=== PATIENT | female | born 1985 | race Caucasian/White ===

== ENCOUNTER 2018-02-06 18:04 | Emergency (ER) | payer SELFPAY ==
[~2018-02-06] VITALS: Ht 154.9 cm; Wt 158.0 kg
[2018-02-06 19:36] LABS: BILIRUBIN,URINE NEGATIVE (NEGATIVE); CLARITY,URINE BLOODY; COLOR,URINE RED; GLUCOSE, URINE (UA) NEGATIVE (NEGATIVE); KETONES,URINE 1+ (NEGATIVE); LEUKOCYTE ESTERASE ,URINE 2+ (NEGATIVE); NITRITE,URINE POSITIVE (NEGATIVE); PH,URINE 8 (5-9); PROTEIN,URINE 3+ (NEGATIVE); UROBILINOGEN,URINE NORMAL (NORMAL)
[2018-02-06 19:46] LABS: BACTERIA,URINE LARGE /HPF; RBC,URINE TNTC /HPF
[2018-02-06] MEDS ORDERED: CIPR-225 PO (20:52)
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
[2018-02-06] MEDS ORDERED: CIPROFLOXACIN 500 MG (CIPRO) TABLET PO SCH (20:55)
[2018-02-06 21:10] VITALS: BP 148/90
--- OUTSIDE RECORDS SUMMARY | 2018-02-08 06:34 | XMS REPORT | Continuity of Care Document ---
Author Author [facility] Organization [facility] Address Unknown Phone Unavailable Care Team Providers Care Associate Merchant Name Role Phone BONITA ARMSTRONG M.D. PCP Insurance Providers Payer Name Policy Number Subscriber Name Relationship [facility] [id number] Matt Islas 02 Chief Complaint and Reason for Visit Chief Complaint Abdominal Pain Reason for Visit Kidney stone [id number] Abdominal pain Problems Medical Problems Problem Onset Date Status Candidiasis of skin 10/10/2012 Active Cellulitis 10/10/2012 Active Leukocytosis 10/10/2012 Active Acute on chronic headache Unknown Active Breast wound Unknown Active Dental abscess Unknown Active Dental abscess Unknown Active Urticaria Unknown Active Dental abscess Unknown Active Urticaria Unknown Active Kidney stone Unknown Active UTI (urinary tract infection) Unknown Active Abdominal pain Unknown Active Kidney stone Unknown Active Medications Medication Dose Route Sig Days/Qty Instructions Order Date Discontinued Date Status Gemfibrozil 600 Mg PO TWICE A DAY 60 Qty 03/26/15 Active Sulfamethoxazole-Trimethoprim 1 Tab PO TWICE A DAY For BACTINF 20 Qty 05/08/15 Active Oxycodone/Acetaminophen 1 Tab PO Q6H PRN PAIN 10 Qty 05/08/15 Active Social History Social History Problem Response Recorded Date/Time Smoking Status Heavy Tobacco Smoker 05/08/2015 12:45am Query Response Start Date Stop Date Smoking Status Heavy Tobacco Smoker Hospital Discharge Instructions No hospital discharge instructions. Plan of Care Discharge Date 05/08/15 3:40am Disposition 01 HOME, SELF-CARE Condition at Discharge Improved/Stable Instructions/Education Provided Urinary Tract Infection in Women (ED) Abdominal Pain (ED) Prescriptions See Medications Section Referrals BONITA ARMSTRONG M.D. Additional Instructions/Education Testing today showed signs of a urinary tract infection but no obstructing kidney stone. You have a small stone just floating around in your right kidney. Gall bladder and appendix appeared normal. Complete antibiotic course. Use Percocet for pain. Call the ER tomorrow to get pending lab results. Return to the ER if with worsening pain, persistent vomiting, high fever or blood in stool or vomitus. Functional Status No functional status results. Allergies, Adverse Reactions, Alerts Allergen Type Severity Reaction Status Last Updated Penicillins Allergy Unknown Active 11/02/14 BETALACTAMASEIN Allergy Unknown Active 11/02/14 Immunizations No immunization records. Vital Signs Acute Vital Signs Vital Response Date/Time Blood Pressure 124/76 mm Hg Blood Pressure Mean 92 mm Hg Temperature (Fahrenheit) 99.7 degrees F (96.0 - 99.9) Temperature (Calculated Celsius) 37.07581 degrees C Temperature Source Oral Pulse Pulse Rate: ED 88 bpm Respiratory Rate 18 breaths per minute (10 - 20) Height (Feet) 5 ft Height (Inches) 2 in. Weight (Pounds) 342 lbs Height 5 ft 2 in Weight 342 lb Body Mass Index 62.6 kg/m^2 Results Test Source Date Result Interp. Ref. Range Comments Alanine Aminotransferase (ALT/SGPT) May 08, 2015 1:10am 33 U/L N 5-40 Albumin May 08, 2015 1:10am 3.5 gm/dL N 3.2-5.0 Albumin/Globulin Ratio May 08, 2015 1:10am 1.0 L 1.4-2.4 Alkaline Phosphatase May 08, 2015 1:10am 80 U/L N 35-125 Anion Gap May 08, 2015 1:10am 8.8 N 6-13 Aspartate Amino Transf (AST/SGOT) May 08, 2015 1:10am 22 U/L N 5-40 BUN/Creatinine Ratio May 08, 2015 1:10am 15.7 Basophils # (Auto) May 08, 2015 1:10am 0.1 K/uL N 0-0.2 Basophils (%) (Auto) May 08, 2015 1:10am 0.4 % N 0-1 Bedside Troponin I August 09, 2013 12:37am < 0.05 ng/mL 0.00-0.05 <0.05 ng/mL=NORMAL0.05 - 0.40 ng/mL=CARDIAC CONDITION >0.40 ng/mL=SUGGESTS AMI Blood Urea Nitrogen May 08, 2015 1:10am 13 mg/dL N 8-25 Calcium Level May 08, 2015 1:10am 8.8 mg/dL N 8.2-10.6 Carbon Dioxide Level May 08, 2015 1:10am 26 mEq/L N 22-34 Chloride Level May 08, 2015 1:10am 105 mEq/L N 98-116 Creatinine May 08, 2015 1:10am 0.83 mg/dL L 0.9-1.6 D-Dimer Quantitative (PE/DVT) August 09, 2013 12:20am 154 ng/mL < 230 Results <230 ng/mL yeild a negativepredictability for DVT or PE Eosinophils # (Auto) May 08, 2015 1:10am 0.1 K/uL N 0-0.8 Eosinophils (%) (Auto) May 08, 2015 1:10am 0.6 % N 0-7.0 Globulin May 08, 2015 1:10am 3.5 gm/dL H 2.0-3.0 Glomerular Filtration Rate Calc May 08, 2015 1:10am > 60.00 mL/min MULTIPLY RESULT BY 1.210 IF THE PATIENT IS -AMERICANUnits are mL/min/ 1.73 m2 > 60 Normal kidney function 30-59 Moderately decreased kidney function 15-29 Severely decreased kidney function <15 End-stage kidney failure Hematocrit May 08, 2015 1:10am 40.0 % N 38.0-47.0 Hemoglobin May 08, 2015 1:10am 13.2 g/dL N 12.0-16.0 Immature Blood Cells August 09, 2013 12:20am 0.2 K/uL N 0-0.4 COMMENT: 02 Immature Granulocyte # (Auto) May 08, 2015 1:10am 0.08 K/uL N 0-0.40 Immature Granulocyte % (Auto) May 08, 2015 1:10am 0.5 % N 0-0.5 Immature Platelet Fraction May 08, 2015 1:10am 4.1 % N 3.0-15.9 Lipase May 08, 2015 1:10am 24 U/L N 8-57 Lymphocytes # (Auto) May 08, 2015 1:10am 2.6 K/uL N 0.9-5.2 Lymphocytes (%) (Auto) May 08, 2015 1:10am 16.4 % N 16.0-44.0 Mean Corpuscular Hemoglobin May 08, 2015 1:10am 29.9 pg N 26.0-33.0 Mean Corpuscular Hemoglobin Concent May 08, 2015 1:10am 33.0 g/dL N 31.0-36.0 Mean Corpuscular Volume May 08, 2015 1:10am 90.5 fL N 82.0-100.0 Mean Platelet Volume May 08, 2015 1:10am 10.4 fL N 7.0-11.0 Monocytes # (Auto) May 08, 2015 1:10am 0.9 K/uL N 0.16-1.0 Monocytes (%) (Auto) May 08, 2015 1:10am 5.3 % N 2.0-9.0 Neutrophils # (Auto) May 08, 2015 1:10am 12.4 K/uL H 1.9-8.0 Neutrophils (%) (Auto) May 08, 2015 1:10am 76.8 % H 42.0-75.0 Nucleated Red Blood Cells # May 08, 2015 1:10am 0.00 K/uL N 0.0-0.012 Nucleated Red Blood Cells % May 08, 2015 1:10am 0.0 /100WBC N 0-0 Platelet Count May 08, 2015 1:10am 244 K/uL N 130-400 Potassium Level May 08, 2015 1:10am 3.8 mEq/L N 3.5-5.1 RDW Standard Deviation May 08, 2015 1:10am 42.8 fL N 36.4-46.3 Random Glucose May 08, 2015 1:10am 104 mg/dL N 65-115 Red Blood Count May 08, 2015 1:10am 4.42 M/uL N 4.20-5.40 Red Cell Distribution Width May 08, 2015 1:10am 13.0 % N 11.5-14.5 Sodium Level May 08, 2015 1:10am 136 mEq/L N 133-145 Total Bilirubin May 08, 2015 1:10am 0.5 mg/dL N 0.1-1.3 Total Creatine Kinase July 08, 2013 1:52am 90 U/L N 10-180 COMMENT: TR Total Protein May 08, 2015 1:10am 7.0 gm/dL N 6.0-8.4 Urine Amorphous Sediment October 09, 2012 11:10pm 1+ COMMENT: 02SOURCE: URINE, CLEAN CATCH Urine Appearance May 08, 2015 1:10am Cloudy SOURCE: URINE, CLEAN CATCH Urine Bacteria May 08, 2015 1:10am 1+ /hpf H NONE SOURCE: URINE, CLEAN CATCH Urine Bilirubin May 08, 2015 1:10am Negative NEGATIVE SOURCE: URINE , CLEAN CATCH Urine Casts October 09, 2012 11:10pm None /lpf NONE COMMENT: 02SOURCE: URINE, CLEAN CATCH Urine Color May 08, 2015 1:10am Yellow SOURCE: URINE, CLEAN CATCH Urine Crystals October 09, 2012 11:10pm None /hpf NONE COMMENT: 02SOURCE: URINE, CLEAN CATCH Urine Epithelial Cells May 08, 2015 1:10am Moderate /lpf 2+ CLUE CELLS Urine Glucose (UA) May 08, 2015 1:10am Negative NEGATIVE SOURCE: URINE, CLEAN CATCH Urine Human Chorionic Gonadotropin May 08, 2015 1:10am Negative NEGATIVE Urine Ketones May 08, 2015 1:10am Negative NEGATIVE SOURCE: URINE, CLEAN CATCH Urine Leukocyte Esterase May 08, 2015 1:10am 1+ H NEGATIVE SOURCE: URINE, CLEAN CATCH Urine Mucus October 09, 2012 11:10pm None /lpf NONE COMMENT: 02SOURCE: URINE, CLEAN CATCH Urine Nitrate May 08, 2015 1:10am Negative NEGATIVE SOURCE: URINE, CLEAN CATCH Urine Occult Blood May 08, 2015 1:10am 3+ H NEGATIVE SOURCE: URINE, CLEAN CATCH Urine Other October 09, 2012 11:10pm N COMMENT: 02SOURCE: URINE, CLEAN CATCH Urine Protein May 08, 2015 1:10am Trace NEGATIVE SOURCE: URINE, CLEAN CATCH Urine RBC May 08, 2015 1:10am >100 /hpf H NONE SOURCE: URINE, CLEAN CATCH Urine Specific [place] May 08, 2015 1:10am 1.025 1.005-1.030 SOURCE : URINE, CLEAN CATCH Urine Urobilinogen May 08, 2015 1:10am 0.2 E.U./dL 0.2-1.0 SOURCE: URINE, CLEAN CATCH Urine WBC May 08, 2015 1:10am 10-25 /hpf H NONE THIS SPECIMEN MEETS MEDICAL STAFF CRITERIAFOR A URINE CULTURE. A CULTURE HAS BEEN SET. Urine WBC Clumps May 08, 2015 1:10am 0-1 /hpf NONE SOURCE: URINE, CLEAN CATCH Urine pH May 08, 2015 1:10am 7.0 4.5-8.0 SOURCE: URINE, CLEAN CATCH White Blood Count May 08, 2015 1:10am 16.1 K/uL H 5.0-10.0 Blood Culture Blood October 09, 2012 11:35pm No growth. Urine Culture Urine,Clean Catch October 09, 2012 11:10pm >100,000 CFU/ML MIXED BODY MATIAS AFTE... Wound Culture Abdomen October 09, 2012 11:10pm Proteus Mirabil[facility] Procedures No known history of procedures. Encounters Encounter Location Date/Time Registered Emergency Room [facility] 05/08/15 12:41am Departed Emergency Room [facility] 03/26/15 10:04pm Departed Emergency Room [facility] 11/14/14 10:02pm Departed Emergency Room [facility] 05/29/14 6:30pm Recent Diagnosis
--- OUTSIDE RECORDS SUMMARY | 2018-02-08 06:35 | XMS REPORT | Continuity of Care Document ---
Author Author [facility] Organization [facility] Address Unknown Phone Unavailable Care Team Providers Care Rn Gyn Name Role Phone BONITA ARMSTRONG M.D. PCP Insurance Providers Payer Name Policy Number Subscriber Name Relationship [facility] [id number] AntonyKarolina Jocelin 02 Chief Complaint and Reason for Visit Chief Complaint Skin Problem Reason for Visit Urticaria Dental abscess Problems Medical Problems Problem Onset Date Status Candidiasis of skin 10/10/2012 Active Cellulitis 10/10/2012 Active Leukocytosis 10/10/2012 Active Acute on chronic headache Unknown Active Breast wound Unknown Active Dental abscess Unknown Active Dental abscess Unknown Active Urticaria Unknown Active Dental abscess Unknown Active Medications Medication Dose Route Sig Days/Qty Instructions Order Date Discontinued Date Status Gemfibrozil 600 Mg PO TWICE A DAY 60 Qty 03/26/15 Active Clindamycin Hcl 2 Tab PO THREE TIMES A DAY For BACTINF 42 Qty 03/26/15 Active Prednisone 20 Mg PO DAILY For INFLAMMATION 6 Days 03/26/15 Active Tramadol Hcl 50 Mg PO Every 8 hours as needed PRN PAIN 10 Qty 03/26/15 Active Social History Social History Problem Response Recorded Date/Time Smoking Status Heavy Tobacco Smoker 03/26/2015 10:07pm Query Response Start Date Stop Date Smoking Status Heavy Tobacco Smoker Hospital Discharge Instructions No hospital discharge instructions. Plan of Care Discharge Date 03/26/15 10:53pm Disposition 01 HOME, SELF-CARE Condition at Discharge Stable Instructions/Education Provided Dental Abscess (ED) Urticaria (ED) Prescriptions See Medications Section Referrals BONITA ARMSTRONG M.D. Additional Instructions/Education Complete antibiotic and steroid course. Use Benadryl every 6 hours for the next 2 days then as needed. Use Ibuprofen for mild pain and Tramadol for breakthrough pain. Functional Status No functional status results. Allergies, Adverse Reactions, Alerts Allergen Type Severity Reaction Status Last Updated Penicillins Allergy Unknown Active 11/02/14 BETALACTAMASEIN Allergy Unknown Active 11/02/14 Immunizations No immunization records. Vital Signs Acute Vital Signs Vital Response Date/Time Blood Pressure 124/69 mm Hg Blood Pressure Mean 87 mm Hg Temperature (Fahrenheit) 98.1 degrees F (96.0 - 99.9) Temperature (Calculated Celsius) 36.55670 degrees C Temperature Source Oral Pulse Pulse Rate: ED 66 bpm Respiratory Rate 18 breaths per minute (10 - 20) Height (Feet) 5 ft Height (Inches) 1 in. Weight (Pounds) 340 lbs Results Test Source Date Result Interp. Ref. Range Comments Alanine Aminotransferase (ALT/SGPT) August 09, 2013 12:20am 19 U/L N 5-40 COMMENT: 02 Albumin August 09, 2013 12:20am 3.1 gm/dL L 3.2-5.0 COMMENT: 02 Albumin/Globulin Ratio August 09, 2013 12:20am 0.8 L 1.4-2.4 COMMENT : 02 Alkaline Phosphatase August 09, 2013 12:20am 78 U/L N 35-125 COMMENT : 02 Anion Gap August 09, 2013 12:20am 4.1 L 6-13 COMMENT: 02 Aspartate Amino Transf (AST/SGOT) August 09, 2013 12:20am 19 U/L N 5- 40 COMMENT: 02 BUN/Creatinine Ratio August 09, 2013 12:20am 19.0 COMMENT: 02 Basophils # (Auto) August 09, 2013 12:20am 0.0 K/uL N 0-0.2 COMMENT : 02 Basophils (%) (Auto) August 09, 2013 12:20am 0.4 % N 0-1 COMMENT: 02 Blood Urea Nitrogen August 09, 2013 12:20am 12 mg/dL N 8-25 COMMENT : 02 Calcium Level August 09, 2013 12:20am 8.9 mg/dL N 8.2-10.6 COMMENT: 02 Carbon Dioxide Level August 09, 2013 12:20am 24 mEq/L N 22-34 COMMENT: 02 Chloride Level August 09, 2013 12:20am 111 mEq/L N 98-116 COMMENT: 02 Creatinine August 09, 2013 12:20am 0.63 mg/dL L 0.9-1.6 COMMENT: 02 Eosinophils # (Auto) August 09, 2013 12:20am 0.2 K/uL N 0-0.8 COMMENT: 02 Eosinophils (%) (Auto) August 09, 2013 12:20am 1.7 % N 0-7.0 COMMENT : 02 Globulin August 09, 2013 12:20am 3.9 gm/dL H 2.0-3.0 COMMENT: 02 Hematocrit August 09, 2013 12:20am 37.6 % L 38.0-47.0 COMMENT: 02 Hemoglobin August 09, 2013 12:20am 12.9 g/dL N 12.0-16.0 COMMENT: 02 Immature Blood Cells August 09, 2013 12:20am 0.2 K/uL N 0-0.4 COMMENT: 02 Lymphocytes # (Auto) August 09, 2013 12:20am 2.6 K/uL N 0.9-5.2 COMMENT: 02 Lymphocytes (%) (Auto) August 09, 2013 12:20am 31.7 % N 16.0-44.0 COMMENT: 02 Mean Corpuscular Hemoglobin August 09, 2013 12:20am 29.7 pg N 26.0- 33.0 COMMENT: 02 Mean Corpuscular Hemoglobin Concent August 09, 2013 12:20am 34.3 g/dL N 31.0-36.0 COMMENT: 02 Mean Corpuscular Volume August 09, 2013 12:20am 86.6 fL N 82.0-100.0 COMMENT: 02 Mean Platelet Volume August 09, 2013 12:20am 7.0 fL N 7.0-11.0 COMMENT: 02 Monocytes # (Auto) August 09, 2013 12:20am 0.4 K/uL N 0.16-1.0 COMMENT: 02 Monocytes (%) (Auto) August 09, 2013 12:20am 4.3 % N 2.0-9.0 COMMENT : 02 Neutrophils # (Auto) August 09, 2013 12:20am 4.9 K/uL N 1.9-8.0 COMMENT: 02 Neutrophils (%) (Auto) August 09, 2013 12:20am 59.5 % N 42.0-75.0 COMMENT: 02 Platelet Count August 09, 2013 12:20am 239 K/uL N 130-400 COMMENT: 02 Potassium Level August 09, 2013 12:20am 4.1 mEq/L N 3.5-5.1 COMMENT : 02 Random Glucose August 09, 2013 12:20am 111 mg/dL N 65-115 COMMENT: 02 Red Blood Count August 09, 2013 12:20am 4.35 M/uL N 4.20-5.40 COMMENT: 02 Red Cell Distribution Width August 09, 2013 12:20am 13.1 % N 11.5- 14.5 COMMENT: 02 Sodium Level August 09, 2013 12:20am 135 mEq/L N 133-145 COMMENT: 02 Total Bilirubin August 09, 2013 12:20am 0.4 mg/dL N 0.1-1.3 COMMENT : 02 Total Creatine Kinase July 08, 2013 1:52am 90 U/L N 10-180 COMMENT: TR Total Protein August 09, 2013 12:20am 7.0 gm/dL N 6.0-8.4 COMMENT: 02 Urine Amorphous Sediment October 09, 2012 11:10pm 1+ COMMENT: 02SOURCE: URINE, CLEAN CATCH Urine Appearance August 09, 2013 12:20am Cloudy COMMENT: 02SOURCE: URINE, CLEAN CATCH Urine Bacteria August 09, 2013 12:20am 1+ /hpf H NONE COMMENT: 02SOURCE: URINE, CLEAN CATCH Urine Bilirubin August 09, 2013 12:20am Negative NEGATIVE COMMENT : 02SOURCE: URINE, CLEAN CATCH Urine Casts October 09, 2012 11:10pm None /lpf NONE COMMENT: 02SOURCE: URINE, CLEAN CATCH Urine Color August 09, 2013 12:20am Yellow COMMENT: 02SOURCE: URINE, CLEAN CATCH Urine Crystals October 09, 2012 11:10pm None /hpf NONE COMMENT: 02SOURCE: URINE, CLEAN CATCH Urine Epithelial Cells August 09, 2013 12:20am Moderate /lpf COMMENT: 02SOURCE: URINE, CLEAN CATCH Urine Glucose (UA) August 09, 2013 12:20am Negative NEGATIVE COMMENT: 02SOURCE: URINE, CLEAN CATCH Urine Human Chorionic Gonadotropin August 09, 2013 12:20am Negative NEGATIVE COMMENT: 02 Urine Ketones August 09, 2013 12:20am Negative NEGATIVE COMMENT: 02SOURCE: URINE, CLEAN CATCH Urine Leukocyte Esterase August 09, 2013 12:20am Negative NEGATIVE COMMENT: 02SOURCE: URINE, CLEAN CATCH Urine Mucus October 09, 2012 11:10pm None /lpf NONE COMMENT: 02SOURCE: URINE, CLEAN CATCH Urine Nitrate August 09, 2013 12:20am Negative NEGATIVE COMMENT: 02SOURCE: URINE, CLEAN CATCH Urine Occult Blood August 09, 2013 12:20am 1+ H NEGATIVE COMMENT: 02SOURCE: URINE, CLEAN CATCH Urine Other October 09, 2012 11:10pm N COMMENT: 02SOURCE: URINE, CLEAN CATCH Urine Protein August 09, 2013 12:20am Negative NEGATIVE COMMENT: 02SOURCE: URINE, CLEAN CATCH Urine RBC August 09, 2013 12:20am 0-1 /hpf NONE COMMENT: 02SOURCE : URINE, CLEAN CATCH Urine Specific [place] August 09, 2013 12:20am 1.015 1.005-1.030 COMMENT: 02SOURCE: URINE, CLEAN CATCH Urine Urobilinogen August 09, 2013 12:20am 0.2 E.U./dL 0.2-1.0 COMMENT: 02SOURCE: URINE, CLEAN CATCH Urine WBC August 09, 2013 12:20am None /hpf NONE COMMENT: 02SOURCE : URINE, CLEAN CATCH Urine WBC Clumps August 09, 2013 12:20am None /hpf NONE COMMENT: 02SOURCE: URINE, CLEAN CATCH Urine pH August 09, 2013 12:20am 6.5 4.5-8.0 COMMENT: 02SOURCE: URINE, CLEAN CATCH White Blood Count August 09, 2013 12:20am 8.3 K/uL N 5.0-10.0 COMMENT: 02 D-Dimer Quantitative (PE/DVT) August 09, 2013 12:20am 154 ng/mL < 230 Results <230 ng/mL yeild a negativepredictability for DVT or PE Bedside Troponin I August 09, 2013 12:37am < 0.05 ng/mL 0.00-0.05 <0.05 ng/mL=NORMAL0.05 - 0.40 ng/mL=CARDIAC CONDITION >0.40 ng/mL=SUGGESTS AMI Glomerular Filtration Rate Calc August 09, 2013 12:20am > 60.00 mL/min MULTIPLY RESULT BY 1.210 IF THE PATIENT IS -AMERICANUnits are mL/ min/1.73 m2 > 60 Normal kidney function 30-59 Moderately decreased kidney function 15-29 Severely decreased kidney function <15 End-stage kidney failure Blood Culture Blood October 09, 2012 11:35pm No growth. Urine Culture Urine,Clean Catch October 09, 2012 11:10pm >100,000 CFU/ML MIXED BODY MATIAS AFTE... Wound Culture Abdomen October 09, 2012 11:10pm [facility] Procedures No known history of procedures. Encounters Encounter Location Date/Time Departed Emergency Room [facility] 03/26/15 10:04pm Departed Emergency Room [facility] 11/14/14 10:02pm Departed Emergency Room [facility] 05/29/14 6:30pm Departed Emergency Room [facility] 04/06/14 9:37pm Recent Diagnosis
--- OUTSIDE RECORDS SUMMARY | 2018-02-08 06:35 | XMS REPORT | Continuity of Care Document ---
Author Author [facility] Organization [facility] Address Unknown Phone Unavailable Allergies There is no data. Medications There is no data. Problems Date Dx Coded Attending Type Code Diagnosis Diagnosed By 08/30/2012 Harvey POSADAS, Guicho Morris W 644.03 THRT [facility] Procedures There is no data. <section xmlns="urn:hl7-org:v3" xmlns:xsi="http:// www.[employer]act[employer]3.org/2001/XMLSchema-instance"> <templateId root= "2.16.840.1.344075.10.20.22.2.3" /> <templateId root= "2.16.840.1.109150.10.20.22.2.3.1" /> <code codeSystemName="LOINC" codeSystem= "2.16.840.1.124548.6.1" code="52294-0" displayName="Results" /> <title>Results< /title> <text> <table> <thead> <tr> <th>Test</th> <th>Result</th> <th>Range</th> </tr> </thead> < tbody> <tr> <th colspan="10">URINALYSIS WITH MICROSCOPIC - 08/29 12:00</th> </tr> <tr> <td>UA LEUKOCYTE ESTERASE DIPSTICK</td> <td>2+ </td> <td>NEGATIVE</td> </tr> <tr> <td>UA NITRITE DIPSTICK</td> <td>NEGATIVE </td> <td>NEGATIVE</td> </tr> <tr> <td>UA PROTEIN DIPSTICK </td> <td>NEGATIVE </td> <td>NEGATIVE</td> </tr> <tr> <td>UA GLUCOSE DIPSTICK</td> <td>NEGATIVE </td> <td>NEGATIVE</td> </tr> <tr> <td>UA KETONE DIPSTICK</ td> <td>NEGATIVE </td> <td>NEGATIVE</td> </tr> < tr> <td>UA UROBILINOGEN DIPSTICK</td> <td>NORMAL </td> <td>NORMAL</td> </tr> <tr> <td>UA BILIRUBIN DIPSTICK</ td> <td>NEGATIVE </td> <td>NEGATIVE</td> </tr> < tr> <td>UA BLOOD DIPSTICK</td> <td>NEGATIVE </td> <td >NEGATIVE</td> </tr> <tr> <td>UA BACTERIA</td> < td>4+ </td> <td>NEGATIVE</td> </tr> <tr> <td>UA EPITHELIAL CELLS</td> <td>3+ epi/hpf</td> <td>0 - 1+</td> </tr> <tr> <td>UA RBC</td> <td>5-10 rbc/hpf</td> <td>0 - 3</td> </tr> <tr> <td>UA VOLUME FOR EXAM< /td> <td>12.0 mL</td> <td>(12mL STD)</td> </tr> <tr> <td>UA WBC</td> <td>20-50 wbc/hpf</td> <td>0 - 5 </td> </tr> <tr> <td>UA SPECIFIC GRAVITY</td> < td>1.020 </td> <td>1.015-1.025</td> </tr> <tr> < td>UR PH</td> <td>7.0 </td> <td>5.0-7.0</td> </tr> <tr> < colspan="10">URINE CULTURE - 08/29/12 12:29</th> </ tr> <tr> <td>Uncategorized</td> <td> </td> < td /> </tr> <tr> <th colspan="10">CBC - 09/09/12 10:45</ th> </tr> <tr> <td>MEAN CELL HGB</td> <td>32.1 pg</td> <td>27.0-33.0</td> </tr> <tr> <td>MEAN CELL HGB CONCENTRATION</td> <td>35.1 g/dl</td> <td>32.0-36.0</ td> </tr> <tr> <td>MEAN CELL VOLUME</td> <td> 91.6 fl</td> <td>80.0-100.0</td> </tr> <tr> <td> RED BLOOD CELL</td> <td>3.89 m/cumm</td> <td>4.00-6.00</td> </tr> <tr> <td>RED CELL DISTRIBUTION WIDTH</td> < td>13.9 %</td> <td>11.0-15.6</td> </tr> <tr> <td>WHITE BLOOD CELL</td> <td>13.2 k/cumm</td> <td>5.0-10.0< /td> </tr> <tr> <td>HEMOGLOBIN</td> <td>12.5 gm/ dL</td> <td>12.0-16.0</td> </tr> <tr> <td> HEMATOCRIT</td> <td>35.6 %</td> <td>37.0-47.0</td> </tr> <tr> <td>PLATELET COUNT</td> <td>216 k/cumm</td> <td>150-450</td> </tr> <tr> <th colspan="10"> HEMOGLOBIN - 09/09/12 20:00</th> </tr> <tr> <td>MEAN CELL VOLUME</td> <td>91.8 fl</td> <td>80.0-100.0</td> < /tr> <tr> <td>HEMOGLOBIN</td> <td>11.4 gm/dL</td> <td>12.0-16.0</td> </tr> <tr> <th colspan="10"> HEMOGLOBIN - 09/10/12 06:38</th> </tr> <tr> <td>MEAN CELL VOLUME</td> <td>91.8 fl</td> <td>80.0-100.0</td> < /tr> <tr> <td>HEMOGLOBIN</td> <td>10.9 gm/dL</td> <td>12.0-16.0</td> </tr> <tr> <th colspan="10">CBC W /DIFF - 01/13/13 12:48</th> </tr> <tr> <td>COMMENT</td> <td>REVIEWED </td> <td /> </tr> <tr> < td>GRANULOCYTE #</td> <td>15.1 k/cumm</td> <td>2.0-9.0</td> </tr> <tr> <td>GRANULOCYTE %</td> <td>85 &#37 ;</td> <td>50-75</td> </tr> <tr> <td>LYMPHOCYTE #</td> <td>1.6 k/cumm</td> <td>1.0-4.0</td> </tr> <tr> <td>LYMPHOCYTE %</td> <td>9 %</td> < td>20-30</td> </tr> <tr> <td>MEAN CELL HGB</td> <td>29.2 pg</td> <td>27.0-33.0</td> </tr> <tr> < td>MEAN CELL HGB CONCENTRATION</td> <td>33.6 g/dL</td> <td> 32.0-37.0</td> </tr> <tr> <td>MEAN CELL VOLUME</td> <td>87.1 fl</td> <td>80.0-100.0</td> </tr> <tr> <td>MONOCYTE #</td> <td>0.9 k/cumm</td> <td>0.1-1.0</td > </tr> <tr> <td>MONOCYTE %</td> <td>5 % </td> <td>4-6</td> </tr> <tr> <td>RED BLOOD CELL </td> <td>4.96 m/cumm</td> <td>4.00-6.00</td> </tr> <tr> <td>RED CELL DISTRIBUTION WIDTH</td> <td>13.4 %< /td> <td>11.0-15.6</td> </tr> <tr> <td>WHITE BLOOD CELL</td> <td>17.8 k/cumm</td> <td>5.0-10.0</td> </tr> <tr> <td>HEMOGLOBIN</td> <td>14.5 gm/dL</td> <td>12.0-16.0</td> </tr> <tr> <td>HEMATOCRIT</td> <td>43.2 %</td> <td>37.0-47.0</td> </tr> <tr > <td>PLATELET COUNT</td> <td>216 k/cumm</td> <td>150 -400</td> </tr> <tr> <th colspan="10">UR TEST - 01/13/13 12:48</th> </tr> <tr> <td>UR TEST</ td> <td>NEGATIVE </td> <td>NEGATIVE</td> </tr> < tr> <th colspan="10">UA MICROSCOPIC - 01/13/13 12:48</th> </tr> <tr> <td>UA BACTERIA</td> <td>2+ </td> <td> NEGATIVE</td> </tr> <tr> <td>UA EPITHELIAL CELLS</td> <td>4+ epi/hpf</td> <td>0 - 1+</td> </tr> <tr> <td>UA MUCUS</td> <td>3+ </td> <td>NEG TO 1+</td> </tr> <tr> <td>UA RBC</td> <td>0-3 rbc/hpf</td> <td>0 - 3</td> </tr> <tr> <td>UA VOLUME FOR EXAM</ td> <td>12.0 mL</td> <td>(12mL STD)</td> </tr> < tr> <td>UA WBC</td> <td>2-5 wbc/hpf</td> <td>0 - 5</ td> </tr> <tr> <th colspan="10">CHEM/HEM PROFILE-BEDSIDE - 01/13/13 12:53</th> </tr> <tr> <td>POTASSIUM</td> <td>4.3 mmol/L</td> <td>3.5-5.3</td> </tr> <tr> <td>METHOD</td> <td>Bedside </td> <td /> </tr> <tr> <td>ANION GAP</td> <td>13 mmol/L</td> <td> 10-20</td> </tr> <tr> <td>METHOD</td> <td> Bedside </td> <td /> </tr> <tr> <td>GLUCOSE</td > <td>122 mg/dL</td> <td>70-99</td> </tr> <tr> <td>BLOOD UREA NITROGEN</td> <td>12 mg/dL</td> <td>7- 20</td> </tr> <tr> <td>CREATININE</td> <td>0.7 mg/dL</td> <td>0.6-1.0</td> </tr> <tr> <td> HEMOGLOBIN</td> <td>14.3 gm/dL</td> <td>12.0-16.0</td> </tr> <tr> <td>HEMATOCRIT</td> <td>42.0 %</td> <td>37.0-47.0</td> </tr> <tr> <td>SODIUM</td> <td>139 mmol/L</td> <td>135-148</td> </tr> <tr> <td>CHLORIDE</td> <td>108 mmol/L</td> <td>98-110</td> </tr> <tr> <td>CARBON DIOXIDE</td> <td>23 mmol/L< /td> <td>21-32</td> </tr> <tr> <td>CALCIUM IONIZED</td> <td>4.8 mg/dL</td> <td>4.5-5.3</td> </tr> </tbody> </table> </text> <entry> <organizer moodCode="EVN" classCode="BATTERY"> <templateId root="2.16.840.1.163545.10.20.22.4.1" /> <id nullFlavor="NA" /> <code codeSystem="local" code="UAM" displayName ="URINALYSIS WITH MICROSCOPIC" /> <statusCode code="completed" /> < component> <observation moodCode="EVN" classCode="OBS"> < templateId root="2.16.840.1.155151.10..22.4.2" /> <id nullFlavor="NA " /> <code codeSystem="local" code="LEUESU" displayName="UA LEUKOCYTE ESTERASE DIPSTICK" /> <statusCode code="completed" /> < effectiveTime value="158667223018" /> <value unit="" xsi:type="PQ" value="2+" /> <interpretationCode codeSystem="local" code="*" /> <referenceRange> <observationRange> <text>NEGATIVE</ text> </observationRange> </referenceRange> </ observation> </component> <component> <observation moodCode= "EVN" classCode="OBS"> <templateId root="216.840.1.279589.09.19.22.4.2 " /> <id nullFlavor="NA" /> <code codeSystem="local" code= "NITRIU" displayName="UA NITRITE DIPSTICK" /> <statusCode code= "completed" /> <effectiveTime value="" /> <value unit="" xsi:type="PQ" value="NEGATIVE" /> <referenceRange> < observationRange> <text>NEGATIVE</text> </ observationRange> </referenceRange> </observation> </ component> <component> <observation moodCode="EVN" classCode="OBS"> <templateId root="840.1.143244.09.19.22.4.2" /> <id nullFlavor="NA" /> <code codeSystem="local" code="PROTEIU" displayName= "UA PROTEIN DIPSTICK" /> <statusCode code="completed" /> < effectiveTime value="" /> <value unit="" xsi:type="PQ" value="NEGATIVE" /> <referenceRange> <observationRange> <text>NEGATIVE</text> </observationRange> </ referenceRange> </observation> </component> <component> <observation moodCode="EVN" classCode="OBS"> <templateId root= "01.16.840.1.851020.09.19.22.4.2" /> <id nullFlavor="NA" /> < code codeSystem="local" code="DGLUU" displayName="UA GLUCOSE DIPSTICK" /> <statusCode code="completed" /> <effectiveTime value=" " /> <value unit="" xsi:type="PQ" value="NEGATIVE" /> < referenceRange> <observationRange> <text>NEGATIVE</text > </observationRange> </referenceRange> </observation > </component> <component> <observation moodCode="EVN" classCode="OBS"> <templateId root="01.16.840.1.766432.10..4.2" /> <id nullFlavor="NA" /> <code codeSystem="local" code="KETONU" displayName="UA KETONE DIPSTICK" /> <statusCode code="completed" /> <effectiveTime value="558433342094" /> <value unit="" xsi:type= "PQ" value="NEGATIVE" /> <referenceRange> <observationRange > <text>NEGATIVE</text> </observationRange> </ referenceRange> </observation> </component> <component> <observation moodCode="EVN" classCode="OBS"> <templateId root= "01.16.840.1.266938.10.4.2" /> <id nullFlavor="NA" /> < code codeSystem="local" code="UROBILU" displayName="UA UROBILINOGEN DIPSTICK" / > <statusCode code="completed" /> <effectiveTime value= "579024453331" /> <value unit="" xsi:type="PQ" value="NORMAL" /> <referenceRange> <observationRange> <text>NORMAL</ text> </observationRange> </referenceRange> </ observation> </component> <component> <observation moodCode= "EVN" classCode="OBS"> <templateId root="01.16.840.1.894949.10.4.2 " /> <id nullFlavor="NA" /> <code codeSystem="local" code= "BILU" displayName="UA BILIRUBIN DIPSTICK" /> <statusCode code= "completed" /> <effectiveTime value="357650774124" /> <value unit="" xsi:type="PQ" value="NEGATIVE" /> <referenceRange> < observationRange> <text>NEGATIVE</text> </ observationRange> </referenceRange> </observation> </ component> <component> <observation moodCode="EVN" classCode="OBS"> <templateId root="16.840.1.880773.10..22.4.2" /> <id nullFlavor="NA" /> <code codeSystem="local" code="ANABEL" displayName="UA BLOOD DIPSTICK" /> <statusCode code="completed" /> < effectiveTime value="861028265633" /> <value unit="" xsi:type="PQ" value="NEGATIVE" /> <referenceRange> <observationRange> <text>NEGATIVE</text> </observationRange> </ referenceRange> </observation> </component> <component> <observation moodCode="EVN" classCode="OBS"> <templateId root= "01.16.840.1.576359.10..4.2" /> <id nullFlavor="NA" /> < code codeSystem="local" code="BACU" displayName="UA BACTERIA" /> < statusCode code="completed" /> <effectiveTime value="382972024333" /> <value unit="" xsi:type="PQ" value="4+" /> < interpretationCode codeSystem="local" code="*" /> <referenceRange> <observationRange> <text>NEGATIVE</text> </ observationRange> </referenceRange> </observation> </ component> <component> <observation moodCode="EVN" classCode="OBS"> <templateId root="16.840.1.482672.10..22.4.2" /> <id nullFlavor="NA" /> <code codeSystem="local" code="EPIU" displayName=" UA EPITHELIAL CELLS" /> <statusCode code="completed" /> < effectiveTime value="130725295601" /> <value unit="epi/hpf" xsi:type= "PQ" value="3+" /> <interpretationCode codeSystem="local" code="*" /> <referenceRange> <observationRange> <text>0 - 1 +</text> </observationRange> </referenceRange> </ observation> </component> <component> <observation moodCode= "EVN" classCode="OBS"> <templateId root="2.16.840.1.815323.10..22.4.2 " /> <id nullFlavor="NA" /> <code codeSystem="local" code= "RBCU" displayName="UA RBC" /> <statusCode code="completed" /> <effectiveTime value="164728765721" /> <value unit="rbc/hpf" xsi:type ="PQ" value="5-10" /> <interpretationCode codeSystem="local" code="*" / > <referenceRange> <observationRange> <text>0 - 3</text> </observationRange> </referenceRange> </ observation> </component> <component> <observation moodCode= "EVN" classCode="OBS"> <templateId root="2.16.840.1.684150.10.20.22.4.2 " /> <id nullFlavor="NA" /> <code codeSystem="local" code= "UAVOL" displayName="UA VOLUME FOR EXAM" /> <statusCode code="completed " /> <effectiveTime value="306544500765" /> <value unit="mL" xsi:type="PQ" value="12.0" /> <referenceRange> < observationRange> <text>(12mL STD)</text> </ observationRange> </referenceRange> </observation> </ component> <component> <observation moodCode="EVN" classCode="OBS"> <templateId root="2.16.840.1.888132.10..4.2" /> <id nullFlavor="NA" /> <code codeSystem="local" code="WBCU" displayName=" UA WBC" /> <statusCode code="completed" /> <effectiveTime value="630109012148" /> <value unit="wbc/hpf" xsi:type="PQ" value="20- 50" /> <interpretationCode codeSystem="local" code="*" /> < referenceRange> <observationRange> <text>0 - 5</text> </observationRange> </referenceRange> </observation> </component> <component> <observation moodCode="EVN" classCode= "OBS"> <templateId root="216.840.1.489275.09.19.224.2" /> < id nullFlavor="NA" /> <code codeSystem="local" code="SPGRU" displayName ="UA SPECIFIC GRAVITY" /> <statusCode code="completed" /> < effectiveTime value="885313465423" /> <value unit="" xsi:type="PQ" value="1.020" /> <referenceRange> <observationRange> <text>1.015-1.025</text> </observationRange> </ referenceRange> </observation> </component> <component> <observation moodCode="EVN" classCode="OBS"> <templateId root= "2.16.840.1.143794.10..4.2" /> <id nullFlavor="NA" /> < code codeSystem="local" code="MARILYN" displayName="UR PH" /> <statusCode code="completed" /> <effectiveTime value="354238289128" /> < value unit="" xsi:type="PQ" value="7.0" /> <referenceRange> <observationRange> <text>5.0-7.0</text> </ observationRange> </referenceRange> </observation> </ component> </organizer> </entry> <entry> <organizer moodCode="EVN" classCode="BATTERY"> <templateId root="216.840.1.278862.10.20.22.4.1" /> <id nullFlavor="NA" /> <code codeSystem="local" code="UC" displayName= "URINE CULTURE" /> <statusCode code="completed" /> <component> <observation moodCode="EVN" classCode="OBS"> <templateId root= "216.840.1.953349.10..22.4.2" /> <id nullFlavor="NA" /> < code codeSystem="local" code="UNC" displayName="Uncategorized" /> < statusCode code="completed" /> <effectiveTime value="107492225036" /> <value xsi:type="ST" value="<pre><b>URINE CULTURE</b> See BelowURINE CULTURE(F) Gianna Date/Time: 08/29/2012 12:29 Lizz Date/Time: 08/31/2012 09:17SOURCE: URINESPEC DESC: CLEAN CATCHTREATMENT OF ASYMPTOMATIC BACTERIURIA IS NOT USUALLYCLINICALLY INDICATED.MIXED GRAM POSITIVE?MIXED GRAM POSITIVE [facility] - [phone] [place] [address]</pre>" /> <referenceRange> <observationRange> <text /> </observationRange> </referenceRange> </observation> </component> </ organizer> </entry> <entry> <organizer moodCode="EVN" classCode="BATTERY"> <templateId root="2.16.840.1.170605.10.20.22.4.1" /> <id nullFlavor= "NA" /> <code codeSystem="local" code="CBC" displayName="CBC" /> < statusCode code="completed" /> <component> <observation moodCode= "EVN" classCode="OBS"> <templateId root="16.840.1.750706.10...4.2 " /> <id nullFlavor="NA" /> <code codeSystem="local" code="MCH " displayName="MEAN CELL HGB" /> <statusCode code="completed" /> <effectiveTime value="194696291917" /> <value unit="pg" xsi:type= "PQ" value="32.1" /> <referenceRange> <observationRange> <text>27.0-33.0</text> </observationRange> </ referenceRange> </observation> </component> <component> <observation moodCode="EVN" classCode="OBS"> <templateId root= "01.16.840.1.481495.10..4.2" /> <id nullFlavor="NA" /> < code codeSystem="local" code="MCHC" displayName="MEAN CELL HGB CONCENTRATION" / > <statusCode code="completed" /> <effectiveTime value= "128041242403" /> <value unit="g/dl" xsi:type="PQ" value="35.1" /> <referenceRange> <observationRange> <text>32.0- 36.0</text> </observationRange> </referenceRange> </ observation> </component> <component> <observation moodCode= "EVN" classCode="OBS"> <templateId root="01.16.840.1.744501.10.20.22.4.2 " /> <id nullFlavor="NA" /> <code codeSystem="local" code="MCV " displayName="MEAN CELL VOLUME" /> <statusCode code="completed" /> <effectiveTime value="036875806479" /> <value unit="fl" xsi:type ="PQ" value="91.6" /> <referenceRange> <observationRange> <text>80.0-100.0</text> </observationRange> </ referenceRange> </observation> </component> <component> <observation moodCode="EVN" classCode="OBS"> <templateId root= "01.16.840.1.078565.10.2022.4.2" /> <id nullFlavor="NA" /> < code codeSystem="local" code="RBC" displayName="RED BLOOD CELL" /> < statusCode code="completed" /> <effectiveTime value="957541340329" /> <value unit="m/cumm" xsi:type="PQ" value="3.89" /> < interpretationCode codeSystem="local" code="*" /> <referenceRange> <observationRange> <text>4.00-6.00</text> </ observationRange> </referenceRange> </observation> </ component> <component> <observation moodCode="EVN" classCode="OBS"> <templateId root="01.16.840.1.113376.10.20.22.4.2" /> <id nullFlavor="NA" /> <code codeSystem="local" code="RDW" displayName=" RED CELL DISTRIBUTION WIDTH" /> <statusCode code="completed" /> <effectiveTime value="364669177386" /> <value unit="%" xsi:type= "PQ" value="13.9" /> <referenceRange> <observationRange> <text>11.0-15.6</text> </observationRange> </ referenceRange> </observation> </component> <component> <observation moodCode="EVN" classCode="OBS"> <templateId root= "01.16.840.1.003950.10.20.22.4.2" /> <id nullFlavor="NA" /> < code codeSystem="local" code="WBC" displayName="WHITE BLOOD CELL" /> < statusCode code="completed" /> <effectiveTime value="" /> <value unit="k/cumm" xsi:type="PQ" value="13.2" /> < interpretationCode codeSystem="local" code="*" /> <referenceRange> <observationRange> <text>5.0-10.0</text> </ observationRange> </referenceRange> </observation> </ component> <component> <observation moodCode="EVN" classCode="OBS"> <templateId root="01.16.840.1.394310.10..4.2" /> <id nullFlavor="NA" /> <code codeSystem="local" code="HGBT" displayName= "HEMOGLOBIN" /> <statusCode code="completed" /> < effectiveTime value="" /> <value unit="gm/dL" xsi:type="PQ " value="12.5" /> <referenceRange> <observationRange> <text>12.0-16.0</text> </observationRange> </ referenceRange> </observation> </component> <component> <observation moodCode="EVN" classCode="OBS"> <templateId root= "01.16.840.1.825676.10.20.22.4.2" /> <id nullFlavor="NA" /> < code codeSystem="local" code="HCTT" displayName="HEMATOCRIT" /> < statusCode code="completed" /> <effectiveTime value="376309217835" /> <value unit="%" xsi:type="PQ" value="35.6" /> < interpretationCode codeSystem="local" code="*" /> <referenceRange> <observationRange> <text>37.0-47.0</text> </ observationRange> </referenceRange> </observation> </ component> <component> <observation moodCode="EVN" classCode="OBS"> <templateId root="01.16.840.1.282894.10.20.22.4.2" /> <id nullFlavor="NA" /> <code codeSystem="local" code="PLT" displayName= "PLATELET COUNT" /> <statusCode code="completed" /> < effectiveTime value="945425791172" /> <value unit="k/cumm" xsi:type="PQ " value="216" /> <referenceRange> <observationRange> <text>150-450</text> </observationRange> </ referenceRange> </observation> </component> </organizer> </entry > <entry> <organizer moodCode="EVN" classCode="BATTERY"> <templateId root="840.1.166376.10..22.4.1" /> <id nullFlavor="NA" /> <code codeSystem="local" code="HGB" displayName="HEMOGLOBIN" /> <statusCode code= "completed" /> <component> <observation moodCode="EVN" classCode= "OBS"> <templateId root="01.16.840.1.458474.1020.22.4.2" /> < id nullFlavor="NA" /> <code codeSystem="local" code="MCV" displayName= "MEAN CELL VOLUME" /> <statusCode code="completed" /> < effectiveTime value="" /> <value unit="fl" xsi:type="PQ" value="91.8" /> <referenceRange> <observationRange> <text>80.0-100.0</text> </observationRange> </ referenceRange> </observation> </component> <component> <observation moodCode="EVN" classCode="OBS"> <templateId root= "216.840.1.725000.10.22.4.2" /> <id nullFlavor="NA" /> < code codeSystem="local" code="HGBT" displayName="HEMOGLOBIN" /> < statusCode code="completed" /> <effectiveTime value="" /> <value unit="gm/dL" xsi:type="PQ" value="11.4" /> < interpretationCode codeSystem="local" code="*" /> <referenceRange> <observationRange> <text>12.0-16.0</text> </ observationRange> </referenceRange> </observation> </ component> </organizer> </entry> <entry> <organizer moodCode="EVN" classCode="BATTERY"> <templateId root="216.840.1.262388.10..22.4.1" /> <id nullFlavor="NA" /> <code codeSystem="local" code="HGB" displayName ="HEMOGLOBIN" /> <statusCode code="completed" /> <component> < observation moodCode="EVN" classCode="OBS"> <templateId root= "216.840.1.728905.10..22.4.2" /> <id nullFlavor="NA" /> < code codeSystem="local" code="MCV" displayName="MEAN CELL VOLUME" /> < statusCode code="completed" /> <effectiveTime value="" /> <value unit="fl" xsi:type="PQ" value="91.8" /> <referenceRange > <observationRange> <text>80.0-100.0</text> </observationRange> </referenceRange> </observation> </ component> <component> <observation moodCode="EVN" classCode="OBS"> <templateId root="[id number]..4.2" /> <id nullFlavor="NA" /> <code codeSystem="local" code="HGBT" displayName= "HEMOGLOBIN" /> <statusCode code="completed" /> < effectiveTime value="" /> <value unit="gm/dL" xsi:type="PQ " value="10.9" /> <interpretationCode codeSystem="local" code="*" /> <referenceRange> <observationRange> <text>12.0- 16.0</text> </observationRange> </referenceRange> </ observation> </component> </organizer> </entry> <entry> <organizer moodCode="EVN" classCode="BATTERY"> <templateId root= "[id number]" /> <id nullFlavor="NA" /> <code codeSystem="local" code="CBCD" displayName="CBC W/DIFF" /> <statusCode code ="completed" /> <component> <observation moodCode="EVN" classCode= "OBS"> <templateId root="[id number]..22.4.2" /> < id nullFlavor="NA" /> <code codeSystem="local" code="CBCCOM" displayName="COMMENT" /> <statusCode code="completed" /> < effectiveTime value="[id number]" /> <value unit="" xsi:type="PQ" value="REVIEWED" /> <referenceRange> <observationRange> <text /> </observationRange> </referenceRange> </observation> </component> <component> <observation moodCode="EVN" classCode="OBS"> <templateId root= "[id number]..4.2" /> <id nullFlavor="NA" /> < code codeSystem="local" code="GR#" displayName="GRANULOCYTE #" /> < statusCode code="completed" /> <effectiveTime value="" /> <value unit="k/cumm" xsi:type="PQ" value="15.1" /> < interpretationCode codeSystem="local" code="*" /> <referenceRange> <observationRange> <text>2.0-9.0</text> </ observationRange> </referenceRange> </observation> </ component> <component> <observation moodCode="EVN" classCode="OBS"> <templateId root="[id number]" /> <id nullFlavor="NA" /> <code codeSystem="local" code="GR%" displayName= "GRANULOCYTE %" /> <statusCode code="completed" /> < effectiveTime value="" /> <value unit="%" xsi:type="PQ " value="85" /> <interpretationCode codeSystem="local" code="*" /> <referenceRange> <observationRange> <text>50-75</ text> </observationRange> </referenceRange> </ observation> </component> <component> <observation moodCode= "EVN" classCode="OBS"> <templateId root="840.1.387321.10.22.4.2 " /> <id nullFlavor="NA" /> <code codeSystem="local" code="LY# " displayName="LYMPHOCYTE #" /> <statusCode code="completed" /> <effectiveTime value="" /> <value unit="k/cumm" xsi:type ="PQ" value="1.6" /> <referenceRange> <observationRange> <text>1.0-4.0</text> </observationRange> </ referenceRange> </observation> </component> <component> <observation moodCode="EVN" classCode="OBS"> <templateId root= "[id number].2" /> <id nullFlavor="NA" /> < code codeSystem="local" code="LY%" displayName="LYMPHOCYTE %" /> <statusCode code="completed" /> <effectiveTime value="[id number]" /> <value unit="%" xsi:type="PQ" value="9" /> < interpretationCode codeSystem="local" code="*" /> <referenceRange> <observationRange> <text>20-30</text> </ observationRange> </referenceRange> </observation> </ component> <component> <observation moodCode="EVN" classCode="OBS"> <templateId root="01.16.840.1.190728.10.4.2" /> <id nullFlavor="NA" /> <code codeSystem="local" code="MCH" displayName= "MEAN CELL HGB" /> <statusCode code="completed" /> < effectiveTime value="[id number]" /> <value unit="pg" xsi:type="PQ" value="29.2" /> <referenceRange> <observationRange> <text>27.0-33.0</text> </observationRange> </ referenceRange> </observation> </component> <component> <observation moodCode="EVN" classCode="OBS"> <templateId root= "16.840.1.828189.10.2022.4.2" /> <id nullFlavor="NA" /> < code codeSystem="local" code="MCHC" displayName="MEAN CELL HGB CONCENTRATION" / > <statusCode code="completed" /> <effectiveTime value= "" /> <value unit="g/dL" xsi:type="PQ" value="33.6" /> <referenceRange> <observationRange> <text>32.0- 37.0</text> </observationRange> </referenceRange> </ observation> </component> <component> <observation moodCode= "EVN" classCode="OBS"> <templateId root="216.840.1.608719.10.20.22.4.2 " /> <id nullFlavor="NA" /> <code codeSystem="local" code="MCV " displayName="MEAN CELL VOLUME" /> <statusCode code="completed" /> <effectiveTime value="" /> <value unit="fl" xsi:type ="PQ" value="87.1" /> <referenceRange> <observationRange> <text>80.0-100.0</text> </observationRange> </ referenceRange> </observation> </component> <component> <observation moodCode="EVN" classCode="OBS"> <templateId root= "16.840.1.702838.10.20.22.4.2" /> <id nullFlavor="NA" /> < code codeSystem="local" code="MO#" displayName="MONOCYTE #" /> < statusCode code="completed" /> <effectiveTime value="" /> <value unit="k/cumm" xsi:type="PQ" value="0.9" /> < referenceRange> <observationRange> <text>0.1-1.0</text> </observationRange> </referenceRange> </observation > </component> <component> <observation moodCode="EVN" classCode="OBS"> <templateId root="216.840.1.255852.10.20.22.4.2" /> <id nullFlavor="NA" /> <code codeSystem="local" code="MO% " displayName="MONOCYTE %" /> <statusCode code="completed" /> <effectiveTime value="708405944012" /> <value unit="%" xsi: type="PQ" value="5" /> <referenceRange> <observationRange> <text>4-6</text> </observationRange> </ referenceRange> </observation> </component> <component> <observation moodCode="EVN" classCode="OBS"> <templateId root= "16.840.1.921057.10..22.4.2" /> <id nullFlavor="NA" /> < code codeSystem="local" code="RBC" displayName="RED BLOOD CELL" /> < statusCode code="completed" /> <effectiveTime value="" /> <value unit="m/cumm" xsi:type="PQ" value="4.96" /> < referenceRange> <observationRange> <text>4.00-6.00</text > </observationRange> </referenceRange> </observation > </component> <component> <observation moodCode="EVN" classCode="OBS"> <templateId root="01.16.840.1.997612.10.20.22.4.2" /> <id nullFlavor="NA" /> <code codeSystem="local" code="RDW" displayName="RED CELL DISTRIBUTION WIDTH" /> <statusCode code= "completed" /> <effectiveTime value="880651327169" /> <value unit="%" xsi:type="PQ" value="13.4" /> <referenceRange> <observationRange> <text>11.0-15.6</text> </ observationRange> </referenceRange> </observation> </ component> <component> <observation moodCode="EVN" classCode="OBS"> <templateId root="01.16.840.1.723326.10.20.22.4.2" /> <id nullFlavor="NA" /> <code codeSystem="local" code="WBC" displayName= "WHITE BLOOD CELL" /> <statusCode code="completed" /> < effectiveTime value="424521595014" /> <value unit="k/cumm" xsi:type="PQ " value="17.8" /> <interpretationCode codeSystem="local" code="*" /> <referenceRange> <observationRange> <text>5.0- 10.0</text> </observationRange> </referenceRange> </ observation> </component> <component> <observation moodCode= "EVN" classCode="OBS"> <templateId root="840.1.329177.22.4.2 " /> <id nullFlavor="NA" /> <code codeSystem="local" code= "HGBT" displayName="HEMOGLOBIN" /> <statusCode code="completed" /> <effectiveTime value="739245465855" /> <value unit="gm/dL" xsi: type="PQ" value="14.5" /> <referenceRange> <observationRange > <text>12.0-16.0</text> </observationRange> </ referenceRange> </observation> </component> <component> <observation moodCode="EVN" classCode="OBS"> <templateId root= "01.16.840.1.659616.10.20.22.4.2" /> <id nullFlavor="NA" /> < code codeSystem="local" code="HCTT" displayName="HEMATOCRIT" /> < statusCode code="completed" /> <effectiveTime value="553642570912" /> <value unit="%" xsi:type="PQ" value="43.2" /> < referenceRange> <observationRange> <text>37.0-47.0</text > </observationRange> </referenceRange> </observation > </component> <component> <observation moodCode="EVN" classCode="OBS"> <templateId root="01.16.840.1.785205.10..4.2" /> <id nullFlavor="NA" /> <code codeSystem="local" code="PLT" displayName="PLATELET COUNT" /> <statusCode code="completed" /> <effectiveTime value="972381199694" /> <value unit="k/cumm" xsi:type ="PQ" value="216" /> <referenceRange> <observationRange> <text>150-400</text> </observationRange> </ referenceRange> </observation> </component> </organizer> </entry > <entry> <organizer moodCode="EVN" classCode="BATTERY"> <templateId root="01.16.840.1.771253.10...4.1" /> <id nullFlavor="NA" /> <code codeSystem="local" code="PREGU" displayName="UR TEST" /> < statusCode code="completed" /> <component> <observation moodCode= "EVN" classCode="OBS"> <templateId root="01.16.840.1.440585.10...4.2 " /> <id nullFlavor="NA" /> <code codeSystem="local" code= "PREGU" displayName="UR TEST" /> <statusCode code="completed " /> <effectiveTime value="637363733317" /> <value unit="" xsi :type="PQ" value="NEGATIVE" /> <referenceRange> < observationRange> <text>NEGATIVE</text> </ observationRange> </referenceRange> </observation> </ component> </organizer> </entry> <entry> <organizer moodCode="EVN" classCode="BATTERY"> <templateId root="16.840.1.315821.10..4.1" /> <id nullFlavor="NA" /> <code codeSystem="local" code="UAMICRO" displayName="UA MICROSCOPIC" /> <statusCode code="completed" /> < component> <observation moodCode="EVN" classCode="OBS"> < templateId root="16.840.1.398870...4.2" /> <id nullFlavor="NA " /> <code codeSystem="local" code="BACU" displayName="UA BACTERIA" /> <statusCode code="completed" /> <effectiveTime value= "" /> <value unit="" xsi:type="PQ" value="2+" /> < interpretationCode codeSystem="local" code="*" /> <referenceRange> <observationRange> <text>NEGATIVE</text> </ observationRange> </referenceRange> </observation> </ component> <component> <observation moodCode="EVN" classCode="OBS"> <templateId root="16.840.1.545414.10.4.2" /> <id nullFlavor="NA" /> <code codeSystem="local" code="EPIU" displayName=" UA EPITHELIAL CELLS" /> <statusCode code="completed" /> < effectiveTime value="604864652754" /> <value unit="epi/hpf" xsi:type= "PQ" value="4+" /> <interpretationCode codeSystem="local" code="*" /> <referenceRange> <observationRange> <text>0 - 1 +</text> </observationRange> </referenceRange> </ observation> </component> <component> <observation moodCode= "EVN" classCode="OBS"> <templateId root="01.16.840.1.394923.10...4.2 " /> <id nullFlavor="NA" /> <code codeSystem="local" code= "MUCUSU" displayName="UA MUCUS" /> <statusCode code="completed" /> <effectiveTime value="516613857154" /> <value unit="" xsi:type= "PQ" value="3+" /> <interpretationCode codeSystem="local" code="*" /> <referenceRange> <observationRange> <text>NEG TO 1+</text> </observationRange> </referenceRange> </ observation> </component> <component> <observation moodCode= "EVN" classCode="OBS"> <templateId root="840.1.035682.09.19.22.4.2 " /> <id nullFlavor="NA" /> <code codeSystem="local" code= "RBCU" displayName="UA RBC" /> <statusCode code="completed" /> <effectiveTime value="424827419815" /> <value unit="rbc/hpf" xsi:type ="PQ" value="0-3" /> <referenceRange> <observationRange> <text>0 - 3</text> </observationRange> </ referenceRange> </observation> </component> <component> <observation moodCode="EVN" classCode="OBS"> <templateId root= "01.16.840.1.722232.10..4.2" /> <id nullFlavor="NA" /> < code codeSystem="local" code="UAVOL" displayName="UA VOLUME FOR EXAM" /> <statusCode code="completed" /> <effectiveTime value="979590893591" /> <value unit="mL" xsi:type="PQ" value="12.0" /> < referenceRange> <observationRange> <text>(12mL STD)</ text> </observationRange> </referenceRange> </ observation> </component> <component> <observation moodCode= "EVN" classCode="OBS"> <templateId root="01.16.840.1.392885.10.4.2 " /> <id nullFlavor="NA" /> <code codeSystem="local" code= "WBCU" displayName="UA WBC" /> <statusCode code="completed" /> <effectiveTime value="548556865462" /> <value unit="wbc/hpf" xsi:type ="PQ" value="2-5" /> <referenceRange> <observationRange> <text>0 - 5</text> </observationRange> </ referenceRange> </observation> </component> </organizer> </entry > <entry> <organizer moodCode="EVN" classCode="BATTERY"> <templateId root="01.16.840.1.134012.10..4.1" /> <id nullFlavor="NA" /> <code codeSystem="local" code="iCHEM8" displayName="CHEM/HEM PROFILE-BEDSIDE" /> <statusCode code="completed" /> <component> <observation moodCode= "EVN" classCode="OBS"> <templateId root="01.16.840.1.001107...4.2 " /> <id nullFlavor="NA" /> <code codeSystem="local" code="K" displayName="POTASSIUM" /> <statusCode code="completed" /> < effectiveTime value="786674636854" /> <value unit="mmol/L" xsi:type="PQ " value="4.3" /> <referenceRange> <observationRange> <text>3.5-5.3</text> </observationRange> </ referenceRange> </observation> </component> <component> <observation moodCode="EVN" classCode="OBS"> <templateId root= "16.840.1.483063.10.22.4.2" /> <id nullFlavor="NA" /> < code codeSystem="local" code="CMETHOD" displayName="METHOD" /> < statusCode code="completed" /> <effectiveTime value="690948777965" /> <value unit="" xsi:type="PQ" value="Bedside" /> < referenceRange> <observationRange> <text /> < /observationRange> </referenceRange> </observation> </ component> <component> <observation moodCode="EVN" classCode="OBS"> <templateId root="01.16.840.1.330466.09.19.22.4.2" /> <id nullFlavor="NA" /> <code codeSystem="local" code="GAP" displayName= "ANION GAP" /> <statusCode code="completed" /> <effectiveTime value="252396892368" /> <value unit="mmol/L" xsi:type="PQ" value="13" / > <referenceRange> <observationRange> <text>10- 20</text> </observationRange> </referenceRange> </ observation> </component> <component> <observation moodCode= "EVN" classCode="OBS"> <templateId root="01.16.840.1.748305.22.4.2 " /> <id nullFlavor="NA" /> <code codeSystem="local" code= "HMETHOD" displayName="METHOD" /> <statusCode code="completed" /> <effectiveTime value="626426113909" /> <value unit="" xsi:type="PQ " value="Bedside" /> <referenceRange> <observationRange> <text /> </observationRange> </referenceRange> </observation> </component> <component> <observation moodCode="EVN" classCode="OBS"> <templateId root= "216.840.1.925309.22.4.2" /> <id nullFlavor="NA" /> < code codeSystem="local" code="GLU" displayName="GLUCOSE" /> < statusCode code="completed" /> <effectiveTime value="400610740722" /> <value unit="mg/dL" xsi:type="PQ" value="122" /> < interpretationCode codeSystem="local" code="*" /> <referenceRange> <observationRange> <text>70-99</text> </ observationRange> </referenceRange> </observation> </ component> <component> <observation moodCode="EVN" classCode="OBS"> <templateId root="01.16.840.1.345551.09.19.22.4.2" /> <id nullFlavor="NA" /> <code codeSystem="local" code="BUN" displayName= "BLOOD UREA NITROGEN" /> <statusCode code="completed" /> < effectiveTime value="601609086706" /> <value unit="mg/dL" xsi:type="PQ " value="12" /> <referenceRange> <observationRange> <text>7-20</text> </observationRange> </referenceRange > </observation> </component> <component> <observation moodCode="EVN" classCode="OBS"> <templateId root= "16.840.1.967464.22.4.2" /> <id nullFlavor="NA" /> < code codeSystem="local" code="CREAT" displayName="CREATININE" /> < statusCode code="completed" /> <effectiveTime value="557903360932" /> <value unit="mg/dL" xsi:type="PQ" value="0.7" /> < referenceRange> <observationRange> <text>0.6-1.0</text> </observationRange> </referenceRange> </observation > </component> <component> <observation moodCode="EVN" classCode="OBS"> <templateId root="2.16.840.1.857818.10..22.4.2" /> <id nullFlavor="NA" /> <code codeSystem="local" code="HGBT" displayName="HEMOGLOBIN" /> <statusCode code="completed" /> < effectiveTime value="363038495959" /> <value unit="gm/dL" xsi:type="PQ " value="14.3" /> <referenceRange> <observationRange> <text>12.0-16.0</text> </observationRange> </ referenceRange> </observation> </component> <component> <observation moodCode="EVN" classCode="OBS"> <templateId root= "2.16.840.1.906223.10..22.4.2" /> <id nullFlavor="NA" /> < code codeSystem="local" code="HCTT" displayName="HEMATOCRIT" /> < statusCode code="completed" /> <effectiveTime value="756509924930" /> <value unit="%" xsi:type="PQ" value="42.0" /> < referenceRange> <observationRange> <text>37.0-47.0</text > </observationRange> </referenceRange> </observation > </component> <component> <observation moodCode="EVN" classCode="OBS"> <templateId root="216.840.1.161591.10..22.4.2" /> <id nullFlavor="NA" /> <code codeSystem="local" code="NA" displayName="SODIUM" /> <statusCode code="completed" /> < effectiveTime value="060566616133" /> <value unit="mmol/L" xsi:type="PQ " value="139" /> <referenceRange> <observationRange> <text>135-148</text> </observationRange> </ referenceRange> </observation> </component> <component> <observation moodCode="EVN" classCode="OBS"> <templateId root= "16.840.1.867008.10..22.4.2" /> <id nullFlavor="NA" /> < code codeSystem="local" code="CL" displayName="CHLORIDE" /> < statusCode code="completed" /> <effectiveTime value="038561169276" /> <value unit="mmol/L" xsi:type="PQ" value="108" /> < referenceRange> <observationRange> <text>98-110</text> </observationRange> </referenceRange> </observation> </component> <component> <observation moodCode="EVN" classCode ="OBS"> <templateId root="16.840.1.495713.10..22.4.2" /> < id nullFlavor="NA" /> <code codeSystem="local" code="CO2" displayName= "CARBON DIOXIDE" /> <statusCode code="completed" /> < effectiveTime value="772236519690" /> <value unit="mmol/L" xsi:type="PQ " value="23" /> <referenceRange> <observationRange> <text>21-32</text> </observationRange> </ referenceRange> </observation> </component> <component> <observation moodCode="EVN" classCode="OBS"> <templateId root= "2.16.840.1.704684.10.20.22.4.2" /> <id nullFlavor="NA" /> < code codeSystem="local" code="CAION" displayName="CALCIUM IONIZED" /> < statusCode code="completed" /> <effectiveTime value="328864828375" /> <value unit="mg/dL" xsi:type="PQ" value="4.8" /> < referenceRange> <observationRange> <text>4.5-5.3</text> </observationRange> </referenceRange> </observation > </component> </organizer> </entry></section> Encounters ACCT No. Visit Date/Time Discharge Status Pt. Type Provider Facility Loc./Unit Complaint [id number] 01/13/2013 11:21:00 01/13/2013 17:24:00 [id number] 09/09/2012 09:58:00 09/11/2012 16:02:00 DIS Inpatient Harvey POSADAS, [facility] W.5WH [id number] 08/30/2012 07:08:00 08/30/2012 10:49:00 DIS Emergency Harvey POSADAS, [facility] W.2WOBED [id number] 08/29/2012 11:03:00 08/29/2012 14:22:00 DIS Emergency Harvey POSADAS, [facility] W.2WOBED [id number] 07/07/2012 13:36:00 07/07/2012 17:10:00 DIS Emergency Harvey POSADAS, [facility] WClary2WOBED
== END 2018-02-06 21:10 | disposition home or self-care (01) ==
LOC: EDUNIT# 18:04 → ER 18:07
DX: K81.9 Cholecystitis, unspecified (principal); N39.0 Urinary tract infection, site not specified; G40.909 Epilepsy, unspecified, not intractable, without status epilepticus; F90.9 Attention-deficit hyperactivity disorder, unspecified type; F17.210 Nicotine dependence, cigarettes, uncomplicated; Z87.59 Personal history of other complications of pregnancy, childbirth and the puerperium
CPT/HCPCS: 81000; 87088; 99283

== ENCOUNTER 2018-03-04 23:32 | Observation (INO) | payer SELFPAY ==
[~2018-03-04] VITALS: Ht 154.9 cm; Wt 159.2 kg
[~2018-03-04 23:32] MED LIST: CIPR-225 PO
[2018-03-05] MEDS ORDERED: FAMOTIDINE 20MG/2ML IV (PEPCID) IV STA (00:16)
[2018-03-05] MEDS ORDERED: ANTACID SUSP 30 ML UDC (MYLANTA) PO ONE (00:30)
[2018-03-05] MEDS ORDERED: LIDOCAINE 2% VISCOUS 15 ML UDC PO ONE (00:30)
[2018-03-05 00:44] LABS: BASOPHILS # (AUTO) 0.1 10^3/uL (0.0-0.1); BASOPHILS % (AUTO) 1 % (0-10); EOSINOPHILS # (AUTO) 0.6 10^3/uL (0.0-0.3); EOSINOPHILS % (AUTO) 5 % (0-10); HEMATOCRIT 41 % (35-52); HEMOGLOBIN 14.5 G/DL (11.5-16.0); LYMPHOCYTES # (AUTO) 3.9 X 10^3 (1.0-4.0); LYMPHOCYTES % (AUTO) 36 % (12-44); MEAN CORPUSCULAR HEMOGLOBIN 31 PG (25-34); MEAN CORPUSCULAR HGB CONC 35 G/DL (32-36); MEAN CORPUSCULAR VOLUME 89 FL (80-99); MEAN PLATELET VOLUME 9.9 FL (7.4-10.4); MONOCYTES # (AUTO) 0.6 X 10^3 (0.0-1.0); MONOCYTES % (AUTO) 5 % (0-12); NEUTROPHILS # (AUTO) 5.7 X 10^3 (1.8-7.8); NEUTROPHILS % (AUTO) 53 % (42-75); PLATELET COUNT 253 10^3/uL (130-400); RED BLOOD COUNT 4.68 10^6/uL (4.35-5.85); RED CELL DISTRIBUTION WIDTH 13.2 % (10.0-14.5); WHITE BLOOD COUNT 10.9 10^3/uL (4.3-11.0)
[2018-03-05 01:05] LABS: ALANINE AMINOTRANSFERASE 29 U/L (0-55); ALKALINE PHOSPHATASE 74 U/L (40-136); BILIRUBIN,TOTAL 0.2 MG/DL (0.1-1.0); BUN/CREATININE RATIO 17; CALCIUM 9.4 MG/DL (8.5-10.1); CARBON DIOXIDE 20 MMOL/L (21-32); CHLORIDE 105 MMOL/L (98-107); CREATININE SERUM 0.78 MG/DL (0.60-1.30); GFR ESTIMATED > 60; GLUCOSE 108 MG/DL (70-105); LIPASE 49 U/L (8-78); POTASSIUM 3.9 MMOL/L (3.6-5.0); SODIUM 139 MMOL/L (135-145); TOTAL PROTEIN 7.6 GM/DL (6.4-8.2)
[2018-03-05] MEDS ORDERED: KETOROLAC 30 MG/ML VIAL IVP ONE (02:00)
[2018-03-05] MEDS ORDERED: IOHEXOL 350 MG/ML 150 ML (OMNIPAQUE 350) VIAL IV ONE (02:30)
[2018-03-05] MEDS ORDERED: NS 250 ML (IVPB) BAG IV ONE (02:30)
[2018-03-05] MEDS ORDERED: fentaNYL INJECTION 100 MCG/2 ML AMP IVP ONE (03:15)
--- NOTE | 2018-03-05 03:26 | ED Abdominal Pain ---
General Chief Complaint: Abdominal/GI Problems Stated Complaint: 1 WK AGO FELL, GALLBLADDER SURGERY 2 WKS AGO,PAIN Nursing Triage Note: PT PRESENTS TO ER WITH COMPLAINT OF ABD PAIN. STATES SHE HAD HER GALLBLADDER OUT X2 WEEKS AGO AND THEY TOLD HER SHE HAD AN ENLARGED, FATTY LIVER. WAS RECOVERING WELL STATES A WEEK AGO SHE FELL AND LANDED ON HER STOMACH. STATES SHE HAS HAD INCREASING PAIN SINCE THEN. WAS SEEN TODAY BY DR PAYNE IN [facility] AND HE THOUGHT THAT SHE HAD STRAINED SOMETHING. PT STATES SHE WANTED A SECOND OPINION Sepsis Screen: No Definite Risk Source of Information: Patient Exam Limitations: No Limitations History of Present Illness Date Seen by Provider: Mar 05, 2018 Time Seen by Provider: 00:10 Initial Comments This 32-year-old woman presents to the emergency room with complaints of worsening upper abdominal pain after having laparoscopic cholecystectomy February [address] Ingram. She was recovering as expected until February 27 when she began having worsening pain. She denies any nausea, vomiting, diarrhea, constipation, or fever. Her last bowel movement was this morning. She did eat this morning including a roast beef sandwich and chilly. Allergies and Home Medications Allergies Coded Allergies: No Known Drug Allergies (Unverified , 02/06/18) Patient Home Medication List Home Medication List Reviewed: Yes Review of Systems Constitutional: no symptoms reported EENTM: No Symptoms Reported Respiratory: No Symptoms Reported Cardiovascular: No Symptoms Reported Gastrointestinal: See HPI Genitourinary: No Symptoms Reported Musculoskeletal: no symptoms reported Skin: no symptoms reported Psychiatric/Neurological: No Symptoms Reported Endocrine: No Symptoms Reported Hematologic/Lymphatic: No Symptoms Reported Past Nyczgce-Vtdsvv-Qzoqyy Hx Patient Social History Alcohol Use: Past History Recreational Drug Use: Yes (PAST HX) Type Used: Cigarettes Recent Foreign Travel: No Contact w/Someone Who Travel: No Recent Infectious Disease Expo: No Recent Hopitalizations: No Surgeries History of Surgeries: Yes (Dental caps) Surgeries: Section, Gallbladder, Orthopedic (Right Hand) Respiratory History of Respiratory Disorde: No Cardiovascular History of Cardiac Disorders: No Neurological History of Neurological Disord: No Neurological Disorders: Seizure Disorder Reproductive System : No Last Menstrual Period: Feb 04, 2018 Genitourinary History of Genitourinary Disor: No Gastrointestinal History of Gastrointestinal Di: No Musculoskeletal History of Musculoskeletal Dis: No Endocrine History of Endocrine Disorders: Yes (Obesity) HEENT History of HEENT Disorders: No Cancer History of Cancer: No Psychosocial History of Psychiatric Problem: Yes Behavioral Health Disorders: ADD/ADHD Integumentary History of Skin or Integumenta: No Blood Transfusions History of Blood Disorders: No Physical Exam Vital Signs VS - Last 72 Hours, by Label 03/04/18 23:57 Temp 98.4 Pulse 90 Resp 20 B/P (MAP) 135/74 (94) Pulse Ox 98 O2 Delivery Room Air Capillary Refill : Less Than 3 Seconds General Appearance: WD/WN, mild distress, obese HEENT: PERRL/EOMI, normal ENT inspection Respiratory: lungs clear, normal breath sounds, no respiratory distress, no accessory muscle use Cardiovascular: regular rate, rhythm, no edema, no murmur Gastrointestinal: normal bowel sounds, soft, tenderness (diffuse and most prominent in the epigastrium) Extremities: normal inspection, no pedal edema 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, no motor/sensory deficits, alert, normal mood/affect, oriented x 3 Skin: normal color, warm/dry Progress/Results/Core Measures Results/Orders Lab Results Laboratory Tests Test 03/05/18 00:30 Range/Units White Blood Count 10.9 4.3-11.0 10^3/uL Red Blood Count 4.68 4.35-5.85 10^6/uL Hemoglobin 14.5 11.5-16.0 G/DL Hematocrit 41 35-52 % Mean Corpuscular Volume 89 80-99 FL Mean Corpuscular Hemoglobin 31 25-34 PG Mean Corpuscular Hemoglobin Concent 35 32-36 G/DL Red Cell Distribution Width 13.2 10.0-14.5 % Platelet Count 253 130-400 10^3/uL Mean Platelet Volume 9.9 7.4-10.4 FL Neutrophils (%) (Auto) 53 42-75 % Lymphocytes (%) (Auto) 36 12-44 % Monocytes (%) (Auto) 5 0-12 % Eosinophils (%) (Auto) 5 0-10 % Basophils (%) (Auto) 1 0-10 % Neutrophils # (Auto) 5.7 1.8-7.8 X 10^3 Lymphocytes # (Auto) 3.9 1.0-4.0 X 10^3 Monocytes # (Auto) 0.6 0.0-1.0 X 10^3 Eosinophils # (Auto) 0.6 H 0.0-0.3 10^3/uL Basophils # (Auto) 0.1 0.0-0.1 10^3/uL Sodium Level 139 135-145 MMOL/L Potassium Level 3.9 3.6-5.0 MMOL/L Chloride Level 105 98-107 MMOL/L Carbon Dioxide Level 20 L 21-32 MMOL/L Anion Gap 14 5-14 MMOL/L Blood Urea Nitrogen 13 7-18 MG/DL Creatinine 0.78 0.60-1.30 MG/DL Estimat Glomerular Filtration Rate > 60 BUN/Creatinine Ratio 17 Glucose Level 108 H 70-105 MG/DL Calcium Level 9.4 8.5-10.1 MG/DL Total Bilirubin 0.2 0.1-1.0 MG/DL Aspartate Amino Transf (AST/SGOT) 21 5-34 U/L Alanine Aminotransferase (ALT/SGPT) 29 0-55 U/L Alkaline Phosphatase 74 40-136 U/L Total Protein 7.6 6.4-8.2 GM/DL Albumin 4.0 3.2-4.5 GM/DL Lipase 49 8-78 U/L Serum Test, Qualitative NEGATIVE NEGATIVE My Orders Orders - REI LENNON MD Cbc With Automated Diff (03/05/18 00:09) Comprehensive Metabolic Panel (03/05/18 00:09) Lipase (03/05/18 00:09) Saline Lock/Iv-Start (03/05/18 00:09) Lidocaine 2% Viscous 15 Ml (Xylocaine Vi (03/05/18 00:30) Antacid Suspension (Mylanta Suspension (03/05/18 00:30) Famotidine Injection (Pepcid Injection) (03/05/18 00:16) Hcg,Qualitative Serum (03/05/18 00:45) Ketorolac Injection (Toradol Injection) (03/05/18 02:00) Ct Abdomen/Pelvis W (03/05/18 01:55) Iohexol Injection (Omnipaque 350 Mg/Ml 1 (03/05/18 02:30) Ns (Ivpb) (Sodium Chloride 0.9%) (03/05/18 02:30) Fentanyl Injection (Sublimaze Injection (03/05/18 03:15) Medications Given in ED Current Medications Medications Dose Ordered Sig/Ehsan Route Start Time Stop Time Status Last Admin Dose Admin Al Hydrox/Mg Hydrox/Simethicone 30 ml ONCE ONCE PO 03/05/18 00:30 03/05/18 00:31 DC 03/05/18 00:29 30 ML Fentanyl Citrate 75 mcg ONCE ONCE IVP 03/05/18 03:15 03/05/18 03:16 DC 03/05/18 03:47 75 MCG Iohexol 150 ml ONCE ONCE IV 03/05/18 02:30 03/05/18 02:31 DC 03/05/18 02:20 125 ML Ketorolac Tromethamine 30 mg ONCE ONCE IVP 03/05/18 02:00 03/05/18 02:01 DC 03/05/18 02:09 30 MG Lidocaine HCl 15 ml ONCE ONCE PO 03/05/18 00:30 03/05/18 00:31 DC 03/05/18 00:29 15 ML Sodium Chloride 250 ml ONCE ONCE IV 03/05/18 02:30 03/05/18 02:31 DC 03/05/18 02:20 80 ML Vital Signs/I&O Vital Sign - Last 12Hours 03/04/18 23:57 Temp 98.4 Pulse 90 Resp 20 B/P (MAP) 135/74 (94) Pulse Ox 98 O2 Delivery Room Air Blood Pressure Mean: 94 Progress Note : Progress Note Labs were unremarkable. Patient was treated with GI cocktail and Pepcid. This due to improve her pain. CT scan was ordered for further evaluation. Patient had a 4 cm fluid collection in the gallbladder fossa with air bubbles noted. Abscess versus bile leak was suspected. Bile leak seemed more plausible as patient has no fever or leukocytosis. Case was reviewed with Dr. Desir who suggested we offer management to the primary surgeon. However, patient states her surgeon is out of town until Friday and she prefers to have her case managed here. Dr. Desir is agreeable. Further evaluation with hepatobiliary scan is planned for later this morning. Zosyn was started and pain medications ordered. Diagnostic Imaging Diagonstic Imaging: CT Plain Films/CT/US/NM/MRI: abdomen, pelvis Comments CT scan reviewed by me. Stat rad report reviewed. There is a 4 cm fluid collection in the gallbladder fossa which could possibly represent bile leak versus seroma versus abscess. Departure Communication (Admissions) Time/Spoke to Admitting Phy: 03:[address] Desir Impression Impression: Primary Impression: Upper abdominal pain Disposition: ADMITTED INPATIENT Condition: Improved Admissions Decision to Admit Reason: Admit from ER (General) Decision to Admit/Date: Mar 05, 2018 Time/Decision to Admit Time: 03:15 Departure-Patient Inst. Referrals: NO,LOCAL PHYSICIAN (PCP/Family) Primary Care Physician REI LENNON MD Mar 05, 2018 03:25
[2018-03-05] MEDS ORDERED: PIPERACILLIN SODIUM/TAZOBACTAM 4.5 GM in NS (IVPB) 100 ML IV ONE (03:30)
[2018-03-05] MEDS ORDERED: NICOTINE 21 MG (NICODERM) PATCH TD ONE (03:30)
[2018-03-05] MEDS ORDERED: NS IV 1000 ML 1,000 ML IV SCH (05:30)
[2018-03-05] MEDS ORDERED: CATHETER FLUSH 10 ML SYR IV PRN (05:30)
[2018-03-05] MEDS ORDERED: ONDANSETRON 4 MG/2 ML (SDV) Z0FRAN IV PRN (05:30)
[2018-03-05] MEDS: fentaNYL INJECTION 100 MCG/2 ML AMP IV PRN ×2 (06:10→10:28)
[2018-03-05 08:00] VITALS: BP 123/60
--- NOTE | 2018-03-05 08:55 | Diagnostic Imaging Report ---
PROCEDURE: CT abdomen and pelvis with contrast. TECHNIQUE: Multiple contiguous axial images were obtained through the abdomen and pelvis after administration of intravenous contrast. INDICATION: Approximately 2 weeks post cholecystectomy. Abdominal pain. CORRELATION STUDY: None. FINDINGS: LOWER THORAX: Clear. LIVER: Diffuse steatosis. GALLBLADDER: Cholecystectomy changes with clips present. No significant ductal dilatation. There is an approximately 4 cm fluid and gas collection within the gallbladder fossa. SPLEEN: Mildly enlarged. PANCREAS: Unremarkable. ADRENAL GLANDS: Unremarkable. KIDNEYS: Low-density likely cystic mass in the anterior mid right kidney. The renal parenchyma is otherwise unremarkable. No hydronephrosis. ABDOMINAL AORTA: Unremarkable, nonaneurysmal. GASTROINTESTINAL TRACT: No obstruction or inflammation is suggested. URINARY BLADDER: Unremarkable. REPRODUCTIVE: Probable approximately 2.3 cm right ovarian cystic mass. Uterus and left adnexa are unremarkable. No significant free pelvic fluid. OSSEOUS STRUCTURES: No acute abnormality. IMPRESSION: 1. There is an approximately 4 cm fluid and gas collection within the gallbladder fossa post cholecystectomy. The differential considerations include potential bile leak, seroma, or potential developing abscess. 2. Hepatic steatosis. Mild severity splenomegaly. 3. Probable right ovarian cyst. A preliminary report was provided by [employer]. Dictated by: Dictated on workstation # [id number]
[2018-03-05] MEDS ORDERED: ACET-2267 PO (08:56)
[2018-03-05] MEDS ORDERED: IBUP-30 PO (08:56)
--- NOTE | 2018-03-05 09:04 | History & Physicial ---
History of Present Illness History of Present Illness Reason for visit/HPI right upper quadrant pain 3 weeks following cholecystectomy. Uneventful laparoscopic cholecystectomy for chronic cholecystitis. Date of Admission Mar 05, 2018 at 3:18 am Date Seen by Provider: Mar 05, 2018 Time Seen by Provider: 07:15 I consulted on this patient on 03/05/18 09:02 Attending Physician Dain Lehman MD Admitting Physician No,Local Physician Consult Allergies and Home Medications Allergies Coded Allergies: No Known Drug Allergies (Unverified , 02/06/18) Home Medications Acetaminophen 500 Mg Tablet, 1,000 MG PO Q6H PRN for PAIN-MILD, (Reported) Ibuprofen 200 Mg Tablet, 600 MG PO TID PRN for PAIN-MILD, (Reported) Patient Home Medication List Home Medication List Reviewed: Yes Past [id number]-[id number] Hx Patient Social History Marrital Status: single Employed/Student: unemployed Alcohol Use: Occasionally Uses Alcohol Beverage of Choice: Beer, Whiskey Recreational Drug Use: No (GAVE IT UP, 6 YEARS AGO) Drug of Choice: POT AND PAIN PILLS Smoking Status: Current Everyday Smoker Type Used: Cigarettes, Smokeless Tobacco Physical Abuse Screen: No Sexual Abuse: No Recent Foreign Travel: No Contact w/other who traveled: No Recent Hopitalizations: Yes (SURG IN JANUARY OP) Recent Infectious Disease Expo: No Seasonal Allergies Seasonal Allergies: No Surgeries Yes (Dental caps) Section, Gallbladder, Orthopedic (Right Hand) Respiratory No (CPAP BROKEN NEEDS TO DO STUDY AGAIN) Currently Using CPAP: No Currently Using BIPAP: No Cardiovascular No Neurological No Seizure Disorder Reproductive System : No Last Menstrual Period: Feb 04, 2018 Female Reproductive Disorders: Denies Genitourinary No Gastrointestinal No Gall Bladder Disease Musculoskeletal No Arthritis Endocrine History of Endocrine Disorders: Yes (Obesity) HEENT History of HEENT Disorders: No Cancer No Psychosocial History of Psychiatric Problem: Yes Behavioral Health Disorders: ADD/ADHD Integumentary History of Skin or Integumenta: No Blood Transfusions History of Blood Disorders: No Constitutional: no symptoms reported EENTM: no symptoms reported Respiratory: no symptoms reported Cardiovascular: no symptoms reported Gastrointestinal: see HPI Genitourinary: no symptoms reported Musculoskeletal: no symptoms reported Skin: no symptoms reported Psychiatric/Neurological: Anxiety Physical Exam Vital Signs Vital Signs - First Documented 03/04/18 23:57 Temp 98.4 Pulse 90 Resp 20 B/P (MAP) 135/74 (94) Pulse Ox 98 O2 Delivery Room Air Capillary Refill : Less Than 3 Seconds General Appearance: No Apparent Distress HEENT: Normal ENT Inspection Neck: Normal Inspection Respiratory: Lungs Clear Cardiovascular: Regular Rate, Rhythm Gastrointestinal: Non Tender, Soft Extremity: Normal Inspection Neurologic/Psychiatric: Alert, Oriented x3 Skin: Warm/Dry Comments no abdominal tenderness. Laparoscopic scars healing well. Assessment/Plan Assessment and Plan lady with right upper quadrant pain, 3 weeks following cholecystectomy. Fluid in the gallbladder fossa with very few air pockets. Possibly an infected hematoma. HIDA scan pending to rule out bile leak. If negative, she would be discharged Problems: Admission Diagnosis Admission Status: Observation DAIN LEHMAN MD Mar 05, 2018 9:04 am
[2018-03-05] MEDS ORDERED: PIPERACILLIN SODIUM/TAZOBACTAM 4.5 GM in NS (IVPB) 100 ML IV SCH (09:30)
--- OUTSIDE RECORDS SUMMARY | 2018-03-05 10:01 | XMS REPORT | Continuity of Care Document ---
Author Author [facility] Organization [facility] Address Unknown Phone Unavailable Allergies Active Description Code Type Severity Reaction Onset Reported/Identified Relationship to Patient Clinical Status Yes No Known Drug Allergies [id number] Drug Allergy Unknown N/A 02/06/2018 Medications There is no data. Problems Date Dx Coded Attending Type Code Diagnosis Diagnosed By 08/30/2012 Harvey POSADAS, Guicho Morris W 644.03 THRT SRIDHAR LABOR-ANTEPART 02/09/2018 KAYLYN, RADHA DEVELOPMENTAL TRAINING COUNSELOR Ot F17.210 NICOTINE DEPENDENCE, CIGARETTES, UNCOMPL 02/09/2018 KAYLYN, RADHA DEVELOPMENTAL TRAINING COUNSELOR Ot F90.9 ATTENTION-DEFICIT HYPERACTIVITY DISORDER 02/09/2018 KAYLYN, RADHA DEVELOPMENTAL TRAINING COUNSELOR Ot G40.909 EPILEPSY, UNSP, NOT INTRACTABLE, WITHOUT 02/09/2018 KAYLYN, RADHA DEVELOPMENTAL TRAINING COUNSELOR Ot K81.9 CHOLECYSTITIS, UNSPECIFIED 02/09/2018 KAYLYN, RADHA DEVELOPMENTAL TRAINING COUNSELOR Ot N39.0 URINARY TRACT INFECTION, SITE NOT SPECIF 02/09/2018 KAYLYN, RADHA DEVELOPMENTAL TRAINING COUNSELOR Ot R10.11 RIGHT UPPER QUADRANT PAIN 02/09/2018 KAYLYN, RADHA DEVELOPMENTAL TRAINING COUNSELOR Ot Z87.59 PERSONAL HISTORY OF COMP OF PREG, CHLDBR 02/12/2018 KAYLYN, RADHA DEVELOPMENTAL TRAINING COUNSELOR Ot F17.210 NICOTINE DEPENDENCE, CIGARETTES, UNCOMPL 02/12/2018 KAYLYN, RADHA DEVELOPMENTAL TRAINING COUNSELOR Ot F90.9 ATTENTION-DEFICIT HYPERACTIVITY DISORDER 02/12/2018 KAYLYN, RADHA DEVELOPMENTAL TRAINING COUNSELOR Ot G40.909 EPILEPSY, UNSP, NOT INTRACTABLE, WITHOUT 02/12/2018 KAYLYN, RADHA DEVELOPMENTAL TRAINING COUNSELOR Ot K81.9 CHOLECYSTITIS, UNSPECIFIED 02/12/2018 KAYLYN, RADHA DEVELOPMENTAL TRAINING COUNSELOR Ot N39.0 URINARY TRACT INFECTION, SITE NOT SPECIF 02/12/2018 KAYLYN, RADHA DEVELOPMENTAL TRAINING COUNSELOR Ot R10.11 RIGHT UPPER QUADRANT PAIN 02/12/2018 KAYLYN, RADHA DEVELOPMENTAL TRAINING COUNSELOR Ot Z87.59 PERSONAL HISTORY OF COMP OF PREG, CHLDBR Procedures There is no data. <section xmlns="urn:7-org:v3" xmlns:xsi="http:// www.3.org/2001/XMLSchema-instance"> <templateId root= "2.16.840.1.605757.10.20.22.2.3" /> <templateId root= "2.16.840.1.365282.10.20.22.2.3.1" /> <code codeSystemName="ZULEYKA" codeSystem= "2.16.840.1.621602.6.1" code="84273-3" displayName="Results" /> <title>Results< /title> <text> <table> <thead> <tr> <th>Test</th> <th>Result</th> <th>Range</th> </tr> </thead> < tbody> <tr> < colspan="10">URINALYSIS WITH MICROSCOPIC - 08/29 12:00</th> </tr> [...] td>UR PH</td> <td>7.0 </td> <td>5.0-7.0</td> </tr> <tr> <th colspan="10">URINE CULTURE - 08/29/12 12:29</th> </ tr> [...] <td>PLATELET COUNT</td> <td>216 k/cumm</td> <td>150-450</td> </tr> <tr> < colspan="10"> HEMOGLOBIN - 09/09/12 20:00</th> </tr> <tr> [...] wbc/hpf</td> <td>0 - 5</ td> </tr> <tr> < colspan="10">CHEM/HEM PROFILE-BEDSIDE - 01/13/13 12:53</th> </tr> <tr> [...] <tr> <td>CALCIUM IONIZED</td> <td>4.8 mg/dL</td> <td>4.5-5.3</td> </tr> <tr> <th colspan="10">Complete urinalysis with reflex to culture - 02/06/18 19:23</th> </tr> <tr> <td>Urine color determination</td> <td>RED </td> <td>NRG</td> </tr> <tr> <td>Urine clarity determination</td> <td>BLOODY </td > <td>NRG</td> </tr> <tr> <td>Urine pH measurement by test strip</td> <td>8 </td> <td>5-9</td> </tr> <tr> <td>Specific gravity of urine by test strip</td> <td>1.010 </td> <td>1.016-1.022</td> </tr> <tr> <td>Urine protein assay by test strip, semi-quantitative</td> <td>3+ </td> <td>NEGATIVE</td> </tr> <tr> <td> Urine glucose detection by automated test strip</td> <td>NEGATIVE </td > <td>NEGATIVE</td> </tr> <tr> <td>Erythrocytes detection in urine sediment by light microscopy</td> <td>5+ </td> <td>NEGATIVE</td> </tr> <tr> <td>Urine ketones detection by automated test strip</td> <td>1+ </td> <td> NEGATIVE</td> </tr> <tr> <td>Urine nitrite detection by test strip</td> <td>POSITIVE </td> <td>NEGATIVE</td> </ tr> <tr> <td>Urine total bilirubin detection by test strip</td> <td>NEGATIVE </td> <td>NEGATIVE</td> </tr> <tr > <td>Urine urobilinogen measurement by automated test strip (mass/ volume)</td> <td>NORMAL </td> <td>NORMAL</td> </tr> <tr> <td>Urine leukocyte esterase detection by dipstick</td> <td>2+ </td> <td>NEGATIVE</td> </tr> <tr> < td>Automated urine sediment erythrocyte count by microscopy (number/high power field)</td> <td>TNTC </td> <td>NRG</td> </tr> < tr> <td>Automated urine sediment leukocyte count by microscopy (number/ high power field)</td> <td> [HPF]</td> <td>NRG</td> </ tr> <tr> <td>Bacteria detection in urine sediment by light microscopy</td> <td>LARGE </td> <td>NRG</td> </tr> <tr> <td>Squamous epithelial cells detection in urine sediment by light microscopy</td> <td>10-25 </td> <td>NRG</td> </tr > <tr> <td>Crystals detection in urine sediment by light microscopy</td> <td>NONE </td> <td>NRG</td> </tr> <tr> <td>Casts detection in urine sediment by light microscopy</td> <td>NONE </td> <td>NRG</td> </tr> <tr> <td>Mucus detection in urine sediment by light microscopy</td> <td> NEGATIVE </td> <td>NRG</td> </tr> <tr> <td> Complete urinalysis with reflex to culture</td> <td>YES </td> <td>NRG</td> </tr> <tr> <th colspan="10">Bacterial urine culture - 02/06/18 19:23</th> </tr> <tr> <td>URINE CULTURE RESULTS</td> <td>MORE THAN 3 ISOLATES </td> <td>NRG</ td> </tr> <tr> <th colspan="10">Complete blood count (CBC ) with automated white blood cell (WBC) differential - 03/05/18 00:30</th> </tr> <tr> <td>Blood leukocytes automated count (number/ volume)</td> <td>10.9 10*3/uL</td> <td>4.3-11.0</td> </ tr> <tr> <td>Blood erythrocytes automated count (number/volume)< /td> <td>4.68 10*6/uL</td> <td>4.35-5.85</td> </tr> <tr> <td>Venous blood hemoglobin measurement (mass/volume)</td> <td>14.5 g/dL</td> <td>11.5-16.0</td> </tr> <tr> <td>Blood hematocrit (volume fraction)</td> <td>41 %</td > <td>35-52</td> </tr> <tr> <td>Automated erythrocyte mean corpuscular volume</td> <td>89 [foz_us]</td> <td>80-99</td> </tr> <tr> <td>Automated erythrocyte mean corpuscular hemoglobin (mass per erythrocyte)</td> <td>31 pg</td> <td>25-34</td> </tr> <tr> <td>Automated erythrocyte mean corpuscular hemoglobin concentration measurement (mass/volume)</td> <td>35 g/dL</td> <td>32-36</td> </tr> <tr> < td>Automated erythrocyte distribution width ratio</td> <td>13.2 %</ td> <td>10.0-14.5</td> </tr> <tr> <td>Automated blood platelet count (count/volume)</td> <td>253 10*3/uL</td> <td>130-400</td> </tr> <tr> <td>Automated blood platelet mean volume measurement</td> <td>9.9 [foz_us]</td> <td>7.4- 10.4</td> </tr> <tr> <td>Automated blood neutrophils/100 leukocytes</td> <td>53 %</td> <td>42-75</td> </tr> <tr> <td>Automated blood lymphocytes/100 leukocytes</td> <td>36 %</td> <td>12-44</td> </tr> <tr> <td>Blood monocytes/100 leukocytes</td> <td>5 %</td> <td>0 -12</td> </tr> <tr> <td>Automated blood eosinophils/100 leukocytes</td> <td>5 %</td> <td>0-10</td> </tr> <tr> <td>Automated blood basophils/100 leukocytes</td> < td>1 %</td> <td>0-10</td> </tr> <tr> <td> Blood neutrophils automated count (number/volume)</td> <td>5.7 10*3</td > <td>1.8-7.8</td> </tr> <tr> <td>Blood lymphocytes automated count (number/volume)</td> <td>3.9 10*3</td> <td>1.0-4.0</td> </tr> <tr> <td>Blood monocytes automated count (number/volume)</td> <td>0.6 10*3</td> <td>0.0 -1.0</td> </tr> <tr> <td>Automated eosinophil count</td> <td>0.6 10*3/uL</td> <td>0.0-0.3</td> </tr> <tr > <td>Automated blood basophil count (count/volume)</td> <td> 0.1 10*3/uL</td> <td>0.0-0.1</td> </tr> <tr> < th colspan="10">Serum or plasma choriogonadotropin ( test) detection - 03/05/18 00:30</th> </tr> <tr> <td>Serum or plasma choriogonadotropin ( test) detection</td> <td>NEGATIVE </td> <td>NEGATIVE</td> </tr> <tr> < colspan="10"> Comprehensive metabolic panel - 03/05/18 00:30</th> </tr> <tr> <td>Serum or plasma sodium measurement (moles/volume)</td> <td> 139 mmol/L</td> <td>135-145</td> </tr> <tr> <td> Serum or plasma potassium measurement (moles/volume)</td> <td>3.9 mmol/ L</td> <td>3.6-5.0</td> </tr> <tr> <td>Serum or plasma chloride measurement (moles/volume)</td> <td>105 mmol/L</td> <td>98-107</td> </tr> <tr> <td>Carbon dioxide</td > <td>20 mmol/L</td> <td>21-32</td> </tr> <tr> <td>Serum or plasma anion gap determination (moles/volume)</td> <td>14 mmol/L</td> <td>5-14</td> </tr> <tr> < td>Serum or plasma urea nitrogen measurement (mass/volume)</td> <td>13 mg/dL</td> <td>7-18</td> </tr> <tr> <td>Serum or plasma creatinine measurement (mass/volume)</td> <td>0.78 mg/dL</td > <td>0.60-1.30</td> </tr> <tr> <td>Serum or plasma urea nitrogen/creatinine mass ratio</td> <td>17 </td> < td>NRG</td> </tr> <tr> <td>Serum or plasma creatinine measurement with calculation of estimated glomerular filtration rate</td> <td>> </td> <td>NRG</td> </tr> <tr> <td> Serum or plasma glucose measurement (mass/volume)</td> <td>108 mg/dL</ td> <td>70-105</td> </tr> <tr> <td>Serum or plasma calcium measurement (mass/volume)</td> <td>9.4 mg/dL</td> <td>8.5-10.1</td> </tr> <tr> <td>Serum or plasma total bilirubin measurement (mass/volume)</td> <td>0.2 mg/dL</td> <td>0.1-1.0</td> </tr> <tr> <td>Serum or plasma alkaline phosphatase measurement (enzymatic activity/volume)</td> <td> 74 U/L</td> <td>40-136</td> </tr> <tr> <td> Serum or plasma aspartate aminotransferase measurement (enzymatic activity/ volume)</td> <td>21 U/L</td> <td>5-34</td> </tr> <tr> <td>Serum or plasma alanine aminotransferase measurement ( enzymatic activity/volume)</td> <td>29 U/L</td> <td>0-55</td> </tr> <tr> <td>Serum or plasma protein measurement (mass /volume)</td> <td>7.6 g/dL</td> <td>6.4-8.2</td> </tr> <tr> <td>Serum or plasma albumin measurement (mass/volume)</td > <td>4.0 g/dL</td> <td>3.2-4.5</td> </tr> <tr> <th colspan="10">Lipase - 03/05/18 00:30</th> </tr> <tr > <td>Lipase</td> <td>49 U/L</td> <td>8-78</td> </tr> </tbody> </table> </text> <entry> <organizer moodCode="EVN " classCode="BATTERY"> <templateId root="2.16.840.1.573575.10.20.22.4.1" / > <id nullFlavor="NA" /> <code codeSystem="local" code="UAM" displayName="URINALYSIS WITH MICROSCOPIC" /> <statusCode code="completed" / > <component> <observation moodCode="EVN" classCode="OBS"> <templateId root="16.840.1.921413.10...4.2" /> <id nullFlavor="NA " /> <code codeSystem="local" code="LEUESU" displayName="UA LEUKOCYTE ESTERASE DIPSTICK" /> <statusCode code="completed" /> < effectiveTime value="176361076348" /> <value unit="" xsi:type="PQ" value="2+" /> <interpretationCode codeSystem="local" code="*" /> <referenceRange> <observationRange> <text>NEGATIVE</ text> </observationRange> </referenceRange> </ observation> </component> <component> <observation moodCode= "EVN" classCode="OBS"> <templateId root="01.16.840.1.272705.09.19.224.2 " /> <id nullFlavor="NA" /> <code codeSystem="local" code= "NITRIU" displayName="UA NITRITE DIPSTICK" /> <statusCode code= "completed" /> <effectiveTime value="796204673004" /> <value unit="" xsi:type="PQ" value="NEGATIVE" /> <referenceRange> < observationRange> <text>NEGATIVE</text> </ observationRange> </referenceRange> </observation> </ component> <component> <observation moodCode="EVN" classCode="OBS"> <templateId root="16.840.1.065288...4.2" /> <id nullFlavor="NA" /> <code codeSystem="local" code="PROTEIU" displayName= "UA PROTEIN DIPSTICK" /> <statusCode code="completed" /> < effectiveTime value="" /> <value unit="" xsi:type="PQ" value="NEGATIVE" /> <referenceRange> <observationRange> <text>NEGATIVE</text> </observationRange> </ referenceRange> </observation> </component> <component> <observation moodCode="EVN" classCode="OBS"> <templateId root= "01.16.840.1.295018.09.19.22.4.2" /> <id nullFlavor="NA" /> < code codeSystem="local" code="DGLUU" displayName="UA GLUCOSE DIPSTICK" /> <statusCode code="completed" /> <effectiveTime value=" " /> <value unit="" xsi:type="PQ" value="NEGATIVE" /> < referenceRange> <observationRange> <text>NEGATIVE</text > </observationRange> </referenceRange> </observation > </component> <component> <observation moodCode="EVN" classCode="OBS"> <templateId root="01.16.840.1.971100.09.19.22.4.2" /> <id nullFlavor="NA" /> <code codeSystem="local" code="KETONU" displayName="UA KETONE DIPSTICK" /> <statusCode code="completed" /> <effectiveTime value="" /> <value unit="" xsi:type= "PQ" value="NEGATIVE" /> <referenceRange> <observationRange > <text>NEGATIVE</text> </observationRange> </ referenceRange> </observation> </component> <component> <observation moodCode="EVN" classCode="OBS"> <templateId root= "01.16.840.1.230783.09.19.22.4.2" /> <id nullFlavor="NA" /> < code codeSystem="local" code="UROBILU" displayName="UA UROBILINOGEN DIPSTICK" / > <statusCode code="completed" /> <effectiveTime value= "297736672554" /> <value unit="" xsi:type="PQ" value="NORMAL" /> <referenceRange> <observationRange> <text>NORMAL</ text> </observationRange> </referenceRange> </ observation> </component> <component> <observation moodCode= "EVN" classCode="OBS"> <templateId root="01.16.840.1.759892.10..22.4.2 " /> <id nullFlavor="NA" /> <code codeSystem="local" code= "BILU" displayName="UA BILIRUBIN DIPSTICK" /> <statusCode code= "completed" /> <effectiveTime value="952553406167" /> <value unit="" xsi:type="PQ" value="NEGATIVE" /> <referenceRange> < observationRange> <text>NEGATIVE</text> </ observationRange> </referenceRange> </observation> </ component> <component> <observation moodCode="EVN" classCode="OBS"> <templateId root="01.16.840.1.327823.10.20.22.4.2" /> <id nullFlavor="NA" /> <code codeSystem="local" code="ANABEL" displayName="UA BLOOD DIPSTICK" /> <statusCode code="completed" /> < effectiveTime value="946564975959" /> <value unit="" xsi:type="PQ" value="NEGATIVE" /> <referenceRange> <observationRange> <text>NEGATIVE</text> </observationRange> </ referenceRange> </observation> </component> <component> <observation moodCode="EVN" classCode="OBS"> <templateId root= ".1.504165.10.22.4.2" /> <id nullFlavor="NA" /> < code codeSystem="local" code="BACU" displayName="UA BACTERIA" /> < statusCode code="completed" /> <effectiveTime value="627226972570" /> <value unit="" xsi:type="PQ" value="4+" /> < interpretationCode codeSystem="local" code="*" /> <referenceRange> <observationRange> <text>NEGATIVE</text> </ observationRange> </referenceRange> </observation> </ component> <component> <observation moodCode="EVN" classCode="OBS"> <templateId root="840.1.182819.09.19.22.4.2" /> <id nullFlavor="NA" /> <code codeSystem="local" code="EPIU" displayName=" UA EPITHELIAL CELLS" /> <statusCode code="completed" /> < effectiveTime value="220985408825" /> <value unit="epi/hpf" xsi:type= "PQ" value="3+" /> <interpretationCode codeSystem="local" code="*" /> <referenceRange> <observationRange> <text>0 - 1 +</text> </observationRange> </referenceRange> </ observation> </component> <component> <observation moodCode= "EVN" classCode="OBS"> <templateId root="01.16.840.1.415310.10.22.4.2 " /> <id nullFlavor="NA" /> <code codeSystem="local" code= "RBCU" displayName="UA RBC" /> <statusCode code="completed" /> <effectiveTime value="491196350559" /> <value unit="rbc/hpf" xsi:type ="PQ" value="5-10" /> <interpretationCode codeSystem="local" code="*" / > <referenceRange> <observationRange> <text>0 - 3</text> </observationRange> </referenceRange> </ observation> </component> <component> <observation moodCode= "EVN" classCode="OBS"> <templateId root="16.840.1.650300.10..22.4.2 " /> <id nullFlavor="NA" /> <code codeSystem="local" code= "UAVOL" displayName="UA VOLUME FOR EXAM" /> <statusCode code="completed " /> <effectiveTime value="837467312993" /> <value unit="mL" xsi:type="PQ" value="12.0" /> <referenceRange> < observationRange> <text>(12mL STD)</text> </ observationRange> </referenceRange> </observation> </ component> <component> <observation moodCode="EVN" classCode="OBS"> <templateId root="01.16.840.1.261252.10..4.2" /> <id nullFlavor="NA" /> <code codeSystem="local" code="WBCU" displayName=" UA WBC" /> <statusCode code="completed" /> <effectiveTime value="677700454569" /> <value unit="wbc/hpf" xsi:type="PQ" value="20- 50" /> <interpretationCode codeSystem="local" code="*" /> < referenceRange> <observationRange> <text>0 - 5</text> </observationRange> </referenceRange> </observation> </component> <component> <observation moodCode="EVN" classCode= "OBS"> <templateId root="16.840.1.825889.10..22.4.2" /> < id nullFlavor="NA" /> <code codeSystem="local" code="SPGRU" displayName ="UA SPECIFIC GRAVITY" /> <statusCode code="completed" /> < effectiveTime value="160106645220" /> <value unit="" xsi:type="PQ" value="1.020" /> <referenceRange> <observationRange> <text>1.015-1.025</text> </observationRange> </ referenceRange> </observation> </component> <component> <observation moodCode="EVN" classCode="OBS"> <templateId root= "01.16.840.1.153631.10.4.2" /> <id nullFlavor="NA" /> < code codeSystem="local" code="MARILYN" displayName="UR PH" /> <statusCode code="completed" /> <effectiveTime value="009248094164" /> < value unit="" xsi:type="PQ" value="7.0" /> <referenceRange> <observationRange> <text>5.0-7.0</text> </ observationRange> </referenceRange> </observation> </ component> </organizer> </entry> <entry> <organizer moodCode="EVN" classCode="BATTERY"> <templateId root="01.16.840.1.450713.09.19.22.4.1" /> <id nullFlavor="NA" /> <code codeSystem="local" code="UC" displayName= "URINE CULTURE" /> <statusCode code="completed" /> <component> <observation moodCode="EVN" classCode="OBS"> <templateId root= "01.16.840.1.472938.09.19.22.4.2" /> <id nullFlavor="NA" /> < code codeSystem="local" code="UNC" displayName="Uncategorized" /> < statusCode code="completed" /> <effectiveTime value="662452104053" /> <value xsi:type="ST" value="<pre><b>URINE CULTURE</b> See BelowURINE CULTURE(F) Gianna Date/Time: 08/29/2012 12:29 Lizz Date/Time: 08/31/2012 09:17SOURCE: URINESPEC DESC: CLEAN CATCHTREATMENT OF ASYMPTOMATIC BACTERIURIA IS NOT USUALLYCLINICALLY INDICATED.MIXED GRAM POSITIVE?[facility] [id number] [place] [address]</pre>" /> <referenceRange> <observationRange> <text /> </observationRange> </referenceRange> </observation> </component> </ organizer> </entry> <entry> <organizer moodCode="EVN" classCode="BATTERY"> <templateId root="2.16.840.1.334168.10..22.4.1" /> <id nullFlavor= "NA" /> <code codeSystem="local" code="CBC" displayName="CBC" /> < statusCode code="completed" /> <component> <observation moodCode= "EVN" classCode="OBS"> <templateId root="2.16.840.1.083583.10..22.4.2 " /> <id nullFlavor="NA" /> <code codeSystem="local" code="MCH " displayName="MEAN CELL HGB" /> <statusCode code="completed" /> <effectiveTime value="571133927573" /> <value unit="pg" xsi:type= "PQ" value="32.1" /> <referenceRange> <observationRange> <text>27.0-33.0</text> </observationRange> </ referenceRange> </observation> </component> <component> <observation moodCode="EVN" classCode="OBS"> <templateId root= "2.16.840.1.929109.10..22.4.2" /> <id nullFlavor="NA" /> < code codeSystem="local" code="MCHC" displayName="MEAN CELL HGB CONCENTRATION" / > <statusCode code="completed" /> <effectiveTime value= "810726411143" /> <value unit="g/dl" xsi:type="PQ" value="35.1" /> <referenceRange> <observationRange> <text>32.0- 36.0</text> </observationRange> </referenceRange> </ observation> </component> <component> <observation moodCode= "EVN" classCode="OBS"> <templateId root="2.16.840.1.947370.10..22.4.2 " /> <id nullFlavor="NA" /> <code codeSystem="local" code="MCV " displayName="MEAN CELL VOLUME" /> <statusCode code="completed" /> <effectiveTime value="338935561458" /> <value unit="fl" xsi:type ="PQ" value="91.6" /> <referenceRange> <observationRange> <text>80.0-100.0</text> </observationRange> </ referenceRange> </observation> </component> <component> <observation moodCode="EVN" classCode="OBS"> <templateId root= "2.16.840.1.349685.10..22.4.2" /> <id nullFlavor="NA" /> < code codeSystem="local" code="RBC" displayName="RED BLOOD CELL" /> < statusCode code="completed" /> <effectiveTime value="213970531343" /> <value unit="m/cumm" xsi:type="PQ" value="3.89" /> < interpretationCode codeSystem="local" code="*" /> <referenceRange> <observationRange> <text>4.00-6.00</text> </ observationRange> </referenceRange> </observation> </ component> <component> <observation moodCode="EVN" classCode="OBS"> <templateId root="216.840.1.236681.10.22.4.2" /> <id nullFlavor="NA" /> <code codeSystem="local" code="RDW" displayName=" RED CELL DISTRIBUTION WIDTH" /> <statusCode code="completed" /> <effectiveTime value="486742224836" /> <value unit="%" xsi:type= "PQ" value="13.9" /> <referenceRange> <observationRange> <text>11.0-15.6</text> </observationRange> </ referenceRange> </observation> </component> <component> <observation moodCode="EVN" classCode="OBS"> <templateId root= "01.16.840.1.613845.22.4.2" /> <id nullFlavor="NA" /> < code codeSystem="local" code="WBC" displayName="WHITE BLOOD CELL" /> < statusCode code="completed" /> <effectiveTime value="228481749668" /> <value unit="k/cumm" xsi:type="PQ" value="13.2" /> < interpretationCode codeSystem="local" code="*" /> <referenceRange> <observationRange> <text>5.0-10.0</text> </ observationRange> </referenceRange> </observation> </ component> <component> <observation moodCode="EVN" classCode="OBS"> <templateId root="16.840.1.967301.22.4.2" /> <id nullFlavor="NA" /> <code codeSystem="local" code="HGBT" displayName= "HEMOGLOBIN" /> <statusCode code="completed" /> < effectiveTime value="181205207834" /> <value unit="gm/dL" xsi:type="PQ " value="12.5" /> <referenceRange> <observationRange> <text>12.0-16.0</text> </observationRange> </ referenceRange> </observation> </component> <component> <observation moodCode="EVN" classCode="OBS"> <templateId root= "216.840.1.741119.22.4.2" /> <id nullFlavor="NA" /> < code codeSystem="local" code="HCTT" displayName="HEMATOCRIT" /> < statusCode code="completed" /> <effectiveTime value="088486745830" /> <value unit="%" xsi:type="PQ" value="35.6" /> < interpretationCode codeSystem="local" code="*" /> <referenceRange> <observationRange> <text>37.0-47.0</text> </ observationRange> </referenceRange> </observation> </ component> <component> <observation moodCode="EVN" classCode="OBS"> <templateId root="216.840.1.280502.09.19.22.4.2" /> <id nullFlavor="NA" /> <code codeSystem="local" code="PLT" displayName= "PLATELET COUNT" /> <statusCode code="completed" /> < effectiveTime value="[id number]" /> <value unit="k/cumm" xsi:type="PQ " value="216" /> <referenceRange> <observationRange> <text>150-450</text> </observationRange> </ referenceRange> </observation> </component> </organizer> </entry > <entry> <organizer moodCode="EVN" classCode="BATTERY"> <templateId root="[id number]" /> <id nullFlavor="NA" /> <code codeSystem="local" code="HGB" displayName="HEMOGLOBIN" /> <statusCode code= "completed" /> <component> <observation moodCode="EVN" classCode= "OBS"> <templateId root="[id number]...4.2" /> < id nullFlavor="NA" /> <code codeSystem="local" code="MCV" displayName= "MEAN CELL VOLUME" /> <statusCode code="completed" /> < effectiveTime value="" /> <value unit="fl" xsi:type="PQ" value="91.8" /> <referenceRange> <observationRange> <text>80.0-100.0</text> </observationRange> </ referenceRange> </observation> </component> <component> <observation moodCode="EVN" classCode="OBS"> <templateId root= "[id number]...4.2" /> <id nullFlavor="NA" /> < code codeSystem="local" code="HGBT" displayName="HEMOGLOBIN" /> < statusCode code="completed" /> <effectiveTime value="" /> <value unit="gm/dL" xsi:type="PQ" value="11.4" /> < interpretationCode codeSystem="local" code="*" /> <referenceRange> <observationRange> <text>12.0-16.0</text> </ observationRange> </referenceRange> </observation> </ component> </organizer> </entry> <entry> <organizer moodCode="EVN" classCode="BATTERY"> <templateId root="[id number]..4.1" /> <id nullFlavor="NA" /> <code codeSystem="local" code="HGB" displayName ="HEMOGLOBIN" /> <statusCode code="completed" /> <component> < observation moodCode="EVN" classCode="OBS"> <templateId root= "01.16.840.1.831671.10.20.22.4.2" /> <id nullFlavor="NA" /> < code codeSystem="local" code="MCV" displayName="MEAN CELL VOLUME" /> < statusCode code="completed" /> <effectiveTime value="" /> <value unit="fl" xsi:type="PQ" value="91.8" /> <referenceRange > <observationRange> <text>80.0-100.0</text> </observationRange> </referenceRange> </observation> </ component> <component> <observation moodCode="EVN" classCode="OBS"> <templateId root="01.16.840.1.627088....4.2" /> <id nullFlavor="NA" /> <code codeSystem="local" code="HGBT" displayName= "HEMOGLOBIN" /> <statusCode code="completed" /> < effectiveTime value="" /> <value unit="gm/dL" xsi:type="PQ " value="10.9" /> <interpretationCode codeSystem="local" code="*" /> <referenceRange> <observationRange> <text>12.0- 16.0</text> </observationRange> </referenceRange> </ observation> </component> </organizer> </entry> <entry> <organizer moodCode="EVN" classCode="BATTERY"> <templateId root= "01.16.840.1.075795.10..22.4.1" /> <id nullFlavor="NA" /> <code codeSystem="local" code="CBCD" displayName="CBC W/DIFF" /> <statusCode code ="completed" /> <component> <observation moodCode="EVN" classCode= "OBS"> <templateId root="216.840.1.671916.09.19.224.2" /> < id nullFlavor="NA" /> <code codeSystem="local" code="CBCCOM" displayName="COMMENT" /> <statusCode code="completed" /> < effectiveTime value="" /> <value unit="" xsi:type="PQ" value="REVIEWED" /> <referenceRange> <observationRange> <text /> </observationRange> </referenceRange> </observation> </component> <component> <observation moodCode="EVN" classCode="OBS"> <templateId root= "840.1.612232.09.19.224.2" /> <id nullFlavor="NA" /> < code codeSystem="local" code="GR#" displayName="GRANULOCYTE #" /> < statusCode code="completed" /> <effectiveTime value="" /> <value unit="k/cumm" xsi:type="PQ" value="15.1" /> < interpretationCode codeSystem="local" code="*" /> <referenceRange> <observationRange> <text>2.0-9.0</text> </ observationRange> </referenceRange> </observation> </ component> <component> <observation moodCode="EVN" classCode="OBS"> <templateId root="01.16.840.1.855750.09.19.224.2" /> <id nullFlavor="NA" /> <code codeSystem="local" code="GR%" displayName= "GRANULOCYTE %" /> <statusCode code="completed" /> < effectiveTime value="" /> <value unit="%" xsi:type="PQ " value="85" /> <interpretationCode codeSystem="local" code="*" /> <referenceRange> <observationRange> <text>50-75</ text> </observationRange> </referenceRange> </ observation> </component> <component> <observation moodCode= "EVN" classCode="OBS"> <templateId root="216.840.1.854216.09.19.22.4.2 " /> <id nullFlavor="NA" /> <code codeSystem="local" code="LY# " displayName="LYMPHOCYTE #" /> <statusCode code="completed" /> <effectiveTime value="" /> <value unit="k/cumm" xsi:type ="PQ" value="1.6" /> <referenceRange> <observationRange> <text>1.0-4.0</text> </observationRange> </ referenceRange> </observation> </component> <component> <observation moodCode="EVN" classCode="OBS"> <templateId root= "216.840.1.713366.10...4.2" /> <id nullFlavor="NA" /> < code codeSystem="local" code="LY%" displayName="LYMPHOCYTE %" /> <statusCode code="completed" /> <effectiveTime value="" /> <value unit="%" xsi:type="PQ" value="9" /> < interpretationCode codeSystem="local" code="*" /> <referenceRange> <observationRange> <text>20-30</text> </ observationRange> </referenceRange> </observation> </ component> <component> <observation moodCode="EVN" classCode="OBS"> <templateId root="2.16.840.1.061827.10.20.22.4.2" /> <id nullFlavor="NA" /> <code codeSystem="local" code="MCH" displayName= "MEAN CELL HGB" /> <statusCode code="completed" /> < effectiveTime value="862725665161" /> <value unit="pg" xsi:type="PQ" value="29.2" /> <referenceRange> <observationRange> <text>27.0-33.0</text> </observationRange> </ referenceRange> </observation> </component> <component> <observation moodCode="EVN" classCode="OBS"> <templateId root= "01.16.840.1.645107.10...4.2" /> <id nullFlavor="NA" /> < code codeSystem="local" code="MCHC" displayName="MEAN CELL HGB CONCENTRATION" / > <statusCode code="completed" /> <effectiveTime value= "234227876391" /> <value unit="g/dL" xsi:type="PQ" value="33.6" /> <referenceRange> <observationRange> <text>32.0- 37.0</text> </observationRange> </referenceRange> </ observation> </component> <component> <observation moodCode= "EVN" classCode="OBS"> <templateId root="01.16.840.1.234703.10..22.4.2 " /> <id nullFlavor="NA" /> <code codeSystem="local" code="MCV " displayName="MEAN CELL VOLUME" /> <statusCode code="completed" /> <effectiveTime value="140771565214" /> <value unit="fl" xsi:type ="PQ" value="87.1" /> <referenceRange> <observationRange> <text>80.0-100.0</text> </observationRange> </ referenceRange> </observation> </component> <component> <observation moodCode="EVN" classCode="OBS"> <templateId root= "216.840.1.706245.10.4.2" /> <id nullFlavor="NA" /> < code codeSystem="local" code="MO#" displayName="MONOCYTE #" /> < statusCode code="completed" /> <effectiveTime value="" /> <value unit="k/cumm" xsi:type="PQ" value="0.9" /> < referenceRange> <observationRange> <text>0.1-1.0</text> </observationRange> </referenceRange> </observation > </component> <component> <observation moodCode="EVN" classCode="OBS"> <templateId root="216.840.1.461281.09.19.224.2" /> <id nullFlavor="NA" /> <code codeSystem="local" code="MO% " displayName="MONOCYTE %" /> <statusCode code="completed" /> <effectiveTime value="" /> <value unit="%" xsi: type="PQ" value="5" /> <referenceRange> <observationRange> <text>4-6</text> </observationRange> </ referenceRange> </observation> </component> <component> <observation moodCode="EVN" classCode="OBS"> <templateId root= "216.840.1.873573.09.19.22.4.2" /> <id nullFlavor="NA" /> < code codeSystem="local" code="RBC" displayName="RED BLOOD CELL" /> < statusCode code="completed" /> <effectiveTime value="" /> <value unit="m/cumm" xsi:type="PQ" value="4.96" /> < referenceRange> <observationRange> <text>4.00-6.00</text > </observationRange> </referenceRange> </observation > </component> <component> <observation moodCode="EVN" classCode="OBS"> <templateId root="216.840.1.307299....4.2" /> <id nullFlavor="NA" /> <code codeSystem="local" code="RDW" displayName="RED CELL DISTRIBUTION WIDTH" /> <statusCode code= "completed" /> <effectiveTime value="069185748398" /> <value unit="%" xsi:type="PQ" value="13.4" /> <referenceRange> <observationRange> <text>11.0-15.6</text> </ observationRange> </referenceRange> </observation> </ component> <component> <observation moodCode="EVN" classCode="OBS"> <templateId root="216.840.1.536708.09.19.22.4.2" /> <id nullFlavor="NA" /> <code codeSystem="local" code="WBC" displayName= "WHITE BLOOD CELL" /> <statusCode code="completed" /> < effectiveTime value="658371121813" /> <value unit="k/cumm" xsi:type="PQ " value="17.8" /> <interpretationCode codeSystem="local" code="*" /> <referenceRange> <observationRange> <text>5.0- 10.0</text> </observationRange> </referenceRange> </ observation> </component> <component> <observation moodCode= "EVN" classCode="OBS"> <templateId root="216.840.1.489552.09.19.22.4.2 " /> <id nullFlavor="NA" /> <code codeSystem="local" code= "HGBT" displayName="HEMOGLOBIN" /> <statusCode code="completed" /> <effectiveTime value="726649291424" /> <value unit="gm/dL" xsi: type="PQ" value="14.5" /> <referenceRange> <observationRange > <text>12.0-16.0</text> </observationRange> </ referenceRange> </observation> </component> <component> <observation moodCode="EVN" classCode="OBS"> <templateId root= "2.16.840.1.719851.09.19.22.4.2" /> <id nullFlavor="NA" /> < code codeSystem="local" code="HCTT" displayName="HEMATOCRIT" /> < statusCode code="completed" /> <effectiveTime value="" /> <value unit="%" xsi:type="PQ" value="43.2" /> < referenceRange> <observationRange> <text>37.0-47.0</text > </observationRange> </referenceRange> </observation > </component> <component> <observation moodCode="EVN" classCode="OBS"> <templateId root="2.16.840.1.969475.09.19.22.4.2" /> <id nullFlavor="NA" /> <code codeSystem="local" code="PLT" displayName="PLATELET COUNT" /> <statusCode code="completed" /> <effectiveTime value="" /> <value unit="k/cumm" xsi:type ="PQ" value="216" /> <referenceRange> <observationRange> <text>150-400</text> </observationRange> </ referenceRange> </observation> </component> </organizer> </entry > <entry> <organizer moodCode="EVN" classCode="BATTERY"> <templateId root="216.840.1.157081.10..4.1" /> <id nullFlavor="NA" /> <code codeSystem="local" code="PREGU" displayName="UR TEST" /> < statusCode code="completed" /> <component> <observation moodCode= "EVN" classCode="OBS"> <templateId root="01.16.840.1.350792...4.2 " /> <id nullFlavor="NA" /> <code codeSystem="local" code= "PREGU" displayName="UR TEST" /> <statusCode code="completed " /> <effectiveTime value="492597651490" /> <value unit="" xsi :type="PQ" value="NEGATIVE" /> <referenceRange> < observationRange> <text>NEGATIVE</text> </ observationRange> </referenceRange> </observation> </ component> </organizer> </entry> <entry> <organizer moodCode="EVN" classCode="BATTERY"> <templateId root="16.840.1.699358.09.19.22.4.1" /> <id nullFlavor="NA" /> <code codeSystem="local" code="UAMICRO" displayName="UA MICROSCOPIC" /> <statusCode code="completed" /> < component> <observation moodCode="EVN" classCode="OBS"> < templateId root="16.840.1.932752.10..4.2" /> <id nullFlavor="NA " /> <code codeSystem="local" code="BACU" displayName="UA BACTERIA" /> <statusCode code="completed" /> <effectiveTime value= "707730654257" /> <value unit="" xsi:type="PQ" value="2+" /> < interpretationCode codeSystem="local" code="*" /> <referenceRange> <observationRange> <text>NEGATIVE</text> </ observationRange> </referenceRange> </observation> </ component> <component> <observation moodCode="EVN" classCode="OBS"> <templateId root="01.16.840.1.310861.09.19.22.4.2" /> <id nullFlavor="NA" /> <code codeSystem="local" code="EPIU" displayName=" UA EPITHELIAL CELLS" /> <statusCode code="completed" /> < effectiveTime value="173929244336" /> <value unit="epi/hpf" xsi:type= "PQ" value="4+" /> <interpretationCode codeSystem="local" code="*" /> <referenceRange> <observationRange> <text>0 - 1 +</text> </observationRange> </referenceRange> </ observation> </component> <component> <observation moodCode= "EVN" classCode="OBS"> <templateId root="16.840.1.355247.09.19.22.4.2 " /> <id nullFlavor="NA" /> <code codeSystem="local" code= "MUCUSU" displayName="UA MUCUS" /> <statusCode code="completed" /> <effectiveTime value="804113286955" /> <value unit="" xsi:type= "PQ" value="3+" /> <interpretationCode codeSystem="local" code="*" /> <referenceRange> <observationRange> <text>NEG TO 1+</text> </observationRange> </referenceRange> </ observation> </component> <component> <observation moodCode= "EVN" classCode="OBS"> <templateId root="01.16.840.1.641631.22.4.2 " /> <id nullFlavor="NA" /> <code codeSystem="local" code= "RBCU" displayName="UA RBC" /> <statusCode code="completed" /> <effectiveTime value="924286651809" /> <value unit="rbc/hpf" xsi:type ="PQ" value="0-3" /> <referenceRange> <observationRange> <text>0 - 3</text> </observationRange> </ referenceRange> </observation> </component> <component> <observation moodCode="EVN" classCode="OBS"> <templateId root= "2.16.840.1.360485....4.2" /> <id nullFlavor="NA" /> < code codeSystem="local" code="UAVOL" displayName="UA VOLUME FOR EXAM" /> <statusCode code="completed" /> <effectiveTime value="744122044145" /> <value unit="mL" xsi:type="PQ" value="12.0" /> < referenceRange> <observationRange> <text>(12mL STD)</ text> </observationRange> </referenceRange> </ observation> </component> <component> <observation moodCode= "EVN" classCode="OBS"> <templateId root="2.16.840.1.362276.10..22.4.2 " /> <id nullFlavor="NA" /> <code codeSystem="local" code= "WBCU" displayName="UA WBC" /> <statusCode code="completed" /> <effectiveTime value="782325016941" /> <value unit="wbc/hpf" xsi:type ="PQ" value="2-5" /> <referenceRange> <observationRange> <text>0 - 5</text> </observationRange> </ referenceRange> </observation> </component> </organizer> </entry > <entry> <organizer moodCode="EVN" classCode="BATTERY"> <templateId root="16.840.1.281681.10...4.1" /> <id nullFlavor="NA" /> <code codeSystem="local" code="iCHEM8" displayName="CHEM/HEM PROFILE-BEDSIDE" /> <statusCode code="completed" /> <component> <observation moodCode= "EVN" classCode="OBS"> <templateId root="01.16.840.1.079501....4.2 " /> <id nullFlavor="NA" /> <code codeSystem="local" code="K" displayName="POTASSIUM" /> <statusCode code="completed" /> < effectiveTime value="071299859949" /> <value unit="mmol/L" xsi:type="PQ " value="4.3" /> <referenceRange> <observationRange> <text>3.5-5.3</text> </observationRange> </ referenceRange> </observation> </component> <component> <observation moodCode="EVN" classCode="OBS"> <templateId root= "16.840.1.489082....4.2" /> <id nullFlavor="NA" /> < code codeSystem="local" code="CMETHOD" displayName="METHOD" /> < statusCode code="completed" /> <effectiveTime value="073492128821" /> <value unit="" xsi:type="PQ" value="Bedside" /> < referenceRange> <observationRange> <text /> < /observationRange> </referenceRange> </observation> </ component> <component> <observation moodCode="EVN" classCode="OBS"> <templateId root="01.16.840.1.036530.09.19.22.4.2" /> <id nullFlavor="NA" /> <code codeSystem="local" code="GAP" displayName= "ANION GAP" /> <statusCode code="completed" /> <effectiveTime value="997318998542" /> <value unit="mmol/L" xsi:type="PQ" value="13" / > <referenceRange> <observationRange> <text>10- 20</text> </observationRange> </referenceRange> </ observation> </component> <component> <observation moodCode= "EVN" classCode="OBS"> <templateId root="2.16.840.1.616031.10...4.2 " /> <id nullFlavor="NA" /> <code codeSystem="local" code= "HMETHOD" displayName="METHOD" /> <statusCode code="completed" /> <effectiveTime value="476087118634" /> <value unit="" xsi:type="PQ " value="Bedside" /> <referenceRange> <observationRange> <text /> </observationRange> </referenceRange> </observation> </component> <component> <observation moodCode="EVN" classCode="OBS"> <templateId root= "2.16.840.1.139208.10...4.2" /> <id nullFlavor="NA" /> < code codeSystem="local" code="GLU" displayName="GLUCOSE" /> < statusCode code="completed" /> <effectiveTime value="817663798186" /> <value unit="mg/dL" xsi:type="PQ" value="122" /> < interpretationCode codeSystem="local" code="*" /> <referenceRange> <observationRange> <text>70-99</text> </ observationRange> </referenceRange> </observation> </ component> <component> <observation moodCode="EVN" classCode="OBS"> <templateId root="216.840.1.066988.10..22.4.2" /> <id nullFlavor="NA" /> <code codeSystem="local" code="BUN" displayName= "BLOOD UREA NITROGEN" /> <statusCode code="completed" /> < effectiveTime value="813484596091" /> <value unit="mg/dL" xsi:type="PQ " value="12" /> <referenceRange> <observationRange> <text>7-20</text> </observationRange> </referenceRange > </observation> </component> <component> <observation moodCode="EVN" classCode="OBS"> <templateId root= "216.840.1.583419.10.22.4.2" /> <id nullFlavor="NA" /> < code codeSystem="local" code="CREAT" displayName="CREATININE" /> < statusCode code="completed" /> <effectiveTime value="317106387105" /> <value unit="mg/dL" xsi:type="PQ" value="0.7" /> < referenceRange> <observationRange> <text>0.6-1.0</text> </observationRange> </referenceRange> </observation > </component> <component> <observation moodCode="EVN" classCode="OBS"> <templateId root="16.840.1.096423.10..22.4.2" /> <id nullFlavor="NA" /> <code codeSystem="local" code="HGBT" displayName="HEMOGLOBIN" /> <statusCode code="completed" /> < effectiveTime value="325526698683" /> <value unit="gm/dL" xsi:type="PQ " value="14.3" /> <referenceRange> <observationRange> <text>12.0-16.0</text> </observationRange> </ referenceRange> </observation> </component> <component> <observation moodCode="EVN" classCode="OBS"> <templateId root= "216.840.1.723557.10..4.2" /> <id nullFlavor="NA" /> < code codeSystem="local" code="HCTT" displayName="HEMATOCRIT" /> < statusCode code="completed" /> <effectiveTime value="357787821972" /> <value unit="%" xsi:type="PQ" value="42.0" /> < referenceRange> <observationRange> <text>37.0-47.0</text > </observationRange> </referenceRange> </observation > </component> <component> <observation moodCode="EVN" classCode="OBS"> <templateId root="01.16.840.1.309676.09.19.22.4.2" /> <id nullFlavor="NA" /> <code codeSystem="local" code="NA" displayName="SODIUM" /> <statusCode code="completed" /> < effectiveTime value="074053098710" /> <value unit="mmol/L" xsi:type="PQ " value="139" /> <referenceRange> <observationRange> <text>135-148</text> </observationRange> </ referenceRange> </observation> </component> <component> <observation moodCode="EVN" classCode="OBS"> <templateId root= "01.16.840.1.509795....4.2" /> <id nullFlavor="NA" /> < code codeSystem="local" code="CL" displayName="CHLORIDE" /> < statusCode code="completed" /> <effectiveTime value="364710154767" /> <value unit="mmol/L" xsi:type="PQ" value="108" /> < referenceRange> <observationRange> <text>98-110</text> </observationRange> </referenceRange> </observation> </component> <component> <observation moodCode="EVN" classCode ="OBS"> <templateId root="16.840.1.875997.10.20.22.4.2" /> < id nullFlavor="NA" /> <code codeSystem="local" code="CO2" displayName= "CARBON DIOXIDE" /> <statusCode code="completed" /> < effectiveTime value="122902367703" /> <value unit="mmol/L" xsi:type="PQ " value="23" /> <referenceRange> <observationRange> <text>21-32</text> </observationRange> </ referenceRange> </observation> </component> <component> <observation moodCode="EVN" classCode="OBS"> <templateId root= "01.16.840.1.839566.10..22.4.2" /> <id nullFlavor="NA" /> < code codeSystem="local" code="CAION" displayName="CALCIUM IONIZED" /> < statusCode code="completed" /> <effectiveTime value="213409775929" /> <value unit="mg/dL" xsi:type="PQ" value="4.8" /> < referenceRange> <observationRange> <text>4.5-5.3</text> </observationRange> </referenceRange> </observation > </component> </organizer> </entry> <entry> <organizer moodCode= "EVN" classCode="BATTERY"> <templateId root="16.840.1.604497.10.20.22.4.1 " /> <id nullFlavor="NA" /> <code codeSystem="local" code="69564-9" displayName="Complete urinalysis with reflex to culture" /> <statusCode code="completed" /> <component> <observation moodCode="EVN" classCode="OBS"> <templateId root="16.840.1.133363.10.22.4.2" /> <id nullFlavor="NA" /> <code codeSystem="local" code="5778-6" displayName="Urine color determination" /> <statusCode code="completed " /> <effectiveTime value="" /> <value unit="" xsi :type="PQ" value="RED" /> <interpretationCode codeSystem="local" code= "*" /> <referenceRange> <observationRange> < text>NRG</text> </observationRange> </referenceRange> </observation> </component> <component> <observation moodCode ="EVN" classCode="OBS"> <templateId root= "840.1.101745.09.19.224.2" /> <id nullFlavor="NA" /> < code codeSystem="local" code="78110-1" displayName="Urine clarity determination " /> <statusCode code="completed" /> <effectiveTime value= "285834273927" /> <value unit="" xsi:type="PQ" value="BLOODY" /> <interpretationCode codeSystem="local" code="*" /> <referenceRange > <observationRange> <text>NRG</text> </ observationRange> </referenceRange> </observation> </ component> <component> <observation moodCode="EVN" classCode="OBS"> <templateId root="01.16.840.1.453072.10.22.4.2" /> <id nullFlavor="NA" /> <code codeSystem="local" code="5803-2" displayName= "Urine pH measurement by test strip" /> <statusCode code="completed" / > <effectiveTime value="" /> <value unit="" xsi: type="PQ" value="8" /> <referenceRange> <observationRange> <text>5-9</text> </observationRange> </ referenceRange> </observation> </component> <component> <observation moodCode="EVN" classCode="OBS"> <templateId root= "216.840.1.717026.10.20.22.4.2" /> <id nullFlavor="NA" /> < code codeSystem="local" code="5811-5" displayName="Specific gravity of urine by test strip" /> <statusCode code="completed" /> <effectiveTime value="" /> <value unit="" xsi:type="PQ" value="1.010" /> <interpretationCode codeSystem="local" code="" /> < referenceRange> <observationRange> <text>1.016-1.022</ text> </observationRange> </referenceRange> </ observation> </component> <component> <observation moodCode= "EVN" classCode="OBS"> <templateId root="216.840.1.363668.10.20.22.4.2 " /> <id nullFlavor="NA" /> <code codeSystem="local" code= "18758-2" displayName="Urine protein assay by test strip, semi-quantitative" /> <statusCode code="completed" /> <effectiveTime value= "" /> <value unit="" xsi:type="PQ" value="3+" /> < interpretationCode codeSystem="local" code="*" /> <referenceRange> <observationRange> <text>NEGATIVE</text> </ observationRange> </referenceRange> </observation> </ component> <component> <observation moodCode="EVN" classCode="OBS"> <templateId root="16.840.1.226833.10.20.22.4.2" /> <id nullFlavor="NA" /> <code codeSystem="local" code="47317-2" displayName= "Urine glucose detection by automated test strip" /> <statusCode code= "completed" /> <effectiveTime value="" /> <value unit="" xsi:type="PQ" value="NEGATIVE" /> <referenceRange> < observationRange> <text>NEGATIVE</text> </ observationRange> </referenceRange> </observation> </ component> <component> <observation moodCode="EVN" classCode="OBS"> <templateId root="01.16.840.1.316604.10.22.4.2" /> <id nullFlavor="NA" /> <code codeSystem="local" code="90274-2" displayName= "Erythrocytes detection in urine sediment by light microscopy" /> < statusCode code="completed" /> <effectiveTime value="" /> <value unit="" xsi:type="PQ" value="5+" /> < interpretationCode codeSystem="local" code="*" /> <referenceRange> <observationRange> <text>NEGATIVE</text> </ observationRange> </referenceRange> </observation> </ component> <component> <observation moodCode="EVN" classCode="OBS"> <templateId root="01.16.840.1.790734.10.20.22.4.2" /> <id nullFlavor="NA" /> <code codeSystem="local" code="02914-3" displayName= "Urine ketones detection by automated test strip" /> <statusCode code= "completed" /> <effectiveTime value="" /> <value unit="" xsi:type="PQ" value="1+" /> <interpretationCode codeSystem= "local" code="*" /> <referenceRange> <observationRange> <text>NEGATIVE</text> </observationRange> </ referenceRange> </observation> </component> <component> <observation moodCode="EVN" classCode="OBS"> <templateId root= "216.840.1.388843.10.22.4.2" /> <id nullFlavor="NA" /> < code codeSystem="local" code="5802-4" displayName="Urine nitrite detection by test strip" /> <statusCode code="completed" /> <effectiveTime value="" /> <value unit="" xsi:type="PQ" value="POSITIVE" / > <interpretationCode codeSystem="local" code="*" /> < referenceRange> <observationRange> <text>NEGATIVE</text > </observationRange> </referenceRange> </observation > </component> <component> <observation moodCode="EVN" classCode="OBS"> <templateId root="01.16.840.1.059069.09.19.22.4.2" /> <id nullFlavor="NA" /> <code codeSystem="local" code="5770-3" displayName="Urine total bilirubin detection by test strip" /> < statusCode code="completed" /> <effectiveTime value="" /> <value unit="" xsi:type="PQ" value="NEGATIVE" /> < referenceRange> <observationRange> <text>NEGATIVE</text > </observationRange> </referenceRange> </observation > </component> <component> <observation moodCode="EVN" classCode="OBS"> <templateId root="01.16.840.1.637635.10.22.4.2" /> <id nullFlavor="NA" /> <code codeSystem="local" code="51458-1 " displayName="Urine urobilinogen measurement by automated test strip (mass/ volume)" /> <statusCode code="completed" /> <effectiveTime value="" /> <value unit="" xsi:type="PQ" value="NORMAL" /> <referenceRange> <observationRange> <text> NORMAL</text> </observationRange> </referenceRange> < /observation> </component> <component> <observation moodCode= "EVN" classCode="OBS"> <templateId root="2.16.840.1.300752.10.20.22.4.2 " /> <id nullFlavor="NA" /> <code codeSystem="local" code= "5799-2" displayName="Urine leukocyte esterase detection by dipstick" /> <statusCode code="completed" /> <effectiveTime value="" /> <value unit="" xsi:type="PQ" value="2+" /> < interpretationCode codeSystem="local" code="*" /> <referenceRange> <observationRange> <text>NEGATIVE</text> </ observationRange> </referenceRange> </observation> </ component> <component> <observation moodCode="EVN" classCode="OBS"> <templateId root="2.16.840.1.627735.10..22.4.2" /> <id nullFlavor="NA" /> <code codeSystem="local" code="82169-1" displayName= "Automated urine sediment erythrocyte count by microscopy (number/high power field)" /> <statusCode code="completed" /> <effectiveTime value="" /> <value unit="" xsi:type="PQ" value="TNTC" /> <interpretationCode codeSystem="local" code="*" /> < referenceRange> <observationRange> <text>NRG</text> </observationRange> </referenceRange> </observation> </component> <component> <observation moodCode="EVN" classCode= "OBS"> <templateId root="01.16.840.1.706748.10..4.2" /> < id nullFlavor="NA" /> <code codeSystem="local" code="5821-4" displayName="Automated urine sediment leukocyte count by microscopy (number/ high power field)" /> <statusCode code="completed" /> < effectiveTime value="" /> <value unit="[HPF]" xsi:type="PQ " value="" /> <interpretationCode codeSystem="local" code="*" /> <referenceRange> <observationRange> <text>NRG</text > </observationRange> </referenceRange> </observation > </component> <component> <observation moodCode="EVN" classCode="OBS"> <templateId root="01.16.840.1.499524.10.4.2" /> <id nullFlavor="NA" /> <code codeSystem="local" code="84679-5 " displayName="Bacteria detection in urine sediment by light microscopy" /> <statusCode code="completed" /> <effectiveTime value= "" /> <value unit="" xsi:type="PQ" value="LARGE" /> <interpretationCode codeSystem="local" code="*" /> <referenceRange> <observationRange> <text>NRG</text> </ observationRange> </referenceRange> </observation> </ component> <component> <observation moodCode="EVN" classCode="OBS"> <templateId root="01.16.840.1.416934.10.22.4.2" /> <id nullFlavor="NA" /> <code codeSystem="local" code="41511-4" displayName= "Squamous epithelial cells detection in urine sediment by light microscopy" /> <statusCode code="completed" /> <effectiveTime value= "" /> <value unit="" xsi:type="PQ" value="09-24" /> <interpretationCode codeSystem="local" code="*" /> <referenceRange> <observationRange> <text>NRG</text> </ observationRange> </referenceRange> </observation> </ component> <component> <observation moodCode="EVN" classCode="OBS"> <templateId root="216.840.1.415491.10.20.22.4.2" /> <id nullFlavor="NA" /> <code codeSystem="local" code="26832-9" displayName= "Crystals detection in urine sediment by light microscopy" /> < statusCode code="completed" /> <effectiveTime value="" /> <value unit="" xsi:type="PQ" value="NONE" /> <referenceRange> <observationRange> <text>NRG</text> </ observationRange> </referenceRange> </observation> </ component> <component> <observation moodCode="EVN" classCode="OBS"> <templateId root="216.840.1.120627.10.20.22.4.2" /> <id nullFlavor="NA" /> <code codeSystem="local" code="63099-9" displayName= "Casts detection in urine sediment by light microscopy" /> <statusCode code="completed" /> <effectiveTime value="" /> < value unit="" xsi:type="PQ" value="NONE" /> <referenceRange> <observationRange> <text>NRG</text> </observationRange > </referenceRange> </observation> </component> < component> <observation moodCode="EVN" classCode="OBS"> < templateId root="2.16.840.1.502834.1022.4.2" /> <id nullFlavor="NA " /> <code codeSystem="local" code="8247-9" displayName="Mucus detection in urine sediment by light microscopy" /> <statusCode code= "completed" /> <effectiveTime value="319995945259" /> <value unit="" xsi:type="PQ" value="NEGATIVE" /> <referenceRange> < observationRange> <text>NRG</text> </observationRange> </referenceRange> </observation> </component> < component> <observation moodCode="EVN" classCode="OBS"> < templateId root="840.1.035542.22.4.2" /> <id nullFlavor="NA " /> <code codeSystem="local" code="05285-4" displayName="Complete urinalysis with reflex to culture" /> <statusCode code="completed" /> <effectiveTime value="158721470672" /> <value unit="" xsi:type ="PQ" value="YES" /> <referenceRange> <observationRange> <text>NRG</text> </observationRange> </ referenceRange> </observation> </component> </organizer> </entry > <entry> <organizer moodCode="EVN" classCode="BATTERY"> <templateId root="840.1.671194.1022.4.1" /> <id nullFlavor="NA" /> <code codeSystem="local" code="630-4" displayName="Bacterial urine culture" /> < statusCode code="completed" /> <component> <observation moodCode= "EVN" classCode="OBS"> <templateId root="840.1.593784.102022.4.2 " /> <id nullFlavor="NA" /> <code codeSystem="local" code= "URINERES" displayName="URINE CULTURE RESULTS" /> <statusCode code= "completed" /> <effectiveTime value="594403264908" /> <value unit="" xsi:type="PQ" value="MORE THAN 3 ISOLATES" /> <referenceRange> <observationRange> <text>NRG</text> </ observationRange> </referenceRange> </observation> </ component> </organizer> </entry> <entry> <organizer moodCode="EVN" classCode="BATTERY"> <templateId root="216.840.1.085257.10.20.22.4.1" /> <id nullFlavor="NA" /> <code codeSystem="local" code="97459-7" displayName="Complete blood count (CBC) with automated white blood cell (WBC) differential" /> <statusCode code="completed" /> <component> < observation moodCode="EVN" classCode="OBS"> <templateId root= "216.840.1.532444.10.20.22.4.2" /> <id nullFlavor="NA" /> < code codeSystem="local" code="6690-2" displayName="Blood leukocytes automated count (number/volume)" /> <statusCode code="completed" /> < effectiveTime value="259723176160" /> <value unit="10*3/uL" xsi:type= "PQ" value="10.9" /> <referenceRange> <observationRange> <text>4.3-11.0</text> </observationRange> </ referenceRange> </observation> </component> <component> <observation moodCode="EVN" classCode="OBS"> <templateId root= "216.840.1.569880.10.20.22.4.2" /> <id nullFlavor="NA" /> < code codeSystem="local" code="789-8" displayName="Blood erythrocytes automated count (number/volume)" /> <statusCode code="completed" /> < effectiveTime value="809525714847" /> <value unit="10*6/uL" xsi:type= "PQ" value="4.68" /> <referenceRange> <observationRange> <text>4.35-5.85</text> </observationRange> </ referenceRange> </observation> </component> <component> <observation moodCode="EVN" classCode="OBS"> <templateId root= "2.16.840.1.041651.10.20.22.4.2" /> <id nullFlavor="NA" /> < code codeSystem="local" code="88965-0" displayName="Venous blood hemoglobin measurement (mass/volume)" /> <statusCode code="completed" /> <effectiveTime value="375917341567" /> <value unit="g/dL" xsi:type="PQ " value="14.5" /> <referenceRange> <observationRange> <text>11.5-16.0</text> </observationRange> </ referenceRange> </observation> </component> <component> <observation moodCode="EVN" classCode="OBS"> <templateId root= "2.16.840.1.883371.10.20.22.4.2" /> <id nullFlavor="NA" /> < code codeSystem="local" code="34138-5" displayName="Blood hematocrit (volume fraction)" /> <statusCode code="completed" /> <effectiveTime value="320811108349" /> <value unit="%" xsi:type="PQ" value="41" / > <referenceRange> <observationRange> <text>35- 52</text> </observationRange> </referenceRange> </ observation> </component> <component> <observation moodCode= "EVN" classCode="OBS"> <templateId root="2.16.840.1.214789.10..22.4.2 " /> <id nullFlavor="NA" /> <code codeSystem="local" code="787 -2" displayName="Automated erythrocyte mean corpuscular volume" /> < statusCode code="completed" /> <effectiveTime value="" /> <value unit="[foz_us]" xsi:type="PQ" value="89" /> < referenceRange> <observationRange> <text>80-99</text> </observationRange> </referenceRange> </observation> </component> <component> <observation moodCode="EVN" classCode= "OBS"> <templateId root="2.16.840.1.653729.10...4.2" /> < id nullFlavor="NA" /> <code codeSystem="local" code="785-6" displayName ="Automated erythrocyte mean corpuscular hemoglobin (mass per erythrocyte)" /> <statusCode code="completed" /> <effectiveTime value= "" /> <value unit="pg" xsi:type="PQ" value="31" /> <referenceRange> <observationRange> <text>25-34</text > </observationRange> </referenceRange> </observation > </component> <component> <observation moodCode="EVN" classCode="OBS"> <templateId root="2.16.840.1.284794.10..22.4.2" /> <id nullFlavor="NA" /> <code codeSystem="local" code="786-4" displayName="Automated erythrocyte mean corpuscular hemoglobin concentration measurement (mass/volume)" /> <statusCode code="completed" /> <effectiveTime value="" /> <value unit="g/dL" xsi:type="PQ " value="35" /> <referenceRange> <observationRange> <text>32-36</text> </observationRange> </ referenceRange> </observation> </component> <component> <observation moodCode="EVN" classCode="OBS"> <templateId root= "2.16.840.1.516217.10..22.4.2" /> <id nullFlavor="NA" /> < code codeSystem="local" code="788-0" displayName="Automated erythrocyte distribution width ratio" /> <statusCode code="completed" /> < effectiveTime value="313567051508" /> <value unit="%" xsi:type="PQ " value="13.2" /> <referenceRange> <observationRange> <text>10.0-14.5</text> </observationRange> </ referenceRange> </observation> </component> <component> <observation moodCode="EVN" classCode="OBS"> <templateId root= "216.840.1.243305.10...4.2" /> <id nullFlavor="NA" /> < code codeSystem="local" code="777-3" displayName="Automated blood platelet count (count/volume)" /> <statusCode code="completed" /> < effectiveTime value="595415886668" /> <value unit="10*3/uL" xsi:type= "PQ" value="253" /> <referenceRange> <observationRange> <text>130-400</text> </observationRange> </ referenceRange> </observation> </component> <component> <observation moodCode="EVN" classCode="OBS"> <templateId root= "216.840.1.905443.10.20.22.4.2" /> <id nullFlavor="NA" /> < code codeSystem="local" code="19279-9" displayName="Automated blood platelet mean volume measurement" /> <statusCode code="completed" /> < effectiveTime value="036938693540" /> <value unit="[_us]" xsi:type= "PQ" value="9.9" /> <referenceRange> <observationRange> <text>7.4-10.4</text> </observationRange> </ referenceRange> </observation> </component> <component> <observation moodCode="EVN" classCode="OBS"> <templateId root= "2.16.840.1.414828.10..22.4.2" /> <id nullFlavor="NA" /> < code codeSystem="local" code="770-8" displayName="Automated blood neutrophils/ 100 leukocytes" /> <statusCode code="completed" /> < effectiveTime value="582610814038" /> <value unit="%" xsi:type="PQ " value="53" /> <referenceRange> <observationRange> <text>42-75</text> </observationRange> </ referenceRange> </observation> </component> <component> <observation moodCode="EVN" classCode="OBS"> <templateId root= "2.16.840.1.855309.10..22.4.2" /> <id nullFlavor="NA" /> < code codeSystem="local" code="736-9" displayName="Automated blood lymphocytes/ 100 leukocytes" /> <statusCode code="completed" /> < effectiveTime value="" /> <value unit="%" xsi:type="PQ " value="36" /> <referenceRange> <observationRange> <text>12-44</text> </observationRange> </ referenceRange> </observation> </component> <component> <observation moodCode="EVN" classCode="OBS"> <templateId root= "2.16.840.1.972862.10.20.22.4.2" /> <id nullFlavor="NA" /> < code codeSystem="local" code="02788-9" displayName="Blood monocytes/100 leukocytes" /> <statusCode code="completed" /> <effectiveTime value="" /> <value unit="%" xsi:type="PQ" value="5" /> <referenceRange> <observationRange> <text>0-12 </text> </observationRange> </referenceRange> </ observation> </component> <component> <observation moodCode= "EVN" classCode="OBS"> <templateId root="2.16.840.1.047942.10..22.4.2 " /> <id nullFlavor="NA" /> <code codeSystem="local" code="713 -8" displayName="Automated blood eosinophils/100 leukocytes" /> < statusCode code="completed" /> <effectiveTime value="" /> <value unit="%" xsi:type="PQ" value="5" /> <referenceRange > <observationRange> <text>0-10</text> </ observationRange> </referenceRange> </observation> </ component> <component> <observation moodCode="EVN" classCode="OBS"> <templateId root="2.16.840.1.644508.10.20.22.4.2" /> <id nullFlavor="NA" /> <code codeSystem="local" code="706-2" displayName= "Automated blood basophils/100 leukocytes" /> <statusCode code= "completed" /> <effectiveTime value="" /> <value unit="%" xsi:type="PQ" value="1" /> <referenceRange> < observationRange> <text>0-10</text> </observationRange> </referenceRange> </observation> </component> < component> <observation moodCode="EVN" classCode="OBS"> < templateId root="216.840.1.571791.10.20.22.4.2" /> <id nullFlavor="NA " /> <code codeSystem="local" code="751-8" displayName="Blood neutrophils automated count (number/volume)" /> <statusCode code= "completed" /> <effectiveTime value="797462080926" /> <value unit="10*3" xsi:type="PQ" value="5.7" /> <referenceRange> < observationRange> <text>1.8-7.8</text> </ observationRange> </referenceRange> </observation> </ component> <component> <observation moodCode="EVN" classCode="OBS"> <templateId root="01.16.840.1.908382.10.22.4.2" /> <id nullFlavor="NA" /> <code codeSystem="local" code="731-0" displayName= "Blood lymphocytes automated count (number/volume)" /> <statusCode code ="completed" /> <effectiveTime value="074823342308" /> <value unit="10*3" xsi:type="PQ" value="3.9" /> <referenceRange> < observationRange> <text>1.0-4.0</text> </ observationRange> </referenceRange> </observation> </ component> <component> <observation moodCode="EVN" classCode="OBS"> <templateId root="16.840.1.333479.10.20.22.4.2" /> <id nullFlavor="NA" /> <code codeSystem="local" code="742-7" displayName= "Blood monocytes automated count (number/volume)" /> <statusCode code= "completed" /> <effectiveTime value="" /> <value unit="10*3" xsi:type="PQ" value="0.6" /> <referenceRange> < observationRange> <text>0.0-1.0</text> </ observationRange> </referenceRange> </observation> </ component> <component> <observation moodCode="EVN" classCode="OBS"> <templateId root="2.16.840.1.390413.10.20.22.4.2" /> <id nullFlavor="NA" /> <code codeSystem="local" code="711-2" displayName= "Automated eosinophil count" /> <statusCode code="completed" /> <effectiveTime value="" /> <value unit="10*3/uL" xsi: type="PQ" value="0.6" /> <interpretationCode codeSystem="local" code="* *" /> <referenceRange> <observationRange> <text >0.0-0.3</text> </observationRange> </referenceRange> </observation> </component> <component> <observation moodCode ="EVN" classCode="OBS"> <templateId root= "2.16.840.1.031899.10.2022.4.2" /> <id nullFlavor="NA" /> < code codeSystem="local" code="704-7" displayName="Automated blood basophil count (count/volume)" /> <statusCode code="completed" /> < effectiveTime value="" /> <value unit="10*3/uL" xsi:type= "PQ" value="0.1" /> <referenceRange> <observationRange> <text>0.0-0.1</text> </observationRange> </ referenceRange> </observation> </component> </organizer> </entry > <entry> <organizer moodCode="EVN" classCode="BATTERY"> <templateId root="216.840.1.721859.10...4.1" /> <id nullFlavor="NA" /> <code codeSystem="local" code="2118-07" displayName="Serum or plasma choriogonadotropin ( test) detection" /> <statusCode code= "completed" /> <component> <observation moodCode="EVN" classCode= "OBS"> <templateId root="01.16.840.1.101449.10..4.2" /> < id nullFlavor="NA" /> <code codeSystem="local" code="2118-07" displayName="Serum or plasma choriogonadotropin ( test) detection" /> <statusCode code="completed" /> <effectiveTime value= "166589725198" /> <value unit="" xsi:type="PQ" value="NEGATIVE" /> <referenceRange> <observationRange> <text>NEGATIVE </text> </observationRange> </referenceRange> </ observation> </component> </organizer> </entry> <entry> <organizer moodCode="EVN" classCode="BATTERY"> <templateId root= "216.840.1.958844.10..4.1" /> <id nullFlavor="NA" /> <code codeSystem="local" code="78154-5" displayName="Comprehensive metabolic panel" / > <statusCode code="completed" /> <component> <observation moodCode="EVN" classCode="OBS"> <templateId root= "216.840.1.052342.10..22.4.2" /> <id nullFlavor="NA" /> < code codeSystem="local" code="2951-2" displayName="Serum or plasma sodium measurement (moles/volume)" /> <statusCode code="completed" /> <effectiveTime value="078319688983" /> <value unit="mmol/L" xsi:type= "PQ" value="139" /> <referenceRange> <observationRange> <text>135-145</text> </observationRange> </ referenceRange> </observation> </component> <component> <observation moodCode="EVN" classCode="OBS"> <templateId root= "2.16.840.1.865466.10.20.22.4.2" /> <id nullFlavor="NA" /> < code codeSystem="local" code="2823-3" displayName="Serum or plasma potassium measurement (moles/volume)" /> <statusCode code="completed" /> <effectiveTime value="460908097769" /> <value unit="mmol/L" xsi:type= "PQ" value="3.9" /> <referenceRange> <observationRange> <text>3.6-5.0</text> </observationRange> </ referenceRange> </observation> </component> <component> <observation moodCode="EVN" classCode="OBS"> <templateId root= "2.16.840.1.681228.10.20.22.4.2" /> <id nullFlavor="NA" /> < code codeSystem="local" code="2075-0" displayName="Serum or plasma chloride measurement (moles/volume)" /> <statusCode code="completed" /> <effectiveTime value="854809277959" /> <value unit="mmol/L" xsi:type= "PQ" value="105" /> <referenceRange> <observationRange> <text>98-107</text> </observationRange> </ referenceRange> </observation> </component> <component> <observation moodCode="EVN" classCode="OBS"> <templateId root= "2.16.840.1.308836.10.20.22.4.2" /> <id nullFlavor="NA" /> < code codeSystem="local" code="2028-08" displayName="Carbon dioxide" /> < statusCode code="completed" /> <effectiveTime value="" /> <value unit="mmol/L" xsi:type="PQ" value="20" /> < interpretationCode codeSystem="local" code="" /> <referenceRange> <observationRange> <text>21-32</text> </ observationRange> </referenceRange> </observation> </ component> <component> <observation moodCode="EVN" classCode="OBS"> <templateId root="16.840.1.140918.10..22.4.2" /> <id nullFlavor="NA" /> <code codeSystem="local" code="70646-3" displayName= "Serum or plasma anion gap determination (moles/volume)" /> < statusCode code="completed" /> <effectiveTime value="" /> <value unit="mmol/L" xsi:type="PQ" value="14" /> < referenceRange> <observationRange> <text>5-14</text> </observationRange> </referenceRange> </observation> </component> <component> <observation moodCode="EVN" classCode= "OBS"> <templateId root="2.16.840.1.389574.10..22.4.2" /> < id nullFlavor="NA" /> <code codeSystem="local" code="3094-0" displayName="Serum or plasma urea nitrogen measurement (mass/volume)" /> <statusCode code="completed" /> <effectiveTime value="" /> <value unit="mg/dL" xsi:type="PQ" value="13" /> < referenceRange> <observationRange> <text>7-18</text> </observationRange> </referenceRange> </observation> </component> <component> <observation moodCode="EVN" classCode= "OBS"> <templateId root="2.16.840.1.476454.10..22.4.2" /> < id nullFlavor="NA" /> <code codeSystem="local" code="2160-0" displayName="Serum or plasma creatinine measurement (mass/volume)" /> < statusCode code="completed" /> <effectiveTime value="599417854300" /> <value unit="mg/dL" xsi:type="PQ" value="0.78" /> < referenceRange> <observationRange> <text>0.60-1.30</text > </observationRange> </referenceRange> </observation > </component> <component> <observation moodCode="EVN" classCode="OBS"> <templateId root="216.840.1.252055.10..22.4.2" /> <id nullFlavor="NA" /> <code codeSystem="local" code="3097-3" displayName="Serum or plasma urea nitrogen/creatinine mass ratio" /> < statusCode code="completed" /> <effectiveTime value="823135852117" /> <value unit="" xsi:type="PQ" value="17" /> <referenceRange> <observationRange> <text>NRG</text> </ observationRange> </referenceRange> </observation> </ component> <component> <observation moodCode="EVN" classCode="OBS"> <templateId root="2.16.840.1.495378.10.20.22.4.2" /> <id nullFlavor="NA" /> <code codeSystem="local" code="03191-9" displayName= "Serum or plasma creatinine measurement with calculation of estimated glomerular filtration rate" /> <statusCode code="completed" /> <effectiveTime value="690133685140" /> <value unit="" xsi:type="PQ" value=">" /> <referenceRange> <observationRange> <text>NRG</text> </observationRange> </referenceRange > </observation> </component> <component> <observation moodCode="EVN" classCode="OBS"> <templateId root= "2.16.840.1.731686.10.20.22.4.2" /> <id nullFlavor="NA" /> < code codeSystem="local" code="2345-7" displayName="Serum or plasma glucose measurement (mass/volume)" /> <statusCode code="completed" /> <effectiveTime value="700000805589" /> <value unit="mg/dL" xsi:type="PQ " value="108" /> <interpretationCode codeSystem="local" code="" /> <referenceRange> <observationRange> <text>70-105 </text> </observationRange> </referenceRange> </ observation> </component> <component> <observation moodCode= "EVN" classCode="OBS"> <templateId root="2.16.840.1.350167.10..22.4.2 " /> <id nullFlavor="NA" /> <code codeSystem="local" code= "04578-3" displayName="Serum or plasma calcium measurement (mass/volume)" /> <statusCode code="completed" /> <effectiveTime value= "490393094718" /> <value unit="mg/dL" xsi:type="PQ" value="9.4" /> <referenceRange> <observationRange> <text>8.5-10.1 </text> </observationRange> </referenceRange> </ observation> </component> <component> <observation moodCode= "EVN" classCode="OBS"> <templateId root="2.16.840.1.303339.10.20.22.4.2 " /> <id nullFlavor="NA" /> <code codeSystem="local" code= "1975-01" displayName="Serum or plasma total bilirubin measurement (mass/volume) " /> <statusCode code="completed" /> <effectiveTime value= "304501255417" /> <value unit="mg/dL" xsi:type="PQ" value="0.2" /> <referenceRange> <observationRange> <text>0.1-1.0< /text> </observationRange> </referenceRange> </ observation> </component> <component> <observation moodCode= "EVN" classCode="OBS"> <templateId root="216.840.1.514698.10...4.2 " /> <id nullFlavor="NA" /> <code codeSystem="local" code= "67686" displayName="Serum or plasma alkaline phosphatase measurement ( enzymatic activity/volume)" /> <statusCode code="completed" /> <effectiveTime value="077587568678" /> <value unit="U/L" xsi:type="PQ " value="74" /> <referenceRange> <observationRange> <text>40-136</text> </observationRange> </ referenceRange> </observation> </component> <component> <observation moodCode="EVN" classCode="OBS"> <templateId root= "2.16.840.1.882440.10.20.22.4.2" /> <id nullFlavor="NA" /> < code codeSystem="local" code="1920-07" displayName="Serum or plasma aspartate aminotransferase measurement (enzymatic activity/volume)" /> < statusCode code="completed" /> <effectiveTime value="698932266205" /> <value unit="U/L" xsi:type="PQ" value="21" /> <referenceRange > <observationRange> <text>5-34</text> </ observationRange> </referenceRange> </observation> </ component> <component> <observation moodCode="EVN" classCode="OBS"> <templateId root="216.840.1.551880.10...4.2" /> <id nullFlavor="NA" /> <code codeSystem="local" code="1742-6" displayName= "Serum or plasma alanine aminotransferase measurement (enzymatic activity/volume )" /> <statusCode code="completed" /> <effectiveTime value= "172336171723" /> <value unit="U/L" xsi:type="PQ" value="29" /> <referenceRange> <observationRange> <text>0-55</text > </observationRange> </referenceRange> </observation > </component> <component> <observation moodCode="EVN" classCode="OBS"> <templateId root="216.840.1.675321.10..22.4.2" /> <id nullFlavor="NA" /> <code codeSystem="local" code="2885-2" displayName="Serum or plasma protein measurement (mass/volume)" /> < statusCode code="completed" /> <effectiveTime value="947698508726" /> <value unit="g/dL" xsi:type="PQ" value="7.6" /> < referenceRange> <observationRange> <text>6.4-8.2</text> </observationRange> </referenceRange> </observation > </component> <component> <observation moodCode="EVN" classCode="OBS"> <templateId root="[id number]" /> <id nullFlavor="NA" /> <code codeSystem="local" code="1751-7" displayName="Serum or plasma albumin measurement (mass/volume)" /> < statusCode code="completed" /> <effectiveTime value="[id number]" /> <value unit="g/dL" xsi:type="PQ" value="4.0" /> < referenceRange> <observationRange> <text>3.2-4.5</text> </observationRange> </referenceRange> </observation > </component> </organizer> </entry> <entry> <organizer moodCode= "EVN" classCode="BATTERY"> <templateId root="[id number] " /> <id nullFlavor="NA" /> <code codeSystem="local" code="3040-3" displayName="Lipase" /> <statusCode code="completed" /> <component> <observation moodCode="EVN" classCode="OBS"> <templateId root= "[id number]" /> <id nullFlavor="NA" /> < code codeSystem="local" code="3040-3" displayName="Lipase" /> < statusCode code="completed" /> <effectiveTime value="[id number]" /> <value unit="U/L" xsi:type="PQ" value="49" /> <referenceRange > <observationRange> <text>8-78</text> </ observationRange> </referenceRange> </observation> </ component> </organizer> </entry></section> Encounters ACCT No. Visit Date/Time Discharge Status Pt. Type Provider Facility Loc./Unit Complaint [id number] 01/13/2013 11:21:00 01/13/2013 17:24:00 [id number] 09/09/2012 09:58:00 09/11/2012 16:02:00 DIS Inpatient Harvey POSADAS, W.5WH [id number] 08/30/2012 07:08:00 08/30/2012 10:49:00 DIS Emergency Harvey POSADAS, W.2WOBED [id number] 08/29/2012 11:03:00 08/29/2012 14:22:00 DIS Emergency Harvey POSADAS, W.2WOBED [id number] 07/07/2012 13:36:00 07/07/2012 17:10:00 DIS Emergency Harvey POSADAS, W.2WOBED [id number] 02/06/2018 18:07:00 02/06/2018 21:10:00 DIS Outpatient RADHA PATIÑO [facility] ABD PAIN [id number] 03/05/2018 00:46:00 Document Registration
[2018-03-05] MEDS: CATHETER FLUSH 10 ML SYR IV SCH ×2 (10:12→10:28)
--- OUTSIDE RECORDS SUMMARY | 2018-03-05 10:37 | XMS REPORT | Continuity of Care Document ---
Author Author [facility] Organization [facility] Address Unknown Phone Unavailable Allergies Active Description Code Type Severity Reaction Onset Reported/Identified Relationship to Patient Clinical Status Yes No Known Drug Allergies [id number] Drug Allergy Unknown N/A 02/06/2018 Medications There is no data. Problems Date Dx Coded Attending Type Code Diagnosis Diagnosed By 08/30/2012 Harvey POSADAS, Guicho Morris W 644.03 THRT SRIDHAR LABOR-ANTEPART 02/09/2018 KAYLYN, RADHA PARK INTERPRETIVE RANGER Ot F17.210 NICOTINE DEPENDENCE, CIGARETTES, UNCOMPL 02/09/2018 KAYLYN, RADHA PARK INTERPRETIVE RANGER Ot F90.9 ATTENTION-DEFICIT HYPERACTIVITY DISORDER 02/09/2018 KAYLYN, RADHA PARK INTERPRETIVE RANGER Ot G40.909 EPILEPSY, UNSP, NOT INTRACTABLE, WITHOUT 02/09/2018 KAYLYN, RADHA PARK INTERPRETIVE RANGER Ot K81.9 CHOLECYSTITIS, UNSPECIFIED 02/09/2018 KAYLYN, RADHA PARK INTERPRETIVE RANGER Ot N39.0 URINARY TRACT INFECTION, SITE NOT SPECIF 02/09/2018 KAYLYN, RADHA PARK INTERPRETIVE RANGER Ot R10.11 RIGHT UPPER QUADRANT PAIN 02/09/2018 KAYLYN, RADHA PARK INTERPRETIVE RANGER Ot Z87.59 PERSONAL HISTORY OF COMP OF PREG, CHLDBR 02/12/2018 KAYLYN, RADHA PARK INTERPRETIVE RANGER Ot F17.210 NICOTINE DEPENDENCE, CIGARETTES, UNCOMPL 02/12/2018 KAYLYN, RADHA PARK INTERPRETIVE RANGER Ot F90.9 ATTENTION-DEFICIT HYPERACTIVITY DISORDER 02/12/2018 KAYLYN, RADHA PARK INTERPRETIVE RANGER Ot G40.909 EPILEPSY, UNSP, NOT INTRACTABLE, WITHOUT 02/12/2018 KAYLYN, RADHA PARK INTERPRETIVE RANGER Ot K81.9 CHOLECYSTITIS, UNSPECIFIED 02/12/2018 KAYLYN, RADHA PARK INTERPRETIVE RANGER Ot N39.0 URINARY TRACT INFECTION, SITE NOT SPECIF 02/12/2018 KAYLYN, RADHA PARK INTERPRETIVE RANGER Ot R10.11 RIGHT UPPER QUADRANT PAIN 02/12/2018 KAYLYN, RADHA PARK INTERPRETIVE RANGER Ot Z87.59 PERSONAL HISTORY OF COMP OF PREG, CHLDBR Procedures There is no data. <section xmlns="urn:7-org:v3" xmlns:xsi="http:// www.3.org/2001/XMLSchema-instance"> <templateId root= "2.16.840.1.580377.10.20.22.2.3" /> <templateId root= "2.16.840.1.698491.10.20.22.2.3.1" /> <code codeSystemName="ZULEYKA" codeSystem= "2.16.840.1.063164.6.1" code="30397-7" displayName="Results" /> <title>Results< /title> <text> <table> <thead> [...] </text> <entry> <organizer moodCode="EVN " classCode="BATTERY"> <templateId root="2.16.840.1.760940.10.20.22.4.1" / > <id nullFlavor="NA" /> <code codeSystem="local" code="UAM" displayName="URINALYSIS WITH MICROSCOPIC" /> <statusCode code="completed" / > <component> <observation moodCode="EVN" classCode="OBS"> <templateId root="16.840.1.706535.10...4.2" /> <id nullFlavor="NA " /> <code codeSystem="local" code="LEUESU" displayName="UA LEUKOCYTE ESTERASE DIPSTICK" /> <statusCode code="completed" /> < effectiveTime value="[id number]" /> <value unit="" xsi:type="PQ" value="2+" /> <interpretationCode codeSystem="local" code="*" /> <referenceRange> <observationRange> <text>NEGATIVE</ text> </observationRange> </referenceRange> </ observation> </component> <component> <observation moodCode= "EVN" classCode="OBS"> <templateId root="01.16.840.1.618590.09.19.224.2 " /> <id nullFlavor="NA" /> <code codeSystem="local" code= "NITRIU" displayName="UA NITRITE DIPSTICK" /> <statusCode code= "completed" /> <effectiveTime value="[id number]" /> <value unit="" xsi:type="PQ" value="NEGATIVE" /> <referenceRange> < observationRange> <text>NEGATIVE</text> </ observationRange> </referenceRange> </observation> </ component> <component> <observation moodCode="EVN" classCode="OBS"> <templateId root="16.840.1.527319...4.2" /> <id nullFlavor="NA" /> <code codeSystem="local" code="PROTEIU" displayName= "UA PROTEIN DIPSTICK" /> <statusCode code="completed" /> < effectiveTime value="" /> <value unit="" xsi:type="PQ" value="NEGATIVE" /> <referenceRange> <observationRange> <text>NEGATIVE</text> </observationRange> </ referenceRange> </observation> </component> <component> <observation moodCode="EVN" classCode="OBS"> <templateId root= "01.16.840.1.309118.09.19.22.4.2" /> <id nullFlavor="NA" /> < code codeSystem="local" code="DGLUU" displayName="UA GLUCOSE DIPSTICK" /> <statusCode code="completed" /> <effectiveTime value=" " /> <value unit="" xsi:type="PQ" value="NEGATIVE" /> < referenceRange> <observationRange> <text>NEGATIVE</text > </observationRange> </referenceRange> </observation > </component> <component> <observation moodCode="EVN" classCode="OBS"> <templateId root="01.16.840.1.106427.09.19.22.4.2" /> <id nullFlavor="NA" /> <code codeSystem="local" code="KETONU" displayName="UA KETONE DIPSTICK" /> <statusCode code="completed" /> <effectiveTime value="" /> <value unit="" xsi:type= "PQ" value="NEGATIVE" /> <referenceRange> <observationRange > <text>NEGATIVE</text> </observationRange> </ referenceRange> </observation> </component> <component> <observation moodCode="EVN" classCode="OBS"> <templateId root= "01.16.840.1.006368.09.19.22.4.2" /> <id nullFlavor="NA" /> < code codeSystem="local" code="UROBILU" displayName="UA UROBILINOGEN DIPSTICK" / > <statusCode code="completed" /> <effectiveTime value= "537073988540" /> <value unit="" xsi:type="PQ" value="NORMAL" /> <referenceRange> <observationRange> <text>NORMAL</ text> </observationRange> </referenceRange> </ observation> </component> <component> <observation moodCode= "EVN" classCode="OBS"> <templateId root="01.16.840.1.124232.10..22.4.2 " /> <id nullFlavor="NA" /> <code codeSystem="local" code= "BILU" displayName="UA BILIRUBIN DIPSTICK" /> <statusCode code= "completed" /> <effectiveTime value="078171615861" /> <value unit="" xsi:type="PQ" value="NEGATIVE" /> <referenceRange> < observationRange> <text>NEGATIVE</text> </ observationRange> </referenceRange> </observation> </ component> <component> <observation moodCode="EVN" classCode="OBS"> <templateId root="01.16.840.1.734512.10.20.22.4.2" /> <id nullFlavor="NA" /> <code codeSystem="local" code="ANABEL" displayName="UA BLOOD DIPSTICK" /> <statusCode code="completed" /> < effectiveTime value="077448542920" /> <value unit="" xsi:type="PQ" value="NEGATIVE" /> <referenceRange> <observationRange> <text>NEGATIVE</text> </observationRange> </ referenceRange> </observation> </component> <component> <observation moodCode="EVN" classCode="OBS"> <templateId root= ".1.070853.10.22.4.2" /> <id nullFlavor="NA" /> < code codeSystem="local" code="BACU" displayName="UA BACTERIA" /> < statusCode code="completed" /> <effectiveTime value="979434786700" /> <value unit="" xsi:type="PQ" value="4+" /> < interpretationCode codeSystem="local" code="*" /> <referenceRange> <observationRange> <text>NEGATIVE</text> </ observationRange> </referenceRange> </observation> </ component> <component> <observation moodCode="EVN" classCode="OBS"> <templateId root="840.1.973522.09.19.22.4.2" /> <id nullFlavor="NA" /> <code codeSystem="local" code="EPIU" displayName=" UA EPITHELIAL CELLS" /> <statusCode code="completed" /> < effectiveTime value="431312248699" /> <value unit="epi/hpf" xsi:type= "PQ" value="3+" /> <interpretationCode codeSystem="local" code="*" /> <referenceRange> <observationRange> <text>0 - 1 +</text> </observationRange> </referenceRange> </ observation> </component> <component> <observation moodCode= "EVN" classCode="OBS"> <templateId root="01.16.840.1.331048.10.22.4.2 " /> <id nullFlavor="NA" /> <code codeSystem="local" code= "RBCU" displayName="UA RBC" /> <statusCode code="completed" /> <effectiveTime value="728451421558" /> <value unit="rbc/hpf" xsi:type ="PQ" value="5-10" /> <interpretationCode codeSystem="local" code="*" / > <referenceRange> <observationRange> <text>0 - 3</text> </observationRange> </referenceRange> </ observation> </component> <component> <observation moodCode= "EVN" classCode="OBS"> <templateId root="16.840.1.872722.10..22.4.2 " /> <id nullFlavor="NA" /> <code codeSystem="local" code= "UAVOL" displayName="UA VOLUME FOR EXAM" /> <statusCode code="completed " /> <effectiveTime value="491481342193" /> <value unit="mL" xsi:type="PQ" value="12.0" /> <referenceRange> < observationRange> <text>(12mL STD)</text> </ observationRange> </referenceRange> </observation> </ component> <component> <observation moodCode="EVN" classCode="OBS"> <templateId root="01.16.840.1.358850.10..4.2" /> <id nullFlavor="NA" /> <code codeSystem="local" code="WBCU" displayName=" UA WBC" /> <statusCode code="completed" /> <effectiveTime value="152641600122" /> <value unit="wbc/hpf" xsi:type="PQ" value="20- 50" /> <interpretationCode codeSystem="local" code="*" /> < referenceRange> <observationRange> <text>0 - 5</text> </observationRange> </referenceRange> </observation> </component> <component> <observation moodCode="EVN" classCode= "OBS"> <templateId root="16.840.1.040622.10..22.4.2" /> < id nullFlavor="NA" /> <code codeSystem="local" code="SPGRU" displayName ="UA SPECIFIC GRAVITY" /> <statusCode code="completed" /> < effectiveTime value="688987612381" /> <value unit="" xsi:type="PQ" value="1.020" /> <referenceRange> <observationRange> <text>1.015-1.025</text> </observationRange> </ referenceRange> </observation> </component> <component> <observation moodCode="EVN" classCode="OBS"> <templateId root= "01.16.840.1.954947.10.4.2" /> <id nullFlavor="NA" /> < code codeSystem="local" code="MARILYN" displayName="UR PH" /> <statusCode code="completed" /> <effectiveTime value="053654084852" /> < value unit="" xsi:type="PQ" value="7.0" /> <referenceRange> <observationRange> <text>5.0-7.0</text> </ observationRange> </referenceRange> </observation> </ component> </organizer> </entry> <entry> <organizer moodCode="EVN" classCode="BATTERY"> <templateId root="01.16.840.1.658928.09.19.22.4.1" /> <id nullFlavor="NA" /> <code codeSystem="local" code="UC" displayName= "URINE CULTURE" /> <statusCode code="completed" /> <component> <observation moodCode="EVN" classCode="OBS"> <templateId root= "01.16.840.1.242695.09.19.22.4.2" /> <id nullFlavor="NA" /> < code codeSystem="local" code="UNC" displayName="Uncategorized" /> < statusCode code="completed" /> <effectiveTime value="537839475996" /> <value xsi:type="ST" value="<pre><b>URINE CULTURE</b> See BelowURINE CULTURE(F) Gianna Date/Time: 08/29/2012 12:29 Lizz Date/Time: 08/31/2012 09:17SOURCE: URINESPEC DESC: CLEAN CATCHTREATMENT OF ASYMPTOMATIC BACTERIURIA IS NOT USUALLYCLINICALLY INDICATED.MIXED GRAM POSITIVE?MIXED GRAM POSITIVE [facility] [phone] [place] [address]</pre>" /> <referenceRange> <observationRange> <text /> </observationRange> </referenceRange> </observation> </component> </ organizer> </entry> <entry> <organizer moodCode="EVN" classCode="BATTERY"> <templateId root="2.16.840.1.584549.10..22.4.1" /> <id nullFlavor= "NA" /> <code codeSystem="local" code="CBC" displayName="CBC" /> < statusCode code="completed" /> <component> <observation moodCode= "EVN" classCode="OBS"> <templateId root="2.16.840.1.956643.10..22.4.2 " /> <id nullFlavor="NA" /> <code codeSystem="local" code="MCH " displayName="MEAN CELL HGB" /> <statusCode code="completed" /> <effectiveTime value="504435770312" /> <value unit="pg" xsi:type= "PQ" value="32.1" /> <referenceRange> <observationRange> <text>27.0-33.0</text> </observationRange> </ referenceRange> </observation> </component> <component> <observation moodCode="EVN" classCode="OBS"> <templateId root= "2.16.840.1.071616.10..22.4.2" /> <id nullFlavor="NA" /> < code codeSystem="local" code="MCHC" displayName="MEAN CELL HGB CONCENTRATION" / > <statusCode code="completed" /> <effectiveTime value= "378832568087" /> <value unit="g/dl" xsi:type="PQ" value="35.1" /> <referenceRange> <observationRange> <text>32.0- 36.0</text> </observationRange> </referenceRange> </ observation> </component> <component> <observation moodCode= "EVN" classCode="OBS"> <templateId root="2.16.840.1.184316.10..22.4.2 " /> <id nullFlavor="NA" /> <code codeSystem="local" code="MCV " displayName="MEAN CELL VOLUME" /> <statusCode code="completed" /> <effectiveTime value="132039866812" /> <value unit="fl" xsi:type ="PQ" value="91.6" /> <referenceRange> <observationRange> <text>80.0-100.0</text> </observationRange> </ referenceRange> </observation> </component> <component> <observation moodCode="EVN" classCode="OBS"> <templateId root= "2.16.840.1.250104.10..22.4.2" /> <id nullFlavor="NA" /> < code codeSystem="local" code="RBC" displayName="RED BLOOD CELL" /> < statusCode code="completed" /> <effectiveTime value="073674360077" /> <value unit="m/cumm" xsi:type="PQ" value="3.89" /> < interpretationCode codeSystem="local" code="*" /> <referenceRange> <observationRange> <text>4.00-6.00</text> </ observationRange> </referenceRange> </observation> </ component> <component> <observation moodCode="EVN" classCode="OBS"> <templateId root="216.840.1.579802.10.22.4.2" /> <id nullFlavor="NA" /> <code codeSystem="local" code="RDW" displayName=" RED CELL DISTRIBUTION WIDTH" /> <statusCode code="completed" /> <effectiveTime value="761281526941" /> <value unit="%" xsi:type= "PQ" value="13.9" /> <referenceRange> <observationRange> <text>11.0-15.6</text> </observationRange> </ referenceRange> </observation> </component> <component> <observation moodCode="EVN" classCode="OBS"> <templateId root= "01.16.840.1.662968.22.4.2" /> <id nullFlavor="NA" /> < code codeSystem="local" code="WBC" displayName="WHITE BLOOD CELL" /> < statusCode code="completed" /> <effectiveTime value="885632069165" /> <value unit="k/cumm" xsi:type="PQ" value="13.2" /> < interpretationCode codeSystem="local" code="*" /> <referenceRange> <observationRange> <text>5.0-10.0</text> </ observationRange> </referenceRange> </observation> </ component> <component> <observation moodCode="EVN" classCode="OBS"> <templateId root="16.840.1.542112.22.4.2" /> <id nullFlavor="NA" /> <code codeSystem="local" code="HGBT" displayName= "HEMOGLOBIN" /> <statusCode code="completed" /> < effectiveTime value="771910393041" /> <value unit="gm/dL" xsi:type="PQ " value="12.5" /> <referenceRange> <observationRange> <text>12.0-16.0</text> </observationRange> </ referenceRange> </observation> </component> <component> <observation moodCode="EVN" classCode="OBS"> <templateId root= "216.840.1.185080.22.4.2" /> <id nullFlavor="NA" /> < code codeSystem="local" code="HCTT" displayName="HEMATOCRIT" /> < statusCode code="completed" /> <effectiveTime value="955376544071" /> <value unit="%" xsi:type="PQ" value="35.6" /> < interpretationCode codeSystem="local" code="*" /> <referenceRange> <observationRange> <text>37.0-47.0</text> </ observationRange> </referenceRange> </observation> </ component> <component> <observation moodCode="EVN" classCode="OBS"> <templateId root="216.840.1.324833.09.19.22.4.2" /> <id nullFlavor="NA" /> <code codeSystem="local" code="PLT" displayName= "PLATELET COUNT" /> <statusCode code="completed" /> < effectiveTime value="223503701163" /> <value unit="k/cumm" xsi:type="PQ " value="216" /> <referenceRange> <observationRange> <text>150-450</text> </observationRange> </ referenceRange> </observation> </component> </organizer> </entry > <entry> <organizer moodCode="EVN" classCode="BATTERY"> <templateId root="216.840.1.964589.09.19.22.4.1" /> <id nullFlavor="NA" /> <code codeSystem="local" code="HGB" displayName="HEMOGLOBIN" /> <statusCode code= "completed" /> <component> <observation moodCode="EVN" classCode= "OBS"> <templateId root="01.16.840.1.263662.10...4.2" /> < id nullFlavor="NA" /> <code codeSystem="local" code="MCV" displayName= "MEAN CELL VOLUME" /> <statusCode code="completed" /> < effectiveTime value="" /> <value unit="fl" xsi:type="PQ" value="91.8" /> <referenceRange> <observationRange> <text>80.0-100.0</text> </observationRange> </ referenceRange> </observation> </component> <component> <observation moodCode="EVN" classCode="OBS"> <templateId root= "01.16.840.1.749359...4.2" /> <id nullFlavor="NA" /> < code codeSystem="local" code="HGBT" displayName="HEMOGLOBIN" /> < statusCode code="completed" /> <effectiveTime value="" /> <value unit="gm/dL" xsi:type="PQ" value="11.4" /> < interpretationCode codeSystem="local" code="*" /> <referenceRange> <observationRange> <text>12.0-16.0</text> </ observationRange> </referenceRange> </observation> </ component> </organizer> </entry> <entry> <organizer moodCode="EVN" classCode="BATTERY"> <templateId root="16.840.1.556710.10..4.1" /> <id nullFlavor="NA" /> <code codeSystem="local" code="HGB" displayName ="HEMOGLOBIN" /> <statusCode code="completed" /> <component> < observation moodCode="EVN" classCode="OBS"> <templateId root= "01.16.840.1.160913.10.20.22.4.2" /> <id nullFlavor="NA" /> < code codeSystem="local" code="MCV" displayName="MEAN CELL VOLUME" /> < statusCode code="completed" /> <effectiveTime value="" /> <value unit="fl" xsi:type="PQ" value="91.8" /> <referenceRange > <observationRange> <text>80.0-100.0</text> </observationRange> </referenceRange> </observation> </ component> <component> <observation moodCode="EVN" classCode="OBS"> <templateId root="01.16.840.1.893883....4.2" /> <id nullFlavor="NA" /> <code codeSystem="local" code="HGBT" displayName= "HEMOGLOBIN" /> <statusCode code="completed" /> < effectiveTime value="" /> <value unit="gm/dL" xsi:type="PQ " value="10.9" /> <interpretationCode codeSystem="local" code="*" /> <referenceRange> <observationRange> <text>12.0- 16.0</text> </observationRange> </referenceRange> </ observation> </component> </organizer> </entry> <entry> <organizer moodCode="EVN" classCode="BATTERY"> <templateId root= "01.16.840.1.328910.10..22.4.1" /> <id nullFlavor="NA" /> <code codeSystem="local" code="CBCD" displayName="CBC W/DIFF" /> <statusCode code ="completed" /> <component> <observation moodCode="EVN" classCode= "OBS"> <templateId root="216.840.1.810935.09.19.224.2" /> < id nullFlavor="NA" /> <code codeSystem="local" code="CBCCOM" displayName="COMMENT" /> <statusCode code="completed" /> < effectiveTime value="" /> <value unit="" xsi:type="PQ" value="REVIEWED" /> <referenceRange> <observationRange> <text /> </observationRange> </referenceRange> </observation> </component> <component> <observation moodCode="EVN" classCode="OBS"> <templateId root= "840.1.939166.09.19.224.2" /> <id nullFlavor="NA" /> < code codeSystem="local" code="GR#" displayName="GRANULOCYTE #" /> < statusCode code="completed" /> <effectiveTime value="" /> <value unit="k/cumm" xsi:type="PQ" value="15.1" /> < interpretationCode codeSystem="local" code="*" /> <referenceRange> <observationRange> <text>2.0-9.0</text> </ observationRange> </referenceRange> </observation> </ component> <component> <observation moodCode="EVN" classCode="OBS"> <templateId root="01.16.840.1.021226.09.19.224.2" /> <id nullFlavor="NA" /> <code codeSystem="local" code="GR%" displayName= "GRANULOCYTE %" /> <statusCode code="completed" /> < effectiveTime value="" /> <value unit="%" xsi:type="PQ " value="85" /> <interpretationCode codeSystem="local" code="*" /> <referenceRange> <observationRange> <text>50-75</ text> </observationRange> </referenceRange> </ observation> </component> <component> <observation moodCode= "EVN" classCode="OBS"> <templateId root="216.840.1.567438.09.19.22.4.2 " /> <id nullFlavor="NA" /> <code codeSystem="local" code="LY# " displayName="LYMPHOCYTE #" /> <statusCode code="completed" /> <effectiveTime value="" /> <value unit="k/cumm" xsi:type ="PQ" value="1.6" /> <referenceRange> <observationRange> <text>1.0-4.0</text> </observationRange> </ referenceRange> </observation> </component> <component> <observation moodCode="EVN" classCode="OBS"> <templateId root= "216.840.1.488836.10...4.2" /> <id nullFlavor="NA" /> < code codeSystem="local" code="LY%" displayName="LYMPHOCYTE %" /> <statusCode code="completed" /> <effectiveTime value="" /> <value unit="%" xsi:type="PQ" value="9" /> < interpretationCode codeSystem="local" code="*" /> <referenceRange> <observationRange> <text>20-30</text> </ observationRange> </referenceRange> </observation> </ component> <component> <observation moodCode="EVN" classCode="OBS"> <templateId root="2.16.840.1.186159.10.20.22.4.2" /> <id nullFlavor="NA" /> <code codeSystem="local" code="MCH" displayName= "MEAN CELL HGB" /> <statusCode code="completed" /> < effectiveTime value="037350416202" /> <value unit="pg" xsi:type="PQ" value="29.2" /> <referenceRange> <observationRange> <text>27.0-33.0</text> </observationRange> </ referenceRange> </observation> </component> <component> <observation moodCode="EVN" classCode="OBS"> <templateId root= "01.16.840.1.797477.10...4.2" /> <id nullFlavor="NA" /> < code codeSystem="local" code="MCHC" displayName="MEAN CELL HGB CONCENTRATION" / > <statusCode code="completed" /> <effectiveTime value= "254316457429" /> <value unit="g/dL" xsi:type="PQ" value="33.6" /> <referenceRange> <observationRange> <text>32.0- 37.0</text> </observationRange> </referenceRange> </ observation> </component> <component> <observation moodCode= "EVN" classCode="OBS"> <templateId root="01.16.840.1.702544.10..22.4.2 " /> <id nullFlavor="NA" /> <code codeSystem="local" code="MCV " displayName="MEAN CELL VOLUME" /> <statusCode code="completed" /> <effectiveTime value="534984687461" /> <value unit="fl" xsi:type ="PQ" value="87.1" /> <referenceRange> <observationRange> <text>80.0-100.0</text> </observationRange> </ referenceRange> </observation> </component> <component> <observation moodCode="EVN" classCode="OBS"> <templateId root= "216.840.1.671884.10.4.2" /> <id nullFlavor="NA" /> < code codeSystem="local" code="MO#" displayName="MONOCYTE #" /> < statusCode code="completed" /> <effectiveTime value="" /> <value unit="k/cumm" xsi:type="PQ" value="0.9" /> < referenceRange> <observationRange> <text>0.1-1.0</text> </observationRange> </referenceRange> </observation > </component> <component> <observation moodCode="EVN" classCode="OBS"> <templateId root="216.840.1.559352.09.19.224.2" /> <id nullFlavor="NA" /> <code codeSystem="local" code="MO% " displayName="MONOCYTE %" /> <statusCode code="completed" /> <effectiveTime value="" /> <value unit="%" xsi: type="PQ" value="5" /> <referenceRange> <observationRange> <text>4-6</text> </observationRange> </ referenceRange> </observation> </component> <component> <observation moodCode="EVN" classCode="OBS"> <templateId root= "216.840.1.199045.09.19.22.4.2" /> <id nullFlavor="NA" /> < code codeSystem="local" code="RBC" displayName="RED BLOOD CELL" /> < statusCode code="completed" /> <effectiveTime value="" /> <value unit="m/cumm" xsi:type="PQ" value="4.96" /> < referenceRange> <observationRange> <text>4.00-6.00</text > </observationRange> </referenceRange> </observation > </component> <component> <observation moodCode="EVN" classCode="OBS"> <templateId root="216.840.1.378776....4.2" /> <id nullFlavor="NA" /> <code codeSystem="local" code="RDW" displayName="RED CELL DISTRIBUTION WIDTH" /> <statusCode code= "completed" /> <effectiveTime value="977963288269" /> <value unit="%" xsi:type="PQ" value="13.4" /> <referenceRange> <observationRange> <text>11.0-15.6</text> </ observationRange> </referenceRange> </observation> </ component> <component> <observation moodCode="EVN" classCode="OBS"> <templateId root="216.840.1.114680.09.19.22.4.2" /> <id nullFlavor="NA" /> <code codeSystem="local" code="WBC" displayName= "WHITE BLOOD CELL" /> <statusCode code="completed" /> < effectiveTime value="405585214258" /> <value unit="k/cumm" xsi:type="PQ " value="17.8" /> <interpretationCode codeSystem="local" code="*" /> <referenceRange> <observationRange> <text>5.0- 10.0</text> </observationRange> </referenceRange> </ observation> </component> <component> <observation moodCode= "EVN" classCode="OBS"> <templateId root="[id number] " /> <id nullFlavor="NA" /> <code codeSystem="local" code= "HGBT" displayName="HEMOGLOBIN" /> <statusCode code="completed" /> <effectiveTime value="[id number]" /> <value unit="gm/dL" xsi: type="PQ" value="14.5" /> <referenceRange> <observationRange > <text>12.0-16.0</text> </observationRange> </ referenceRange> </observation> </component> <component> <observation moodCode="EVN" classCode="OBS"> <templateId root= "2.16.840.1.279786.09.19.22.4.2" /> <id nullFlavor="NA" /> < code codeSystem="local" code="HCTT" displayName="HEMATOCRIT" /> < statusCode code="completed" /> <effectiveTime value="" /> <value unit="%" xsi:type="PQ" value="43.2" /> < referenceRange> <observationRange> <text>37.0-47.0</text > </observationRange> </referenceRange> </observation > </component> <component> <observation moodCode="EVN" classCode="OBS"> <templateId root="2.16.840.1.459864.09.19.22.4.2" /> <id nullFlavor="NA" /> <code codeSystem="local" code="PLT" displayName="PLATELET COUNT" /> <statusCode code="completed" /> <effectiveTime value="" /> <value unit="k/cumm" xsi:type ="PQ" value="216" /> <referenceRange> <observationRange> <text>150-400</text> </observationRange> </ referenceRange> </observation> </component> </organizer> </entry > <entry> <organizer moodCode="EVN" classCode="BATTERY"> <templateId root="216.840.1.331299.10..4.1" /> <id nullFlavor="NA" /> <code codeSystem="local" code="PREGU" displayName="UR TEST" /> < statusCode code="completed" /> <component> <observation moodCode= "EVN" classCode="OBS"> <templateId root="01.16.840.1.165720...4.2 " /> <id nullFlavor="NA" /> <code codeSystem="local" code= "PREGU" displayName="UR TEST" /> <statusCode code="completed " /> <effectiveTime value="708695838843" /> <value unit="" xsi :type="PQ" value="NEGATIVE" /> <referenceRange> < observationRange> <text>NEGATIVE</text> </ observationRange> </referenceRange> </observation> </ component> </organizer> </entry> <entry> <organizer moodCode="EVN" classCode="BATTERY"> <templateId root="16.840.1.470116.09.19.22.4.1" /> <id nullFlavor="NA" /> <code codeSystem="local" code="UAMICRO" displayName="UA MICROSCOPIC" /> <statusCode code="completed" /> < component> <observation moodCode="EVN" classCode="OBS"> < templateId root="16.840.1.279736.10..4.2" /> <id nullFlavor="NA " /> <code codeSystem="local" code="BACU" displayName="UA BACTERIA" /> <statusCode code="completed" /> <effectiveTime value= "890078591531" /> <value unit="" xsi:type="PQ" value="2+" /> < interpretationCode codeSystem="local" code="*" /> <referenceRange> <observationRange> <text>NEGATIVE</text> </ observationRange> </referenceRange> </observation> </ component> <component> <observation moodCode="EVN" classCode="OBS"> <templateId root="01.16.840.1.621652.09.19.22.4.2" /> <id nullFlavor="NA" /> <code codeSystem="local" code="EPIU" displayName=" UA EPITHELIAL CELLS" /> <statusCode code="completed" /> < effectiveTime value="580887896358" /> <value unit="epi/hpf" xsi:type= "PQ" value="4+" /> <interpretationCode codeSystem="local" code="*" /> <referenceRange> <observationRange> <text>0 - 1 +</text> </observationRange> </referenceRange> </ observation> </component> <component> <observation moodCode= "EVN" classCode="OBS"> <templateId root="16.840.1.372878.09.19.22.4.2 " /> <id nullFlavor="NA" /> <code codeSystem="local" code= "MUCUSU" displayName="UA MUCUS" /> <statusCode code="completed" /> <effectiveTime value="768560490789" /> <value unit="" xsi:type= "PQ" value="3+" /> <interpretationCode codeSystem="local" code="*" /> <referenceRange> <observationRange> <text>NEG TO 1+</text> </observationRange> </referenceRange> </ observation> </component> <component> <observation moodCode= "EVN" classCode="OBS"> <templateId root="01.16.840.1.401145.22.4.2 " /> <id nullFlavor="NA" /> <code codeSystem="local" code= "RBCU" displayName="UA RBC" /> <statusCode code="completed" /> <effectiveTime value="939012343388" /> <value unit="rbc/hpf" xsi:type ="PQ" value="0-3" /> <referenceRange> <observationRange> <text>0 - 3</text> </observationRange> </ referenceRange> </observation> </component> <component> <observation moodCode="EVN" classCode="OBS"> <templateId root= "2.16.840.1.626231....4.2" /> <id nullFlavor="NA" /> < code codeSystem="local" code="UAVOL" displayName="UA VOLUME FOR EXAM" /> <statusCode code="completed" /> <effectiveTime value="292547029172" /> <value unit="mL" xsi:type="PQ" value="12.0" /> < referenceRange> <observationRange> <text>(12mL STD)</ text> </observationRange> </referenceRange> </ observation> </component> <component> <observation moodCode= "EVN" classCode="OBS"> <templateId root="2.16.840.1.841353.10..22.4.2 " /> <id nullFlavor="NA" /> <code codeSystem="local" code= "WBCU" displayName="UA WBC" /> <statusCode code="completed" /> <effectiveTime value="732239816374" /> <value unit="wbc/hpf" xsi:type ="PQ" value="2-5" /> <referenceRange> <observationRange> <text>0 - 5</text> </observationRange> </ referenceRange> </observation> </component> </organizer> </entry > <entry> <organizer moodCode="EVN" classCode="BATTERY"> <templateId root="16.840.1.177052.10...4.1" /> <id nullFlavor="NA" /> <code codeSystem="local" code="iCHEM8" displayName="CHEM/HEM PROFILE-BEDSIDE" /> <statusCode code="completed" /> <component> <observation moodCode= "EVN" classCode="OBS"> <templateId root="01.16.840.1.344507....4.2 " /> <id nullFlavor="NA" /> <code codeSystem="local" code="K" displayName="POTASSIUM" /> <statusCode code="completed" /> < effectiveTime value="506400431633" /> <value unit="mmol/L" xsi:type="PQ " value="4.3" /> <referenceRange> <observationRange> <text>3.5-5.3</text> </observationRange> </ referenceRange> </observation> </component> <component> <observation moodCode="EVN" classCode="OBS"> <templateId root= "16.840.1.639663....4.2" /> <id nullFlavor="NA" /> < code codeSystem="local" code="CMETHOD" displayName="METHOD" /> < statusCode code="completed" /> <effectiveTime value="471093673948" /> <value unit="" xsi:type="PQ" value="Bedside" /> < referenceRange> <observationRange> <text /> < /observationRange> </referenceRange> </observation> </ component> <component> <observation moodCode="EVN" classCode="OBS"> <templateId root="01.16.840.1.862153.09.19.22.4.2" /> <id nullFlavor="NA" /> <code codeSystem="local" code="GAP" displayName= "ANION GAP" /> <statusCode code="completed" /> <effectiveTime value="391329360539" /> <value unit="mmol/L" xsi:type="PQ" value="13" / > <referenceRange> <observationRange> <text>10- 20</text> </observationRange> </referenceRange> </ observation> </component> <component> <observation moodCode= "EVN" classCode="OBS"> <templateId root="2.16.840.1.836981.10...4.2 " /> <id nullFlavor="NA" /> <code codeSystem="local" code= "HMETHOD" displayName="METHOD" /> <statusCode code="completed" /> <effectiveTime value="139669727563" /> <value unit="" xsi:type="PQ " value="Bedside" /> <referenceRange> <observationRange> <text /> </observationRange> </referenceRange> </observation> </component> <component> <observation moodCode="EVN" classCode="OBS"> <templateId root= "2.16.840.1.493875.10...4.2" /> <id nullFlavor="NA" /> < code codeSystem="local" code="GLU" displayName="GLUCOSE" /> < statusCode code="completed" /> <effectiveTime value="362863054460" /> <value unit="mg/dL" xsi:type="PQ" value="122" /> < interpretationCode codeSystem="local" code="*" /> <referenceRange> <observationRange> <text>70-99</text> </ observationRange> </referenceRange> </observation> </ component> <component> <observation moodCode="EVN" classCode="OBS"> <templateId root="216.840.1.975331.10..22.4.2" /> <id nullFlavor="NA" /> <code codeSystem="local" code="BUN" displayName= "BLOOD UREA NITROGEN" /> <statusCode code="completed" /> < effectiveTime value="313669530971" /> <value unit="mg/dL" xsi:type="PQ " value="12" /> <referenceRange> <observationRange> <text>7-20</text> </observationRange> </referenceRange > </observation> </component> <component> <observation moodCode="EVN" classCode="OBS"> <templateId root= "216.840.1.767803.10.22.4.2" /> <id nullFlavor="NA" /> < code codeSystem="local" code="CREAT" displayName="CREATININE" /> < statusCode code="completed" /> <effectiveTime value="383960186868" /> <value unit="mg/dL" xsi:type="PQ" value="0.7" /> < referenceRange> <observationRange> <text>0.6-1.0</text> </observationRange> </referenceRange> </observation > </component> <component> <observation moodCode="EVN" classCode="OBS"> <templateId root="16.840.1.495253.10..22.4.2" /> <id nullFlavor="NA" /> <code codeSystem="local" code="HGBT" displayName="HEMOGLOBIN" /> <statusCode code="completed" /> < effectiveTime value="860723992101" /> <value unit="gm/dL" xsi:type="PQ " value="14.3" /> <referenceRange> <observationRange> <text>12.0-16.0</text> </observationRange> </ referenceRange> </observation> </component> <component> <observation moodCode="EVN" classCode="OBS"> <templateId root= "216.840.1.749499.10..4.2" /> <id nullFlavor="NA" /> < code codeSystem="local" code="HCTT" displayName="HEMATOCRIT" /> < statusCode code="completed" /> <effectiveTime value="906041441815" /> <value unit="%" xsi:type="PQ" value="42.0" /> < referenceRange> <observationRange> <text>37.0-47.0</text > </observationRange> </referenceRange> </observation > </component> <component> <observation moodCode="EVN" classCode="OBS"> <templateId root="01.16.840.1.880744.09.19.22.4.2" /> <id nullFlavor="NA" /> <code codeSystem="local" code="NA" displayName="SODIUM" /> <statusCode code="completed" /> < effectiveTime value="782743256377" /> <value unit="mmol/L" xsi:type="PQ " value="139" /> <referenceRange> <observationRange> <text>135-148</text> </observationRange> </ referenceRange> </observation> </component> <component> <observation moodCode="EVN" classCode="OBS"> <templateId root= "01.16.840.1.848534....4.2" /> <id nullFlavor="NA" /> < code codeSystem="local" code="CL" displayName="CHLORIDE" /> < statusCode code="completed" /> <effectiveTime value="140167555207" /> <value unit="mmol/L" xsi:type="PQ" value="108" /> < referenceRange> <observationRange> <text>98-110</text> </observationRange> </referenceRange> </observation> </component> <component> <observation moodCode="EVN" classCode ="OBS"> <templateId root="16.840.1.855274.10.20.22.4.2" /> < id nullFlavor="NA" /> <code codeSystem="local" code="CO2" displayName= "CARBON DIOXIDE" /> <statusCode code="completed" /> < effectiveTime value="018638763980" /> <value unit="mmol/L" xsi:type="PQ " value="23" /> <referenceRange> <observationRange> <text>21-32</text> </observationRange> </ referenceRange> </observation> </component> <component> <observation moodCode="EVN" classCode="OBS"> <templateId root= "01.16.840.1.907579.10..22.4.2" /> <id nullFlavor="NA" /> < code codeSystem="local" code="CAION" displayName="CALCIUM IONIZED" /> < statusCode code="completed" /> <effectiveTime value="567107176873" /> <value unit="mg/dL" xsi:type="PQ" value="4.8" /> < referenceRange> <observationRange> <text>4.5-5.3</text> </observationRange> </referenceRange> </observation > </component> </organizer> </entry> <entry> <organizer moodCode= "EVN" classCode="BATTERY"> <templateId root="16.840.1.447124.10.20.22.4.1 " /> <id nullFlavor="NA" /> <code codeSystem="local" code="32113-3" displayName="Complete urinalysis with reflex to culture" /> <statusCode code="completed" /> <component> <observation moodCode="EVN" classCode="OBS"> <templateId root="16.840.1.205712.10.22.4.2" /> <id nullFlavor="NA" /> <code codeSystem="local" code="5778-6" displayName="Urine color determination" /> <statusCode code="completed " /> <effectiveTime value="" /> <value unit="" xsi :type="PQ" value="RED" /> <interpretationCode codeSystem="local" code= "*" /> <referenceRange> <observationRange> < text>NRG</text> </observationRange> </referenceRange> </observation> </component> <component> <observation moodCode ="EVN" classCode="OBS"> <templateId root= "840.1.340148.09.19.224.2" /> <id nullFlavor="NA" /> < code codeSystem="local" code="85942-4" displayName="Urine clarity determination " /> <statusCode code="completed" /> <effectiveTime value= "988846606858" /> <value unit="" xsi:type="PQ" value="BLOODY" /> <interpretationCode codeSystem="local" code="*" /> <referenceRange > <observationRange> <text>NRG</text> </ observationRange> </referenceRange> </observation> </ component> <component> <observation moodCode="EVN" classCode="OBS"> <templateId root="01.16.840.1.676540.10.22.4.2" /> <id nullFlavor="NA" /> <code codeSystem="local" code="5803-2" displayName= "Urine pH measurement by test strip" /> <statusCode code="completed" / > <effectiveTime value="" /> <value unit="" xsi: type="PQ" value="8" /> <referenceRange> <observationRange> <text>5-9</text> </observationRange> </ referenceRange> </observation> </component> <component> <observation moodCode="EVN" classCode="OBS"> <templateId root= "216.840.1.283317.10.20.22.4.2" /> <id nullFlavor="NA" /> < code codeSystem="local" code="5811-5" displayName="Specific gravity of urine by test strip" /> <statusCode code="completed" /> <effectiveTime value="" /> <value unit="" xsi:type="PQ" value="1.010" /> <interpretationCode codeSystem="local" code="" /> < referenceRange> <observationRange> <text>1.016-1.022</ text> </observationRange> </referenceRange> </ observation> </component> <component> <observation moodCode= "EVN" classCode="OBS"> <templateId root="216.840.1.539929.10.20.22.4.2 " /> <id nullFlavor="NA" /> <code codeSystem="local" code= "27473-7" displayName="Urine protein assay by test strip, semi-quantitative" /> <statusCode code="completed" /> <effectiveTime value= "" /> <value unit="" xsi:type="PQ" value="3+" /> < interpretationCode codeSystem="local" code="*" /> <referenceRange> <observationRange> <text>NEGATIVE</text> </ observationRange> </referenceRange> </observation> </ component> <component> <observation moodCode="EVN" classCode="OBS"> <templateId root="16.840.1.284499.10.20.22.4.2" /> <id nullFlavor="NA" /> <code codeSystem="local" code="85111-9" displayName= "Urine glucose detection by automated test strip" /> <statusCode code= "completed" /> <effectiveTime value="" /> <value unit="" xsi:type="PQ" value="NEGATIVE" /> <referenceRange> < observationRange> <text>NEGATIVE</text> </ observationRange> </referenceRange> </observation> </ component> <component> <observation moodCode="EVN" classCode="OBS"> <templateId root="01.16.840.1.541542.10.22.4.2" /> <id nullFlavor="NA" /> <code codeSystem="local" code="89728-7" displayName= "Erythrocytes detection in urine sediment by light microscopy" /> < statusCode code="completed" /> <effectiveTime value="" /> <value unit="" xsi:type="PQ" value="5+" /> < interpretationCode codeSystem="local" code="*" /> <referenceRange> <observationRange> <text>NEGATIVE</text> </ observationRange> </referenceRange> </observation> </ component> <component> <observation moodCode="EVN" classCode="OBS"> <templateId root="01.16.840.1.655125.10.20.22.4.2" /> <id nullFlavor="NA" /> <code codeSystem="local" code="85255-0" displayName= "Urine ketones detection by automated test strip" /> <statusCode code= "completed" /> <effectiveTime value="" /> <value unit="" xsi:type="PQ" value="1+" /> <interpretationCode codeSystem= "local" code="*" /> <referenceRange> <observationRange> <text>NEGATIVE</text> </observationRange> </ referenceRange> </observation> </component> <component> <observation moodCode="EVN" classCode="OBS"> <templateId root= "216.840.1.466775.10.22.4.2" /> <id nullFlavor="NA" /> < code codeSystem="local" code="5802-4" displayName="Urine nitrite detection by test strip" /> <statusCode code="completed" /> <effectiveTime value="" /> <value unit="" xsi:type="PQ" value="POSITIVE" / > <interpretationCode codeSystem="local" code="*" /> < referenceRange> <observationRange> <text>NEGATIVE</text > </observationRange> </referenceRange> </observation > </component> <component> <observation moodCode="EVN" classCode="OBS"> <templateId root="01.16.840.1.260580.09.19.22.4.2" /> <id nullFlavor="NA" /> <code codeSystem="local" code="5770-3" displayName="Urine total bilirubin detection by test strip" /> < statusCode code="completed" /> <effectiveTime value="" /> <value unit="" xsi:type="PQ" value="NEGATIVE" /> < referenceRange> <observationRange> <text>NEGATIVE</text > </observationRange> </referenceRange> </observation > </component> <component> <observation moodCode="EVN" classCode="OBS"> <templateId root="01.16.840.1.737394.10.22.4.2" /> <id nullFlavor="NA" /> <code codeSystem="local" code="92299-6 " displayName="Urine urobilinogen measurement by automated test strip (mass/ volume)" /> <statusCode code="completed" /> <effectiveTime value="" /> <value unit="" xsi:type="PQ" value="NORMAL" /> <referenceRange> <observationRange> <text> NORMAL</text> </observationRange> </referenceRange> < /observation> </component> <component> <observation moodCode= "EVN" classCode="OBS"> <templateId root="2.16.840.1.802981.10.20.22.4.2 " /> <id nullFlavor="NA" /> <code codeSystem="local" code= "5799-2" displayName="Urine leukocyte esterase detection by dipstick" /> <statusCode code="completed" /> <effectiveTime value="" /> <value unit="" xsi:type="PQ" value="2+" /> < interpretationCode codeSystem="local" code="*" /> <referenceRange> <observationRange> <text>NEGATIVE</text> </ observationRange> </referenceRange> </observation> </ component> <component> <observation moodCode="EVN" classCode="OBS"> <templateId root="2.16.840.1.684352.10..22.4.2" /> <id nullFlavor="NA" /> <code codeSystem="local" code="36401-8" displayName= "Automated urine sediment erythrocyte count by microscopy (number/high power field)" /> <statusCode code="completed" /> <effectiveTime value="" /> <value unit="" xsi:type="PQ" value="TNTC" /> <interpretationCode codeSystem="local" code="*" /> < referenceRange> <observationRange> <text>NRG</text> </observationRange> </referenceRange> </observation> </component> <component> <observation moodCode="EVN" classCode= "OBS"> <templateId root="01.16.840.1.345021.10..4.2" /> < id nullFlavor="NA" /> <code codeSystem="local" code="5821-4" displayName="Automated urine sediment leukocyte count by microscopy (number/ high power field)" /> <statusCode code="completed" /> < effectiveTime value="" /> <value unit="[HPF]" xsi:type="PQ " value="" /> <interpretationCode codeSystem="local" code="*" /> <referenceRange> <observationRange> <text>NRG</text > </observationRange> </referenceRange> </observation > </component> <component> <observation moodCode="EVN" classCode="OBS"> <templateId root="01.16.840.1.653263.10.4.2" /> <id nullFlavor="NA" /> <code codeSystem="local" code="23344-0 " displayName="Bacteria detection in urine sediment by light microscopy" /> <statusCode code="completed" /> <effectiveTime value= "" /> <value unit="" xsi:type="PQ" value="LARGE" /> <interpretationCode codeSystem="local" code="*" /> <referenceRange> <observationRange> <text>NRG</text> </ observationRange> </referenceRange> </observation> </ component> <component> <observation moodCode="EVN" classCode="OBS"> <templateId root="01.16.840.1.412540.10.22.4.2" /> <id nullFlavor="NA" /> <code codeSystem="local" code="03339-3" displayName= "Squamous epithelial cells detection in urine sediment by light microscopy" /> <statusCode code="completed" /> <effectiveTime value= "" /> <value unit="" xsi:type="PQ" value="09-24" /> <interpretationCode codeSystem="local" code="*" /> <referenceRange> <observationRange> <text>NRG</text> </ observationRange> </referenceRange> </observation> </ component> <component> <observation moodCode="EVN" classCode="OBS"> <templateId root="216.840.1.472808.10.20.22.4.2" /> <id nullFlavor="NA" /> <code codeSystem="local" code="19917-1" displayName= "Crystals detection in urine sediment by light microscopy" /> < statusCode code="completed" /> <effectiveTime value="" /> <value unit="" xsi:type="PQ" value="NONE" /> <referenceRange> <observationRange> <text>NRG</text> </ observationRange> </referenceRange> </observation> </ component> <component> <observation moodCode="EVN" classCode="OBS"> <templateId root="216.840.1.201226.10.20.22.4.2" /> <id nullFlavor="NA" /> <code codeSystem="local" code="97152-7" displayName= "Casts detection in urine sediment by light microscopy" /> <statusCode code="completed" /> <effectiveTime value="" /> < value unit="" xsi:type="PQ" value="NONE" /> <referenceRange> <observationRange> <text>NRG</text> </observationRange > </referenceRange> </observation> </component> < component> <observation moodCode="EVN" classCode="OBS"> < templateId root="2.16.840.1.320860.1022.4.2" /> <id nullFlavor="NA " /> <code codeSystem="local" code="8247-9" displayName="Mucus detection in urine sediment by light microscopy" /> <statusCode code= "completed" /> <effectiveTime value="913116823633" /> <value unit="" xsi:type="PQ" value="NEGATIVE" /> <referenceRange> < observationRange> <text>NRG</text> </observationRange> </referenceRange> </observation> </component> < component> <observation moodCode="EVN" classCode="OBS"> < templateId root="840.1.448977.22.4.2" /> <id nullFlavor="NA " /> <code codeSystem="local" code="60060-0" displayName="Complete urinalysis with reflex to culture" /> <statusCode code="completed" /> <effectiveTime value="564659979467" /> <value unit="" xsi:type ="PQ" value="YES" /> <referenceRange> <observationRange> <text>NRG</text> </observationRange> </ referenceRange> </observation> </component> </organizer> </entry > <entry> <organizer moodCode="EVN" classCode="BATTERY"> <templateId root="840.1.656876.1022.4.1" /> <id nullFlavor="NA" /> <code codeSystem="local" code="630-4" displayName="Bacterial urine culture" /> < statusCode code="completed" /> <component> <observation moodCode= "EVN" classCode="OBS"> <templateId root="840.1.874699.102022.4.2 " /> <id nullFlavor="NA" /> <code codeSystem="local" code= "URINERES" displayName="URINE CULTURE RESULTS" /> <statusCode code= "completed" /> <effectiveTime value="518616457825" /> <value unit="" xsi:type="PQ" value="MORE THAN 3 ISOLATES" /> <referenceRange> <observationRange> <text>NRG</text> </ observationRange> </referenceRange> </observation> </ component> </organizer> </entry> <entry> <organizer moodCode="EVN" classCode="BATTERY"> <templateId root="216.840.1.276962.10.20.22.4.1" /> <id nullFlavor="NA" /> <code codeSystem="local" code="68373-9" displayName="Complete blood count (CBC) with automated white blood cell (WBC) differential" /> <statusCode code="completed" /> <component> < observation moodCode="EVN" classCode="OBS"> <templateId root= "216.840.1.134878.10.20.22.4.2" /> <id nullFlavor="NA" /> < code codeSystem="local" code="6690-2" displayName="Blood leukocytes automated count (number/volume)" /> <statusCode code="completed" /> < effectiveTime value="432154927795" /> <value unit="10*3/uL" xsi:type= "PQ" value="10.9" /> <referenceRange> <observationRange> <text>4.3-11.0</text> </observationRange> </ referenceRange> </observation> </component> <component> <observation moodCode="EVN" classCode="OBS"> <templateId root= "216.840.1.176937.10.20.22.4.2" /> <id nullFlavor="NA" /> < code codeSystem="local" code="789-8" displayName="Blood erythrocytes automated count (number/volume)" /> <statusCode code="completed" /> < effectiveTime value="324089308686" /> <value unit="10*6/uL" xsi:type= "PQ" value="4.68" /> <referenceRange> <observationRange> <text>4.35-5.85</text> </observationRange> </ referenceRange> </observation> </component> <component> <observation moodCode="EVN" classCode="OBS"> <templateId root= "2.16.840.1.377571.10.20.22.4.2" /> <id nullFlavor="NA" /> < code codeSystem="local" code="72617-6" displayName="Venous blood hemoglobin measurement (mass/volume)" /> <statusCode code="completed" /> <effectiveTime value="088071161341" /> <value unit="g/dL" xsi:type="PQ " value="14.5" /> <referenceRange> <observationRange> <text>11.5-16.0</text> </observationRange> </ referenceRange> </observation> </component> <component> <observation moodCode="EVN" classCode="OBS"> <templateId root= "2.16.840.1.860352.10.20.22.4.2" /> <id nullFlavor="NA" /> < code codeSystem="local" code="31663-2" displayName="Blood hematocrit (volume fraction)" /> <statusCode code="completed" /> <effectiveTime value="879492376394" /> <value unit="%" xsi:type="PQ" value="41" / > <referenceRange> <observationRange> <text>35- 52</text> </observationRange> </referenceRange> </ observation> </component> <component> <observation moodCode= "EVN" classCode="OBS"> <templateId root="2.16.840.1.963311.10..22.4.2 " /> <id nullFlavor="NA" /> <code codeSystem="local" code="787 -2" displayName="Automated erythrocyte mean corpuscular volume" /> < statusCode code="completed" /> <effectiveTime value="" /> <value unit="[foz_us]" xsi:type="PQ" value="89" /> < referenceRange> <observationRange> <text>80-99</text> </observationRange> </referenceRange> </observation> </component> <component> <observation moodCode="EVN" classCode= "OBS"> <templateId root="2.16.840.1.505916.10...4.2" /> < id nullFlavor="NA" /> <code codeSystem="local" code="785-6" displayName ="Automated erythrocyte mean corpuscular hemoglobin (mass per erythrocyte)" /> <statusCode code="completed" /> <effectiveTime value= "" /> <value unit="pg" xsi:type="PQ" value="31" /> <referenceRange> <observationRange> <text>25-34</text > </observationRange> </referenceRange> </observation > </component> <component> <observation moodCode="EVN" classCode="OBS"> <templateId root="2.16.840.1.400968.10..22.4.2" /> <id nullFlavor="NA" /> <code codeSystem="local" code="786-4" displayName="Automated erythrocyte mean corpuscular hemoglobin concentration measurement (mass/volume)" /> <statusCode code="completed" /> <effectiveTime value="" /> <value unit="g/dL" xsi:type="PQ " value="35" /> <referenceRange> <observationRange> <text>32-36</text> </observationRange> </ referenceRange> </observation> </component> <component> <observation moodCode="EVN" classCode="OBS"> <templateId root= "2.16.840.1.776762.10..22.4.2" /> <id nullFlavor="NA" /> < code codeSystem="local" code="788-0" displayName="Automated erythrocyte distribution width ratio" /> <statusCode code="completed" /> < effectiveTime value="533243605826" /> <value unit="%" xsi:type="PQ " value="13.2" /> <referenceRange> <observationRange> <text>10.0-14.5</text> </observationRange> </ referenceRange> </observation> </component> <component> <observation moodCode="EVN" classCode="OBS"> <templateId root= "216.840.1.690450.10...4.2" /> <id nullFlavor="NA" /> < code codeSystem="local" code="777-3" displayName="Automated blood platelet count (count/volume)" /> <statusCode code="completed" /> < effectiveTime value="629082129909" /> <value unit="10*3/uL" xsi:type= "PQ" value="253" /> <referenceRange> <observationRange> <text>130-400</text> </observationRange> </ referenceRange> </observation> </component> <component> <observation moodCode="EVN" classCode="OBS"> <templateId root= "216.840.1.611182.10.20.22.4.2" /> <id nullFlavor="NA" /> < code codeSystem="local" code="18895-6" displayName="Automated blood platelet mean volume measurement" /> <statusCode code="completed" /> < effectiveTime value="207939055020" /> <value unit="[[facility]]" xsi:type= "PQ" value="9.9" /> <referenceRange> <observationRange> <text>7.4-10.4</text> </observationRange> </ referenceRange> </observation> </component> <component> <observation moodCode="EVN" classCode="OBS"> <templateId root= "2.16.840.1.950893.10..22.4.2" /> <id nullFlavor="NA" /> < code codeSystem="local" code="770-8" displayName="Automated blood neutrophils/ 100 leukocytes" /> <statusCode code="completed" /> < effectiveTime value="221744614578" /> <value unit="%" xsi:type="PQ " value="53" /> <referenceRange> <observationRange> <text>42-75</text> </observationRange> </ referenceRange> </observation> </component> <component> <observation moodCode="EVN" classCode="OBS"> <templateId root= "2.16.840.1.569322.10..22.4.2" /> <id nullFlavor="NA" /> < code codeSystem="local" code="736-9" displayName="Automated blood lymphocytes/ 100 leukocytes" /> <statusCode code="completed" /> < effectiveTime value="" /> <value unit="%" xsi:type="PQ " value="36" /> <referenceRange> <observationRange> <text>12-44</text> </observationRange> </ referenceRange> </observation> </component> <component> <observation moodCode="EVN" classCode="OBS"> <templateId root= "2.16.840.1.700591.10.20.22.4.2" /> <id nullFlavor="NA" /> < code codeSystem="local" code="55074-2" displayName="Blood monocytes/100 leukocytes" /> <statusCode code="completed" /> <effectiveTime value="" /> <value unit="%" xsi:type="PQ" value="5" /> <referenceRange> <observationRange> <text>0-12 </text> </observationRange> </referenceRange> </ observation> </component> <component> <observation moodCode= "EVN" classCode="OBS"> <templateId root="2.16.840.1.539277.10..22.4.2 " /> <id nullFlavor="NA" /> <code codeSystem="local" code="713 -8" displayName="Automated blood eosinophils/100 leukocytes" /> < statusCode code="completed" /> <effectiveTime value="" /> <value unit="%" xsi:type="PQ" value="5" /> <referenceRange > <observationRange> <text>0-10</text> </ observationRange> </referenceRange> </observation> </ component> <component> <observation moodCode="EVN" classCode="OBS"> <templateId root="2.16.840.1.492275.10.20.22.4.2" /> <id nullFlavor="NA" /> <code codeSystem="local" code="706-2" displayName= "Automated blood basophils/100 leukocytes" /> <statusCode code= "completed" /> <effectiveTime value="" /> <value unit="%" xsi:type="PQ" value="1" /> <referenceRange> < observationRange> <text>0-10</text> </observationRange> </referenceRange> </observation> </component> < component> <observation moodCode="EVN" classCode="OBS"> < templateId root="216.840.1.264577.10.20.22.4.2" /> <id nullFlavor="NA " /> <code codeSystem="local" code="751-8" displayName="Blood neutrophils automated count (number/volume)" /> <statusCode code= "completed" /> <effectiveTime value="941939189728" /> <value unit="10*3" xsi:type="PQ" value="5.7" /> <referenceRange> < observationRange> <text>1.8-7.8</text> </ observationRange> </referenceRange> </observation> </ component> <component> <observation moodCode="EVN" classCode="OBS"> <templateId root="01.16.840.1.960055.10.22.4.2" /> <id nullFlavor="NA" /> <code codeSystem="local" code="731-0" displayName= "Blood lymphocytes automated count (number/volume)" /> <statusCode code ="completed" /> <effectiveTime value="693453339167" /> <value unit="10*3" xsi:type="PQ" value="3.9" /> <referenceRange> < observationRange> <text>1.0-4.0</text> </ observationRange> </referenceRange> </observation> </ component> <component> <observation moodCode="EVN" classCode="OBS"> <templateId root="16.840.1.229776.10.20.22.4.2" /> <id nullFlavor="NA" /> <code codeSystem="local" code="742-7" displayName= "Blood monocytes automated count (number/volume)" /> <statusCode code= "completed" /> <effectiveTime value="" /> <value unit="10*3" xsi:type="PQ" value="0.6" /> <referenceRange> < observationRange> <text>0.0-1.0</text> </ observationRange> </referenceRange> </observation> </ component> <component> <observation moodCode="EVN" classCode="OBS"> <templateId root="2.16.840.1.996679.10.20.22.4.2" /> <id nullFlavor="NA" /> <code codeSystem="local" code="711-2" displayName= "Automated eosinophil count" /> <statusCode code="completed" /> <effectiveTime value="" /> <value unit="10*3/uL" xsi: type="PQ" value="0.6" /> <interpretationCode codeSystem="local" code="* *" /> <referenceRange> <observationRange> <text >0.0-0.3</text> </observationRange> </referenceRange> </observation> </component> <component> <observation moodCode ="EVN" classCode="OBS"> <templateId root= "2.16.840.1.979993.10.2022.4.2" /> <id nullFlavor="NA" /> < code codeSystem="local" code="704-7" displayName="Automated blood basophil count (count/volume)" /> <statusCode code="completed" /> < effectiveTime value="" /> <value unit="10*3/uL" xsi:type= "PQ" value="0.1" /> <referenceRange> <observationRange> <text>0.0-0.1</text> </observationRange> </ referenceRange> </observation> </component> </organizer> </entry > <entry> <organizer moodCode="EVN" classCode="BATTERY"> <templateId root="216.840.1.276723.10...4.1" /> <id nullFlavor="NA" /> <code codeSystem="local" code="2118-07" displayName="Serum or plasma choriogonadotropin ( test) detection" /> <statusCode code= "completed" /> <component> <observation moodCode="EVN" classCode= "OBS"> <templateId root="01.16.840.1.242399.10..4.2" /> < id nullFlavor="NA" /> <code codeSystem="local" code="2118-07" displayName="Serum or plasma choriogonadotropin ( test) detection" /> <statusCode code="completed" /> <effectiveTime value= "991299660822" /> <value unit="" xsi:type="PQ" value="NEGATIVE" /> <referenceRange> <observationRange> <text>NEGATIVE </text> </observationRange> </referenceRange> </ observation> </component> </organizer> </entry> <entry> <organizer moodCode="EVN" classCode="BATTERY"> <templateId root= "216.840.1.989432.10..4.1" /> <id nullFlavor="NA" /> <code codeSystem="local" code="11049-4" displayName="Comprehensive metabolic panel" / > <statusCode code="completed" /> <component> <observation moodCode="EVN" classCode="OBS"> <templateId root= "216.840.1.090551.10..22.4.2" /> <id nullFlavor="NA" /> < code codeSystem="local" code="2951-2" displayName="Serum or plasma sodium measurement (moles/volume)" /> <statusCode code="completed" /> <effectiveTime value="274796722698" /> <value unit="mmol/L" xsi:type= "PQ" value="139" /> <referenceRange> <observationRange> <text>135-145</text> </observationRange> </ referenceRange> </observation> </component> <component> <observation moodCode="EVN" classCode="OBS"> <templateId root= "2.16.840.1.686394.10.20.22.4.2" /> <id nullFlavor="NA" /> < code codeSystem="local" code="2823-3" displayName="Serum or plasma potassium measurement (moles/volume)" /> <statusCode code="completed" /> <effectiveTime value="291284637542" /> <value unit="mmol/L" xsi:type= "PQ" value="3.9" /> <referenceRange> <observationRange> <text>3.6-5.0</text> </observationRange> </ referenceRange> </observation> </component> <component> <observation moodCode="EVN" classCode="OBS"> <templateId root= "2.16.840.1.721557.10.20.22.4.2" /> <id nullFlavor="NA" /> < code codeSystem="local" code="2075-0" displayName="Serum or plasma chloride measurement (moles/volume)" /> <statusCode code="completed" /> <effectiveTime value="841456951000" /> <value unit="mmol/L" xsi:type= "PQ" value="105" /> <referenceRange> <observationRange> <text>98-107</text> </observationRange> </ referenceRange> </observation> </component> <component> <observation moodCode="EVN" classCode="OBS"> <templateId root= "2.16.840.1.359778.10.20.22.4.2" /> <id nullFlavor="NA" /> < code codeSystem="local" code="2028-08" displayName="Carbon dioxide" /> < statusCode code="completed" /> <effectiveTime value="" /> <value unit="mmol/L" xsi:type="PQ" value="20" /> < interpretationCode codeSystem="local" code="" /> <referenceRange> <observationRange> <text>21-32</text> </ observationRange> </referenceRange> </observation> </ component> <component> <observation moodCode="EVN" classCode="OBS"> <templateId root="16.840.1.624343.10..22.4.2" /> <id nullFlavor="NA" /> <code codeSystem="local" code="60060-5" displayName= "Serum or plasma anion gap determination (moles/volume)" /> < statusCode code="completed" /> <effectiveTime value="" /> <value unit="mmol/L" xsi:type="PQ" value="14" /> < referenceRange> <observationRange> <text>5-14</text> </observationRange> </referenceRange> </observation> </component> <component> <observation moodCode="EVN" classCode= "OBS"> <templateId root="2.16.840.1.033616.10..22.4.2" /> < id nullFlavor="NA" /> <code codeSystem="local" code="3094-0" displayName="Serum or plasma urea nitrogen measurement (mass/volume)" /> <statusCode code="completed" /> <effectiveTime value="" /> <value unit="mg/dL" xsi:type="PQ" value="13" /> < referenceRange> <observationRange> <text>7-18</text> </observationRange> </referenceRange> </observation> </component> <component> <observation moodCode="EVN" classCode= "OBS"> <templateId root="2.16.840.1.762120.10..22.4.2" /> < id nullFlavor="NA" /> <code codeSystem="local" code="2160-0" displayName="Serum or plasma creatinine measurement (mass/volume)" /> < statusCode code="completed" /> <effectiveTime value="231037795092" /> <value unit="mg/dL" xsi:type="PQ" value="0.78" /> < referenceRange> <observationRange> <text>0.60-1.30</text > </observationRange> </referenceRange> </observation > </component> <component> <observation moodCode="EVN" classCode="OBS"> <templateId root="216.840.1.710281.10..22.4.2" /> <id nullFlavor="NA" /> <code codeSystem="local" code="3097-3" displayName="Serum or plasma urea nitrogen/creatinine mass ratio" /> < statusCode code="completed" /> <effectiveTime value="098516081860" /> <value unit="" xsi:type="PQ" value="17" /> <referenceRange> <observationRange> <text>NRG</text> </ observationRange> </referenceRange> </observation> </ component> <component> <observation moodCode="EVN" classCode="OBS"> <templateId root="2.16.840.1.916370.10.20.22.4.2" /> <id nullFlavor="NA" /> <code codeSystem="local" code="65717-2" displayName= "Serum or plasma creatinine measurement with calculation of estimated glomerular filtration rate" /> <statusCode code="completed" /> <effectiveTime value="092244071244" /> <value unit="" xsi:type="PQ" value=">" /> <referenceRange> <observationRange> <text>NRG</text> </observationRange> </referenceRange > </observation> </component> <component> <observation moodCode="EVN" classCode="OBS"> <templateId root= "2.16.840.1.858018.10.20.22.4.2" /> <id nullFlavor="NA" /> < code codeSystem="local" code="2345-7" displayName="Serum or plasma glucose measurement (mass/volume)" /> <statusCode code="completed" /> <effectiveTime value="481794905209" /> <value unit="mg/dL" xsi:type="PQ " value="108" /> <interpretationCode codeSystem="local" code="" /> <referenceRange> <observationRange> <text>70-105 </text> </observationRange> </referenceRange> </ observation> </component> <component> <observation moodCode= "EVN" classCode="OBS"> <templateId root="2.16.840.1.389990.10..22.4.2 " /> <id nullFlavor="NA" /> <code codeSystem="local" code= "95788-7" displayName="Serum or plasma calcium measurement (mass/volume)" /> <statusCode code="completed" /> <effectiveTime value= "960871825823" /> <value unit="mg/dL" xsi:type="PQ" value="9.4" /> <referenceRange> <observationRange> <text>8.5-10.1 </text> </observationRange> </referenceRange> </ observation> </component> <component> <observation moodCode= "EVN" classCode="OBS"> <templateId root="2.16.840.1.600839.10.20.22.4.2 " /> <id nullFlavor="NA" /> <code codeSystem="local" code= "1975-[birth year]" displayName="Serum or plasma total bilirubin measurement (mass/volume) " /> <statusCode code="completed" /> <effectiveTime value= "109366326688" /> <value unit="mg/dL" xsi:type="PQ" value="0.2" /> <referenceRange> <observationRange> <text>0.1-1.0< /text> </observationRange> </referenceRange> </ observation> </component> <component> <observation moodCode= "EVN" classCode="OBS"> <templateId root="216.840.1.552929.10...4.2 " /> <id nullFlavor="NA" /> <code codeSystem="local" code= "67686" displayName="Serum or plasma alkaline phosphatase measurement ( enzymatic activity/volume)" /> <statusCode code="completed" /> <effectiveTime value="253686904889" /> <value unit="U/L" xsi:type="PQ " value="74" /> <referenceRange> <observationRange> <text>40-136</text> </observationRange> </ referenceRange> </observation> </component> <component> <observation moodCode="EVN" classCode="OBS"> <templateId root= "2.16.840.1.082778.10.20.22.4.2" /> <id nullFlavor="NA" /> < code codeSystem="local" code="1920-07" displayName="Serum or plasma aspartate aminotransferase measurement (enzymatic activity/volume)" /> < statusCode code="completed" /> <effectiveTime value="053319348528" /> <value unit="U/L" xsi:type="PQ" value="21" /> <referenceRange > <observationRange> <text>5-34</text> </ observationRange> </referenceRange> </observation> </ component> <component> <observation moodCode="EVN" classCode="OBS"> <templateId root="216.840.1.545021.10...4.2" /> <id nullFlavor="NA" /> <code codeSystem="local" code="1742-6" displayName= "Serum or plasma alanine aminotransferase measurement (enzymatic activity/volume )" /> <statusCode code="completed" /> <effectiveTime value= "873733634466" /> <value unit="U/L" xsi:type="PQ" value="29" /> <referenceRange> <observationRange> <text>0-55</text > </observationRange> </referenceRange> </observation > </component> <component> <observation moodCode="EVN" classCode="OBS"> <templateId root="216.840.1.051040.10..22.4.2" /> <id nullFlavor="NA" /> <code codeSystem="local" code="2885-2" displayName="Serum or plasma protein measurement (mass/volume)" /> < statusCode code="completed" /> <effectiveTime value="132066985711" /> <value unit="g/dL" xsi:type="PQ" value="7.6" /> < referenceRange> <observationRange> <text>6.4-8.2</text> </observationRange> </referenceRange> </observation > </component> <component> <observation moodCode="EVN" classCode="OBS"> <templateId root="216.840.1.017749.10.20.22.4.2" /> <id nullFlavor="NA" /> <code codeSystem="local" code="1751-7" displayName="Serum or plasma albumin measurement (mass/volume)" /> < statusCode code="completed" /> <effectiveTime value="431037070043" /> <value unit="g/dL" xsi:type="PQ" value="4.0" /> < referenceRange> <observationRange> <text>3.2-4.5</text> </observationRange> </referenceRange> </observation > </component> </organizer> </entry> <entry> <organizer moodCode= "EVN" classCode="BATTERY"> <templateId root="2.16.840.1.661818.10.20.22.4.1 " /> <id nullFlavor="NA" /> <code codeSystem="local" code="3040-3" displayName="Lipase" /> <statusCode code="completed" /> <component> <observation moodCode="EVN" classCode="OBS"> <templateId root= "2.16.840.1.926468.10.20.22.4.2" /> <id nullFlavor="NA" /> < code codeSystem="local" code="3040-3" displayName="Lipase" /> < statusCode code="completed" /> <effectiveTime value="591350724906" /> <value unit="U/L" xsi:type="PQ" value="49" /> <referenceRange > <observationRange> <text>8-78</text> </ observationRange> </referenceRange> </observation> </ component> </organizer> </entry></section> Encounters ACCT No. Visit Date/Time Discharge Status Pt. Type Provider Facility Loc./Unit Complaint [id number] 01/13/2013 11:21:00 01/13/2013 17:24:00 [id number] 09/09/2012 09:58:00 09/11/2012 16:02:00 DIS Inpatient Harvey POSADAS, [facility] W.5WH [id number] 08/30/2012 07:08:00 08/30/2012 10:49:00 DIS Emergency Harvey POSADAS, [facility] W.2WOBED [id number] 08/29/2012 11:03:00 08/29/2012 14:22:00 DIS Emergency Harvey POSADAS, [facility] W.2WOBED [id number] 07/07/2012 13:36:00 07/07/2012 17:10:00 DIS Emergency Harvey POSADAS, [facility] W.2WOBED [id number] 02/06/2018 18:07:00 02/06/2018 21:10:00 DIS Outpatient RADHA PATIÑO [facility] ABD PAIN [id number] 03/05/2018 00:46:00 Document Registration
[2018-03-05 12:00] VITALS: BP 117/56
[2018-03-05] MEDS ORDERED: ACHD5005 PO (13:13)
--- NOTE | 2018-03-05 14:31 | Diagnostic Imaging Report ---
EXAMINATION: Hepatobiliary scan with ejection fraction. INDICATION: Bile leak. TECHNIQUE: This study was performed following the administration of 5.48 mCi of 99M technetium Choletec. COMPARISON: There are no previous hepatobiliary scans available for comparison. HISTORY: By history, the patient had a cholecystectomy approximately [address] abdomen/pelvis exam performed earlier today noted a fluid and gas collection within the gallbladder fossa. The possibility of a bile leak was raised. FINDINGS: On this exam, there is uptake and excretion of the radiotracer by the liver. There does not appear to be any significant pooling of the radiotracer in the gallbladder fossa to suggest a bile leak. There is no sign of extension of the radiotracer along the right lobe of the liver either. There is evidence of radiotracer along the left lobe of the liver. I suspect that this is related to reflux of the radiotracer from the small bowel into the stomach. A delayed image shows that there is persistent accumulation of the radiotracer within the stomach and in the small bowel but virtually no radiotracer accumulating in the gallbladder fossa. IMPRESSION: 1. There is no evidence for a bile leak. 2. These results were discussed with Dr. Desir. Dictated by: Dictated on workstation # [id number]
[2018-03-05 15:40] VITALS: BP 117/56
== END 2018-03-05 15:40 | disposition home or self-care (01) ==
LOC: EDUNIT# 23:32 → ER 23:35 → 4TH 03-05 03:18
PROVIDERS: ADMIT Surgery; ATTEND Surgery
DX: R10.11 Right upper quadrant pain (principal); Z98.890 Other specified postprocedural states; F17.210 Nicotine dependence, cigarettes, uncomplicated; F90.9 Attention-deficit hyperactivity disorder, unspecified type
CPT/HCPCS: 36415; 74177; 78226; 80053; 83690; 84703; 85025; 96365; 96375

== ENCOUNTER 2019-02-06 04:45 | Emergency (ER) | payer MEDICAID, OTHER ==
[~2019-02-06] VITALS: Ht 162.6 cm; Wt 163.3 kg
[~2019-02-06 04:45] MED LIST changes: +ACET-2267 PO; +ACHD5005 PO; +IBUP-30 PO
--- OUTSIDE RECORDS SUMMARY | 2019-02-06 04:50 | XMS REPORT | Continuity of Care Document ---
Author Author [facility] Organization [facility] Address Unknown Phone Unavailable Allergies Active Description Code Type Severity Reaction Onset Reported/Identified Relationship to Patient Clinical Status Yes NO KNOWN DRUG ALLERGIES UNKNOWN NO KNOWN DRUG ALLERG Yes No Known Drug Allergies [id number] Drug Allergy Unknown N/A 02/06/2018 Medications Medication Packaging Start Date Stop Date Route Dosage Sig KETOROLAC VIAL INJ 30 MG/CC (TORADOL VIAL) MG 02/05/2019 02/05/2019 ONCE&1626 Problems Date Dx Coded Attending Type Code Diagnosis Diagnosed By 08/30/2012 Harvey POSADAS, Guicho Mei 644.03 THRT SRIDHAR LABOR-ANTEPART 02/06/2018 KAYLYN, RADHA BLUEPRINT MACHINE OPERATOR Ot F17.210 NICOTINE DEPENDENCE, CIGARETTES, UNCOMPL 02/06/2018 KAYLYN, RADHA BLUEPRINT MACHINE OPERATOR Ot F90.9 ATTENTION-DEFICIT HYPERACTIVITY DISORDER 02/06/2018 KAYLYN, RADHA BLUEPRINT MACHINE OPERATOR Ot G40.909 EPILEPSY, UNSP, NOT INTRACTABLE, WITHOUT 02/06/2018 KAYLYN, RADHA BLUEPRINT MACHINE OPERATOR Ot K81.9 CHOLECYSTITIS, UNSPECIFIED 02/06/2018 KAYLYN, RADHA BLUEPRINT MACHINE OPERATOR Ot N39.0 URINARY TRACT INFECTION, SITE NOT SPECIF 02/06/2018 KAYLYN, RADHA BLUEPRINT MACHINE OPERATOR Ot R10.11 RIGHT UPPER QUADRANT PAIN 02/06/2018 KAYLYN, RADHA BLUEPRINT MACHINE OPERATOR Ot Z87.59 PERSONAL HISTORY OF COMP OF PREG, CHLDBR 02/09/2018 KAYLYN, RADHA BLUEPRINT MACHINE OPERATOR Ot F17.210 NICOTINE DEPENDENCE, CIGARETTES, UNCOMPL 02/09/2018 KAYLYN, RADHA BLUEPRINT MACHINE OPERATOR Ot F90.9 ATTENTION-DEFICIT HYPERACTIVITY DISORDER 02/09/2018 KAYLYN, RADHA BLUEPRINT MACHINE OPERATOR Ot G40.909 EPILEPSY, UNSP, NOT INTRACTABLE, WITHOUT 02/09/2018 KAYLYN, RADHA BLUEPRINT MACHINE OPERATOR Ot K81.9 CHOLECYSTITIS, UNSPECIFIED 02/09/2018 KAYLYN, RAHDA BLUEPRINT MACHINE OPERATOR Ot N39.0 URINARY TRACT INFECTION, SITE NOT SPECIF 02/09/2018 KAYLYN, RADHA BLUEPRINT MACHINE OPERATOR Ot R10.11 RIGHT UPPER QUADRANT PAIN 02/09/2018 KAYLYN, RADHA BLUEPRINT MACHINE OPERATOR Ot Z87.59 PERSONAL HISTORY OF COMP OF PREG, CHLDBR 02/12/2018 KAYLYN, RADHA BLUEPRINT MACHINE OPERATOR Ot F17.210 NICOTINE DEPENDENCE, CIGARETTES, UNCOMPL 02/12/2018 KAYLYN, RADHA BLUEPRINT MACHINE OPERATOR Ot F90.9 ATTENTION-DEFICIT HYPERACTIVITY DISORDER 02/12/2018 KAYLYN, RADHA BLUEPRINT MACHINE OPERATOR Ot G40.909 EPILEPSY, UNSP, NOT INTRACTABLE, WITHOUT 02/12/2018 KAYLYN, RADHA BLUEPRINT MACHINE OPERATOR Ot K81.9 CHOLECYSTITIS, UNSPECIFIED 02/12/2018 KAYLYN, RADHA BLUEPRINT MACHINE OPERATOR Ot N39.0 URINARY TRACT INFECTION, SITE NOT SPECIF 02/12/2018 KAYLYN, RADHA BLUEPRINT MACHINE OPERATOR Ot R10.11 RIGHT UPPER QUADRANT PAIN 02/12/2018 KAYLYN, RADHA BLUEPRINT MACHINE OPERATOR Ot Z87.59 PERSONAL HISTORY OF COMP OF PREG, CHLDBR 03/05/2018 DOMINIK POSADAS, DAIN Ordonez Ot F17.210 NICOTINE DEPENDENCE, CIGARETTES, UNCOMPL 03/05/2018 DOMINIK POSADAS, DAIN Ordonez Ot F90.9 ATTENTION-DEFICIT HYPERACTIVITY DISORDER 03/05/2018 DOMINIK POSADAS, DAIN M Ot R10.11 RIGHT UPPER QUADRANT PAIN 03/05/2018 DOMINIK POSADAS, DAIN Ordonez Ot Z98.890 OTHER SPECIFIED POSTPROCEDURAL STATES 03/05/2018 DOMINIK POSADAS, DAIN Ordonez Ot F17.210 NICOTINE DEPENDENCE, CIGARETTES, UNCOMPL 03/05/2018 DOMINIK POSADAS, DAIN Ordonez Ot F90.9 ATTENTION-DEFICIT HYPERACTIVITY DISORDER 03/05/2018 DOMINIK POSADAS, DAIN M Ot R10.11 RIGHT UPPER QUADRANT PAIN 03/05/2018 DOMINIK POSADAS, DAIN Ordonez Ot Z98.890 OTHER SPECIFIED POSTPROCEDURAL STATES 12/11/2018 KAYLYN, RADHA BLUEPRINT MACHINE OPERATOR Ot F17.210 NICOTINE DEPENDENCE, CIGARETTES, UNCOMPL 12/11/2018 KAYLYN, RADHA BLUEPRINT MACHINE OPERATOR Ot F90.9 ATTENTION-DEFICIT HYPERACTIVITY DISORDER 12/11/2018 KAYLYN, RADHA BLUEPRINT MACHINE OPERATOR Ot G40.909 EPILEPSY, UNSP, NOT INTRACTABLE, WITHOUT 12/11/2018 KAYLYN, RADHA BLUEPRINT MACHINE OPERATOR Ot K81.9 CHOLECYSTITIS, UNSPECIFIED 12/11/2018 KAYLYN, RADHA BLUEPRINT MACHINE OPERATOR Ot N39.0 URINARY TRACT INFECTION, SITE NOT SPECIF 12/11/2018 KAYLYN, RADHA BLUEPRINT MACHINE OPERATOR Ot R10.11 RIGHT UPPER QUADRANT PAIN 12/11/2018 RADHA PATIÑO Ot Z87.59 PERSONAL HISTORY OF COMP OF PREG, CHLDBR Procedures There is no data. <section xmlns="urn:hl7-org:v3" xmlns:xsi="http:// www.[employer].org/2001/XMLSchema-instance"> <templateId root= "[id number].3" /> <templateId root= "2.16.840.1.398458.10.20.22.2.3.1" /> <code codeSystemName="LOINC" codeSystem= "2.16.840.1.362481.6.1" code="95583-4" displayName="Results" /> <title>Results< /title> <text> <table> <thead> [...] <td>CALCIUM IONIZED</td> <td>4.8 mg/dL</td> <td>4.5-5.3</td> </tr> <tr> < colspan="10">Complete urinalysis with reflex to culture - [...] 3 ISOLATES </td> <td>NRG</ td> </tr> <tr> < colspan="10">Complete blood count (CBC ) with automated [...] <td> 0.1 10*3/uL</td> <td>0.0-0.1</td> </tr> <tr> < colspan="10">Serum or plasma choriogonadotropin ( test) detection [...] (mass/volume)</td > <td>4.0 g/dL</td> <td>3.2-4.5</td> </tr> <tr> < colspan="10">Lipase - 03/05/18 00:30</th> </tr> <tr > <td>Lipase</td> <td>49 U/L</td> <td>8-78</td> </tr> <tr> < colspan="10">Cardiac Panel - 02/05/19 15:50</ th> </tr> <tr> <td>CK</td> <td>106 U/L</td> <td>26-174</td> </tr> <tr> <td>CK-MB</td> <td>1.2 ng/ml</td> <td>0.0-9.2</td> </tr> <tr> < td>Myoglobin</td> <td>41.4 ng/ml</td> <td>1.6-106.0</td> </tr> <tr> <td>Troponin</td> <td><0.020 ng/mL</td > <td>0.0-0.4</td> </tr> <tr> <th colspan="10"> CBC with Auto Diff - 02/05/19 15:50</th> </tr> <tr> <td> Baso%</td> <td>0.30 %</td> <td>0.00-2.50</td> < /tr> <tr> <td>Eos</td> <td>0.2 K/uL</td> <td> 0.0-0.7</td> </tr> <tr> <td>Eos%</td> <td> 1.4 %</td> <td>0.0-7.0</td> </tr> <tr> <td> Hct</td> <td>40.4 %</td> <td>36.0-46.0</td> </tr> <tr> <td>Hgb</td> <td>13.8 g/dL</td> <td>13.0- 15.0</td> </tr> <tr> <td>Lym</td> <td>3.04 K/uL< /td> <td>0.60-3.40</td> </tr> <tr> <td>Lym%< /td> <td>24.2 %</td> <td>10.0-50.0</td> </tr> <tr> <td>MCH</td> <td>30.5 pg</td> <td>27.0-31.0</ td> </tr> <tr> <td>MCHC</td> <td>34.2 g/dL</td> <td>32.0-36.0</td> </tr> <tr> <td>MCV</td> <td>89.2 fL</td> <td>80.0-97.0</td> </tr> <tr> <td>[place]%</td> <td>5.3 %</td> <td>0.0-12.0</td> </tr> <tr> <td>MPV</td> <td>9.2 fL</td> <td>7.4-10.0</td> </tr> <tr> <td>Gautam%</td> <td>68.8 %</td> <td>37.0-80.0</td> </tr> <tr> <td>Plt</td> <td>232 K/uL</td> <td>150-400</td> < /tr> <tr> <td>RBC</td> <td>4.53 M/uL</td> <td> 3.60-5.00</td> </tr> <tr> <td>RDW</td> <td>12.5 %</td> <td>11.6-14.8</td> </tr> <tr> <td>WBC </td> <td>12.55 K/uL</td> <td>5.00-10.00</td> </tr> <tr> <td>Gautam</td> <td>8.62 K/uL</td> <td>2.00- 6.90</td> </tr> <tr> <td>[place]</td> <td>0.7 K/uL< /td> <td>0.0-0.9</td> </tr> <tr> <td>Baso</td> <td>0.0 K/uL</td> <td>0.0-0.2</td> </tr> <tr> < colspan="10">EKG - 02/05/19 15:50</th> </tr> <tr> <td>EKG</td> <td>Complete </td> <td /> </tr> <tr> < colspan="10">Urinalysis - 02/05/19 16:27</th> </tr > <tr> <td>Icotest</td> <td>N/A </td> <td> Negative</td> </tr> <tr> <td>Urine Volume</td> < td>Urine Volume Sufficient (10mL) </td> <td /> </tr> <tr > <td>Urine-Appearance</td> <td>Clear </td> <td>Clear </td> </tr> <tr> <td>Urine-Bacteria</td> <td> Negative </td> <td> </td> </tr> <tr> <td>Urine- Bilirubin</td> <td>Negative </td> <td>Negative</td> </ tr> <tr> <td>Urine-Blood</td> <td>Negative </td> <td>Negative</td> </tr> <tr> <td>Urine-Color</td> <td>Yellow </td> <td>Colorless-Lt. Yellow</td> </tr> <tr> <td>Urine-Epithelial Cells</td> <td>0-5/HPF </td> <td> </td> </tr> <tr> <td>Urine-Glucose</td> <td>Negative </td> <td>Negative</td> </tr> <tr> <td>Urine-Ketones</td> <td>Negative </td> <td>Negative</ td> </tr> <tr> <td>Urine-Leukocytes</td> <td> Negative </td> <td>Negative</td> </tr> <tr> <td> Urine-Nitrite</td> <td>Negative </td> <td>Negative</td> </tr> <tr> <td>Urine-Other</td> <td> Urine Saved if Culture Needed (48hrs from time of collection) </td> <td> </td> </tr> <tr> <td>Urine-pH</td> <td>7.5 </td> <td >5-8.5</td> </tr> <tr> <td>Urine-Protein</td> < td>Negative </td> <td>Negative</td> </tr> <tr> < td>Urine-RBC</td> <td>Negative </td> <td> </td> </tr> <tr> <td>Urine-Specific [place]</td> <td>1.015 </td> <td>1.000-1.030</td> </tr> <tr> <td>Urine-WBC</td > <td>Rare/HPF </td> <td> </td> </tr> <tr> <td>Urobilinogen</td> <td>0.2 E.U./dL </td> <td>0.2-1.0</ td> </tr> <tr> <th colspan="10">Troponin I - 02/05/19 18: 30</th> </tr> <tr> <td>Troponin</td> <td>< 0.020 ng/mL</td> <td>0.0-0.4</td> </tr> </tbody> </table > </text> <entry> <organizer moodCode="EVN" classCode="BATTERY"> < templateId root="[id number].1" /> <id nullFlavor="NA" /> <code codeSystem="local" code="UAM" displayName="URINALYSIS WITH MICROSCOPIC" /> <statusCode code="completed" /> <component> < observation moodCode="EVN" classCode="OBS"> <templateId root= "01.16.840.1.808779.10...4.2" /> <id nullFlavor="NA" /> < code codeSystem="local" code="LEUESU" displayName="UA LEUKOCYTE ESTERASE DIPSTICK" /> <statusCode code="completed" /> <effectiveTime value="609080217852" /> <value unit="" xsi:type="PQ" value="2+" /> <interpretationCode codeSystem="local" code="*" /> < referenceRange> <observationRange> <text>NEGATIVE</text > </observationRange> </referenceRange> </observation > </component> <component> <observation moodCode="EVN" classCode="OBS"> <templateId root="[id number]" /> <id nullFlavor="NA" /> <code codeSystem="local" code="NITRIU" displayName="UA NITRITE DIPSTICK" /> <statusCode code="completed" /> <effectiveTime value="253965283960" /> <value unit="" xsi:type= "PQ" value="NEGATIVE" /> <referenceRange> <observationRange > <text>NEGATIVE</text> </observationRange> </ referenceRange> </observation> </component> <component> <observation moodCode="EVN" classCode="OBS"> <templateId root= "01.16.840.1.759504.09.19.22.4.2" /> <id nullFlavor="NA" /> < code codeSystem="local" code="PROTEIU" displayName="UA PROTEIN DIPSTICK" /> <statusCode code="completed" /> <effectiveTime value= "" /> <value unit="" xsi:type="PQ" value="NEGATIVE" /> <referenceRange> <observationRange> <text>NEGATIVE </text> </observationRange> </referenceRange> </ observation> </component> <component> <observation moodCode= "EVN" classCode="OBS"> <templateId root="01.16.840.1.115180.09.19.22.4.2 " /> <id nullFlavor="NA" /> <code codeSystem="local" code= "DGLUU" displayName="UA GLUCOSE DIPSTICK" /> <statusCode code= "completed" /> <effectiveTime value="" /> <value unit="" xsi:type="PQ" value="NEGATIVE" /> <referenceRange> < observationRange> <text>NEGATIVE</text> </ observationRange> </referenceRange> </observation> </ component> <component> <observation moodCode="EVN" classCode="OBS"> <templateId root="01.16.840.1.185000.09.19.22.4.2" /> <id nullFlavor="NA" /> <code codeSystem="local" code="KETONU" displayName= "UA KETONE DIPSTICK" /> <statusCode code="completed" /> < effectiveTime value="" /> <value unit="" xsi:type="PQ" value="NEGATIVE" /> <referenceRange> <observationRange> <text>NEGATIVE</text> </observationRange> </ referenceRange> </observation> </component> <component> <observation moodCode="EVN" classCode="OBS"> <templateId root= "01.16.840.1.234686.09.19.22.4.2" /> <id nullFlavor="NA" /> < code codeSystem="local" code="UROBILU" displayName="UA UROBILINOGEN DIPSTICK" / > <statusCode code="completed" /> <effectiveTime value= "353811591734" /> <value unit="" xsi:type="PQ" value="NORMAL" /> <referenceRange> <observationRange> <text>NORMAL</ text> </observationRange> </referenceRange> </ observation> </component> <component> <observation moodCode= "EVN" classCode="OBS"> <templateId root="16.840.1.080078.10..22.4.2 " /> <id nullFlavor="NA" /> <code codeSystem="local" code= "BILU" displayName="UA BILIRUBIN DIPSTICK" /> <statusCode code= "completed" /> <effectiveTime value="094148693794" /> <value unit="" xsi:type="PQ" value="NEGATIVE" /> <referenceRange> < observationRange> <text>NEGATIVE</text> </ observationRange> </referenceRange> </observation> </ component> <component> <observation moodCode="EVN" classCode="OBS"> <templateId root="16.840.1.753026.10.20.22.4.2" /> <id nullFlavor="NA" /> <code codeSystem="local" code="ANABEL" displayName="UA BLOOD DIPSTICK" /> <statusCode code="completed" /> < effectiveTime value="548023209817" /> <value unit="" xsi:type="PQ" value="NEGATIVE" /> <referenceRange> <observationRange> <text>NEGATIVE</text> </observationRange> </ referenceRange> </observation> </component> <component> <observation moodCode="EVN" classCode="OBS"> <templateId root= "840.1.361489.10.22.4.2" /> <id nullFlavor="NA" /> < code codeSystem="local" code="BACU" displayName="UA BACTERIA" /> < statusCode code="completed" /> <effectiveTime value="511693831525" /> <value unit="" xsi:type="PQ" value="4+" /> < interpretationCode codeSystem="local" code="*" /> <referenceRange> <observationRange> <text>NEGATIVE</text> </ observationRange> </referenceRange> </observation> </ component> <component> <observation moodCode="EVN" classCode="OBS"> <templateId root="01.16.840.1.813067.09.19.22.4.2" /> <id nullFlavor="NA" /> <code codeSystem="local" code="EPIU" displayName=" UA EPITHELIAL CELLS" /> <statusCode code="completed" /> < effectiveTime value="409537638048" /> <value unit="epi/hpf" xsi:type= "PQ" value="3+" /> <interpretationCode codeSystem="local" code="*" /> <referenceRange> <observationRange> <text>0 - 1 +</text> </observationRange> </referenceRange> </ observation> </component> <component> <observation moodCode= "EVN" classCode="OBS"> <templateId root="01.16.840.1.426353.10.22.4.2 " /> <id nullFlavor="NA" /> <code codeSystem="local" code= "RBCU" displayName="UA RBC" /> <statusCode code="completed" /> <effectiveTime value="820588446399" /> <value unit="rbc/hpf" xsi:type ="PQ" value="5-10" /> <interpretationCode codeSystem="local" code="*" / > <referenceRange> <observationRange> <text>0 - 3</text> </observationRange> </referenceRange> </ observation> </component> <component> <observation moodCode= "EVN" classCode="OBS"> <templateId root="16.840.1.341729.10..22.4.2 " /> <id nullFlavor="NA" /> <code codeSystem="local" code= "UAVOL" displayName="UA VOLUME FOR EXAM" /> <statusCode code="completed " /> <effectiveTime value="179298865253" /> <value unit="mL" xsi:type="PQ" value="12.0" /> <referenceRange> < observationRange> <text>(12mL STD)</text> </ observationRange> </referenceRange> </observation> </ component> <component> <observation moodCode="EVN" classCode="OBS"> <templateId root="01.16.840.1.107915.10..4.2" /> <id nullFlavor="NA" /> <code codeSystem="local" code="WBCU" displayName=" UA WBC" /> <statusCode code="completed" /> <effectiveTime value="011328286495" /> <value unit="wbc/hpf" xsi:type="PQ" value="20- 50" /> <interpretationCode codeSystem="local" code="*" /> < referenceRange> <observationRange> <text>0 - 5</text> </observationRange> </referenceRange> </observation> </component> <component> <observation moodCode="EVN" classCode= "OBS"> <templateId root="16.840.1.130145.10.20.22.4.2" /> < id nullFlavor="NA" /> <code codeSystem="local" code="SPGRU" displayName ="UA SPECIFIC GRAVITY" /> <statusCode code="completed" /> < effectiveTime value="124173586755" /> <value unit="" xsi:type="PQ" value="1.020" /> <referenceRange> <observationRange> <text>1.015-1.025</text> </observationRange> </ referenceRange> </observation> </component> <component> <observation moodCode="EVN" classCode="OBS"> <templateId root= "01.16.840.1.251699.10.4.2" /> <id nullFlavor="NA" /> < code codeSystem="local" code="MARILYN" displayName="UR PH" /> <statusCode code="completed" /> <effectiveTime value="887103253895" /> < value unit="" xsi:type="PQ" value="7.0" /> <referenceRange> <observationRange> <text>5.0-7.0</text> </ observationRange> </referenceRange> </observation> </ component> </organizer> </entry> <entry> <organizer moodCode="EVN" classCode="BATTERY"> <templateId root="01.16.840.1.996110.09.19.22.4.1" /> <id nullFlavor="NA" /> <code codeSystem="local" code="UC" displayName= "URINE CULTURE" /> <statusCode code="completed" /> <component> <observation moodCode="EVN" classCode="OBS"> <templateId root= "01.16.840.1.598095.09.19.22.4.2" /> <id nullFlavor="NA" /> < code codeSystem="local" code="UNC" displayName="Uncategorized" /> < statusCode code="completed" /> <effectiveTime value="622401934089" /> <value xsi:type="ST" value="<pre><b>URINE CULTURE</b> See BelowURINE CULTURE(F) Gianna Date/Time: 08/29/2012 12:29 Lizz Date/Time: 08/31/2012 09:17SOURCE: URINESPEC DESC: CLEAN CATCHTREATMENT OF ASYMPTOMATIC BACTERIURIA IS NOT USUALLYCLINICALLY INDICATED.MIXED GRAM POSITIVE?MIXED GRAM POSITIVE [facility]ACT[facility]IAST. [facility] [id number] [place] [address]</pre>" /> <referenceRange> <observationRange> <text /> </observationRange> </referenceRange> </observation> </component> </ organizer> </entry> <entry> <organizer moodCode="EVN" classCode="BATTERY"> <templateId root="2.16.840.1.607312.10..22.4.1" /> <id nullFlavor= "NA" /> <code codeSystem="local" code="CBC" displayName="CBC" /> < statusCode code="completed" /> <component> <observation moodCode= "EVN" classCode="OBS"> <templateId root="2.16.840.1.928700.10..22.4.2 " /> <id nullFlavor="NA" /> <code codeSystem="local" code="MCH " displayName="MEAN CELL HGB" /> <statusCode code="completed" /> <effectiveTime value="115664175605" /> <value unit="pg" xsi:type= "PQ" value="32.1" /> <referenceRange> <observationRange> <text>27.0-33.0</text> </observationRange> </ referenceRange> </observation> </component> <component> <observation moodCode="EVN" classCode="OBS"> <templateId root= "2.16.840.1.113488.10..22.4.2" /> <id nullFlavor="NA" /> < code codeSystem="local" code="MCHC" displayName="MEAN CELL HGB CONCENTRATION" / > <statusCode code="completed" /> <effectiveTime value= "163856698542" /> <value unit="g/dl" xsi:type="PQ" value="35.1" /> <referenceRange> <observationRange> <text>32.0- 36.0</text> </observationRange> </referenceRange> </ observation> </component> <component> <observation moodCode= "EVN" classCode="OBS"> <templateId root="2.16.840.1.487161.10..22.4.2 " /> <id nullFlavor="NA" /> <code codeSystem="local" code="MCV " displayName="MEAN CELL VOLUME" /> <statusCode code="completed" /> <effectiveTime value="234981483547" /> <value unit="fl" xsi:type ="PQ" value="91.6" /> <referenceRange> <observationRange> <text>80.0-100.0</text> </observationRange> </ referenceRange> </observation> </component> <component> <observation moodCode="EVN" classCode="OBS"> <templateId root= "216.840.1.548321.10..22.4.2" /> <id nullFlavor="NA" /> < code codeSystem="local" code="RBC" displayName="RED BLOOD CELL" /> < statusCode code="completed" /> <effectiveTime value="149016292584" /> <value unit="m/cumm" xsi:type="PQ" value="3.89" /> < interpretationCode codeSystem="local" code="*" /> <referenceRange> <observationRange> <text>4.00-6.00</text> </ observationRange> </referenceRange> </observation> </ component> <component> <observation moodCode="EVN" classCode="OBS"> <templateId root="216.840.1.158478.10.22.4.2" /> <id nullFlavor="NA" /> <code codeSystem="local" code="RDW" displayName=" RED CELL DISTRIBUTION WIDTH" /> <statusCode code="completed" /> <effectiveTime value="427104175601" /> <value unit="%" xsi:type= "PQ" value="13.9" /> <referenceRange> <observationRange> <text>11.0-15.6</text> </observationRange> </ referenceRange> </observation> </component> <component> <observation moodCode="EVN" classCode="OBS"> <templateId root= "01.16.840.1.106407.09.19.22.4.2" /> <id nullFlavor="NA" /> < code codeSystem="local" code="WBC" displayName="WHITE BLOOD CELL" /> < statusCode code="completed" /> <effectiveTime value="453263363955" /> <value unit="k/cumm" xsi:type="PQ" value="13.2" /> < interpretationCode codeSystem="local" code="*" /> <referenceRange> <observationRange> <text>5.0-10.0</text> </ observationRange> </referenceRange> </observation> </ component> <component> <observation moodCode="EVN" classCode="OBS"> <templateId root="01.16.840.1.179430.22.4.2" /> <id nullFlavor="NA" /> <code codeSystem="local" code="HGBT" displayName= "HEMOGLOBIN" /> <statusCode code="completed" /> < effectiveTime value="841980715924" /> <value unit="gm/dL" xsi:type="PQ " value="12.5" /> <referenceRange> <observationRange> <text>12.0-16.0</text> </observationRange> </ referenceRange> </observation> </component> <component> <observation moodCode="EVN" classCode="OBS"> <templateId root= "216.840.1.232585.09.19.22.4.2" /> <id nullFlavor="NA" /> < code codeSystem="local" code="HCTT" displayName="HEMATOCRIT" /> < statusCode code="completed" /> <effectiveTime value="638168476822" /> <value unit="%" xsi:type="PQ" value="35.6" /> < interpretationCode codeSystem="local" code="*" /> <referenceRange> <observationRange> <text>37.0-47.0</text> </ observationRange> </referenceRange> </observation> </ component> <component> <observation moodCode="EVN" classCode="OBS"> <templateId root="216.840.1.244658.09.19.22.4.2" /> <id nullFlavor="NA" /> <code codeSystem="local" code="PLT" displayName= "PLATELET COUNT" /> <statusCode code="completed" /> < effectiveTime value="293711975609" /> <value unit="k/cumm" xsi:type="PQ " value="216" /> <referenceRange> <observationRange> <text>150-450</text> </observationRange> </ referenceRange> </observation> </component> </organizer> </entry > <entry> <organizer moodCode="EVN" classCode="BATTERY"> <templateId root="[id number]" /> <id nullFlavor="NA" /> <code codeSystem="local" code="HGB" displayName="HEMOGLOBIN" /> <statusCode code= "completed" /> <component> <observation moodCode="EVN" classCode= "OBS"> <templateId root="[id number]..22.4.2" /> < id nullFlavor="NA" /> <code codeSystem="local" code="MCV" displayName= "MEAN CELL VOLUME" /> <statusCode code="completed" /> < effectiveTime value="" /> <value unit="fl" xsi:type="PQ" value="91.8" /> <referenceRange> <observationRange> <text>80.0-100.0</text> </observationRange> </ referenceRange> </observation> </component> <component> <observation moodCode="EVN" classCode="OBS"> <templateId root= "[id number]....4.2" /> <id nullFlavor="NA" /> < code codeSystem="local" code="HGBT" displayName="HEMOGLOBIN" /> < statusCode code="completed" /> <effectiveTime value="" /> <value unit="gm/dL" xsi:type="PQ" value="11.4" /> < interpretationCode codeSystem="local" code="*" /> <referenceRange> <observationRange> <text>12.0-16.0</text> </ observationRange> </referenceRange> </observation> </ component> </organizer> </entry> <entry> <organizer moodCode="EVN" classCode="BATTERY"> <templateId root="[id number]...4.1" /> <id nullFlavor="NA" /> <code codeSystem="local" code="HGB" displayName ="HEMOGLOBIN" /> <statusCode code="completed" /> <component> < observation moodCode="EVN" classCode="OBS"> <templateId root= "[id number].2" /> <id nullFlavor="NA" /> < code codeSystem="local" code="MCV" displayName="MEAN CELL VOLUME" /> < statusCode code="completed" /> <effectiveTime value="" /> <value unit="fl" xsi:type="PQ" value="91.8" /> <referenceRange > <observationRange> <text>80.0-100.0</text> </observationRange> </referenceRange> </observation> </ component> <component> <observation moodCode="EVN" classCode="OBS"> <templateId root="840.1.764863...4.2" /> <id nullFlavor="NA" /> <code codeSystem="local" code="HGBT" displayName= "HEMOGLOBIN" /> <statusCode code="completed" /> < effectiveTime value="" /> <value unit="gm/dL" xsi:type="PQ " value="10.9" /> <interpretationCode codeSystem="local" code="*" /> <referenceRange> <observationRange> <text>12.0- 16.0</text> </observationRange> </referenceRange> </ observation> </component> </organizer> </entry> <entry> <organizer moodCode="EVN" classCode="BATTERY"> <templateId root= "[id number]2.4.1" /> <id nullFlavor="NA" /> <code codeSystem="local" code="CBCD" displayName="CBC W/DIFF" /> <statusCode code ="completed" /> <component> <observation moodCode="EVN" classCode= "OBS"> <templateId root="216.840.1.816972.09.19.22.4.2" /> < id nullFlavor="NA" /> <code codeSystem="local" code="CBCCOM" displayName="COMMENT" /> <statusCode code="completed" /> < effectiveTime value="" /> <value unit="" xsi:type="PQ" value="REVIEWED" /> <referenceRange> <observationRange> <text /> </observationRange> </referenceRange> </observation> </component> <component> <observation moodCode="EVN" classCode="OBS"> <templateId root= "840.1.550823.09.19.224.2" /> <id nullFlavor="NA" /> < code codeSystem="local" code="GR#" displayName="GRANULOCYTE #" /> < statusCode code="completed" /> <effectiveTime value="" /> <value unit="k/cumm" xsi:type="PQ" value="15.1" /> < interpretationCode codeSystem="local" code="*" /> <referenceRange> <observationRange> <text>2.0-9.0</text> </ observationRange> </referenceRange> </observation> </ component> <component> <observation moodCode="EVN" classCode="OBS"> <templateId root="01.16.840.1.813164.09.19.224.2" /> <id nullFlavor="NA" /> <code codeSystem="local" code="GR%" displayName= "GRANULOCYTE %" /> <statusCode code="completed" /> < effectiveTime value="" /> <value unit="%" xsi:type="PQ " value="85" /> <interpretationCode codeSystem="local" code="*" /> <referenceRange> <observationRange> <text>50-75</ text> </observationRange> </referenceRange> </ observation> </component> <component> <observation moodCode= "EVN" classCode="OBS"> <templateId root="01.16.840.1.068408.09.19.22.4.2 " /> <id nullFlavor="NA" /> <code codeSystem="local" code="LY# " displayName="LYMPHOCYTE #" /> <statusCode code="completed" /> <effectiveTime value="" /> <value unit="k/cumm" xsi:type ="PQ" value="1.6" /> <referenceRange> <observationRange> <text>1.0-4.0</text> </observationRange> </ referenceRange> </observation> </component> <component> <observation moodCode="EVN" classCode="OBS"> <templateId root= "01.16.840.1.616826...4.2" /> <id nullFlavor="NA" /> < code codeSystem="local" code="LY%" displayName="LYMPHOCYTE %" /> <statusCode code="completed" /> <effectiveTime value="" /> <value unit="%" xsi:type="PQ" value="9" /> < interpretationCode codeSystem="local" code="*" /> <referenceRange> <observationRange> <text>20-30</text> </ observationRange> </referenceRange> </observation> </ component> <component> <observation moodCode="EVN" classCode="OBS"> <templateId root="840.1.481700.10..22.4.2" /> <id nullFlavor="NA" /> <code codeSystem="local" code="MCH" displayName= "MEAN CELL HGB" /> <statusCode code="completed" /> < effectiveTime value="981431780631" /> <value unit="pg" xsi:type="PQ" value="29.2" /> <referenceRange> <observationRange> <text>27.0-33.0</text> </observationRange> </ referenceRange> </observation> </component> <component> <observation moodCode="EVN" classCode="OBS"> <templateId root= "216.840.1.615082.10...4.2" /> <id nullFlavor="NA" /> < code codeSystem="local" code="MCHC" displayName="MEAN CELL HGB CONCENTRATION" / > <statusCode code="completed" /> <effectiveTime value= "465304953260" /> <value unit="g/dL" xsi:type="PQ" value="33.6" /> <referenceRange> <observationRange> <text>32.0- 37.0</text> </observationRange> </referenceRange> </ observation> </component> <component> <observation moodCode= "EVN" classCode="OBS"> <templateId root="16.840.1.312087.10..22.4.2 " /> <id nullFlavor="NA" /> <code codeSystem="local" code="MCV " displayName="MEAN CELL VOLUME" /> <statusCode code="completed" /> <effectiveTime value="" /> <value unit="fl" xsi:type ="PQ" value="87.1" /> <referenceRange> <observationRange> <text>80.0-100.0</text> </observationRange> </ referenceRange> </observation> </component> <component> <observation moodCode="EVN" classCode="OBS"> <templateId root= "216.840.1.956820.10.4.2" /> <id nullFlavor="NA" /> < code codeSystem="local" code="MO#" displayName="MONOCYTE #" /> < statusCode code="completed" /> <effectiveTime value="" /> <value unit="k/cumm" xsi:type="PQ" value="0.9" /> < referenceRange> <observationRange> <text>0.1-1.0</text> </observationRange> </referenceRange> </observation > </component> <component> <observation moodCode="EVN" classCode="OBS"> <templateId root="216.840.1.046182.09.19.224.2" /> <id nullFlavor="NA" /> <code codeSystem="local" code="MO% " displayName="MONOCYTE %" /> <statusCode code="completed" /> <effectiveTime value="" /> <value unit="%" xsi: type="PQ" value="5" /> <referenceRange> <observationRange> <text>4-6</text> </observationRange> </ referenceRange> </observation> </component> <component> <observation moodCode="EVN" classCode="OBS"> <templateId root= "216.840.1.713591.09.19.22.4.2" /> <id nullFlavor="NA" /> < code codeSystem="local" code="RBC" displayName="RED BLOOD CELL" /> < statusCode code="completed" /> <effectiveTime value="" /> <value unit="m/cumm" xsi:type="PQ" value="4.96" /> < referenceRange> <observationRange> <text>4.00-6.00</text > </observationRange> </referenceRange> </observation > </component> <component> <observation moodCode="EVN" classCode="OBS"> <templateId root="2.16.840.1.322666.10...4.2" /> <id nullFlavor="NA" /> <code codeSystem="local" code="RDW" displayName="RED CELL DISTRIBUTION WIDTH" /> <statusCode code= "completed" /> <effectiveTime value="111381086498" /> <value unit="%" xsi:type="PQ" value="13.4" /> <referenceRange> <observationRange> <text>11.0-15.6</text> </ observationRange> </referenceRange> </observation> </ component> <component> <observation moodCode="EVN" classCode="OBS"> <templateId root="216.840.1.861477.09.19..4.2" /> <id nullFlavor="NA" /> <code codeSystem="local" code="WBC" displayName= "WHITE BLOOD CELL" /> <statusCode code="completed" /> < effectiveTime value="564179429251" /> <value unit="k/cumm" xsi:type="PQ " value="17.8" /> <interpretationCode codeSystem="local" code="*" /> <referenceRange> <observationRange> <text>5.0- 10.0</text> </observationRange> </referenceRange> </ observation> </component> <component> <observation moodCode= "EVN" classCode="OBS"> <templateId root="216.840.1.366160.4.2 " /> <id nullFlavor="NA" /> <code codeSystem="local" code= "HGBT" displayName="HEMOGLOBIN" /> <statusCode code="completed" /> <effectiveTime value="300541232770" /> <value unit="gm/dL" xsi: type="PQ" value="14.5" /> <referenceRange> <observationRange > <text>12.0-16.0</text> </observationRange> </ referenceRange> </observation> </component> <component> <observation moodCode="EVN" classCode="OBS"> <templateId root= "2.16.840.1.952884.09.19.22.4.2" /> <id nullFlavor="NA" /> < code codeSystem="local" code="HCTT" displayName="HEMATOCRIT" /> < statusCode code="completed" /> <effectiveTime value="" /> <value unit="%" xsi:type="PQ" value="43.2" /> < referenceRange> <observationRange> <text>37.0-47.0</text > </observationRange> </referenceRange> </observation > </component> <component> <observation moodCode="EVN" classCode="OBS"> <templateId root="2.16.840.1.578941.09.19.22.4.2" /> <id nullFlavor="NA" /> <code codeSystem="local" code="PLT" displayName="PLATELET COUNT" /> <statusCode code="completed" /> <effectiveTime value="" /> <value unit="k/cumm" xsi:type ="PQ" value="216" /> <referenceRange> <observationRange> <text>150-400</text> </observationRange> </ referenceRange> </observation> </component> </organizer> </entry > <entry> <organizer moodCode="EVN" classCode="BATTERY"> <templateId root="216.840.1.627486.10..4.1" /> <id nullFlavor="NA" /> <code codeSystem="local" code="PREGU" displayName="UR TEST" /> < statusCode code="completed" /> <component> <observation moodCode= "EVN" classCode="OBS"> <templateId root="01.16.840.1.516735.09.19.22.4.2 " /> <id nullFlavor="NA" /> <code codeSystem="local" code= "PREGU" displayName="UR TEST" /> <statusCode code="completed " /> <effectiveTime value="108258177000" /> <value unit="" xsi :type="PQ" value="NEGATIVE" /> <referenceRange> < observationRange> <text>NEGATIVE</text> </ observationRange> </referenceRange> </observation> </ component> </organizer> </entry> <entry> <organizer moodCode="EVN" classCode="BATTERY"> <templateId root="01.16.840.1.360611.09.19.22.4.1" /> <id nullFlavor="NA" /> <code codeSystem="local" code="UAMICRO" displayName="UA MICROSCOPIC" /> <statusCode code="completed" /> < component> <observation moodCode="EVN" classCode="OBS"> < templateId root="16.840.1.395985...4.2" /> <id nullFlavor="NA " /> <code codeSystem="local" code="BACU" displayName="UA BACTERIA" /> <statusCode code="completed" /> <effectiveTime value= "354556693958" /> <value unit="" xsi:type="PQ" value="2+" /> < interpretationCode codeSystem="local" code="*" /> <referenceRange> <observationRange> <text>NEGATIVE</text> </ observationRange> </referenceRange> </observation> </ component> <component> <observation moodCode="EVN" classCode="OBS"> <templateId root="216.840.1.634742.09.19.22.4.2" /> <id nullFlavor="NA" /> <code codeSystem="local" code="EPIU" displayName=" UA EPITHELIAL CELLS" /> <statusCode code="completed" /> < effectiveTime value="414676390157" /> <value unit="epi/hpf" xsi:type= "PQ" value="4+" /> <interpretationCode codeSystem="local" code="*" /> <referenceRange> <observationRange> <text>0 - 1 +</text> </observationRange> </referenceRange> </ observation> </component> <component> <observation moodCode= "EVN" classCode="OBS"> <templateId root="16.840.1.082174.09.19.22.4.2 " /> <id nullFlavor="NA" /> <code codeSystem="local" code= "MUCUSU" displayName="UA MUCUS" /> <statusCode code="completed" /> <effectiveTime value="058227080351" /> <value unit="" xsi:type= "PQ" value="3+" /> <interpretationCode codeSystem="local" code="*" /> <referenceRange> <observationRange> <text>NEG TO 1+</text> </observationRange> </referenceRange> </ observation> </component> <component> <observation moodCode= "EVN" classCode="OBS"> <templateId root="16.840.1.595999.09.19.22.4.2 " /> <id nullFlavor="NA" /> <code codeSystem="local" code= "RBCU" displayName="UA RBC" /> <statusCode code="completed" /> <effectiveTime value="801871642226" /> <value unit="rbc/hpf" xsi:type ="PQ" value="0-3" /> <referenceRange> <observationRange> <text>0 - 3</text> </observationRange> </ referenceRange> </observation> </component> <component> <observation moodCode="EVN" classCode="OBS"> <templateId root= "2.16.840.1.541345.10..22.4.2" /> <id nullFlavor="NA" /> < code codeSystem="local" code="UAVOL" displayName="UA VOLUME FOR EXAM" /> <statusCode code="completed" /> <effectiveTime value="119731643650" /> <value unit="mL" xsi:type="PQ" value="12.0" /> < referenceRange> <observationRange> <text>(12mL STD)</ text> </observationRange> </referenceRange> </ observation> </component> <component> <observation moodCode= "EVN" classCode="OBS"> <templateId root="2.16.840.1.207643.10..22.4.2 " /> <id nullFlavor="NA" /> <code codeSystem="local" code= "WBCU" displayName="UA WBC" /> <statusCode code="completed" /> <effectiveTime value="223359336727" /> <value unit="wbc/hpf" xsi:type ="PQ" value="2-5" /> <referenceRange> <observationRange> <text>0 - 5</text> </observationRange> </ referenceRange> </observation> </component> </organizer> </entry > <entry> <organizer moodCode="EVN" classCode="BATTERY"> <templateId root="16.840.1.384793.10...4.1" /> <id nullFlavor="NA" /> <code codeSystem="local" code="iCHEM8" displayName="CHEM/HEM PROFILE-BEDSIDE" /> <statusCode code="completed" /> <component> <observation moodCode= "EVN" classCode="OBS"> <templateId root="01.16.840.1.081806...4.2 " /> <id nullFlavor="NA" /> <code codeSystem="local" code="K" displayName="POTASSIUM" /> <statusCode code="completed" /> < effectiveTime value="938469194606" /> <value unit="mmol/L" xsi:type="PQ " value="4.3" /> <referenceRange> <observationRange> <text>3.5-5.3</text> </observationRange> </ referenceRange> </observation> </component> <component> <observation moodCode="EVN" classCode="OBS"> <templateId root= "01.16.840.1.883635....4.2" /> <id nullFlavor="NA" /> < code codeSystem="local" code="CMETHOD" displayName="METHOD" /> < statusCode code="completed" /> <effectiveTime value="441212387654" /> <value unit="" xsi:type="PQ" value="Bedside" /> < referenceRange> <observationRange> <text /> < /observationRange> </referenceRange> </observation> </ component> <component> <observation moodCode="EVN" classCode="OBS"> <templateId root="01.16.840.1.691625.09.19.22.4.2" /> <id nullFlavor="NA" /> <code codeSystem="local" code="GAP" displayName= "ANION GAP" /> <statusCode code="completed" /> <effectiveTime value="067881040236" /> <value unit="mmol/L" xsi:type="PQ" value="13" / > <referenceRange> <observationRange> <text>10- 20</text> </observationRange> </referenceRange> </ observation> </component> <component> <observation moodCode= "EVN" classCode="OBS"> <templateId root="2.16.840.1.149638.09.19.22.4.2 " /> <id nullFlavor="NA" /> <code codeSystem="local" code= "HMETHOD" displayName="METHOD" /> <statusCode code="completed" /> <effectiveTime value="109237581671" /> <value unit="" xsi:type="PQ " value="Bedside" /> <referenceRange> <observationRange> <text /> </observationRange> </referenceRange> </observation> </component> <component> <observation moodCode="EVN" classCode="OBS"> <templateId root= "2.16.840.1.466554.09.19.22.4.2" /> <id nullFlavor="NA" /> < code codeSystem="local" code="GLU" displayName="GLUCOSE" /> < statusCode code="completed" /> <effectiveTime value="627959930137" /> <value unit="mg/dL" xsi:type="PQ" value="122" /> < interpretationCode codeSystem="local" code="*" /> <referenceRange> <observationRange> <text>70-99</text> </ observationRange> </referenceRange> </observation> </ component> <component> <observation moodCode="EVN" classCode="OBS"> <templateId root="216.840.1.971824.10.20.22.4.2" /> <id nullFlavor="NA" /> <code codeSystem="local" code="BUN" displayName= "BLOOD UREA NITROGEN" /> <statusCode code="completed" /> < effectiveTime value="796494382117" /> <value unit="mg/dL" xsi:type="PQ " value="12" /> <referenceRange> <observationRange> <text>7-20</text> </observationRange> </referenceRange > </observation> </component> <component> <observation moodCode="EVN" classCode="OBS"> <templateId root= "16.840.1.386107..22.4.2" /> <id nullFlavor="NA" /> < code codeSystem="local" code="CREAT" displayName="CREATININE" /> < statusCode code="completed" /> <effectiveTime value="681539999386" /> <value unit="mg/dL" xsi:type="PQ" value="0.7" /> < referenceRange> <observationRange> <text>0.6-1.0</text> </observationRange> </referenceRange> </observation > </component> <component> <observation moodCode="EVN" classCode="OBS"> <templateId root="16.840.1.509639.10.20.22.4.2" /> <id nullFlavor="NA" /> <code codeSystem="local" code="HGBT" displayName="HEMOGLOBIN" /> <statusCode code="completed" /> < effectiveTime value="479138394633" /> <value unit="gm/dL" xsi:type="PQ " value="14.3" /> <referenceRange> <observationRange> <text>12.0-16.0</text> </observationRange> </ referenceRange> </observation> </component> <component> <observation moodCode="EVN" classCode="OBS"> <templateId root= "216.840.1.293248.10.4.2" /> <id nullFlavor="NA" /> < code codeSystem="local" code="HCTT" displayName="HEMATOCRIT" /> < statusCode code="completed" /> <effectiveTime value="405575446523" /> <value unit="%" xsi:type="PQ" value="42.0" /> < referenceRange> <observationRange> <text>37.0-47.0</text > </observationRange> </referenceRange> </observation > </component> <component> <observation moodCode="EVN" classCode="OBS"> <templateId root="01.16.840.1.230553.09.19.22.4.2" /> <id nullFlavor="NA" /> <code codeSystem="local" code="NA" displayName="SODIUM" /> <statusCode code="completed" /> < effectiveTime value="334826153305" /> <value unit="mmol/L" xsi:type="PQ " value="139" /> <referenceRange> <observationRange> <text>135-148</text> </observationRange> </ referenceRange> </observation> </component> <component> <observation moodCode="EVN" classCode="OBS"> <templateId root= "01.16.840.1.328786.09.19.22.4.2" /> <id nullFlavor="NA" /> < code codeSystem="local" code="CL" displayName="CHLORIDE" /> < statusCode code="completed" /> <effectiveTime value="674552008128" /> <value unit="mmol/L" xsi:type="PQ" value="108" /> < referenceRange> <observationRange> <text>98-110</text> </observationRange> </referenceRange> </observation> </component> <component> <observation moodCode="EVN" classCode ="OBS"> <templateId root="16.840.1.737879.10.20.22.4.2" /> < id nullFlavor="NA" /> <code codeSystem="local" code="CO2" displayName= "CARBON DIOXIDE" /> <statusCode code="completed" /> < effectiveTime value="966090089270" /> <value unit="mmol/L" xsi:type="PQ " value="23" /> <referenceRange> <observationRange> <text>21-32</text> </observationRange> </ referenceRange> </observation> </component> <component> <observation moodCode="EVN" classCode="OBS"> <templateId root= "01.16.840.1.011686.10..22.4.2" /> <id nullFlavor="NA" /> < code codeSystem="local" code="CAION" displayName="CALCIUM IONIZED" /> < statusCode code="completed" /> <effectiveTime value="941014597637" /> <value unit="mg/dL" xsi:type="PQ" value="4.8" /> < referenceRange> <observationRange> <text>4.5-5.3</text> </observationRange> </referenceRange> </observation > </component> </organizer> </entry> <entry> <organizer moodCode= "EVN" classCode="BATTERY"> <templateId root="16.840.1.771127.10.20.22.4.1 " /> <id nullFlavor="NA" /> <code codeSystem="local" code="69612-0" displayName="Complete urinalysis with reflex to culture" /> <statusCode code="completed" /> <component> <observation moodCode="EVN" classCode="OBS"> <templateId root="01.16.840.1.962742.1022.4.2" /> <id nullFlavor="NA" /> <code codeSystem="local" code="5778-6" displayName="Urine color determination" /> <statusCode code="completed " /> <effectiveTime value="" /> <value unit="" xsi :type="PQ" value="RED" /> <interpretationCode codeSystem="local" code= "*" /> <referenceRange> <observationRange> < text>NRG</text> </observationRange> </referenceRange> </observation> </component> <component> <observation moodCode ="EVN" classCode="OBS"> <templateId root= "840.1.458680.09.19.224.2" /> <id nullFlavor="NA" /> < code codeSystem="local" code="35375-5" displayName="Urine clarity determination " /> <statusCode code="completed" /> <effectiveTime value= "" /> <value unit="" xsi:type="PQ" value="BLOODY" /> <interpretationCode codeSystem="local" code="*" /> <referenceRange > <observationRange> <text>NRG</text> </ observationRange> </referenceRange> </observation> </ component> <component> <observation moodCode="EVN" classCode="OBS"> <templateId root="01.16.840.1.177664.22.4.2" /> <id nullFlavor="NA" /> <code codeSystem="local" code="5803-2" displayName= "Urine pH measurement by test strip" /> <statusCode code="completed" / > <effectiveTime value="" /> <value unit="" xsi: type="PQ" value="8" /> <referenceRange> <observationRange> <text>5-9</text> </observationRange> </ referenceRange> </observation> </component> <component> <observation moodCode="EVN" classCode="OBS"> <templateId root= "216.840.1.420281.10..22.4.2" /> <id nullFlavor="NA" /> < code codeSystem="local" code="5811-5" displayName="Specific gravity of urine by test strip" /> <statusCode code="completed" /> <effectiveTime value="" /> <value unit="" xsi:type="PQ" value="1.010" /> <interpretationCode codeSystem="local" code="" /> < referenceRange> <observationRange> <text>1.016-1.022</ text> </observationRange> </referenceRange> </ observation> </component> <component> <observation moodCode= "EVN" classCode="OBS"> <templateId root="216.840.1.429638.10.20.22.4.2 " /> <id nullFlavor="NA" /> <code codeSystem="local" code= "93595-6" displayName="Urine protein assay by test strip, semi-quantitative" /> <statusCode code="completed" /> <effectiveTime value= "" /> <value unit="" xsi:type="PQ" value="3+" /> < interpretationCode codeSystem="local" code="*" /> <referenceRange> <observationRange> <text>NEGATIVE</text> </ observationRange> </referenceRange> </observation> </ component> <component> <observation moodCode="EVN" classCode="OBS"> <templateId root="16.840.1.751978.10.20.22.4.2" /> <id nullFlavor="NA" /> <code codeSystem="local" code="97618-2" displayName= "Urine glucose detection by automated test strip" /> <statusCode code= "completed" /> <effectiveTime value="" /> <value unit="" xsi:type="PQ" value="NEGATIVE" /> <referenceRange> < observationRange> <text>NEGATIVE</text> </ observationRange> </referenceRange> </observation> </ component> <component> <observation moodCode="EVN" classCode="OBS"> <templateId root="01.16.840.1.728166.10.22.4.2" /> <id nullFlavor="NA" /> <code codeSystem="local" code="85290-1" displayName= "Erythrocytes detection in urine sediment by light microscopy" /> < statusCode code="completed" /> <effectiveTime value="" /> <value unit="" xsi:type="PQ" value="5+" /> < interpretationCode codeSystem="local" code="*" /> <referenceRange> <observationRange> <text>NEGATIVE</text> </ observationRange> </referenceRange> </observation> </ component> <component> <observation moodCode="EVN" classCode="OBS"> <templateId root="01.16.840.1.432611.10.20.22.4.2" /> <id nullFlavor="NA" /> <code codeSystem="local" code="45817-1" displayName= "Urine ketones detection by automated test strip" /> <statusCode code= "completed" /> <effectiveTime value="" /> <value unit="" xsi:type="PQ" value="1+" /> <interpretationCode codeSystem= "local" code="*" /> <referenceRange> <observationRange> <text>NEGATIVE</text> </observationRange> </ referenceRange> </observation> </component> <component> <observation moodCode="EVN" classCode="OBS"> <templateId root= "216.840.1.924655.10..4.2" /> <id nullFlavor="NA" /> < code codeSystem="local" code="5802-4" displayName="Urine nitrite detection by test strip" /> <statusCode code="completed" /> <effectiveTime value="" /> <value unit="" xsi:type="PQ" value="POSITIVE" / > <interpretationCode codeSystem="local" code="*" /> < referenceRange> <observationRange> <text>NEGATIVE</text > </observationRange> </referenceRange> </observation > </component> <component> <observation moodCode="EVN" classCode="OBS"> <templateId root="01.16.840.1.020043.09.19.22.4.2" /> <id nullFlavor="NA" /> <code codeSystem="local" code="5770-3" displayName="Urine total bilirubin detection by test strip" /> < statusCode code="completed" /> <effectiveTime value="" /> <value unit="" xsi:type="PQ" value="NEGATIVE" /> < referenceRange> <observationRange> <text>NEGATIVE</text > </observationRange> </referenceRange> </observation > </component> <component> <observation moodCode="EVN" classCode="OBS"> <templateId root="01.16.840.1.308889.10.22.4.2" /> <id nullFlavor="NA" /> <code codeSystem="local" code="86826-9 " displayName="Urine urobilinogen measurement by automated test strip (mass/ volume)" /> <statusCode code="completed" /> <effectiveTime value="974343160673" /> <value unit="" xsi:type="PQ" value="NORMAL" /> <referenceRange> <observationRange> <text> NORMAL</text> </observationRange> </referenceRange> < /observation> </component> <component> <observation moodCode= "EVN" classCode="OBS"> <templateId root="2.16.840.1.502786.10.20.22.4.2 " /> <id nullFlavor="NA" /> <code codeSystem="local" code= "5799-2" displayName="Urine leukocyte esterase detection by dipstick" /> <statusCode code="completed" /> <effectiveTime value="791042668950" /> <value unit="" xsi:type="PQ" value="2+" /> < interpretationCode codeSystem="local" code="*" /> <referenceRange> <observationRange> <text>NEGATIVE</text> </ observationRange> </referenceRange> </observation> </ component> <component> <observation moodCode="EVN" classCode="OBS"> <templateId root="2.16.840.1.213576.10.20.22.4.2" /> <id nullFlavor="NA" /> <code codeSystem="local" code="59102-8" displayName= "Automated urine sediment erythrocyte count by microscopy (number/high power field)" /> <statusCode code="completed" /> <effectiveTime value="925761621059" /> <value unit="" xsi:type="PQ" value="TNTC" /> <interpretationCode codeSystem="local" code="*" /> < referenceRange> <observationRange> <text>NRG</text> </observationRange> </referenceRange> </observation> </component> <component> <observation moodCode="EVN" classCode= "OBS"> <templateId root="01.16.840.1.560719.10.22.4.2" /> < id nullFlavor="NA" /> <code codeSystem="local" code="5821-4" displayName="Automated urine sediment leukocyte count by microscopy (number/ high power field)" /> <statusCode code="completed" /> < effectiveTime value="" /> <value unit="[HPF]" xsi:type="PQ " value="" /> <interpretationCode codeSystem="local" code="*" /> <referenceRange> <observationRange> <text>NRG</text > </observationRange> </referenceRange> </observation > </component> <component> <observation moodCode="EVN" classCode="OBS"> <templateId root="01.16.840.1.851040.1022.4.2" /> <id nullFlavor="NA" /> <code codeSystem="local" code="50460-3 " displayName="Bacteria detection in urine sediment by light microscopy" /> <statusCode code="completed" /> <effectiveTime value= "" /> <value unit="" xsi:type="PQ" value="LARGE" /> <interpretationCode codeSystem="local" code="*" /> <referenceRange> <observationRange> <text>NRG</text> </ observationRange> </referenceRange> </observation> </ component> <component> <observation moodCode="EVN" classCode="OBS"> <templateId root="01.16.840.1.965886.10.2022.4.2" /> <id nullFlavor="NA" /> <code codeSystem="local" code="29033-3" displayName= "Squamous epithelial cells detection in urine sediment by light microscopy" /> <statusCode code="completed" /> <effectiveTime value= "" /> <value unit="" xsi:type="PQ" value="09-24" /> <interpretationCode codeSystem="local" code="*" /> <referenceRange> <observationRange> <text>NRG</text> </ observationRange> </referenceRange> </observation> </ component> <component> <observation moodCode="EVN" classCode="OBS"> <templateId root="01.16.840.1.579274.10.20.22.4.2" /> <id nullFlavor="NA" /> <code codeSystem="local" code="18547-2" displayName= "Crystals detection in urine sediment by light microscopy" /> < statusCode code="completed" /> <effectiveTime value="" /> <value unit="" xsi:type="PQ" value="NONE" /> <referenceRange> <observationRange> <text>NRG</text> </ observationRange> </referenceRange> </observation> </ component> <component> <observation moodCode="EVN" classCode="OBS"> <templateId root="01.16.840.1.192055.10.20.22.4.2" /> <id nullFlavor="NA" /> <code codeSystem="local" code="09438-1" displayName= "Casts detection in urine sediment by light microscopy" /> <statusCode code="completed" /> <effectiveTime value="" /> < value unit="" xsi:type="PQ" value="NONE" /> <referenceRange> <observationRange> <text>NRG</text> </observationRange > </referenceRange> </observation> </component> < component> <observation moodCode="EVN" classCode="OBS"> < templateId root="01.16.840.1.015699.10.22.4.2" /> <id nullFlavor="NA " /> <code codeSystem="local" code="8247-9" displayName="Mucus detection in urine sediment by light microscopy" /> <statusCode code= "completed" /> <effectiveTime value="772625543541" /> <value unit="" xsi:type="PQ" value="NEGATIVE" /> <referenceRange> < observationRange> <text>NRG</text> </observationRange> </referenceRange> </observation> </component> < component> <observation moodCode="EVN" classCode="OBS"> < templateId root="840.1.895223.22.4.2" /> <id nullFlavor="NA " /> <code codeSystem="local" code="57459-4" displayName="Complete urinalysis with reflex to culture" /> <statusCode code="completed" /> <effectiveTime value="305065279133" /> <value unit="" xsi:type ="PQ" value="YES" /> <referenceRange> <observationRange> <text>NRG</text> </observationRange> </ referenceRange> </observation> </component> </organizer> </entry > <entry> <organizer moodCode="EVN" classCode="BATTERY"> <templateId root="840.1.168262.1022.4.1" /> <id nullFlavor="NA" /> <code codeSystem="local" code="630-4" displayName="Bacterial urine culture" /> < statusCode code="completed" /> <component> <observation moodCode= "EVN" classCode="OBS"> <templateId root="01.16.840.1.912047.102022.4.2 " /> <id nullFlavor="NA" /> <code codeSystem="local" code= "URINERES" displayName="URINE CULTURE RESULTS" /> <statusCode code= "completed" /> <effectiveTime value="374963421933" /> <value unit="" xsi:type="PQ" value="MORE THAN 3 ISOLATES" /> <referenceRange> <observationRange> <text>NRG</text> </ observationRange> </referenceRange> </observation> </ component> </organizer> </entry> <entry> <organizer moodCode="EVN" classCode="BATTERY"> <templateId root="216.840.1.346046.10.20.22.4.1" /> <id nullFlavor="NA" /> <code codeSystem="local" code="78295-9" displayName="Complete blood count (CBC) with automated white blood cell (WBC) differential" /> <statusCode code="completed" /> <component> < observation moodCode="EVN" classCode="OBS"> <templateId root= "216.840.1.495999.10.20.22.4.2" /> <id nullFlavor="NA" /> < code codeSystem="local" code="6690-2" displayName="Blood leukocytes automated count (number/volume)" /> <statusCode code="completed" /> < effectiveTime value="033470997797" /> <value unit="10*3/uL" xsi:type= "PQ" value="10.9" /> <referenceRange> <observationRange> <text>4.3-11.0</text> </observationRange> </ referenceRange> </observation> </component> <component> <observation moodCode="EVN" classCode="OBS"> <templateId root= "216.840.1.823412.10.20.22.4.2" /> <id nullFlavor="NA" /> < code codeSystem="local" code="789-8" displayName="Blood erythrocytes automated count (number/volume)" /> <statusCode code="completed" /> < effectiveTime value="615134286933" /> <value unit="10*6/uL" xsi:type= "PQ" value="4.68" /> <referenceRange> <observationRange> <text>4.35-5.85</text> </observationRange> </ referenceRange> </observation> </component> <component> <observation moodCode="EVN" classCode="OBS"> <templateId root= "2.16.840.1.234480.10.20.22.4.2" /> <id nullFlavor="NA" /> < code codeSystem="local" code="45646-7" displayName="Venous blood hemoglobin measurement (mass/volume)" /> <statusCode code="completed" /> <effectiveTime value="537378014836" /> <value unit="g/dL" xsi:type="PQ " value="14.5" /> <referenceRange> <observationRange> <text>11.5-16.0</text> </observationRange> </ referenceRange> </observation> </component> <component> <observation moodCode="EVN" classCode="OBS"> <templateId root= "2.16.840.1.662482.10.20.22.4.2" /> <id nullFlavor="NA" /> < code codeSystem="local" code="60711-4" displayName="Blood hematocrit (volume fraction)" /> <statusCode code="completed" /> <effectiveTime value="860227386885" /> <value unit="%" xsi:type="PQ" value="41" / > <referenceRange> <observationRange> <text>35- 52</text> </observationRange> </referenceRange> </ observation> </component> <component> <observation moodCode= "EVN" classCode="OBS"> <templateId root="2.16.840.1.735249.10..22.4.2 " /> <id nullFlavor="NA" /> <code codeSystem="local" code="787 -2" displayName="Automated erythrocyte mean corpuscular volume" /> < statusCode code="completed" /> <effectiveTime value="" /> <value unit="[foz_us]" xsi:type="PQ" value="89" /> < referenceRange> <observationRange> <text>80-99</text> </observationRange> </referenceRange> </observation> </component> <component> <observation moodCode="EVN" classCode= "OBS"> <templateId root="216.840.1.011975.10..4.2" /> < id nullFlavor="NA" /> <code codeSystem="local" code="785-6" displayName ="Automated erythrocyte mean corpuscular hemoglobin (mass per erythrocyte)" /> <statusCode code="completed" /> <effectiveTime value= "" /> <value unit="pg" xsi:type="PQ" value="31" /> <referenceRange> <observationRange> <text>25-34</text > </observationRange> </referenceRange> </observation > </component> <component> <observation moodCode="EVN" classCode="OBS"> <templateId root="2.16.840.1.196167.10..22.4.2" /> <id nullFlavor="NA" /> <code codeSystem="local" code="786-4" displayName="Automated erythrocyte mean corpuscular hemoglobin concentration measurement (mass/volume)" /> <statusCode code="completed" /> <effectiveTime value="" /> <value unit="g/dL" xsi:type="PQ " value="35" /> <referenceRange> <observationRange> <text>32-36</text> </observationRange> </ referenceRange> </observation> </component> <component> <observation moodCode="EVN" classCode="OBS"> <templateId root= "2.16.840.1.826921.10..22.4.2" /> <id nullFlavor="NA" /> < code codeSystem="local" code="788-0" displayName="Automated erythrocyte distribution width ratio" /> <statusCode code="completed" /> < effectiveTime value="466373773842" /> <value unit="%" xsi:type="PQ " value="13.2" /> <referenceRange> <observationRange> <text>10.0-14.5</text> </observationRange> </ referenceRange> </observation> </component> <component> <observation moodCode="EVN" classCode="OBS"> <templateId root= "216.840.1.653501.10..22.4.2" /> <id nullFlavor="NA" /> < code codeSystem="local" code="777-3" displayName="Automated blood platelet count (count/volume)" /> <statusCode code="completed" /> < effectiveTime value="883874252408" /> <value unit="10*3/uL" xsi:type= "PQ" value="253" /> <referenceRange> <observationRange> <text>130-400</text> </observationRange> </ referenceRange> </observation> </component> <component> <observation moodCode="EVN" classCode="OBS"> <templateId root= "216.840.1.701068.10.20.22.4.2" /> <id nullFlavor="NA" /> < code codeSystem="local" code="08177-5" displayName="Automated blood platelet mean volume measurement" /> <statusCode code="completed" /> < effectiveTime value="937342573456" /> <value unit="[chi [facility]]" xsi:type= "PQ" value="9.9" /> <referenceRange> <observationRange> <text>7.4-10.4</text> </observationRange> </ referenceRange> </observation> </component> <component> <observation moodCode="EVN" classCode="OBS"> <templateId root= "2.16.840.1.476211.10..22.4.2" /> <id nullFlavor="NA" /> < code codeSystem="local" code="770-8" displayName="Automated blood neutrophils/ 100 leukocytes" /> <statusCode code="completed" /> < effectiveTime value="139700787567" /> <value unit="%" xsi:type="PQ " value="53" /> <referenceRange> <observationRange> <text>42-75</text> </observationRange> </ referenceRange> </observation> </component> <component> <observation moodCode="EVN" classCode="OBS"> <templateId root= "2.16.840.1.629275.10..22.4.2" /> <id nullFlavor="NA" /> < code codeSystem="local" code="736-9" displayName="Automated blood lymphocytes/ 100 leukocytes" /> <statusCode code="completed" /> < effectiveTime value="669306670396" /> <value unit="%" xsi:type="PQ " value="36" /> <referenceRange> <observationRange> <text>12-44</text> </observationRange> </ referenceRange> </observation> </component> <component> <observation moodCode="EVN" classCode="OBS"> <templateId root= "2.16.840.1.113832.10.20.22.4.2" /> <id nullFlavor="NA" /> < code codeSystem="local" code="32955-5" displayName="Blood monocytes/100 leukocytes" /> <statusCode code="completed" /> <effectiveTime value="" /> <value unit="%" xsi:type="PQ" value="5" /> <referenceRange> <observationRange> <text>0-12 </text> </observationRange> </referenceRange> </ observation> </component> <component> <observation moodCode= "EVN" classCode="OBS"> <templateId root="2.16.840.1.367783.10..22.4.2 " /> <id nullFlavor="NA" /> <code codeSystem="local" code="713 -8" displayName="Automated blood eosinophils/100 leukocytes" /> < statusCode code="completed" /> <effectiveTime value="" /> <value unit="%" xsi:type="PQ" value="5" /> <referenceRange > <observationRange> <text>0-10</text> </ observationRange> </referenceRange> </observation> </ component> <component> <observation moodCode="EVN" classCode="OBS"> <templateId root="2.16.840.1.592273.10.20.22.4.2" /> <id nullFlavor="NA" /> <code codeSystem="local" code="706-2" displayName= "Automated blood basophils/100 leukocytes" /> <statusCode code= "completed" /> <effectiveTime value="" /> <value unit="%" xsi:type="PQ" value="1" /> <referenceRange> < observationRange> <text>0-10</text> </observationRange> </referenceRange> </observation> </component> < component> <observation moodCode="EVN" classCode="OBS"> < templateId root="216.840.1.822812.10.20.22.4.2" /> <id nullFlavor="NA " /> <code codeSystem="local" code="751-8" displayName="Blood neutrophils automated count (number/volume)" /> <statusCode code= "completed" /> <effectiveTime value="303520406711" /> <value unit="10*3" xsi:type="PQ" value="5.7" /> <referenceRange> < observationRange> <text>1.8-7.8</text> </ observationRange> </referenceRange> </observation> </ component> <component> <observation moodCode="EVN" classCode="OBS"> <templateId root="01.16.840.1.008998.10.22.4.2" /> <id nullFlavor="NA" /> <code codeSystem="local" code="731-0" displayName= "Blood lymphocytes automated count (number/volume)" /> <statusCode code ="completed" /> <effectiveTime value="245721392191" /> <value unit="10*3" xsi:type="PQ" value="3.9" /> <referenceRange> < observationRange> <text>1.0-4.0</text> </ observationRange> </referenceRange> </observation> </ component> <component> <observation moodCode="EVN" classCode="OBS"> <templateId root="16.840.1.162584.10.20.22.4.2" /> <id nullFlavor="NA" /> <code codeSystem="local" code="742-7" displayName= "Blood monocytes automated count (number/volume)" /> <statusCode code= "completed" /> <effectiveTime value="" /> <value unit="10*3" xsi:type="PQ" value="0.6" /> <referenceRange> < observationRange> <text>0.0-1.0</text> </ observationRange> </referenceRange> </observation> </ component> <component> <observation moodCode="EVN" classCode="OBS"> <templateId root="2.16.840.1.412653.10.20.22.4.2" /> <id nullFlavor="NA" /> <code codeSystem="local" code="711-2" displayName= "Automated eosinophil count" /> <statusCode code="completed" /> <effectiveTime value="" /> <value unit="10*3/uL" xsi: type="PQ" value="0.6" /> <interpretationCode codeSystem="local" code="* *" /> <referenceRange> <observationRange> <text >0.0-0.3</text> </observationRange> </referenceRange> </observation> </component> <component> <observation moodCode ="EVN" classCode="OBS"> <templateId root= "2.16.840.1.071436.10.2022.4.2" /> <id nullFlavor="NA" /> < code codeSystem="local" code="704-7" displayName="Automated blood basophil count (count/volume)" /> <statusCode code="completed" /> < effectiveTime value="" /> <value unit="10*3/uL" xsi:type= "PQ" value="0.1" /> <referenceRange> <observationRange> <text>0.0-0.1</text> </observationRange> </ referenceRange> </observation> </component> </organizer> </entry > <entry> <organizer moodCode="EVN" classCode="BATTERY"> <templateId root="216.840.1.165817.10..4.1" /> <id nullFlavor="NA" /> <code codeSystem="local" code="2118-07" displayName="Serum or plasma choriogonadotropin ( test) detection" /> <statusCode code= "completed" /> <component> <observation moodCode="EVN" classCode= "OBS"> <templateId root="01.16.840.1.776457.10..4.2" /> < id nullFlavor="NA" /> <code codeSystem="local" code="2118-07" displayName="Serum or plasma choriogonadotropin ( test) detection" /> <statusCode code="completed" /> <effectiveTime value= "956889561776" /> <value unit="" xsi:type="PQ" value="NEGATIVE" /> <referenceRange> <observationRange> <text>NEGATIVE </text> </observationRange> </referenceRange> </ observation> </component> </organizer> </entry> <entry> <organizer moodCode="EVN" classCode="BATTERY"> <templateId root= "01.16.840.1.621600.10.4.1" /> <id nullFlavor="NA" /> <code codeSystem="local" code="89387-9" displayName="Comprehensive metabolic panel" / > <statusCode code="completed" /> <component> <observation moodCode="EVN" classCode="OBS"> <templateId root= "16.840.1.259807.10..22.4.2" /> <id nullFlavor="NA" /> < code codeSystem="local" code="2951-2" displayName="Serum or plasma sodium measurement (moles/volume)" /> <statusCode code="completed" /> <effectiveTime value="436141778963" /> <value unit="mmol/L" xsi:type= "PQ" value="139" /> <referenceRange> <observationRange> <text>135-145</text> </observationRange> </ referenceRange> </observation> </component> <component> <observation moodCode="EVN" classCode="OBS"> <templateId root= "2.16.840.1.355915.10.20.22.4.2" /> <id nullFlavor="NA" /> < code codeSystem="local" code="2823-3" displayName="Serum or plasma potassium measurement (moles/volume)" /> <statusCode code="completed" /> <effectiveTime value="142321555530" /> <value unit="mmol/L" xsi:type= "PQ" value="3.9" /> <referenceRange> <observationRange> <text>3.6-5.0</text> </observationRange> </ referenceRange> </observation> </component> <component> <observation moodCode="EVN" classCode="OBS"> <templateId root= "2.16.840.1.300288.10.20.22.4.2" /> <id nullFlavor="NA" /> < code codeSystem="local" code="2075-0" displayName="Serum or plasma chloride measurement (moles/volume)" /> <statusCode code="completed" /> <effectiveTime value="798032433395" /> <value unit="mmol/L" xsi:type= "PQ" value="105" /> <referenceRange> <observationRange> <text>98-107</text> </observationRange> </ referenceRange> </observation> </component> <component> <observation moodCode="EVN" classCode="OBS"> <templateId root= "216.840.1.721066.10.20.22.4.2" /> <id nullFlavor="NA" /> < code codeSystem="local" code="2028-08" displayName="Carbon dioxide" /> < statusCode code="completed" /> <effectiveTime value="" /> <value unit="mmol/L" xsi:type="PQ" value="20" /> < interpretationCode codeSystem="local" code="" /> <referenceRange> <observationRange> <text>21-32</text> </ observationRange> </referenceRange> </observation> </ component> <component> <observation moodCode="EVN" classCode="OBS"> <templateId root="216.840.1.471798.10...4.2" /> <id nullFlavor="NA" /> <code codeSystem="local" code="52140-5" displayName= "Serum or plasma anion gap determination (moles/volume)" /> < statusCode code="completed" /> <effectiveTime value="" /> <value unit="mmol/L" xsi:type="PQ" value="14" /> < referenceRange> <observationRange> <text>5-14</text> </observationRange> </referenceRange> </observation> </component> <component> <observation moodCode="EVN" classCode= "OBS"> <templateId root="2.16.840.1.576175.10..22.4.2" /> < id nullFlavor="NA" /> <code codeSystem="local" code="3094-0" displayName="Serum or plasma urea nitrogen measurement (mass/volume)" /> <statusCode code="completed" /> <effectiveTime value="" /> <value unit="mg/dL" xsi:type="PQ" value="13" /> < referenceRange> <observationRange> <text>7-18</text> </observationRange> </referenceRange> </observation> </component> <component> <observation moodCode="EVN" classCode= "OBS"> <templateId root="2.16.840.1.449425.10..22.4.2" /> < id nullFlavor="NA" /> <code codeSystem="local" code="2160-0" displayName="Serum or plasma creatinine measurement (mass/volume)" /> < statusCode code="completed" /> <effectiveTime value="800969865807" /> <value unit="mg/dL" xsi:type="PQ" value="0.78" /> < referenceRange> <observationRange> <text>0.60-1.30</text > </observationRange> </referenceRange> </observation > </component> <component> <observation moodCode="EVN" classCode="OBS"> <templateId root="216.840.1.158450.10..22.4.2" /> <id nullFlavor="NA" /> <code codeSystem="local" code="3097-3" displayName="Serum or plasma urea nitrogen/creatinine mass ratio" /> < statusCode code="completed" /> <effectiveTime value="105750210022" /> <value unit="" xsi:type="PQ" value="17" /> <referenceRange> <observationRange> <text>NRG</text> </ observationRange> </referenceRange> </observation> </ component> <component> <observation moodCode="EVN" classCode="OBS"> <templateId root="2.16.840.1.252932.10.20.22.4.2" /> <id nullFlavor="NA" /> <code codeSystem="local" code="68399-6" displayName= "Serum or plasma creatinine measurement with calculation of estimated glomerular filtration rate" /> <statusCode code="completed" /> <effectiveTime value="607353771268" /> <value unit="" xsi:type="PQ" value=">" /> <referenceRange> <observationRange> <text>NRG</text> </observationRange> </referenceRange > </observation> </component> <component> <observation moodCode="EVN" classCode="OBS"> <templateId root= "2.16.840.1.877559.10.20.22.4.2" /> <id nullFlavor="NA" /> < code codeSystem="local" code="2345-7" displayName="Serum or plasma glucose measurement (mass/volume)" /> <statusCode code="completed" /> <effectiveTime value="860548531716" /> <value unit="mg/dL" xsi:type="PQ " value="108" /> <interpretationCode codeSystem="local" code="" /> <referenceRange> <observationRange> <text>70-105 </text> </observationRange> </referenceRange> </ observation> </component> <component> <observation moodCode= "EVN" classCode="OBS"> <templateId root="2.16.840.1.965736.10.20.22.4.2 " /> <id nullFlavor="NA" /> <code codeSystem="local" code= "80554-1" displayName="Serum or plasma calcium measurement (mass/volume)" /> <statusCode code="completed" /> <effectiveTime value= "" /> <value unit="mg/dL" xsi:type="PQ" value="9.4" /> <referenceRange> <observationRange> <text>8.5-10.1 </text> </observationRange> </referenceRange> </ observation> </component> <component> <observation moodCode= "EVN" classCode="OBS"> <templateId root="2.16.840.1.242285.10..22.4.2 " /> <id nullFlavor="NA" /> <code codeSystem="local" code= "1975-01" displayName="Serum or plasma total bilirubin measurement (mass/volume) " /> <statusCode code="completed" /> <effectiveTime value= "630350981746" /> <value unit="mg/dL" xsi:type="PQ" value="0.2" /> <referenceRange> <observationRange> <text>0.1-1.0< /text> </observationRange> </referenceRange> </ observation> </component> <component> <observation moodCode= "EVN" classCode="OBS"> <templateId root="216.840.1.403191.10...4.2 " /> <id nullFlavor="NA" /> <code codeSystem="local" code= "67686" displayName="Serum or plasma alkaline phosphatase measurement ( enzymatic activity/volume)" /> <statusCode code="completed" /> <effectiveTime value="529399346414" /> <value unit="U/L" xsi:type="PQ " value="74" /> <referenceRange> <observationRange> <text>40-136</text> </observationRange> </ referenceRange> </observation> </component> <component> <observation moodCode="EVN" classCode="OBS"> <templateId root= "2.16.840.1.314872.10.20.22.4.2" /> <id nullFlavor="NA" /> < code codeSystem="local" code="1920-07" displayName="Serum or plasma aspartate aminotransferase measurement (enzymatic activity/volume)" /> < statusCode code="completed" /> <effectiveTime value="985780401891" /> <value unit="U/L" xsi:type="PQ" value="21" /> <referenceRange > <observationRange> <text>5-34</text> </ observationRange> </referenceRange> </observation> </ component> <component> <observation moodCode="EVN" classCode="OBS"> <templateId root="2.16.840.1.889865.10..4.2" /> <id nullFlavor="NA" /> <code codeSystem="local" code="1742-6" displayName= "Serum or plasma alanine aminotransferase measurement (enzymatic activity/volume )" /> <statusCode code="completed" /> <effectiveTime value= "782518702590" /> <value unit="U/L" xsi:type="PQ" value="29" /> <referenceRange> <observationRange> <text>0-55</text > </observationRange> </referenceRange> </observation > </component> <component> <observation moodCode="EVN" classCode="OBS"> <templateId root="2.16.840.1.667659.10...4.2" /> <id nullFlavor="NA" /> <code codeSystem="local" code="2885-2" displayName="Serum or plasma protein measurement (mass/volume)" /> < statusCode code="completed" /> <effectiveTime value="997103283593" /> <value unit="g/dL" xsi:type="PQ" value="7.6" /> < referenceRange> <observationRange> <text>6.4-8.2</text> </observationRange> </referenceRange> </observation > </component> <component> <observation moodCode="EVN" classCode="OBS"> <templateId root="16.840.1.092333.10..22.4.2" /> <id nullFlavor="NA" /> <code codeSystem="local" code="1751-7" displayName="Serum or plasma albumin measurement (mass/volume)" /> < statusCode code="completed" /> <effectiveTime value="332443353820" /> <value unit="g/dL" xsi:type="PQ" value="4.0" /> < referenceRange> <observationRange> <text>3.2-4.5</text> </observationRange> </referenceRange> </observation > </component> </organizer> </entry> <entry> <organizer moodCode= "EVN" classCode="BATTERY"> <templateId root="16.840.1.927582.10..22.4.1 " /> <id nullFlavor="NA" /> <code codeSystem="local" code="3040" displayName="Lipase" /> <statusCode code="completed" /> <component> <observation moodCode="EVN" classCode="OBS"> <templateId root= "16.840.1.024072.10...4.2" /> <id nullFlavor="NA" /> < code codeSystem="local" code="3040-3" displayName="Lipase" /> < statusCode code="completed" /> <effectiveTime value="018932132156" /> <value unit="U/L" xsi:type="PQ" value="49" /> <referenceRange > <observationRange> <text>8-78</text> </ observationRange> </referenceRange> </observation> </ component> </organizer> </entry> <entry> <organizer moodCode="EVN" classCode="BATTERY"> <templateId root="216.840.1.703376.09.19.22.4.1" /> <id nullFlavor="NA" /> <code codeSystem="local" code="ORD9" displayName="Cardiac Panel" /> <statusCode code="completed" /> < component> <observation moodCode="EVN" classCode="OBS"> < templateId root="01.16.840.1.701089.09.19.22.4.2" /> <id nullFlavor="NA " /> <code codeSystem="local" code="Res56" displayName="CK" /> <statusCode code="completed" /> <effectiveTime value="126041920698" / > <value unit="U/L" xsi:type="PQ" value="106" /> < referenceRange> <observationRange> <text>26-174</text> </observationRange> </referenceRange> </observation> </component> <component> <observation moodCode="EVN" classCode ="OBS"> <templateId root="840.1.955421.09.19.22.4.2" /> < id nullFlavor="NA" /> <code codeSystem="local" code="Res31" displayName ="CK-MB" /> <statusCode code="completed" /> <effectiveTime value="386056051675" /> <value unit="ng/ml" xsi:type="PQ" value="1.2" / > <referenceRange> <observationRange> <text>0.0 -9.2</text> </observationRange> </referenceRange> </ observation> </component> <component> <observation moodCode= "EVN" classCode="OBS"> <templateId root="01.16.840.1.296711.09.19.22.4.2 " /> <id nullFlavor="NA" /> <code codeSystem="local" code= "Mtq1550" displayName="Myoglobin" /> <statusCode code="completed" /> <effectiveTime value="049239378497" /> <value unit="ng/ml" xsi: type="PQ" value="41.4" /> <referenceRange> <observationRange > <text>1.6-106.0</text> </observationRange> </ referenceRange> </observation> </component> <component> <observation moodCode="EVN" classCode="OBS"> <templateId root= "01.16.840.1.549297.10.4.2" /> <id nullFlavor="NA" /> < code codeSystem="local" code="Res33" displayName="Troponin" /> < statusCode code="completed" /> <effectiveTime value="760405315849" /> <value unit="ng/mL" xsi:type="PQ" value="<0.020" /> < referenceRange> <observationRange> <text>0.0-0.4</text> </observationRange> </referenceRange> </observation > </component> </organizer> </entry> <entry> <organizer moodCode= "EVN" classCode="BATTERY"> <templateId root="01.16.840.1.901805.10.4.1 " /> <id nullFlavor="NA" /> <code codeSystem="local" code="ORD2" displayName="CBC with Auto Diff" /> <statusCode code="completed" /> < component> <observation moodCode="EVN" classCode="OBS"> < templateId root="01.16.840.1.721273.10.4.2" /> <id nullFlavor="NA " /> <code codeSystem="local" code="Roc761" displayName="Baso%" /> <statusCode code="completed" /> <effectiveTime value= "354726197554" /> <value unit="%" xsi:type="PQ" value="0.30" /> <referenceRange> <observationRange> <text>0.00- 2.50</text> </observationRange> </referenceRange> </ observation> </component> <component> <observation moodCode= "EVN" classCode="OBS"> <templateId root="216.840.1.479684.10.22.4.2 " /> <id nullFlavor="NA" /> <code codeSystem="local" code= "Oae779" displayName="Eos" /> <statusCode code="completed" /> <effectiveTime value="379243865665" /> <value unit="K/uL" xsi:type="PQ " value="0.2" /> <referenceRange> <observationRange> <text>0.0-0.7</text> </observationRange> </ referenceRange> </observation> </component> <component> <observation moodCode="EVN" classCode="OBS"> <templateId root= "216.840.1.292396.10.4.2" /> <id nullFlavor="NA" /> < code codeSystem="local" code="Dqg006" displayName="Eos%" /> < statusCode code="completed" /> <effectiveTime value="975610006757" /> <value unit="%" xsi:type="PQ" value="1.4" /> < referenceRange> <observationRange> <text>0.0-7.0</text> </observationRange> </referenceRange> </observation > </component> <component> <observation moodCode="EVN" classCode="OBS"> <templateId root="2.16.840.1.863298.10.2022.4.2" /> <id nullFlavor="NA" /> <code codeSystem="local" code="Res87" displayName="Hct" /> <statusCode code="completed" /> < effectiveTime value="496845672621" /> <value unit="%" xsi:type="PQ " value="40.4" /> <referenceRange> <observationRange> <text>36.0-46.0</text> </observationRange> </ referenceRange> </observation> </component> <component> <observation moodCode="EVN" classCode="OBS"> <templateId root= "2.16.840.1.317653.10...4.2" /> <id nullFlavor="NA" /> < code codeSystem="local" code="Vct500" displayName="Hgb" /> <statusCode code="completed" /> <effectiveTime value="828952732197" /> < value unit="g/dL" xsi:type="PQ" value="13.8" /> <referenceRange> <observationRange> <text>13.0-15.0</text> </ observationRange> </referenceRange> </observation> </ component> <component> <observation moodCode="EVN" classCode="OBS"> <templateId root="2.16.840.1.483845.10...4.2" /> <id nullFlavor="NA" /> <code codeSystem="local" code="Jbd162" displayName= "Lym" /> <statusCode code="completed" /> <effectiveTime value= "420759704191" /> <value unit="K/uL" xsi:type="PQ" value="3.04" /> <referenceRange> <observationRange> <text>0.60- 3.40</text> </observationRange> </referenceRange> </ observation> </component> <component> <observation moodCode= "EVN" classCode="OBS"> <templateId root="16.840.1.086541.10.20.22.4.2 " /> <id nullFlavor="NA" /> <code codeSystem="local" code= "Qmg392" displayName="Lym%" /> <statusCode code="completed" /> <effectiveTime value="589840309440" /> <value unit="%" xsi: type="PQ" value="24.2" /> <referenceRange> <observationRange > <text>10.0-50.0</text> </observationRange> </ referenceRange> </observation> </component> <component> <observation moodCode="EVN" classCode="OBS"> <templateId root= "01.16.840.1.534784.10.2022.4.2" /> <id nullFlavor="NA" /> < code codeSystem="local" code="Res89" displayName="MCH" /> <statusCode code="completed" /> <effectiveTime value="128052418671" /> < value unit="pg" xsi:type="PQ" value="30.5" /> <referenceRange> <observationRange> <text>27.0-31.0</text> </ observationRange> </referenceRange> </observation> </ component> <component> <observation moodCode="EVN" classCode="OBS"> <templateId root="16.840.1.160073.10.20.22.4.2" /> <id nullFlavor="NA" /> <code codeSystem="local" code="Res90" displayName= "MCHC" /> <statusCode code="completed" /> <effectiveTime value ="362961148294" /> <value unit="g/dL" xsi:type="PQ" value="34.2" /> <referenceRange> <observationRange> <text>32.0- 36.0</text> </observationRange> </referenceRange> </ observation> </component> <component> <observation moodCode= "EVN" classCode="OBS"> <templateId root="16.840.1.692461.10.22.4.2 " /> <id nullFlavor="NA" /> <code codeSystem="local" code= "Res88" displayName="MCV" /> <statusCode code="completed" /> < effectiveTime value="263659400921" /> <value unit="fL" xsi:type="PQ" value="89.2" /> <referenceRange> <observationRange> <text>80.0-97.0</text> </observationRange> </ referenceRange> </observation> </component> <component> <observation moodCode="EVN" classCode="OBS"> <templateId root= "01.16.840.1.499966.10.4.2" /> <id nullFlavor="NA" /> < code codeSystem="local" code="Vyi543" displayName="[place]%" /> < statusCode code="completed" /> <effectiveTime value="719192967402" /> <value unit="%" xsi:type="PQ" value="5.3" /> < referenceRange> <observationRange> <text>0.0-12.0</text > </observationRange> </referenceRange> </observation > </component> <component> <observation moodCode="EVN" classCode="OBS"> <templateId root="01.16.840.1.547579.10..4.2" /> <id nullFlavor="NA" /> <code codeSystem="local" code="Fgc143" displayName="MPV" /> <statusCode code="completed" /> < effectiveTime value="394237299460" /> <value unit="fL" xsi:type="PQ" value="9.2" /> <referenceRange> <observationRange> <text>7.4-10.0</text> </observationRange> </ referenceRange> </observation> </component> <component> <observation moodCode="EVN" classCode="OBS"> <templateId root= "216.840.1.707083.10.22.4.2" /> <id nullFlavor="NA" /> < code codeSystem="local" code="Zsg329" displayName="Gautam%" /> < statusCode code="completed" /> <effectiveTime value="718616999445" /> <value unit="%" xsi:type="PQ" value="68.8" /> < referenceRange> <observationRange> <text>37.0-80.0</text > </observationRange> </referenceRange> </observation > </component> <component> <observation moodCode="EVN" classCode="OBS"> <templateId root="16.840.1.427509.1022.4.2" /> <id nullFlavor="NA" /> <code codeSystem="local" code="Res97" displayName="Plt" /> <statusCode code="completed" /> < effectiveTime value="418396111833" /> <value unit="K/uL" xsi:type="PQ" value="232" /> <referenceRange> <observationRange> <text>150-400</text> </observationRange> </ referenceRange> </observation> </component> <component> <observation moodCode="EVN" classCode="OBS"> <templateId root= "216.840.1.482052.102022.4.2" /> <id nullFlavor="NA" /> < code codeSystem="local" code="Pdw582" displayName="RBC" /> <statusCode code="completed" /> <effectiveTime value="824134207950" /> < value unit="M/uL" xsi:type="PQ" value="4.53" /> <referenceRange> <observationRange> <text>3.60-5.00</text> </ observationRange> </referenceRange> </observation> </ component> <component> <observation moodCode="EVN" classCode="OBS"> <templateId root="2.16.840.1.438476.10...4.2" /> <id nullFlavor="NA" /> <code codeSystem="local" code="Res91" displayName= "RDW" /> <statusCode code="completed" /> <effectiveTime value= "018179505602" /> <value unit="%" xsi:type="PQ" value="12.5" /> <referenceRange> <observationRange> <text>11.6- 14.8</text> </observationRange> </referenceRange> </ observation> </component> <component> <observation moodCode= "EVN" classCode="OBS"> <templateId root="2.16.840.1.398950.10...4.2 " /> <id nullFlavor="NA" /> <code codeSystem="local" code= "Res98" displayName="WBC" /> <statusCode code="completed" /> < effectiveTime value="591773627035" /> <value unit="K/uL" xsi:type="PQ" value="12.55" /> <interpretationCode codeSystem="local" code="H" /> <referenceRange> <observationRange> <text>5.00- 10.00</text> </observationRange> </referenceRange> </ observation> </component> <component> <observation moodCode= "EVN" classCode="OBS"> <templateId root="216.840.1.104252.10..4.2 " /> <id nullFlavor="NA" /> <code codeSystem="local" code= "Res99" displayName="Gautam" /> <statusCode code="completed" /> < effectiveTime value="" /> <value unit="K/uL" xsi:type="PQ" value="8.62" /> <interpretationCode codeSystem="local" code="H" /> <referenceRange> <observationRange> <text>2.00- 6.90</text> </observationRange> </referenceRange> </ observation> </component> <component> <observation moodCode= "EVN" classCode="OBS"> <templateId root="216.840.1.688816.09.19.224.2 " /> <id nullFlavor="NA" /> <code codeSystem="local" code= "Ufl871" displayName="[place]" /> <statusCode code="completed" /> <effectiveTime value="650662713256" /> <value unit="K/uL" xsi:type= "PQ" value="0.7" /> <referenceRange> <observationRange> <text>0.0-0.9</text> </observationRange> </ referenceRange> </observation> </component> <component> <observation moodCode="EVN" classCode="OBS"> <templateId root= "216.840.1.667682.10.4.2" /> <id nullFlavor="NA" /> < code codeSystem="local" code="Cyd864" displayName="Baso" /> < statusCode code="completed" /> <effectiveTime value="" /> <value unit="K/uL" xsi:type="PQ" value="0.0" /> < referenceRange> <observationRange> <text>0.0-0.2</text> </observationRange> </referenceRange> </observation > </component> </organizer> </entry> <entry> <organizer moodCode= "EVN" classCode="BATTERY"> <templateId root="01.16.840.1.025885.10.22.4.1 " /> <id nullFlavor="NA" /> <code codeSystem="local" code="ORD87" displayName="EKG" /> <statusCode code="completed" /> <component> <observation moodCode="EVN" classCode="OBS"> <templateId root= "01.16.840.1.478928.10..4.2" /> <id nullFlavor="NA" /> < code codeSystem="local" code="Qes0969" displayName="EKG" /> < statusCode code="completed" /> <effectiveTime value="321650316212" /> <value unit="" xsi:type="PQ" value="Complete" /> < referenceRange> <observationRange> <text /> < /observationRange> </referenceRange> </observation> </ component> </organizer> </entry> <entry> <organizer moodCode="EVN" classCode="BATTERY"> <templateId root="16.840.1.660707.10..4.1" /> <id nullFlavor="NA" /> <code codeSystem="local" code="ORD68" displayName="Urinalysis" /> <statusCode code="completed" /> <component > <observation moodCode="EVN" classCode="OBS"> <templateId root= "01.16.840.1.870589.10...4.2" /> <id nullFlavor="NA" /> < code codeSystem="local" code="Wth6641" displayName="Icotest" /> < statusCode code="completed" /> <effectiveTime value="" /> <value unit="" xsi:type="PQ" value="N/A" /> < interpretationCode codeSystem="local" code="A" /> <referenceRange> <observationRange> <text>Negative</text> </ observationRange> </referenceRange> </observation> </ component> <component> <observation moodCode="EVN" classCode="OBS"> <templateId root="2.16.840.1.006815.10.4.2" /> <id nullFlavor="NA" /> <code codeSystem="local" code="Xaj791" displayName= "Urine Volume" /> <statusCode code="completed" /> < effectiveTime value="" /> <value unit="" xsi:type="PQ" value="Urine Volume Sufficient (10mL)" /> <referenceRange> < observationRange> <text /> </observationRange> </referenceRange> </observation> </component> <component> <observation moodCode="EVN" classCode="OBS"> <templateId root= "2.16.840.1.144965.10.4.2" /> <id nullFlavor="NA" /> < code codeSystem="local" code="Xle506" displayName="Urine-Appearance" /> <statusCode code="completed" /> <effectiveTime value="" / > <value unit="" xsi:type="PQ" value="Clear" /> < referenceRange> <observationRange> <text>Clear</text> </observationRange> </referenceRange> </observation> </component> <component> <observation moodCode="EVN" classCode= "OBS"> <templateId root="216.840.1.666590.10..4.2" /> < id nullFlavor="NA" /> <code codeSystem="local" code="Tae942" displayName="Urine-Bacteria" /> <statusCode code="completed" /> <effectiveTime value="" /> <value unit="" xsi:type="PQ" value="Negative" /> <referenceRange> <observationRange> <text> </text> </observationRange> </ referenceRange> </observation> </component> <component> <observation moodCode="EVN" classCode="OBS"> <templateId root= "216.840.1.872081.09.19.22.4.2" /> <id nullFlavor="NA" /> < code codeSystem="local" code="Exw089" displayName="Urine-Bilirubin" /> <statusCode code="completed" /> <effectiveTime value="" /> <value unit="" xsi:type="PQ" value="Negative" /> < referenceRange> <observationRange> <text>Negative</text > </observationRange> </referenceRange> </observation > </component> <component> <observation moodCode="EVN" classCode="OBS"> <templateId root="16.840.1.280552.10.4.2" /> <id nullFlavor="NA" /> <code codeSystem="local" code="Jal006" displayName="Urine-Blood" /> <statusCode code="completed" /> < effectiveTime value="" /> <value unit="" xsi:type="PQ" value="Negative" /> <referenceRange> <observationRange> <text>Negative</text> </observationRange> </ referenceRange> </observation> </component> <component> <observation moodCode="EVN" classCode="OBS"> <templateId root= "216.840.1.625624.10..22.4.2" /> <id nullFlavor="NA" /> < code codeSystem="local" code="Vvc846" displayName="Urine-Color" /> < statusCode code="completed" /> <effectiveTime value="" /> <value unit="" xsi:type="PQ" value="Yellow" /> <referenceRange > <observationRange> <text>Colorless-Lt. Yellow</text> </observationRange> </referenceRange> </observation> </component> <component> <observation moodCode="EVN" classCode ="OBS"> <templateId root="216.840.1.646613.10...4.2" /> < id nullFlavor="NA" /> <code codeSystem="local" code="Cbs605" displayName="Urine-Epithelial Cells" /> <statusCode code="completed" / > <effectiveTime value="" /> <value unit="" xsi: type="PQ" value="0-5/HPF" /> <interpretationCode codeSystem="local" code="A" /> <referenceRange> <observationRange> <text> </text> </observationRange> </referenceRange> </observation> </component> <component> <observation moodCode="EVN" classCode="OBS"> <templateId root= "216.840.1.872586.10..22.4.2" /> <id nullFlavor="NA" /> < code codeSystem="local" code="Irl987" displayName="Urine-Glucose" /> < statusCode code="completed" /> <effectiveTime value="" /> <value unit="" xsi:type="PQ" value="Negative" /> < referenceRange> <observationRange> <text>Negative</text > </observationRange> </referenceRange> </observation > </component> <component> <observation moodCode="EVN" classCode="OBS"> <templateId root="16.840.1.745378.10.22.4.2" /> <id nullFlavor="NA" /> <code codeSystem="local" code="Vbx644" displayName="Urine-Ketones" /> <statusCode code="completed" /> <effectiveTime value="" /> <value unit="" xsi:type="PQ" value="Negative" /> <referenceRange> <observationRange> <text>Negative</text> </observationRange> </ referenceRange> </observation> </component> <component> <observation moodCode="EVN" classCode="OBS"> <templateId root= "01.16.840.1.594912.10.4.2" /> <id nullFlavor="NA" /> < code codeSystem="local" code="Rbs615" displayName="Urine-Leukocytes" /> <statusCode code="completed" /> <effectiveTime value="" / > <value unit="" xsi:type="PQ" value="Negative" /> < referenceRange> <observationRange> <text>Negative</text > </observationRange> </referenceRange> </observation > </component> <component> <observation moodCode="EVN" classCode="OBS"> <templateId root="01.16.840.1.013256.1022.4.2" /> <id nullFlavor="NA" /> <code codeSystem="local" code="Sns799" displayName="Urine-Nitrite" /> <statusCode code="completed" /> <effectiveTime value="" /> <value unit="" xsi:type="PQ" value="Negative" /> <referenceRange> <observationRange> <text>Negative</text> </observationRange> </ referenceRange> </observation> </component> <component> <observation moodCode="EVN" classCode="OBS"> <templateId root= "2.16.840.1.313468.10..22.4.2" /> <id nullFlavor="NA" /> < code codeSystem="local" code="Hqx671" displayName="Urine-Other" /> < statusCode code="completed" /> <effectiveTime value="884547664598" /> <value unit="" xsi:type="PQ" value=" Urine Saved if Culture Needed ( 48hrs from time of collection)" /> <interpretationCode codeSystem= "local" code="A" /> <referenceRange> <observationRange> <text> </text> </observationRange> </ referenceRange> </observation> </component> <component> <observation moodCode="EVN" classCode="OBS"> <templateId root= "216.840.1.355043.10..4.2" /> <id nullFlavor="NA" /> < code codeSystem="local" code="Bbh082" displayName="Urine-pH" /> < statusCode code="completed" /> <effectiveTime value="137974644450" /> <value unit="" xsi:type="PQ" value="7.5" /> <referenceRange> <observationRange> <text>5-8.5</text> </ observationRange> </referenceRange> </observation> </ component> <component> <observation moodCode="EVN" classCode="OBS"> <templateId root="216.840.1.715971.10..22.4.2" /> <id nullFlavor="NA" /> <code codeSystem="local" code="Orm652" displayName= "Urine-Protein" /> <statusCode code="completed" /> < effectiveTime value="" /> <value unit="" xsi:type="PQ" value="Negative" /> <referenceRange> <observationRange> <text>Negative</text> </observationRange> </ referenceRange> </observation> </component> <component> <observation moodCode="EVN" classCode="OBS"> <templateId root= "216.840.1.809402.10.20.22.4.2" /> <id nullFlavor="NA" /> < code codeSystem="local" code="Jvr534" displayName="Urine-RBC" /> < statusCode code="completed" /> <effectiveTime value="" /> <value unit="" xsi:type="PQ" value="Negative" /> < referenceRange> <observationRange> <text> </text> </observationRange> </referenceRange> </observation> </component> <component> <observation moodCode="EVN" classCode="OBS "> <templateId root="216.840.1.851404.10..22.4.2" /> <id nullFlavor="NA" /> <code codeSystem="local" code="Qni267" displayName= "Urine-Specific [place]" /> <statusCode code="completed" /> < effectiveTime value="" /> <value unit="" xsi:type="PQ" value="1.015" /> <referenceRange> <observationRange> <text>1.000-1.030</text> </observationRange> </ referenceRange> </observation> </component> <component> <observation moodCode="EVN" classCode="OBS"> <templateId root= "16.840.1.962585.09.19.22.4.2" /> <id nullFlavor="NA" /> < code codeSystem="local" code="Ols591" displayName="Urine-WBC" /> < statusCode code="completed" /> <effectiveTime value="" /> <value unit="" xsi:type="PQ" value="Rare/HPF" /> < interpretationCode codeSystem="local" code="A" /> <referenceRange> <observationRange> <text> </text> </ observationRange> </referenceRange> </observation> </ component> <component> <observation moodCode="EVN" classCode="OBS"> <templateId root="01.16.840.1.711111.09.19.224.2" /> <id nullFlavor="NA" /> <code codeSystem="local" code="Pjv640" displayName= "Urobilinogen" /> <statusCode code="completed" /> < effectiveTime value="" /> <value unit="" xsi:type="PQ" value="0.2 E.U./dL" /> <interpretationCode codeSystem="local" code="A" /> <referenceRange> <observationRange> <text> 0.2-1.0</text> </observationRange> </referenceRange> </observation> </component> </organizer> </entry> <entry> < organizer moodCode="EVN" classCode="BATTERY"> <templateId root= "01.16.840.1.653342.09.19.22.4.1" /> <id nullFlavor="NA" /> <code codeSystem="local" code="ORD39" displayName="Troponin I" /> <statusCode code="completed" /> <component> <observation moodCode="EVN" classCode="OBS"> <templateId root="01.16.840.1.397316.10.20.22.4.2" /> <id nullFlavor="NA" /> <code codeSystem="local" code="Res33" displayName="Troponin" /> <statusCode code="completed" /> < effectiveTime value="725932047855" /> <value unit="ng/mL" xsi:type="PQ " value="<0.020" /> <referenceRange> <observationRange> <text>0.0-0.4</text> </observationRange> </ referenceRange> </observation> </component> </organizer> </entry ></section> Encounters ACCT No. Visit Date/Time Discharge Status Pt. Type Provider Facility Loc./Unit Complaint [id number] 01/13/2013 11:21:00 01/13/2013 17:24:00 [id number] 09/09/2012 09:58:00 09/11/2012 16:02:00 DIS Inpatient Harvey POSADAS, [facility] [id number] 08/30/2012 07:08:00 08/30/2012 10:49:00 DIS Emergency Harvey POSADAS, [facility].2WOBED [id number] 08/29/2012 11:03:00 08/29/2012 14:22:00 DIS Emergency Harvey POSADAS, [facility].2WOBED [id number] 07/07/2012 13:36:00 07/07/2012 17:10:00 DIS Emergency Harvey POSADAS, W.2WOBED [id number] 02/05/2019 15:45:00 02/05/2019 20:00:00 DIS Outpatient [facility] ER [id number] 02/05/2019 16:27:00 Document Registration [id number] 03/04/2018 23:36:00 03/05/2018 15:17:00 DIS Outpatient DOMINIK POSADAS, DAIN Chong [address] ABD PAIN [id number] 02/06/2018 18:07:00 02/06/2018 21:10:00 DIS Outpatient RADHA PATIÑO [facility] ER ABD PAIN [id number] 02/06/2019 04:46:00 ACT Emergency HELLEN GAMBINO DO [facility] ER CHEST PAIN
--- OUTSIDE RECORDS SUMMARY | 2019-02-06 04:50 | XMS REPORT | Continuity of Care Document ---
Author Author [facility] Organization [facility] Address Unknown Phone Unavailable Care Team Providers Care Supervisor Pipeline Name Role Phone BONITA ARMSTRONG M.D. PCP Insurance Providers Payer Name Policy Number Subscriber Name Relationship [facility] [id number] Pradeep Islasleatha Monreal 02 Chief Complaint and Reason for Visit Chief Complaint Dental Pain Reason for Visit Dental abscess Problems Medical Problems Problem Onset Date Status Candidiasis of skin 10/10/2012 Active Cellulitis 10/10/2012 Active Leukocytosis 10/10/2012 Active Acute on chronic headache Unknown Active Breast wound Unknown Active Dental abscess Unknown Active Medications Medication Dose Route Sig Days/Qty Instructions Order Date Discontinued Date Status Clindamycin Hcl 300 Mg PO THREE TIMES A DAY For Bacterial Infection 30 Qty for antibiotic. Take until gone. 11/14/14 Active Diclofenac Sodium 75 Mg PO Every 12 hours as needed PRN PAIN 20 Qty Active Hydrocodone-Acetaminophen 1-2 Tab PO Q4-6H PRN PAIN 10 Qty 11/14/14 Active Social History Social History Problem Response Recorded Date/Time Smoking Status Heavy Tobacco Smoker 11/14/2014 10:07pm Query Response Start Date Stop Date Smoking Status Heavy Tobacco Smoker Hospital Discharge Instructions No hospital discharge instructions. Plan of Care Discharge Date 11/14/14 10:55pm Disposition 01 HOME, SELF-CARE Condition at Discharge Stable Instructions/Education Provided Dental Abscess (ED) Prescriptions See Medications Section Referrals BONITA ARMSTRONG M.D. Additional Instructions/Education 1. Follow up with dentist as soon as possible. 2. Return to ER if worsening symptoms/new concerns. 3. See prescribed medications. Functional Status No functional status results. Allergies, Adverse Reactions, Alerts Allergen Type Severity Reaction Status Last Updated Penicillins Allergy Unknown Active 11/02/14 BETALACTAMASEIN Allergy Unknown Active 11/02/14 Immunizations No immunization records. Vital Signs Acute Vital Signs Vital Response Date/Time Blood Pressure 136/78 mm Hg Blood Pressure Mean 97 mm Hg Temperature (Fahrenheit) 97.5 degrees F (96.0 - 99.9) Temperature (Calculated Celsius) 36.99511 degrees C Temperature Source Oral Pulse Pulse Rate: ED 69 bpm Respiratory Rate 8 breaths per minute (10 - 20) Height (Feet) 5 ft Height (Inches) 1 in. Weight (Pounds) 345 lbs Results Test Source Date Result Interp. [...] 02SOURCE : URINE, CLEAN CATCH Urine Specific Fisher August 09, 2013 12:20am 1.015 1.005-1.030 COMMENT: [...] October 09, 2012 11:10pm [facility] Procedures Procedure Status Date Provider(s) THER/PROPH/DIAG INJ SC/IM completed 12/05/13 SUJIT GONZALES M.D. THER/PROPH/DIAG INJ SC/IM completed 12/05/13 SUJIT GONZALES M.D. THER/PROPH/DIAG INJ SC/IM completed 12/05/13 SUJIT GONZALES M.D. Encounters Encounter Location Date/Time Departed Emergency Room [facility] 11/14/14 10:02pm Departed Emergency Room [facility] 05/29/14 6:30pm Departed Emergency Room [facility] 04/06/14 9:37pm Departed Emergency Room [facility] 12/05/13 10:58pm Recent Diagnosis
--- NOTE | 2019-02-06 04:57 | ED Chest Pain ---
General Stated Complaint: CHEST PAIN Source: patient History of Present Illness Date Seen by Provider: Feb 06, 2019 Time Seen by Provider: 04:51 Initial Comments PT ARRIVES VIA POV FROM HOME C/O CHEST PAIN SINCE WAKING YESTERDAY AT 0615 STATES PAIN IS IN CENTER OF CHEST NO RADIATION OF PAIN PAIN IS CONSTANT STATES SHE WOKE UP AT 0300 AND HER CHEST FELT TIGHT AND " I FELT LIKE I COULDN' T BREATHE" --THAT IS GONE STATES "EVERYTHING HURTS" --HURTS TO MOVE, COUGH, BREATHE STATES PAIN IS BETTER IF SHE CROSSES HER ARMS OVER HER CHEST AND BRINGS HER SHOULDERS IN TOWARD MIDLINE + NAUSEA, NO VOMITING NO DIARRHEA NO ABDOMINAL NO FEVER NO COUGH NO DIZZINESS NO PALPITATIONS NOTICED SWELLING IN HER FEET YESTERDAY WHILE IN ER AT [place], DID NOT NOTICE UNTIL THEN. NO CALF PAIN OR RECENT TRAVEL/PROLONGED SITTING NO RECENT ILLNESS PT HAS ALREADY BEEN TO [place] ER YESTERDAY AFTERNOON, STATES "THEY DIDN'T DO ANYTHING" SO CAME HERE. STATES SHE WAS TOLD HER CHEST WAS INFLAMED AND WAS GIVEN RX FOR TRAMADOL--TOOK 1 PILL AT 0330 THIS AM, NO RELIEF. HAS NOT TAKEN ANYTHING ELSE FOR PAIN AT ANY TIME NO HISTORY OF SIMILAR LMP 01/27/19, NORMAL. NO CONTROL PCP: NONE--STATES SHE JUST GOT HER MEDICAID CARD AND DR. LOYOLA IN [facility] IS LISTED PCP, BUT SHE STATES HE IS NOT TAKING NEW PT'S . Allergies and Home Medications Allergies Coded Allergies: No Known Drug Allergies (Unverified , 02/06/18) Home Medications Acetaminophen 500 Mg Tablet, 1,000 MG PO Q6H PRN for PAIN-MILD, (Reported) Ibuprofen 200 Mg Tablet, 600 MG PO TID PRN for PAIN-MILD, (Reported) Tramadol HCl 50 Mg Tablet, 50 MG PO Q6H, (Reported) Patient Home Medication List Home Medication List Reviewed: Yes Review of Systems Review of Systems Constitutional: no symptoms reported; No chills, No diaphoresis, No dizziness, No fever EENTM: Nose Congestion Respiratory: Cough, Shortness of Air, SOA With Exertion; Denies Wheezing Cardiovascular: See HPI, Chest Pain, Edema; Denies Irregular Heart Rate, Denies Lightheadedness, Denies Palpitations Gastrointestinal: See HPI; Denies Abdominal Pain, Denies Constipated, Denies Diarrhea; Nausea; Denies Vomiting Genitourinary: No Symptoms Reported Musculoskeletal: no symptoms reported Skin: no symptoms reported Psychiatric/Neurological: No Symptoms Reported Endocrine: No Symptoms Reported Hematologic/Lymphatic: No Symptoms Reported Past Bbgikaw-Ugbnwl-Ohansa Hx Patient Social History Alcohol Use: Past History (HISTORY OF ABUSE--STATES SHE USED TO DRINK "ALOT-- FROM THE TIME I WOKE UP UNTIL I WENT TO BED" BUT WILL NOT ELABORATE EXACTLY HOW MUCH SHE DRANK; CLAIMS NO USE SINCE 2017, PER PT ON 02/06/19) Alcohol Beverage of Choice: Beer, Whiskey Recreational Drug Use: Yes (EXTENSIVE DRUG USE--METH, COCAINE, RX PILLS-- OPIATES, BENZO'S, PSYCH MEDICATIONS, THC--"ALOT"--DENIES IV USE. CLAIMS NO USE FOR > 10 YEARS, PER PT ON 02/06/19. ) Drug of Choice: POT AND PAIN PILLS Smoking Status: Current Everyday Smoker (2 PPD) Type Used: Cigarettes, Smokeless Tobacco Recent Foreign Travel: No Contact w/Someone Who Travel: No Recent Hopitalizations: Yes (SURG IN JANUARY OP) Seasonal Allergies Seasonal Allergies: No Past Medical History Surgeries: Yes (Dental caps) Section, Gallbladder, Orthopedic Respiratory: Yes (CPAP BROKEN NEEDS TO DO STUDY AGAIN) Sleep Apnea Currently Using CPAP: No Currently Using BIPAP: No Cardiac: No Neurological: No Female Reproductive Disorders: Denies Genitourinary: No Gastrointestinal: Yes (S/P NAN) Gall Bladder Disease Musculoskeletal: Yes (RIGHT HAND FX/ORIF) Arthritis, Fractures Endocrine: Yes (MORBID OBESITY) HEENT: Yes (POOR DENTITION) Cancer: No Psychosocial: Yes (POLYSUBSTANCE ABUSE) ADD/ADHD Integumentary: No Blood Disorders: No Physical Exam Vital Signs Vital Signs - First Documented 02/06/19 05:01 Temp 97.2 Pulse 70 Resp 21 B/P (MAP) 133/73 (93) Pulse Ox 98 O2 Delivery Nasal Cannula O2 Flow Rate 2.00 FiO2 98 Capillary Refill : Height, Weight, BMI Height: 5'1.00" Weight: 351lbs. 0.0oz. 159.649225ve; 66.3 BMI Method:Stated General Appearance: Obese (MORBIDLY), Other (VERY DRAMATIC--MOANING, "SOBBING"- -NO TEARS, RUBBING CENTER OF CHEST--THIS ALL STOPS WHEN DISTRACTED AND PT THEN TALKS IN NORMAL VOICE) HEENT: PERRL/EOMI, Other (POOR DENTITION WITH MULTIPLE MISSING TEETH AND EXTENSIVE DECAY TO REMAINING TEETH, MARKED NASAL CONGESTION WITH CLEAR POST NASAL DRAINAGE) Neck: Full Range of Motion, Normal Inspection Respiratory: Normal Breath Sounds, No Accessory Muscle Use, No Respiratory Distress, Other (MARKED MID STERNAL TENDERNESS--PALPATION DRAMATICALLY REPRODUCES PAIN ) Cardiovascular: Regular Rate, Rhythm, No Edema, No JVD, No Murmur, Normal Peripheral Pulses Gastrointestinal: Non Tender, Soft Extremity: Normal Range of Motion, No Pedal Edema Neurologic/Psychiatric: Alert, Oriented x3, No Motor/Sensory Deficits, veterinary surgery technician II- XII Norm as Tested Skin: Normal Color, Warm/Dry; No Rash Progress/Results/Core Measures Results/Orders Lab Results Laboratory Tests Test 02/06/19 04:54 02/06/19 05:55 Range/Units White Blood Count 10.5 4.3-11.0 10^3/uL Red Blood Count 4.54 4.35-5.85 10^6/uL Hemoglobin 13.7 11.5-16.0 G/DL Hematocrit 41 35-52 % Mean Corpuscular Volume 89 80-99 FL Mean Corpuscular Hemoglobin 30 25-34 PG Mean Corpuscular Hemoglobin Concent 34 32-36 G/DL Red Cell Distribution Width 13.1 10.0-14.5 % Platelet Count 234 130-400 10^3/uL Mean Platelet Volume 10.2 7.4-10.4 FL Neutrophils (%) (Auto) 66 42-75 % Lymphocytes (%) (Auto) 26 12-44 % Monocytes (%) (Auto) 7 0-12 % Eosinophils (%) (Auto) 2 0-10 % Basophils (%) (Auto) 0 0-10 % Neutrophils # (Auto) 6.9 1.8-7.8 X 10^3 Lymphocytes # (Auto) 2.7 1.0-4.0 X 10^3 Monocytes # (Auto) 0.7 0.0-1.0 X 10^3 Eosinophils # (Auto) 0.2 0.0-0.3 10^3/uL Basophils # (Auto) 0.0 0.0-0.1 10^3/uL Prothrombin Time 12.6 12.2-14.7 SEC INR Comment 0.9 0.8-1.4 Activated Partial Thromboplast Time 33 24-35 SEC Sodium Level 141 135-145 MMOL/L Potassium Level 4.1 3.6-5.0 MMOL/L Chloride Level 106 98-107 MMOL/L Carbon Dioxide Level 24 21-32 MMOL/L Anion Gap 11 5-14 MMOL/L Blood Urea Nitrogen 18 7-18 MG/DL Creatinine 0.73 0.60-1.30 MG/DL Estimat Glomerular Filtration Rate > 60 BUN/Creatinine Ratio 25 Glucose Level 111 H 70-105 MG/DL Calcium Level 9.5 8.5-10.1 MG/DL Corrected Calcium 9.6 8.5-10.1 MG/DL Magnesium Level 1.9 1.8-2.4 MG/DL Total Bilirubin 0.4 0.1-1.0 MG/DL Aspartate Amino Transf (AST/SGOT) 23 5-34 U/L Alanine Aminotransferase (ALT/SGPT) 43 0-55 U/L Alkaline Phosphatase 79 40-136 U/L Total Creatine Kinase 104 29-168 U/L Creatine Kinase MB 1.7 <6.6 NG/ML Myoglobin 52.2 10.0-92.0 NG/ML Troponin I < 0.028 <0.028 NG/ML B-Type Natriuretic Peptide 16.2 <100.0 PG/ML Total Protein 7.0 6.4-8.2 GM/DL Albumin 3.9 3.2-4.5 GM/DL Amylase Level 46 25-125 U/L Lipase 47 8-78 U/L Serum Test, Qualitative NEGATIVE NEGATIVE Serum Alcohol < 10 <10 MG/DL Urine Color YELLOW Urine Clarity SLIGHTLY CLOUDY Urine pH 6 5-9 Urine Specific Cecil 1.025 H 1.016-1.022 Urine Protein 1+ H NEGATIVE Urine Glucose (UA) NEGATIVE NEGATIVE Urine Ketones NEGATIVE NEGATIVE Urine Nitrite NEGATIVE NEGATIVE Urine Bilirubin NEGATIVE NEGATIVE Urine Urobilinogen NORMAL NORMAL MG/DL Urine Leukocyte Esterase 1+ H NEGATIVE Urine RBC (Auto) NEGATIVE NEGATIVE Urine RBC RARE /HPF Urine WBC 0-2 /HPF Urine Squamous Epithelial Cells 25-50 H /HPF Urine Crystals PRESENT H /LPF Urine Amorphous Sediment FEW ILIANA URATES H /LPF Urine Bacteria TRACE /HPF Urine Casts NONE /LPF Urine Mucus SMALL H /LPF Urine Culture Indicated NO Urine Opiates Screen NEGATIVE NEGATIVE Urine Oxycodone Screen NEGATIVE NEGATIVE Urine Methadone Screen NEGATIVE NEGATIVE Urine Propoxyphene Screen NEGATIVE NEGATIVE Urine Barbiturates Screen NEGATIVE NEGATIVE Ur Tricyclic Antidepressants Screen NEGATIVE NEGATIVE Urine Phencyclidine Screen NEGATIVE NEGATIVE Urine Amphetamines Screen NEGATIVE NEGATIVE Urine Methamphetamines Screen NEGATIVE NEGATIVE Urine Benzodiazepines Screen NEGATIVE NEGATIVE Urine Cocaine Screen NEGATIVE NEGATIVE Urine Cannabinoids Screen NEGATIVE NEGATIVE Micro Results Microbiology 02/06/19 Influenza Types A,B Antigen ([place]) - Final, Complete My Orders Orders - MAKI,HELLEN Parker DO Cbc With Automated Diff (02/06/19 04:51) Magnesium (02/06/19 04:51) Ekg Tracing (02/06/19 04:51) Cardiac Profile 1 (02/06/19 04:51) Comprehensive Metabolic Panel (02/06/19 04:51) Myoglobin Serum (02/06/19 04:51) Protime With Inr (02/06/19 04:51) Partial Thromboplastin Time (02/06/19 04:51) O2 (02/06/19 04:51) Monitor-Rhythm Ecg Trace Only (02/06/19 04:51) Lipid Panel (02/07/19 06:00) Saline Lock/Iv-Start (02/06/19 04:51) Creatine Kinase (02/06/19 04:51) Creatine Kinase Mb (02/06/19 04:51) Lipase (02/06/19 04:51) Amylase (02/06/19 04:51) BNP (02/06/19 04:51) Alcohol (02/06/19 04:51) Drug Screen Stat (Urine) (02/06/19 04:51) Hcg,Qualitative Serum (02/06/19 04:51) Ua Culture If Indicated (02/06/19 04:51) Influenza A And B Antigens (02/06/19 05:05) Chest Pa/Lat (2 View) (02/06/19 05:05) Vital Signs/I&O 02/06/19 02/06/19 02/06/19 02/06/19 05:01 05:01 05:14 06:08 Temp 97.2 Pulse 70 76 Resp 21 22 B/P (MAP) 133/73 (93) 126/64 (84) Pulse Ox 98 97 96 O2 Delivery Nasal Cannula Nasal Cannula Nasal Cannula Nasal Cannula O2 Flow Rate 2.00 2.00 2.0 2.00 FiO2 98 Progress Progress Note : Progress Note PT SLEEPING VERY SOUNDLY A SHORT TIME AFTER ARRIVAL, WITHIN A FEW MINUTES AFTER IV PLACED AND EKG DONE AND HISTORY AND EXAM COMPLETED. PT BACK TO SLEEPING SOON SHE IS BROUGHT BACK FROM [facility]. SLEPT FOR REMAINDER OF ER STAY EASILY AWAKENED. DOES NOT APPEAR TO BE IN ANY DISCOMFORT OR DISTRESS. Initial ECG Impression Date: Feb 06, 2019 Initial ECG Impression Time: 04:52 Initial ECG Rate: 95 Initial ECG Rhythm: Normal Sinus Initial ECG Comparisson: No Previous ECG Available Diagnostic Imaging Comments CXR--NO ACUTE PROCESS, PENDING RADIOLOGIST REVIEW Reviewed: Reviewed by Me Departure Impression Primary Impression: Acute costochondritis Disposition: HOME, SELF-CARE Condition: Improved Departure-Patient Inst. Referrals: NO,LOCAL PHYSICIAN (PCP/Family) Primary Care Physician Patient Instructions: Chest Pain That Is Not Caused by the Heart (DC), Costochondritis (DC) Add. Discharge Instructions: ALTERNATE ICE AND HEAT TO SORE AREA AT 20 MINUTE INTERVALS TAKE TRAMADOL NEEDED FOR PAIN FOLLOW UP WITH DR. OF CHOICE IN 3-4 DAYS IF NO BETTER Scripts Methylprednisolone (Medrol) 4 Mg Tab.ds.pk 4 MG PO UD, #1 PKG Prov: HELLEN GAMBINO DO 02/06/19 HELLEN GAMBINO DO Feb 06, 2019 04:57
[2019-02-06 05:04] LABS: BASOPHILS % (AUTO) 0 % (0-10); EOSINOPHILS # (AUTO) 0.2 10^3/uL (0.0-0.3); EOSINOPHILS % (AUTO) 2 % (0-10); HEMATOCRIT 41 % (35-52); HEMOGLOBIN 13.7 G/DL (11.5-16.0); LYMPHOCYTES # (AUTO) 2.7 X 10^3 (1.0-4.0); LYMPHOCYTES % (AUTO) 26 % (12-44); MEAN CORPUSCULAR HEMOGLOBIN 30 PG (25-34); MEAN CORPUSCULAR HGB CONC 34 G/DL (32-36); MEAN CORPUSCULAR VOLUME 89 FL (80-99); MEAN PLATELET VOLUME 10.2 FL (7.4-10.4); MONOCYTES # (AUTO) 0.7 X 10^3 (0.0-1.0); MONOCYTES % (AUTO) 7 % (0-12); NEUTROPHILS # (AUTO) 6.9 X 10^3 (1.8-7.8); NEUTROPHILS % (AUTO) 66 % (42-75); PLATELET COUNT 234 10^3/uL (130-400); RED CELL DISTRIBUTION WIDTH 13.1 % (10.0-14.5); WHITE BLOOD COUNT 10.5 10^3/uL (4.3-11.0)
[2019-02-06] MEDS ORDERED: TRAM50TA2 PO (05:21)
[2019-02-06 05:25] LABS: INR 0.9 (0.8-1.4); PROTHROMBIN TIME PATIENT 12.6 SEC (12.2-14.7)
[2019-02-06 05:36] LABS: ALANINE AMINOTRANSFERASE 43 U/L (0-55); ALBUMIN 3.9 GM/DL (3.2-4.5); ALKALINE PHOSPHATASE 79 U/L (40-136); AMYLASE 46 U/L (25-125); BILIRUBIN,TOTAL 0.4 MG/DL (0.1-1.0); BUN/CREATININE RATIO 25; CALCIUM 9.5 MG/DL (8.5-10.1); CARBON DIOXIDE 24 MMOL/L (21-32); CHLORIDE 106 MMOL/L (98-107); CREATINE KINASE 104 U/L (29-168); CREATININE SERUM 0.73 MG/DL (0.60-1.30); GFR ESTIMATED > 60; GLUCOSE 111 MG/DL (70-105); LIPASE 47 U/L (8-78); MAGNESIUM 1.9 MG/DL (1.8-2.4); POTASSIUM 4.1 MMOL/L (3.6-5.0); SODIUM 141 MMOL/L (135-145)
[2019-02-06 05:43] LABS: CREATINE KINASE MB 1.7 NG/ML (<6.6); MYOGLOBIN SERUM 52.2 NG/ML (10.0-92.0)
[2019-02-06 06:08] VITALS: BP 126/64
[2019-02-06 06:09] LABS: BILIRUBIN,URINE NEGATIVE (NEGATIVE); CLARITY,URINE SLIGHTLY CLOUDY; COLOR,URINE YELLOW; GLUCOSE, URINE (UA) NEGATIVE (NEGATIVE); KETONES,URINE NEGATIVE (NEGATIVE); LEUKOCYTE ESTERASE ,URINE 1+ (NEGATIVE); NITRITE,URINE NEGATIVE (NEGATIVE); PH,URINE 6 (5-9); PROTEIN,URINE 1+ (NEGATIVE); UROBILINOGEN,URINE NORMAL (NORMAL)
[2019-02-06 06:18] LABS: AMORPHOUS SEDIMENT,UR FEW AMOR URATES /LPF; BACTERIA,URINE TRACE /HPF; RBC,URINE RARE /HPF; SQUAMOUS EPITHELIAL CELL,UR 25-50 /HPF; WBC,URINE 0-2 /HPF
[2019-02-06 06:19] LABS: AMPHETAMINE SCREEN, URINE NEGATIVE (NEGATIVE); BARBITURATE SCREEN URINE NEGATIVE (NEGATIVE); BENZODIAZEPINES SCREEN URINE NEGATIVE (NEGATIVE); CANNABINOID SCREEN, URINE NEGATIVE (NEGATIVE); COCAINE SCREEN URINE NEGATIVE (NEGATIVE); METHADONE STAT NEGATIVE (NEGATIVE); METHAMPHETAMINE SCREEN URINE S NEGATIVE (NEGATIVE); OPIATE SCREEN URINE NEGATIVE (NEGATIVE); OXYCODONE STAT NEGATIVE (NEGATIVE); PROPOXYPHENE STAT NEGATIVE (NEGATIVE); TRICYCLIC ANTIDEPRESSANTS SCRE NEGATIVE (NEGATIVE)
[2019-02-06] MEDS ORDERED: methylPREDNISolone 125 MG (Solu-MEDROL) VIAL ONE (06:42)
[2019-02-06] MEDS ORDERED: METH4TAB PO (06:43)
[2019-02-06] MEDS ORDERED: methylPREDNISolone 125 MG (Solu-MEDROL) VIAL IVP ONE (06:45)
[2019-02-06 06:50] VITALS: BP 129/57
--- NOTE | 2019-02-06 08:31 | Diagnostic Imaging Report ---
EXAMINATION: CHEST (PA AND LATERAL) CLINICAL INDICATION: 33-year-old female, chest pain. COMPARISON: None. FINDINGS: Heart size and mediastinal contours are unremarkable. There is no identified pneumothorax. There is no pleural effusion. There is no identified focal airspace consolidation. IMPRESSION: No identified acute cardiopulmonary abnormality. Dictated by: Dictated on workstation # [id number]
== END 2019-02-06 06:47 | disposition home or self-care (01) ==
LOC: EDUNIT# 04:45 → ER 04:46
DX: M94.0 Chondrocostal junction syndrome [Tietze] (principal); G47.30 Sleep apnea, unspecified; E66.01 Morbid (severe) obesity due to excess calories; F98.8 Other specified behavioral and emotional disorders with onset usually occurring in childhood and adolescence; F90.9 Attention-deficit hyperactivity disorder, unspecified type; F17.210 Nicotine dependence, cigarettes, uncomplicated; Z68.44 Body mass index [BMI] 60.0-69.9, adult; Z87.19 Personal history of other diseases of the digestive system; Z90.49 Acquired absence of other specified parts of digestive tract; Z98.890 Other specified postprocedural states
CPT/HCPCS: 36415; 71046; 80053; 80306; 80320; 81000; 82150; 82550; 82553; 83690; 83735; 83874; 83880; 84484; 84703; 85025; 85610; 85730; 87804; 93005; 93041

== ENCOUNTER 2019-02-28 20:04 | Emergency (ER) | payer MEDICAID ==
[~2019-02-28] VITALS: Ht 154.9 cm; Wt 165.6 kg
[~2019-02-28 20:04] MED LIST changes: +METH4TAB PO; +TRAM50TA2 PO
--- OUTSIDE RECORDS SUMMARY | 2019-02-28 20:11 | XMS REPORT | Continuity of Care Document ---
Author Author [facility] Organization 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 02/06/2018 KAYLYN, RADHA FOOD PRESERVATION SCIENTIST Ot F17.210 NICOTINE DEPENDENCE, CIGARETTES, UNCOMPL 02/06/2018 KAYLYN, RADHA FOOD PRESERVATION SCIENTIST Ot F90.9 ATTENTION-DEFICIT HYPERACTIVITY DISORDER 02/06/2018 KAYLYN, RADHA FOOD PRESERVATION SCIENTIST Ot G40.909 EPILEPSY, UNSP, NOT INTRACTABLE, WITHOUT 02/06/2018 KAYLYN, RADHA FOOD PRESERVATION SCIENTIST Ot K81.9 CHOLECYSTITIS, UNSPECIFIED 02/06/2018 KAYLYN, RADHA FOOD PRESERVATION SCIENTIST Ot N39.0 URINARY TRACT INFECTION, SITE NOT SPECIF 02/06/2018 KAYLYN, RADHA FOOD PRESERVATION SCIENTIST Ot R10.11 RIGHT UPPER QUADRANT PAIN 02/06/2018 KAYLYN, RADHA FOOD PRESERVATION SCIENTIST Ot Z87.59 PERSONAL HISTORY OF COMP OF PREG, CHLDBR 02/09/2018 KAYLYN, RADHA FOOD PRESERVATION SCIENTIST Ot F17.210 NICOTINE DEPENDENCE, CIGARETTES, UNCOMPL 02/09/2018 KAYLYN, RADHA FOOD PRESERVATION SCIENTIST Ot F90.9 ATTENTION-DEFICIT HYPERACTIVITY DISORDER 02/09/2018 KAYLYN, RADHA FOOD PRESERVATION SCIENTIST Ot G40.909 EPILEPSY, UNSP, NOT INTRACTABLE, WITHOUT 02/09/2018 KAYLYN, RADHA FOOD PRESERVATION SCIENTIST Ot K81.9 CHOLECYSTITIS, UNSPECIFIED 02/09/2018 KAYLYN, RADHA FOOD PRESERVATION SCIENTIST Ot N39.0 URINARY TRACT INFECTION, SITE NOT SPECIF 02/09/2018 KAYLYN, RADHA FOOD PRESERVATION SCIENTIST Ot R10.11 RIGHT UPPER QUADRANT PAIN 02/09/2018 KAYLYN, RADHA FOOD PRESERVATION SCIENTIST Ot Z87.59 PERSONAL HISTORY OF COMP OF PREG, CHLDBR 02/12/2018 KAYLYN, RADHA FOOD PRESERVATION SCIENTIST Ot F17.210 NICOTINE DEPENDENCE, CIGARETTES, UNCOMPL 02/12/2018 KAYLYN, RADHA FOOD PRESERVATION SCIENTIST Ot F90.9 ATTENTION-DEFICIT HYPERACTIVITY DISORDER 02/12/2018 KAYLYN, RADHA FOOD PRESERVATION SCIENTIST Ot G40.909 EPILEPSY, UNSP, NOT INTRACTABLE, WITHOUT 02/12/2018 KAYLYN, RADHA FOOD PRESERVATION SCIENTIST Ot K81.9 CHOLECYSTITIS, UNSPECIFIED 02/12/2018 KAYLYN, RADHA FOOD PRESERVATION SCIENTIST Ot N39.0 URINARY TRACT INFECTION, SITE NOT SPECIF 02/12/2018 KAYLYN, RADHA FOOD PRESERVATION SCIENTIST Ot R10.11 RIGHT UPPER QUADRANT PAIN 02/12/2018 KAYLYN, RADHA FOOD PRESERVATION SCIENTIST Ot Z87.59 PERSONAL HISTORY OF COMP OF [...] OTHER SPECIFIED POSTPROCEDURAL STATES 12/11/2018 KAYLYN, RADHA FOOD PRESERVATION SCIENTIST Ot F17.210 NICOTINE DEPENDENCE, CIGARETTES, UNCOMPL 12/11/2018 KAYLYN, RADHA FOOD PRESERVATION SCIENTIST Ot F90.9 ATTENTION-DEFICIT HYPERACTIVITY DISORDER 12/11/2018 KAYLYN, RADHA FOOD PRESERVATION SCIENTIST Ot G40.909 EPILEPSY, UNSP, NOT INTRACTABLE, WITHOUT 12/11/2018 KAYLYN, RADHA FOOD PRESERVATION SCIENTIST Ot K81.9 CHOLECYSTITIS, UNSPECIFIED 12/11/2018 KAYLYN, RADHA FOOD PRESERVATION SCIENTIST Ot N39.0 URINARY TRACT INFECTION, SITE NOT SPECIF 12/11/2018 KAYLYN, RADHA FOOD PRESERVATION SCIENTIST Ot R10.11 RIGHT UPPER QUADRANT PAIN 12/11/2018 RADHA PATIÑO Ot Z87.59 PERSONAL HISTORY OF COMP OF PREG, CHLDBR 02/05/2019 Demarcus Sidhu W 786.5 CHEST PAIN 02/05/2019 Demarcus Sidhu W R07.89 OTHER CHEST PAIN 02/09/2019 MAKI HELLEN PETERSON Ot E66.01 MORBID (SEVERE) OBESITY DUE TO EXCESS CA 02/09/2019 MAKI HELLEN PETERSON Ot F17.210 NICOTINE DEPENDENCE, CIGARETTES, UNCOMPL 02/09/2019 MAKI HELLEN PETERSON Ot F90.9 ATTENTION-DEFICIT HYPERACTIVITY DISORDER 02/09/2019 MAKI HELLEN PETERSON Ot F98.8 OTH BEHAV/EMOTN DISORD W ONSET USLY OCCU 02/09/2019 MAKI HELLEN PETERSON Ot G47.30 SLEEP APNEA, UNSPECIFIED 02/09/2019 [place] HELLEN PETERSON Ot M94.0 CHONDROCOSTAL JUNCTION SYNDROME [TIETZE] 02/09/2019 [place] HELLEN PETERSON Ot R07.9 CHEST PAIN, UNSPECIFIED 02/09/2019 MAKI HELLEN PETERSON Ot Z68.44 BODY MASS INDEX (BMI) 60.0-69.9, ADULT 02/09/2019 HELLEN GAMBINO DO Ot Z87.19 PERSONAL HISTORY OF OTHER DISEASES OF TH 02/09/2019 HELLEN GAMBINO DO Ot Z90.49 ACQUIRED ABSENCE OF OTHER SPECIFIED PART 02/09/2019 HELLEN GAMBINO DO Ot Z98.890 OTHER SPECIFIED POSTPROCEDURAL STATES Procedures There is no data. <section xmlns="urn:hl7-org:v3" xmlns:xsi="http:// www.w3.org/2001/XMLSchema-instance"> <templateId root= "[id number]" /> <templateId root= "[id number]" /> <code codeSystemName="LOINC" codeSystem= "[id number]" code="25855-4" displayName="Results" /> <title>Results< /title> <text> <table> <thead> [...] test) detection</td> <td>NEGATIVE </td> <td>NEGATIVE</td> </tr> <tr> <th colspan="10"> Comprehensive metabolic panel - 03/05/18 00:30</th> [...] > <td>Lipase</td> <td>49 U/L</td> <td>8-78</td> </tr> <tr> <th colspan="10">Cardiac Panel - 02/05/19 15:50</ th> </tr> [...] <tr> <td>MCV</td> <td>89.2 fL</td> <td>80.0-97.0</td> </tr> <tr> <td>Calloway%</td> <td>5.3 %</td> <td>0.0-12.0</td> </tr> <tr> <td>MPV</td> <td>9.2 fL</td> <td>7.4-10.0</td> </tr> <tr> <td>Gautam%</td> <td>68.8 %</td> <td>37.0-80.0</td> </tr> <tr> <td>Plt</td> <td>232 K/uL</td> <td>150-400</td> < /tr> <tr> <td>RBC</td> <td>4.53 M/uL</td> <td> 3.60-5.00</td> </tr> <tr> <td>RDW</td> <td>12.5 %</td> <td>11.6-14.8</td> </tr> <tr> <td>WBC </td> <td>12.55 K/uL</td> <td>5.00-10.00</td> </tr> <tr> <td>Gautam</td> <td>8.62 K/uL</td> <td>2.00- 6.90</td> </tr> <tr> <td>Calloway</td> <td>0.7 K/uL< /td> <td>0.0-0.9</td> </tr> <tr> <td>Baso</td> <td>0.0 K/uL</td> <td>0.0-0.2</td> </tr> <tr> <th colspan="10">EKG - 02/05/19 15:50</th> </tr> <tr> <td>EKG</td> <td>Complete </td> <td /> </tr> <tr> <th colspan="10">Urinalysis - 02/05/19 16:27</th> </tr > <tr> [...] <td>Negative </td> <td> </td> </tr> <tr> <td>Urine-Specific Rulo</td> <td>1.015 </td> <td>1.000-1.030</td> </tr> <tr> <td>Urine-WBC</td > <td>Rare/HPF </td> <td> </td> </tr> <tr> <td>Urobilinogen</td> <td>0.2 E.U./dL </td> <td>0.2-1.0</ td> </tr> <tr> <th colspan="10">Troponin I - 02/05/19 18: 30</th> </tr> <tr> <td>Troponin</td> <td>< 0.020 ng/mL</td> <td>0.0-0.4</td> </tr> <tr> < th colspan="10">Complete blood count (CBC) with automated white blood cell (WBC ) differential - 02/06/19 04:54</th> </tr> <tr> <td> Blood leukocytes automated count (number/volume)</td> <td>10.5 10*3/uL< /td> <td>4.3-11.0</td> </tr> <tr> <td>Blood erythrocytes automated count (number/volume)</td> <td>4.54 10*6/uL</td > <td>4.35-5.85</td> </tr> <tr> <td>Venous blood hemoglobin measurement (mass/volume)</td> <td>13.7 g/dL</td> <td>11.5-16.0</td> </tr> <tr> <td>Blood hematocrit (volume fraction)</td> <td>41 %</td> <td>35-52</td> </tr> <tr> <td>Automated erythrocyte mean corpuscular volume</ td> <td>89 [foz_us]</td> <td>80-99</td> </tr> < tr> <td>Automated erythrocyte mean corpuscular hemoglobin (mass per erythrocyte)</td> <td>30 pg</td> <td>25-34</td> </tr> <tr> <td>Automated erythrocyte mean corpuscular hemoglobin concentration measurement (mass/volume)</td> <td>34 g/dL</td> <td>32-36</td> </tr> <tr> <td>Automated erythrocyte distribution width ratio</td> <td>13.1 %</td> <td>10.0- 14.5</td> </tr> <tr> <td>Automated blood platelet count ( count/volume)</td> <td>234 10*3/uL</td> <td>130-400</td> </tr> <tr> <td>Automated blood platelet mean volume measurement</td> <td>10.2 [foz_us]</td> <td>7.4-10.4</td> </tr> <tr> <td>Automated blood neutrophils/100 leukocytes</ td> <td>66 %</td> <td>42-75</td> </tr> <tr> <td>Automated blood lymphocytes/100 leukocytes</td> <td>26 &# 37;</td> <td>12-44</td> </tr> <tr> <td>Blood monocytes/100 leukocytes</td> <td>7 %</td> <td>0-12</td> </tr> <tr> <td>Automated blood eosinophils/100 leukocytes </td> <td>2 %</td> <td>0-10</td> </tr> <tr> <td>Automated blood basophils/100 leukocytes</td> <td>0 % </td> <td>0-10</td> </tr> <tr> <td>Blood neutrophils automated count (number/volume)</td> <td>6.9 10*3</td> <td>1.8-7.8</td> </tr> <tr> <td>Blood lymphocytes automated count (number/volume)</td> <td>2.7 10*3</td> <td>1.0 -4.0</td> </tr> <tr> <td>Blood monocytes automated count (number/volume)</td> <td>0.7 10*3</td> <td>0.0-1.0</td> </tr> <tr> <td>Automated eosinophil count</td> <td> 0.2 10*3/uL</td> <td>0.0-0.3</td> </tr> <tr> <td >Automated blood basophil count (count/volume)</td> <td>0.0 10*3/uL</td > <td>0.0-0.1</td> </tr> <tr> <th colspan="10"> PT panel in platelet poor plasma by coagulation assay - 02/06/19 04:54</th> </tr> <tr> <td>Prothrombin time (PT) in platelet poor plasma by coagulation assay</td> <td>12.6 s</td> <td>12.2-14.7 </td> </tr> <tr> <td>INR in platelet poor plasma or blood by coagulation assay</td> <td>0.9 </td> <td>0.8-1.4</td > </tr> <tr> <th colspan="10">Activated partial thromboplastin time (aPTT) in platelet poor plasma bycoagulation assay - 04:54</th> </tr> <tr> <td>Activated partial thromboplastin time (aPTT) in platelet poor plasma bycoagulation assay</td> <td>33 s</td> <td>24-35</td> </tr> <tr> < th colspan="10">Serum or plasma choriogonadotropin ( test) detection - 02/06/19 04:54</th> </tr> <tr> <td>Serum or plasma choriogonadotropin ( test) detection</td> <td>NEGATIVE </td> <td>NEGATIVE</td> </tr> <tr> < colspan="10"> Serum or plasma ethanol measurement (mass/volume) - 02/06/19 04:54</th> < /tr> <tr> <td>Serum or plasma ethanol measurement (mass/volume)< /td> <td>< mg/dL</td> <td><10</td> </tr> < tr> < colspan="10">Comprehensive metabolic panel - 02/06/19 04:54</th > </tr> <tr> <td>Serum or plasma sodium measurement ( moles/volume)</td> <td>141 mmol/L</td> <td>135-145</td> </tr> <tr> <td>Serum or plasma potassium measurement (moles/ volume)</td> <td>4.1 mmol/L</td> <td>3.6-5.0</td> </tr > <tr> <td>Serum or plasma chloride measurement (moles/volume)</ td> <td>106 mmol/L</td> <td>98-107</td> </tr> < tr> <td>Carbon dioxide</td> <td>24 mmol/L</td> <td>21 -32</td> </tr> <tr> <td>Serum or plasma anion gap determination (moles/volume)</td> <td>11 mmol/L</td> <td>5-14< /td> </tr> <tr> <td>Serum or plasma urea nitrogen measurement (mass/volume)</td> <td>18 mg/dL</td> <td>7-18</td > </tr> <tr> <td>Serum or plasma creatinine measurement ( mass/volume)</td> <td>0.73 mg/dL</td> <td>0.60-1.30</td> </tr> <tr> <td>Serum or plasma urea nitrogen/creatinine mass ratio</td> <td>25 </td> <td>NRG</td> </tr> <tr> <td>Serum or plasma creatinine measurement with calculation of estimated glomerular filtration rate</td> <td>> </td> <td> NRG</td> </tr> <tr> <td>Serum or plasma glucose measurement (mass/volume)</td> <td>111 mg/dL</td> <td>70-105</ td> </tr> <tr> <td>Serum or plasma calcium measurement ( mass/volume)</td> <td>9.5 mg/dL</td> <td>8.5-10.1</td> </tr> <tr> <td>Serum or plasma total bilirubin measurement (mass /volume)</td> <td>0.4 mg/dL</td> <td>0.1-1.0</td> </tr > <tr> <td>Serum or plasma alkaline phosphatase measurement ( enzymatic activity/volume)</td> <td>79 U/L</td> <td>40-136</td > </tr> <tr> <td>Serum or plasma aspartate aminotransferase measurement (enzymatic activity/volume)</td> <td>23 U/ L</td> <td>5-34</td> </tr> <tr> <td>Serum or plasma alanine aminotransferase measurement (enzymatic activity/volume)</td> <td>43 U/L</td> <td>0-55</td> </tr> <tr> <td>Serum or plasma protein measurement (mass/volume)</td> <td>7.0 g/dL </td> <td>6.4-8.2</td> </tr> <tr> <td>Serum or plasma albumin measurement (mass/volume)</td> <td>3.9 g/dL</td> <td>3.2-4.5</td> </tr> <tr> <td>CALCIUM CORRECTED</td > <td>9.6 mg/dL</td> <td>8.5-10.1</td> </tr> <tr > <th colspan="10">Magnesium - 02/06/19 04:54</th> </tr> <tr> <td>Magnesium</td> <td>1.9 mg/dL</td> <td>1.8- 2.4</td> </tr> <tr> <th colspan="10">Serum or plasma creatine kinase measurement (enzymatic activity/volume) - 02/06/19 04:54</th> </tr> <tr> <td>Serum or plasma creatine kinase measurement (enzymatic activity/volume)</td> <td>104 U/L</td> <td>29-168</td> </tr> <tr> <th colspan="10">Serum or plasma creatine kinase MB measurement (enzymatic activity/volume) - 02/06/19 04: 54</th> </tr> <tr> <td>Serum or plasma creatine kinase MB measurement (enzymatic activity/volume)</td> <td>1.7 ng/mL</td> <td><6.6</td> </tr> <tr> <th colspan="10">Serum or plasma troponin i.cardiac measurement (mass/volume) - 02/06/19 04:54</th> </tr> <tr> <td>Serum or plasma troponin i.cardiac measurement (mass/volume)</td> <td>< ng/mL</td> <td>< 0.028</td> </tr> <tr> <th colspan="10">Myoglobin, serum - 02/06/19 04:54</th> </tr> <tr> <td>Myoglobin, serum</td > <td>52.2 ng/mL</td> <td>10.0-92.0</td> </tr> < tr> <th colspan="10">Serum or plasma amylase measurement (enzymatic activity/volume) - 02/06/19 04:54</th> </tr> <tr> <td> Serum or plasma amylase measurement (enzymatic activity/volume)</td> < td>46 U/L</td> <td>25-125</td> </tr> <tr> <th colspan="10">Lipase - 02/06/19 04:54</th> </tr> <tr> <td> Lipase</td> <td>47 U/L</td> <td>8-78</td> </tr> <tr> <th colspan="10">Serum or plasma lithium measurement (moles/volume ) - 02/06/19 04:54</th> </tr> <tr> <td>BNP level</td> <td>16.2 pg/mL</td> <td><100.0</td> </tr> <tr> <th colspan="10">Influenza virus A and B antigen detection - 02/06/19 05:24</th> </tr> <tr> <td>FLU RESULT</td> <td> NEGATIVE FOR INFLUENZA A AND B ANTIGENS BY IA </td> <td>NRG</td> </tr> <tr> <th colspan="10">Complete urinalysis with reflex to culture - 02/06/19 05:55</th> </tr> <tr> <td>Urine color determination</td> <td>YELLOW </td> <td>NRG</td> </tr> <tr> <td>Urine clarity determination</td> <td> SLIGHTLY CLOUDY </td> <td>NRG</td> </tr> <tr> < td>Urine pH measurement by test strip</td> <td>6 </td> <td>5-9 </td> </tr> <tr> <td>Specific gravity of urine by test strip</td> <td>1.025 </td> <td>1.016-1.022</td> </tr> <tr> <td>Urine protein assay by test strip, semi-quantitative</ td> <td>1+ </td> <td>NEGATIVE</td> </tr> <tr> <td>Urine glucose detection by automated test strip</td> <td> NEGATIVE </td> <td>NEGATIVE</td> </tr> <tr> <td> Erythrocytes detection in urine sediment by light microscopy</td> <td> NEGATIVE </td> <td>NEGATIVE</td> </tr> <tr> <td> Urine ketones detection by automated test strip</td> <td>NEGATIVE </td > <td>NEGATIVE</td> </tr> <tr> <td>Urine nitrite detection by test strip</td> <td>NEGATIVE </td> <td> NEGATIVE</td> </tr> <tr> <td>Urine total bilirubin detection by test strip</td> <td>NEGATIVE </td> <td>NEGATIVE</ td> </tr> <tr> <td>Urine urobilinogen measurement by automated test strip (mass/volume)</td> <td>NORMAL </td> <td> NORMAL</td> </tr> <tr> <td>Urine leukocyte esterase detection by dipstick</td> <td>1+ </td> <td>NEGATIVE</td> </tr> <tr> <td>Automated urine sediment erythrocyte count by microscopy (number/high power field)</td> <td>RARE </td> < td>NRG</td> </tr> <tr> <td>Automated urine sediment leukocyte count by microscopy (number/high power field)</td> <td> [HPF] </td> <td>NRG</td> </tr> <tr> <td>Bacteria detection in urine sediment by light microscopy</td> <td>TRACE </td> <td>NRG</td> </tr> <tr> <td>Squamous epithelial cells detection in urine sediment by light microscopy</td> <td>25-50 </ td> <td>NRG</td> </tr> <tr> <td>Crystals detection in urine sediment by light microscopy</td> <td>PRESENT </td> <td>NRG</td> </tr> <tr> <td>Casts detection in urine sediment by light microscopy</td> <td>NONE </td> <td>NRG </td> </tr> <tr> <td>Mucus detection in urine sediment by light microscopy</td> <td>SMALL </td> <td>NRG</td> < /tr> <tr> <td>Complete urinalysis with reflex to culture</td> <td>NO </td> <td>NRG</td> </tr> <tr> <td >Amorphous sediment detection in urine sediment by light microscopy</td> <td>FEW ILIANA URATES </td> <td>NRG</td> </tr> <tr> < colspan="10">Urine drug screening test - 02/06/19 05:55</th> </ tr> <tr> <td>Urine phencyclidine detection by screening method</ td> <td>NEGATIVE </td> <td>NEGATIVE</td> </tr> < tr> <td>Urine benzodiazepines detection by screening method</td> <td>NEGATIVE </td> <td>NEGATIVE</td> </tr> <tr> <td>Urine cocaine detection</td> <td>NEGATIVE </td> <td> NEGATIVE</td> </tr> <tr> <td>Urine amphetamines detection by screening method</td> <td>NEGATIVE </td> <td> NEGATIVE</td> </tr> <tr> <td>Urine methamphetamine detection by screening method</td> <td>NEGATIVE </td> <td> NEGATIVE</td> </tr> <tr> <td>Urine cannabinoids detection by screening method</td> <td>NEGATIVE </td> <td> NEGATIVE</td> </tr> <tr> <td>Urine opiates detection by screening method</td> <td>NEGATIVE </td> <td>NEGATIVE</td> </tr> <tr> <td>Urine barbiturates detection</td> < td>NEGATIVE </td> <td>NEGATIVE</td> </tr> <tr> < td>Screening urine tricyclic antidepressants detection</td> <td> NEGATIVE </td> <td>NEGATIVE</td> </tr> <tr> <td> Urine methadone detection by screening method</td> <td>NEGATIVE </td> <td>NEGATIVE</td> </tr> <tr> <td>Urine oxycodone detection</td> <td>NEGATIVE </td> <td>NEGATIVE</td> </tr> <tr> <td>Urine propoxyphene detection</td> <td>NEGATIVE </td> <td>NEGATIVE</td> </tr> </tbody> < /table> </text> <entry> <organizer moodCode="EVN" classCode="BATTERY"> <templateId root="[id number]" /> <id nullFlavor="NA" /> <code codeSystem="local" code="UAM" displayName="URINALYSIS WITH MICROSCOPIC" /> <statusCode code="completed" /> <component> < observation moodCode="EVN" classCode="OBS"> <templateId root= "[id number]" /> <id nullFlavor="NA" /> < code codeSystem="local" code="LEUESU" displayName="UA LEUKOCYTE ESTERASE DIPSTICK" /> <statusCode code="completed" /> <effectiveTime value="[id number]" /> <value unit="" xsi:type="PQ" value="2+" /> <interpretationCode codeSystem="local" code="*" /> < referenceRange> <observationRange> <text>NEGATIVE</text > </observationRange> </referenceRange> </observation > </component> <component> <observation moodCode="EVN" classCode="OBS"> <templateId root="[id number]" /> <id nullFlavor="NA" /> <code codeSystem="local" code="NITRIU" displayName="UA NITRITE DIPSTICK" /> <statusCode code="completed" /> <effectiveTime value="[id number]" /> <value unit="" xsi:type= "PQ" value="NEGATIVE" /> <referenceRange> <observationRange > <text>NEGATIVE</text> </observationRange> </ referenceRange> </observation> </component> <component> <observation moodCode="EVN" classCode="OBS"> <templateId root= "[id number]" /> <id nullFlavor="NA" /> < code codeSystem="local" code="PROTEIU" displayName="UA PROTEIN DIPSTICK" /> <statusCode code="completed" /> <effectiveTime value= "323373950616" /> <value unit="" xsi:type="PQ" value="NEGATIVE" /> <referenceRange> <observationRange> <text>NEGATIVE </text> </observationRange> </referenceRange> </ observation> </component> <component> <observation moodCode= "EVN" classCode="OBS"> <templateId root="[id number] " /> <id nullFlavor="NA" /> <code codeSystem="local" code= "DGLUU" displayName="UA GLUCOSE DIPSTICK" /> <statusCode code= "completed" /> <effectiveTime value="032023644652" /> <value unit="" xsi:type="PQ" value="NEGATIVE" /> <referenceRange> < observationRange> <text>NEGATIVE</text> </ observationRange> </referenceRange> </observation> </ component> <component> <observation moodCode="EVN" classCode="OBS"> <templateId root="[id number]" /> <id nullFlavor="NA" /> <code codeSystem="local" code="KETONU" displayName= "UA KETONE DIPSTICK" /> <statusCode code="completed" /> < effectiveTime value="702005364983" /> <value unit="" xsi:type="PQ" value="NEGATIVE" /> <referenceRange> <observationRange> <text>NEGATIVE</text> </observationRange> </ referenceRange> </observation> </component> <component> <observation moodCode="EVN" classCode="OBS"> <templateId root= "[id number]..22.4.2" /> <id nullFlavor="NA" /> < code codeSystem="local" code="UROBILU" displayName="UA UROBILINOGEN DIPSTICK" / > <statusCode code="completed" /> <effectiveTime value= "" /> <value unit="" xsi:type="PQ" value="NORMAL" /> <referenceRange> <observationRange> <text>NORMAL</ text> </observationRange> </referenceRange> </ observation> </component> <component> <observation moodCode= "EVN" classCode="OBS"> <templateId root="[id number]..22.4.2 " /> <id nullFlavor="NA" /> <code codeSystem="local" code= "BILU" displayName="UA BILIRUBIN DIPSTICK" /> <statusCode code= "completed" /> <effectiveTime value="508451068772" /> <value unit="" xsi:type="PQ" value="NEGATIVE" /> <referenceRange> < observationRange> <text>NEGATIVE</text> </ observationRange> </referenceRange> </observation> </ component> <component> <observation moodCode="EVN" classCode="OBS"> <templateId root="[id number]..22.4.2" /> <id nullFlavor="NA" /> <code codeSystem="local" code="ANABEL" displayName="UA BLOOD DIPSTICK" /> <statusCode code="completed" /> < effectiveTime value="" /> <value unit="" xsi:type="PQ" value="NEGATIVE" /> <referenceRange> <observationRange> <text>NEGATIVE</text> </observationRange> </ referenceRange> </observation> </component> <component> <observation moodCode="EVN" classCode="OBS"> <templateId root= "[id number]..4.2" /> <id nullFlavor="NA" /> < code codeSystem="local" code="BACU" displayName="UA BACTERIA" /> < statusCode code="completed" /> <effectiveTime value="" /> <value unit="" xsi:type="PQ" value="4+" /> < interpretationCode codeSystem="local" code="*" /> <referenceRange> <observationRange> <text>NEGATIVE</text> </ observationRange> </referenceRange> </observation> </ component> <component> <observation moodCode="EVN" classCode="OBS"> <templateId root="[id number]....4.2" /> <id nullFlavor="NA" /> <code codeSystem="local" code="EPIU" displayName=" UA EPITHELIAL CELLS" /> <statusCode code="completed" /> < effectiveTime value="" /> <value unit="epi/hpf" xsi:type= "PQ" value="3+" /> <interpretationCode codeSystem="local" code="*" /> <referenceRange> <observationRange> <text>0 - 1 +</text> </observationRange> </referenceRange> </ observation> </component> <component> <observation moodCode= "EVN" classCode="OBS"> <templateId root="[id number] " /> <id nullFlavor="NA" /> <code codeSystem="local" code= "RBCU" displayName="UA RBC" /> <statusCode code="completed" /> <effectiveTime value="[id number]" /> <value unit="rbc/hpf" xsi:type ="PQ" value="5-10" /> <interpretationCode codeSystem="local" code="*" / > <referenceRange> <observationRange> <text>0 - 3</text> </observationRange> </referenceRange> </ observation> </component> <component> <observation moodCode= "EVN" classCode="OBS"> <templateId root="[id number]..4.2 " /> <id nullFlavor="NA" /> <code codeSystem="local" code= "UAVOL" displayName="UA VOLUME FOR EXAM" /> <statusCode code="completed " /> <effectiveTime value="[id number]" /> <value unit="mL" xsi:type="PQ" value="12.0" /> <referenceRange> < observationRange> <text>(12mL STD)</text> </ observationRange> </referenceRange> </observation> </ component> <component> <observation moodCode="EVN" classCode="OBS"> <templateId root="216.840.1.411897.10..22.4.2" /> <id nullFlavor="NA" /> <code codeSystem="local" code="WBCU" displayName=" UA WBC" /> <statusCode code="completed" /> <effectiveTime value="[id number]" /> <value unit="wbc/hpf" xsi:type="PQ" value="20- 50" /> <interpretationCode codeSystem="local" code="*" /> < referenceRange> <observationRange> <text>0 - 5</text> </observationRange> </referenceRange> </observation> </component> <component> <observation moodCode="EVN" classCode= "OBS"> <templateId root="[id number].2" /> < id nullFlavor="NA" /> <code codeSystem="local" code="SPGRU" displayName ="UA SPECIFIC GRAVITY" /> <statusCode code="completed" /> < effectiveTime value="[id number]" /> <value unit="" xsi:type="PQ" value="1.020" /> <referenceRange> <observationRange> <text>1.015-1.025</text> </observationRange> </ referenceRange> </observation> </component> <component> <observation moodCode="EVN" classCode="OBS"> <templateId root= "[id number]2.4.2" /> <id nullFlavor="NA" /> < code codeSystem="local" code="MARILYN" displayName="UR PH" /> <statusCode code="completed" /> <effectiveTime value="941588823709" /> < value unit="" xsi:type="PQ" value="7.0" /> <referenceRange> <observationRange> <text>5.0-7.0</text> </ observationRange> </referenceRange> </observation> </ component> </organizer> </entry> <entry> <organizer moodCode="EVN" classCode="BATTERY"> <templateId root="01.16.840.1.601276.10..22.4.1" /> <id nullFlavor="NA" /> <code codeSystem="local" code="UC" displayName= "URINE CULTURE" /> <statusCode code="completed" /> <component> <observation moodCode="EVN" classCode="OBS"> <templateId root= "01.16.840.1.192644...4.2" /> <id nullFlavor="NA" /> < code codeSystem="local" code="UNC" displayName="Uncategorized" /> < statusCode code="completed" /> <effectiveTime value="537701407134" /> <value xsi:type="ST" value="<pre><b>URINE CULTURE</b> See BelowURINE CULTURE(F) Gianna Date/Time: 08/29/2012 12:29 Lizz Date/Time: 08/31/2012 09:17SOURCE: URINESPEC DESC: CLEAN CATCHTREATMENT OF ASYMPTOMATIC BACTERIURIA IS NOT USUALLYCLINICALLY INDICATED.MIXED GRAM POSITIVE?MIXED GRAM POSITIVE [facility]ACT[facility]IAST[facility] - [phone] [place] [address]</pre>" /> <referenceRange> <observationRange> <text /> </observationRange> </referenceRange> </observation> </component> </ organizer> </entry> <entry> <organizer moodCode="EVN" classCode="BATTERY"> <templateId root="01.16.840.1.231406.10..22.4.1" /> <id nullFlavor= "NA" /> <code codeSystem="local" code="CBC" displayName="CBC" /> < statusCode code="completed" /> <component> <observation moodCode= "EVN" classCode="OBS"> <templateId root="01.16.840.1.862084.10..22.4.2 " /> <id nullFlavor="NA" /> <code codeSystem="local" code="MCH " displayName="MEAN CELL HGB" /> <statusCode code="completed" /> <effectiveTime value="168271054758" /> <value unit="pg" xsi:type= "PQ" value="32.1" /> <referenceRange> <observationRange> <text>27.0-33.0</text> </observationRange> </ referenceRange> </observation> </component> <component> <observation moodCode="EVN" classCode="OBS"> <templateId root= "2.16.840.1.348937.10..22.4.2" /> <id nullFlavor="NA" /> < code codeSystem="local" code="MCHC" displayName="MEAN CELL HGB CONCENTRATION" / > <statusCode code="completed" /> <effectiveTime value= "715429245150" /> <value unit="g/dl" xsi:type="PQ" value="35.1" /> <referenceRange> <observationRange> <text>32.0- 36.0</text> </observationRange> </referenceRange> </ observation> </component> <component> <observation moodCode= "EVN" classCode="OBS"> <templateId root="2.16.840.1.517427.10..22.4.2 " /> <id nullFlavor="NA" /> <code codeSystem="local" code="MCV " displayName="MEAN CELL VOLUME" /> <statusCode code="completed" /> <effectiveTime value="803403437975" /> <value unit="fl" xsi:type ="PQ" value="91.6" /> <referenceRange> <observationRange> <text>80.0-100.0</text> </observationRange> </ referenceRange> </observation> </component> <component> <observation moodCode="EVN" classCode="OBS"> <templateId root= "16.840.1.224381.10..22.4.2" /> <id nullFlavor="NA" /> < code codeSystem="local" code="RBC" displayName="RED BLOOD CELL" /> < statusCode code="completed" /> <effectiveTime value="811928363733" /> <value unit="m/cumm" xsi:type="PQ" value="3.89" /> < interpretationCode codeSystem="local" code="*" /> <referenceRange> <observationRange> <text>4.00-6.00</text> </ observationRange> </referenceRange> </observation> </ component> <component> <observation moodCode="EVN" classCode="OBS"> <templateId root="16.840.1.327899.09.19.22.4.2" /> <id nullFlavor="NA" /> <code codeSystem="local" code="RDW" displayName=" RED CELL DISTRIBUTION WIDTH" /> <statusCode code="completed" /> <effectiveTime value="" /> <value unit="%" xsi:type= "PQ" value="13.9" /> <referenceRange> <observationRange> <text>11.0-15.6</text> </observationRange> </ referenceRange> </observation> </component> <component> <observation moodCode="EVN" classCode="OBS"> <templateId root= "01.16.840.1.414942.10..22.4.2" /> <id nullFlavor="NA" /> < code codeSystem="local" code="WBC" displayName="WHITE BLOOD CELL" /> < statusCode code="completed" /> <effectiveTime value="414869816344" /> <value unit="k/cumm" xsi:type="PQ" value="13.2" /> < interpretationCode codeSystem="local" code="*" /> <referenceRange> <observationRange> <text>5.0-10.0</text> </ observationRange> </referenceRange> </observation> </ component> <component> <observation moodCode="EVN" classCode="OBS"> <templateId root="216.840.1.423557..22.4.2" /> <id nullFlavor="NA" /> <code codeSystem="local" code="HGBT" displayName= "HEMOGLOBIN" /> <statusCode code="completed" /> < effectiveTime value="531112070825" /> <value unit="gm/dL" xsi:type="PQ " value="12.5" /> <referenceRange> <observationRange> <text>12.0-16.0</text> </observationRange> </ referenceRange> </observation> </component> <component> <observation moodCode="EVN" classCode="OBS"> <templateId root= "216.840.1.439218.09.19.22.4.2" /> <id nullFlavor="NA" /> < code codeSystem="local" code="HCTT" displayName="HEMATOCRIT" /> < statusCode code="completed" /> <effectiveTime value="013518642208" /> <value unit="%" xsi:type="PQ" value="35.6" /> < interpretationCode codeSystem="local" code="*" /> <referenceRange> <observationRange> <text>37.0-47.0</text> </ observationRange> </referenceRange> </observation> </ component> <component> <observation moodCode="EVN" classCode="OBS"> <templateId root="216.840.1.451023.09.19.22.4.2" /> <id nullFlavor="NA" /> <code codeSystem="local" code="PLT" displayName= "PLATELET COUNT" /> <statusCode code="completed" /> < effectiveTime value="351056102018" /> <value unit="k/cumm" xsi:type="PQ " value="216" /> <referenceRange> <observationRange> <text>150-450</text> </observationRange> </ referenceRange> </observation> </component> </organizer> </entry > <entry> <organizer moodCode="EVN" classCode="BATTERY"> <templateId root="01.16.840.1.368931.10..4.1" /> <id nullFlavor="NA" /> <code codeSystem="local" code="HGB" displayName="HEMOGLOBIN" /> <statusCode code= "completed" /> <component> <observation moodCode="EVN" classCode= "OBS"> <templateId root="16.840.1.281479.10.22.4.2" /> < id nullFlavor="NA" /> <code codeSystem="local" code="MCV" displayName= "MEAN CELL VOLUME" /> <statusCode code="completed" /> < effectiveTime value="322437031159" /> <value unit="fl" xsi:type="PQ" value="91.8" /> <referenceRange> <observationRange> <text>80.0-100.0</text> </observationRange> </ referenceRange> </observation> </component> <component> <observation moodCode="EVN" classCode="OBS"> <templateId root= "01.16.840.1.090346.22.4.2" /> <id nullFlavor="NA" /> < code codeSystem="local" code="HGBT" displayName="HEMOGLOBIN" /> < statusCode code="completed" /> <effectiveTime value="944673905670" /> <value unit="gm/dL" xsi:type="PQ" value="11.4" /> < interpretationCode codeSystem="local" code="*" /> <referenceRange> <observationRange> <text>12.0-16.0</text> </ observationRange> </referenceRange> </observation> </ component> </organizer> </entry> <entry> <organizer moodCode="EVN" classCode="BATTERY"> <templateId root="216.840.1.239857.10..22.4.1" /> <id nullFlavor="NA" /> <code codeSystem="local" code="HGB" displayName ="HEMOGLOBIN" /> <statusCode code="completed" /> <component> < observation moodCode="EVN" classCode="OBS"> <templateId root= "16.840.1.298823.10...4.2" /> <id nullFlavor="NA" /> < code codeSystem="local" code="MCV" displayName="MEAN CELL VOLUME" /> < statusCode code="completed" /> <effectiveTime value="" /> <value unit="fl" xsi:type="PQ" value="91.8" /> <referenceRange > <observationRange> <text>80.0-100.0</text> </observationRange> </referenceRange> </observation> </ component> <component> <observation moodCode="EVN" classCode="OBS"> <templateId root="16.840.1.808308...4.2" /> <id nullFlavor="NA" /> <code codeSystem="local" code="HGBT" displayName= "HEMOGLOBIN" /> <statusCode code="completed" /> < effectiveTime value="" /> <value unit="gm/dL" xsi:type="PQ " value="10.9" /> <interpretationCode codeSystem="local" code="*" /> <referenceRange> <observationRange> <text>12.0- 16.0</text> </observationRange> </referenceRange> </ observation> </component> </organizer> </entry> <entry> <organizer moodCode="EVN" classCode="BATTERY"> <templateId root= "216.840.1.172752.10..22.4.1" /> <id nullFlavor="NA" /> <code codeSystem="local" code="CBCD" displayName="CBC W/DIFF" /> <statusCode code ="completed" /> <component> <observation moodCode="EVN" classCode= "OBS"> <templateId root="216.840.1.135651.10..4.2" /> < id nullFlavor="NA" /> <code codeSystem="local" code="CBCCOM" displayName="COMMENT" /> <statusCode code="completed" /> < effectiveTime value="" /> <value unit="" xsi:type="PQ" value="REVIEWED" /> <referenceRange> <observationRange> <text /> </observationRange> </referenceRange> </observation> </component> <component> <observation moodCode="EVN" classCode="OBS"> <templateId root= "16.840.1.492074.10...4.2" /> <id nullFlavor="NA" /> < code codeSystem="local" code="GR#" displayName="GRANULOCYTE #" /> < statusCode code="completed" /> <effectiveTime value="" /> <value unit="k/cumm" xsi:type="PQ" value="15.1" /> < interpretationCode codeSystem="local" code="*" /> <referenceRange> <observationRange> <text>2.0-9.0</text> </ observationRange> </referenceRange> </observation> </ component> <component> <observation moodCode="EVN" classCode="OBS"> <templateId root="216.840.1.650666.1022.4.2" /> <id nullFlavor="NA" /> <code codeSystem="local" code="GR%" displayName= "GRANULOCYTE %" /> <statusCode code="completed" /> < effectiveTime value="822947619642" /> <value unit="%" xsi:type="PQ " value="85" /> <interpretationCode codeSystem="local" code="*" /> <referenceRange> <observationRange> <text>50-75</ text> </observationRange> </referenceRange> </ observation> </component> <component> <observation moodCode= "EVN" classCode="OBS"> <templateId root="01.16.840.1.750797.09.19.22.4.2 " /> <id nullFlavor="NA" /> <code codeSystem="local" code="LY# " displayName="LYMPHOCYTE #" /> <statusCode code="completed" /> <effectiveTime value="963932243842" /> <value unit="k/cumm" xsi:type ="PQ" value="1.6" /> <referenceRange> <observationRange> <text>1.0-4.0</text> </observationRange> </ referenceRange> </observation> </component> <component> <observation moodCode="EVN" classCode="OBS"> <templateId root= "16.840.1.063796.22.4.2" /> <id nullFlavor="NA" /> < code codeSystem="local" code="LY%" displayName="LYMPHOCYTE %" /> <statusCode code="completed" /> <effectiveTime value="" /> <value unit="%" xsi:type="PQ" value="9" /> < interpretationCode codeSystem="local" code="*" /> <referenceRange> <observationRange> <text>20-30</text> </ observationRange> </referenceRange> </observation> </ component> <component> <observation moodCode="EVN" classCode="OBS"> <templateId root="2.16.840.1.957753.09.19.224.2" /> <id nullFlavor="NA" /> <code codeSystem="local" code="MCH" displayName= "MEAN CELL HGB" /> <statusCode code="completed" /> < effectiveTime value="" /> <value unit="pg" xsi:type="PQ" value="29.2" /> <referenceRange> <observationRange> <text>27.0-33.0</text> </observationRange> </ referenceRange> </observation> </component> <component> <observation moodCode="EVN" classCode="OBS"> <templateId root= "216.840.1.279985.09.19.224.2" /> <id nullFlavor="NA" /> < code codeSystem="local" code="MCHC" displayName="MEAN CELL HGB CONCENTRATION" / > <statusCode code="completed" /> <effectiveTime value= "" /> <value unit="g/dL" xsi:type="PQ" value="33.6" /> <referenceRange> <observationRange> <text>32.0- 37.0</text> </observationRange> </referenceRange> </ observation> </component> <component> <observation moodCode= "EVN" classCode="OBS"> <templateId root="16.840.1.291497.09.19.22.4.2 " /> <id nullFlavor="NA" /> <code codeSystem="local" code="MCV " displayName="MEAN CELL VOLUME" /> <statusCode code="completed" /> <effectiveTime value="" /> <value unit="fl" xsi:type ="PQ" value="87.1" /> <referenceRange> <observationRange> <text>80.0-100.0</text> </observationRange> </ referenceRange> </observation> </component> <component> <observation moodCode="EVN" classCode="OBS"> <templateId root= "840.1.619880.09.19.22.4.2" /> <id nullFlavor="NA" /> < code codeSystem="local" code="MO#" displayName="MONOCYTE #" /> < statusCode code="completed" /> <effectiveTime value="" /> <value unit="k/cumm" xsi:type="PQ" value="0.9" /> < referenceRange> <observationRange> <text>0.1-1.0</text> </observationRange> </referenceRange> </observation > </component> <component> <observation moodCode="EVN" classCode="OBS"> <templateId root="01.16.840.1.974146.09.19.22.4.2" /> <id nullFlavor="NA" /> <code codeSystem="local" code="MO% " displayName="MONOCYTE %" /> <statusCode code="completed" /> <effectiveTime value="594656224121" /> <value unit="%" xsi: type="PQ" value="5" /> <referenceRange> <observationRange> <text>4-6</text> </observationRange> </ referenceRange> </observation> </component> <component> <observation moodCode="EVN" classCode="OBS"> <templateId root= "2.16.840.1.645102.10..22.4.2" /> <id nullFlavor="NA" /> < code codeSystem="local" code="RBC" displayName="RED BLOOD CELL" /> < statusCode code="completed" /> <effectiveTime value="933679471691" /> <value unit="m/cumm" xsi:type="PQ" value="4.96" /> < referenceRange> <observationRange> <text>4.00-6.00</text > </observationRange> </referenceRange> </observation > </component> <component> <observation moodCode="EVN" classCode="OBS"> <templateId root="216.840.1.040359.10...4.2" /> <id nullFlavor="NA" /> <code codeSystem="local" code="RDW" displayName="RED CELL DISTRIBUTION WIDTH" /> <statusCode code= "completed" /> <effectiveTime value="881769584090" /> <value unit="%" xsi:type="PQ" value="13.4" /> <referenceRange> <observationRange> <text>11.0-15.6</text> </ observationRange> </referenceRange> </observation> </ component> <component> <observation moodCode="EVN" classCode="OBS"> <templateId root="216.840.1.013986.10..22.4.2" /> <id nullFlavor="NA" /> <code codeSystem="local" code="WBC" displayName= "WHITE BLOOD CELL" /> <statusCode code="completed" /> < effectiveTime value="" /> <value unit="k/cumm" xsi:type="PQ " value="17.8" /> <interpretationCode codeSystem="local" code="*" /> <referenceRange> <observationRange> <text>5.0- 10.0</text> </observationRange> </referenceRange> </ observation> </component> <component> <observation moodCode= "EVN" classCode="OBS"> <templateId root="2.16.840.1.904746.10...4.2 " /> <id nullFlavor="NA" /> <code codeSystem="local" code= "HGBT" displayName="HEMOGLOBIN" /> <statusCode code="completed" /> <effectiveTime value="" /> <value unit="gm/dL" xsi: type="PQ" value="14.5" /> <referenceRange> <observationRange > <text>12.0-16.0</text> </observationRange> </ referenceRange> </observation> </component> <component> <observation moodCode="EVN" classCode="OBS"> <templateId root= "2.16.840.1.269299.10..22.4.2" /> <id nullFlavor="NA" /> < code codeSystem="local" code="HCTT" displayName="HEMATOCRIT" /> < statusCode code="completed" /> <effectiveTime value="" /> <value unit="%" xsi:type="PQ" value="43.2" /> < referenceRange> <observationRange> <text>37.0-47.0</text > </observationRange> </referenceRange> </observation > </component> <component> <observation moodCode="EVN" classCode="OBS"> <templateId root="216.840.1.740495.10..22.4.2" /> <id nullFlavor="NA" /> <code codeSystem="local" code="PLT" displayName="PLATELET COUNT" /> <statusCode code="completed" /> <effectiveTime value="485439300940" /> <value unit="k/cumm" xsi:type ="PQ" value="216" /> <referenceRange> <observationRange> <text>150-400</text> </observationRange> </ referenceRange> </observation> </component> </organizer> </entry > <entry> <organizer moodCode="EVN" classCode="BATTERY"> <templateId root="216.840.1.772884.10..22.4.1" /> <id nullFlavor="NA" /> <code codeSystem="local" code="PREGU" displayName="UR TEST" /> < statusCode code="completed" /> <component> <observation moodCode= "EVN" classCode="OBS"> <templateId root="216.840.1.916628.10..22.4.2 " /> <id nullFlavor="NA" /> <code codeSystem="local" code= "PREGU" displayName="UR TEST" /> <statusCode code="completed " /> <effectiveTime value="730516426715" /> <value unit="" xsi :type="PQ" value="NEGATIVE" /> <referenceRange> < observationRange> <text>NEGATIVE</text> </ observationRange> </referenceRange> </observation> </ component> </organizer> </entry> <entry> <organizer moodCode="EVN" classCode="BATTERY"> <templateId root="216.840.1.832836.09.19.22.4.1" /> <id nullFlavor="NA" /> <code codeSystem="local" code="UAMICRO" displayName="UA MICROSCOPIC" /> <statusCode code="completed" /> < component> <observation moodCode="EVN" classCode="OBS"> < templateId root="01.16.840.1.304708.09.19..4.2" /> <id nullFlavor="NA " /> <code codeSystem="local" code="BACU" displayName="UA BACTERIA" /> <statusCode code="completed" /> <effectiveTime value= "378211347942" /> <value unit="" xsi:type="PQ" value="2+" /> < interpretationCode codeSystem="local" code="*" /> <referenceRange> <observationRange> <text>NEGATIVE</text> </ observationRange> </referenceRange> </observation> </ component> <component> <observation moodCode="EVN" classCode="OBS"> <templateId root="840.1.329895.09.19.22.4.2" /> <id nullFlavor="NA" /> <code codeSystem="local" code="EPIU" displayName=" UA EPITHELIAL CELLS" /> <statusCode code="completed" /> < effectiveTime value="213264653798" /> <value unit="epi/hpf" xsi:type= "PQ" value="4+" /> <interpretationCode codeSystem="local" code="*" /> <referenceRange> <observationRange> <text>0 - 1 +</text> </observationRange> </referenceRange> </ observation> </component> <component> <observation moodCode= "EVN" classCode="OBS"> <templateId root="01.16.840.1.414659.09.19.22.4.2 " /> <id nullFlavor="NA" /> <code codeSystem="local" code= "MUCUSU" displayName="UA MUCUS" /> <statusCode code="completed" /> <effectiveTime value="573281593497" /> <value unit="" xsi:type= "PQ" value="3+" /> <interpretationCode codeSystem="local" code="*" /> <referenceRange> <observationRange> <text>NEG TO 1+</text> </observationRange> </referenceRange> </ observation> </component> <component> <observation moodCode= "EVN" classCode="OBS"> <templateId root="2.16.840.1.279991.10...4.2 " /> <id nullFlavor="NA" /> <code codeSystem="local" code= "RBCU" displayName="UA RBC" /> <statusCode code="completed" /> <effectiveTime value="" /> <value unit="rbc/hpf" xsi:type ="PQ" value="0-3" /> <referenceRange> <observationRange> <text>0 - 3</text> </observationRange> </ referenceRange> </observation> </component> <component> <observation moodCode="EVN" classCode="OBS"> <templateId root= "2.16.840.1.426316.10..22.4.2" /> <id nullFlavor="NA" /> < code codeSystem="local" code="UAVOL" displayName="UA VOLUME FOR EXAM" /> <statusCode code="completed" /> <effectiveTime value="325368070250" /> <value unit="mL" xsi:type="PQ" value="12.0" /> < referenceRange> <observationRange> <text>(12mL STD)</ text> </observationRange> </referenceRange> </ observation> </component> <component> <observation moodCode= "EVN" classCode="OBS"> <templateId root="16.840.1.478743.10..22.4.2 " /> <id nullFlavor="NA" /> <code codeSystem="local" code= "WBCU" displayName="UA WBC" /> <statusCode code="completed" /> <effectiveTime value="065532082413" /> <value unit="wbc/hpf" xsi:type ="PQ" value="2-5" /> <referenceRange> <observationRange> <text>0 - 5</text> </observationRange> </ referenceRange> </observation> </component> </organizer> </entry > <entry> <organizer moodCode="EVN" classCode="BATTERY"> <templateId root="216.840.1.248961.10..22.4.1" /> <id nullFlavor="NA" /> <code codeSystem="local" code="iCHEM8" displayName="CHEM/HEM PROFILE-BEDSIDE" /> <statusCode code="completed" /> <component> <observation moodCode= "EVN" classCode="OBS"> <templateId root="216.840.1.528131.10..22.4.2 " /> <id nullFlavor="NA" /> <code codeSystem="local" code="K" displayName="POTASSIUM" /> <statusCode code="completed" /> < effectiveTime value="424939773787" /> <value unit="mmol/L" xsi:type="PQ " value="4.3" /> <referenceRange> <observationRange> <text>3.5-5.3</text> </observationRange> </ referenceRange> </observation> </component> <component> <observation moodCode="EVN" classCode="OBS"> <templateId root= "16.840.1.659871.09.19.22.4.2" /> <id nullFlavor="NA" /> < code codeSystem="local" code="CMETHOD" displayName="METHOD" /> < statusCode code="completed" /> <effectiveTime value="165903431238" /> <value unit="" xsi:type="PQ" value="Bedside" /> < referenceRange> <observationRange> <text /> < /observationRange> </referenceRange> </observation> </ component> <component> <observation moodCode="EVN" classCode="OBS"> <templateId root="01.16.840.1.412477.09.19.22.4.2" /> <id nullFlavor="NA" /> <code codeSystem="local" code="GAP" displayName= "ANION GAP" /> <statusCode code="completed" /> <effectiveTime value="" /> <value unit="mmol/L" xsi:type="PQ" value="13" / > <referenceRange> <observationRange> <text>10- 20</text> </observationRange> </referenceRange> </ observation> </component> <component> <observation moodCode= "EVN" classCode="OBS"> <templateId root="01.16.840.1.754920.09.19.22.4.2 " /> <id nullFlavor="NA" /> <code codeSystem="local" code= "HMETHOD" displayName="METHOD" /> <statusCode code="completed" /> <effectiveTime value="513576870813" /> <value unit="" xsi:type="PQ " value="Bedside" /> <referenceRange> <observationRange> <text /> </observationRange> </referenceRange> </observation> </component> <component> <observation moodCode="EVN" classCode="OBS"> <templateId root= "2.16.840.1.690007.10..22.4.2" /> <id nullFlavor="NA" /> < code codeSystem="local" code="GLU" displayName="GLUCOSE" /> < statusCode code="completed" /> <effectiveTime value="483436248036" /> <value unit="mg/dL" xsi:type="PQ" value="122" /> < interpretationCode codeSystem="local" code="*" /> <referenceRange> <observationRange> <text>70-99</text> </ observationRange> </referenceRange> </observation> </ component> <component> <observation moodCode="EVN" classCode="OBS"> <templateId root="216.840.1.985187.10..4.2" /> <id nullFlavor="NA" /> <code codeSystem="local" code="BUN" displayName= "BLOOD UREA NITROGEN" /> <statusCode code="completed" /> < effectiveTime value="561365926248" /> <value unit="mg/dL" xsi:type="PQ " value="12" /> <referenceRange> <observationRange> <text>7-20</text> </observationRange> </referenceRange > </observation> </component> <component> <observation moodCode="EVN" classCode="OBS"> <templateId root= "16.840.1.533729.10..22.4.2" /> <id nullFlavor="NA" /> < code codeSystem="local" code="CREAT" displayName="CREATININE" /> < statusCode code="completed" /> <effectiveTime value="972515050390" /> <value unit="mg/dL" xsi:type="PQ" value="0.7" /> < referenceRange> <observationRange> <text>0.6-1.0</text> </observationRange> </referenceRange> </observation > </component> <component> <observation moodCode="EVN" classCode="OBS"> <templateId root="2.16.840.1.375421.10..4.2" /> <id nullFlavor="NA" /> <code codeSystem="local" code="HGBT" displayName="HEMOGLOBIN" /> <statusCode code="completed" /> < effectiveTime value="622054230827" /> <value unit="gm/dL" xsi:type="PQ " value="14.3" /> <referenceRange> <observationRange> <text>12.0-16.0</text> </observationRange> </ referenceRange> </observation> </component> <component> <observation moodCode="EVN" classCode="OBS"> <templateId root= "216.840.1.045849.09.19.22.4.2" /> <id nullFlavor="NA" /> < code codeSystem="local" code="HCTT" displayName="HEMATOCRIT" /> < statusCode code="completed" /> <effectiveTime value="848254034293" /> <value unit="%" xsi:type="PQ" value="42.0" /> < referenceRange> <observationRange> <text>37.0-47.0</text > </observationRange> </referenceRange> </observation > </component> <component> <observation moodCode="EVN" classCode="OBS"> <templateId root="216.840.1.255604....4.2" /> <id nullFlavor="NA" /> <code codeSystem="local" code="NA" displayName="SODIUM" /> <statusCode code="completed" /> < effectiveTime value="863248721543" /> <value unit="mmol/L" xsi:type="PQ " value="139" /> <referenceRange> <observationRange> <text>135-148</text> </observationRange> </ referenceRange> </observation> </component> <component> <observation moodCode="EVN" classCode="OBS"> <templateId root= "216.840.1.000064.10..22.4.2" /> <id nullFlavor="NA" /> < code codeSystem="local" code="CL" displayName="CHLORIDE" /> < statusCode code="completed" /> <effectiveTime value="849550979938" /> <value unit="mmol/L" xsi:type="PQ" value="108" /> < referenceRange> <observationRange> <text>98-110</text> </observationRange> </referenceRange> </observation> </component> <component> <observation moodCode="EVN" classCode ="OBS"> <templateId root="01.16.840.1.824061.10...4.2" /> < id nullFlavor="NA" /> <code codeSystem="local" code="CO2" displayName= "CARBON DIOXIDE" /> <statusCode code="completed" /> < effectiveTime value="296137730389" /> <value unit="mmol/L" xsi:type="PQ " value="23" /> <referenceRange> <observationRange> <text>21-32</text> </observationRange> </ referenceRange> </observation> </component> <component> <observation moodCode="EVN" classCode="OBS"> <templateId root= "01.16.840.1.544530.10.20.22.4.2" /> <id nullFlavor="NA" /> < code codeSystem="local" code="CAION" displayName="CALCIUM IONIZED" /> < statusCode code="completed" /> <effectiveTime value="417986039087" /> <value unit="mg/dL" xsi:type="PQ" value="4.8" /> < referenceRange> <observationRange> <text>4.5-5.3</text> </observationRange> </referenceRange> </observation > </component> </organizer> </entry> <entry> <organizer moodCode= "EVN" classCode="BATTERY"> <templateId root="16.840.1.381454.10..22.4.1 " /> <id nullFlavor="NA" /> <code codeSystem="local" code="32379-3" displayName="Complete urinalysis with reflex to culture" /> <statusCode code="completed" /> <component> <observation moodCode="EVN" classCode="OBS"> <templateId root="16.840.1.303831.10..22.4.2" /> <id nullFlavor="NA" /> <code codeSystem="local" code="5778-6" displayName="Urine color determination" /> <statusCode code="completed " /> <effectiveTime value="127818516663" /> <value unit="" xsi :type="PQ" value="RED" /> <interpretationCode codeSystem="local" code= "*" /> <referenceRange> <observationRange> < text>NRG</text> </observationRange> </referenceRange> </observation> </component> <component> <observation moodCode ="EVN" classCode="OBS"> <templateId root= "01.16.840.1.285895.10..22.4.2" /> <id nullFlavor="NA" /> < code codeSystem="local" code="35633-5" displayName="Urine clarity determination " /> <statusCode code="completed" /> <effectiveTime value= "838625615447" /> <value unit="" xsi:type="PQ" value="BLOODY" /> <interpretationCode codeSystem="local" code="*" /> <referenceRange > <observationRange> <text>NRG</text> </ observationRange> </referenceRange> </observation> </ component> <component> <observation moodCode="EVN" classCode="OBS"> <templateId root="16.840.1.241133.10.4.2" /> <id nullFlavor="NA" /> <code codeSystem="local" code="5803-2" displayName= "Urine pH measurement by test strip" /> <statusCode code="completed" / > <effectiveTime value="" /> <value unit="" xsi: type="PQ" value="8" /> <referenceRange> <observationRange> <text>5-9</text> </observationRange> </ referenceRange> </observation> </component> <component> <observation moodCode="EVN" classCode="OBS"> <templateId root= "16.840.1.292291.10..4.2" /> <id nullFlavor="NA" /> < code codeSystem="local" code="5811-5" displayName="Specific gravity of urine by test strip" /> <statusCode code="completed" /> <effectiveTime value="" /> <value unit="" xsi:type="PQ" value="1.010" /> <interpretationCode codeSystem="local" code="" /> < referenceRange> <observationRange> <text>1.016-1.022</ text> </observationRange> </referenceRange> </ observation> </component> <component> <observation moodCode= "EVN" classCode="OBS"> <templateId root="840.1.876081.10..22.4.2 " /> <id nullFlavor="NA" /> <code codeSystem="local" code= "07912-1" displayName="Urine protein assay by test strip, semi-quantitative" /> <statusCode code="completed" /> <effectiveTime value= "" /> <value unit="" xsi:type="PQ" value="3+" /> < interpretationCode codeSystem="local" code="*" /> <referenceRange> <observationRange> <text>NEGATIVE</text> </ observationRange> </referenceRange> </observation> </ component> <component> <observation moodCode="EVN" classCode="OBS"> <templateId root="840.1.977570.10..4.2" /> <id nullFlavor="NA" /> <code codeSystem="local" code="13649-6" displayName= "Urine glucose detection by automated test strip" /> <statusCode code= "completed" /> <effectiveTime value="" /> <value unit="" xsi:type="PQ" value="NEGATIVE" /> <referenceRange> < observationRange> <text>NEGATIVE</text> </ observationRange> </referenceRange> </observation> </ component> <component> <observation moodCode="EVN" classCode="OBS"> <templateId root="01.16.840.1.763007.10..22.4.2" /> <id nullFlavor="NA" /> <code codeSystem="local" code="58191-4" displayName= "Erythrocytes detection in urine sediment by light microscopy" /> < statusCode code="completed" /> <effectiveTime value="022803621814" /> <value unit="" xsi:type="PQ" value="5+" /> < interpretationCode codeSystem="local" code="*" /> <referenceRange> <observationRange> <text>NEGATIVE</text> </ observationRange> </referenceRange> </observation> </ component> <component> <observation moodCode="EVN" classCode="OBS"> <templateId root="16.840.1.075023.10.20.22.4.2" /> <id nullFlavor="NA" /> <code codeSystem="local" code="44036-6" displayName= "Urine ketones detection by automated test strip" /> <statusCode code= "completed" /> <effectiveTime value="916828820467" /> <value unit="" xsi:type="PQ" value="1+" /> <interpretationCode codeSystem= "local" code="*" /> <referenceRange> <observationRange> <text>NEGATIVE</text> </observationRange> </ referenceRange> </observation> </component> <component> <observation moodCode="EVN" classCode="OBS"> <templateId root= "01.16.840.1.567533.10...4.2" /> <id nullFlavor="NA" /> < code codeSystem="local" code="5802-4" displayName="Urine nitrite detection by test strip" /> <statusCode code="completed" /> <effectiveTime value="868649527922" /> <value unit="" xsi:type="PQ" value="POSITIVE" / > <interpretationCode codeSystem="local" code="*" /> < referenceRange> <observationRange> <text>NEGATIVE</text > </observationRange> </referenceRange> </observation > </component> <component> <observation moodCode="EVN" classCode="OBS"> <templateId root="01.16.840.1.534690.10.20.22.4.2" /> <id nullFlavor="NA" /> <code codeSystem="local" code="5770-3" displayName="Urine total bilirubin detection by test strip" /> < statusCode code="completed" /> <effectiveTime value="584591317167" /> <value unit="" xsi:type="PQ" value="NEGATIVE" /> < referenceRange> <observationRange> <text>NEGATIVE</text > </observationRange> </referenceRange> </observation > </component> <component> <observation moodCode="EVN" classCode="OBS"> <templateId root="2.16.840.1.697818.10.20.22.4.2" /> <id nullFlavor="NA" /> <code codeSystem="local" code="60064-9 " displayName="Urine urobilinogen measurement by automated test strip (mass/ volume)" /> <statusCode code="completed" /> <effectiveTime value="161065110200" /> <value unit="" xsi:type="PQ" value="NORMAL" /> <referenceRange> <observationRange> <text> NORMAL</text> </observationRange> </referenceRange> < /observation> </component> <component> <observation moodCode= "EVN" classCode="OBS"> <templateId root="2.16.840.1.356208.10.20.22.4.2 " /> <id nullFlavor="NA" /> <code codeSystem="local" code= "5799-2" displayName="Urine leukocyte esterase detection by dipstick" /> <statusCode code="completed" /> <effectiveTime value="135693852536" /> <value unit="" xsi:type="PQ" value="2+" /> < interpretationCode codeSystem="local" code="*" /> <referenceRange> <observationRange> <text>NEGATIVE</text> </ observationRange> </referenceRange> </observation> </ component> <component> <observation moodCode="EVN" classCode="OBS"> <templateId root="216.840.1.377917.10..22.4.2" /> <id nullFlavor="NA" /> <code codeSystem="local" code="69582-8" displayName= "Automated urine sediment erythrocyte count by microscopy (number/high power field)" /> <statusCode code="completed" /> <effectiveTime value="" /> <value unit="" xsi:type="PQ" value="TNTC" /> <interpretationCode codeSystem="local" code="*" /> < referenceRange> <observationRange> <text>NRG</text> </observationRange> </referenceRange> </observation> </component> <component> <observation moodCode="EVN" classCode= "OBS"> <templateId root="216.840.1.082483.22.4.2" /> < id nullFlavor="NA" /> <code codeSystem="local" code="5821-4" displayName="Automated urine sediment leukocyte count by microscopy (number/ high power field)" /> <statusCode code="completed" /> < effectiveTime value="188464358534" /> <value unit="[HPF]" xsi:type="PQ " value="" /> <interpretationCode codeSystem="local" code="*" /> <referenceRange> <observationRange> <text>NRG</text > </observationRange> </referenceRange> </observation > </component> <component> <observation moodCode="EVN" classCode="OBS"> <templateId root="216.840.1.512753.10..22.4.2" /> <id nullFlavor="NA" /> <code codeSystem="local" code="13154-5 " displayName="Bacteria detection in urine sediment by light microscopy" /> <statusCode code="completed" /> <effectiveTime value= "" /> <value unit="" xsi:type="PQ" value="LARGE" /> <interpretationCode codeSystem="local" code="*" /> <referenceRange> <observationRange> <text>NRG</text> </ observationRange> </referenceRange> </observation> </ component> <component> <observation moodCode="EVN" classCode="OBS"> <templateId root="840.1.548380.10..22.4.2" /> <id nullFlavor="NA" /> <code codeSystem="local" code="00382-0" displayName= "Squamous epithelial cells detection in urine sediment by light microscopy" /> <statusCode code="completed" /> <effectiveTime value= "" /> <value unit="" xsi:type="PQ" value="10-25" /> <interpretationCode codeSystem="local" code="*" /> <referenceRange> <observationRange> <text>NRG</text> </ observationRange> </referenceRange> </observation> </ component> <component> <observation moodCode="EVN" classCode="OBS"> <templateId root="840.1.360034.10.20.22.4.2" /> <id nullFlavor="NA" /> <code codeSystem="local" code="58054-4" displayName= "Crystals detection in urine sediment by light microscopy" /> < statusCode code="completed" /> <effectiveTime value="" /> <value unit="" xsi:type="PQ" value="NONE" /> <referenceRange> <observationRange> <text>NRG</text> </ observationRange> </referenceRange> </observation> </ component> <component> <observation moodCode="EVN" classCode="OBS"> <templateId root="01.16.840.1.728437.10..22.4.2" /> <id nullFlavor="NA" /> <code codeSystem="local" code="85381-8" displayName= "Casts detection in urine sediment by light microscopy" /> <statusCode code="completed" /> <effectiveTime value="" /> < value unit="" xsi:type="PQ" value="NONE" /> <referenceRange> <observationRange> <text>NRG</text> </observationRange > </referenceRange> </observation> </component> < component> <observation moodCode="EVN" classCode="OBS"> < templateId root="216.840.1.571962.10..4.2" /> <id nullFlavor="NA " /> <code codeSystem="local" code="8247-9" displayName="Mucus detection in urine sediment by light microscopy" /> <statusCode code= "completed" /> <effectiveTime value="" /> <value unit="" xsi:type="PQ" value="NEGATIVE" /> <referenceRange> < observationRange> <text>NRG</text> </observationRange> </referenceRange> </observation> </component> < component> <observation moodCode="EVN" classCode="OBS"> < templateId root="216.840.1.073237.10.22.4.2" /> <id nullFlavor="NA " /> <code codeSystem="local" code="74402-4" displayName="Complete urinalysis with reflex to culture" /> <statusCode code="completed" /> <effectiveTime value="" /> <value unit="" xsi:type ="PQ" value="YES" /> <referenceRange> <observationRange> <text>NRG</text> </observationRange> </ referenceRange> </observation> </component> </organizer> </entry > <entry> <organizer moodCode="EVN" classCode="BATTERY"> <templateId root="01.16.840.1.606014.10..4.1" /> <id nullFlavor="NA" /> <code codeSystem="local" code="630-4" displayName="Bacterial urine culture" /> < statusCode code="completed" /> <component> <observation moodCode= "EVN" classCode="OBS"> <templateId root="01.16.840.1.906937...4.2 " /> <id nullFlavor="NA" /> <code codeSystem="local" code= "URINERES" displayName="URINE CULTURE RESULTS" /> <statusCode code= "completed" /> <effectiveTime value="750793062816" /> <value unit="" xsi:type="PQ" value="MORE THAN 3 ISOLATES" /> <referenceRange> <observationRange> <text>NRG</text> </ observationRange> </referenceRange> </observation> </ component> </organizer> </entry> <entry> <organizer moodCode="EVN" classCode="BATTERY"> <templateId root="01.16.840.1.440723...4.1" /> <id nullFlavor="NA" /> <code codeSystem="local" code="57564-0" displayName="Complete blood count (CBC) with automated white blood cell (WBC) differential" /> <statusCode code="completed" /> <component> < observation moodCode="EVN" classCode="OBS"> <templateId root= "01.16.840.1.700191.10...4.2" /> <id nullFlavor="NA" /> < code codeSystem="local" code="6690-2" displayName="Blood leukocytes automated count (number/volume)" /> <statusCode code="completed" /> < effectiveTime value="897968979950" /> <value unit="10*3/uL" xsi:type= "PQ" value="10.9" /> <referenceRange> <observationRange> <text>4.3-11.0</text> </observationRange> </ referenceRange> </observation> </component> <component> <observation moodCode="EVN" classCode="OBS"> <templateId root= "2.16.840.1.058842.10.20.22.4.2" /> <id nullFlavor="NA" /> < code codeSystem="local" code="789-8" displayName="Blood erythrocytes automated count (number/volume)" /> <statusCode code="completed" /> < effectiveTime value="638303869500" /> <value unit="10*6/uL" xsi:type= "PQ" value="4.68" /> <referenceRange> <observationRange> <text>4.35-5.85</text> </observationRange> </ referenceRange> </observation> </component> <component> <observation moodCode="EVN" classCode="OBS"> <templateId root= "2.16.840.1.976052.10.20.22.4.2" /> <id nullFlavor="NA" /> < code codeSystem="local" code="07756-5" displayName="Venous blood hemoglobin measurement (mass/volume)" /> <statusCode code="completed" /> <effectiveTime value="937553932360" /> <value unit="g/dL" xsi:type="PQ " value="14.5" /> <referenceRange> <observationRange> <text>11.5-16.0</text> </observationRange> </ referenceRange> </observation> </component> <component> <observation moodCode="EVN" classCode="OBS"> <templateId root= "2.16.840.1.790322.10.20.22.4.2" /> <id nullFlavor="NA" /> < code codeSystem="local" code="63085-2" displayName="Blood hematocrit (volume fraction)" /> <statusCode code="completed" /> <effectiveTime value="" /> <value unit="%" xsi:type="PQ" value="41" / > <referenceRange> <observationRange> <text>35- 52</text> </observationRange> </referenceRange> </ observation> </component> <component> <observation moodCode= "EVN" classCode="OBS"> <templateId root="216.840.1.537281.10...4.2 " /> <id nullFlavor="NA" /> <code codeSystem="local" code="787 -2" displayName="Automated erythrocyte mean corpuscular volume" /> < statusCode code="completed" /> <effectiveTime value="" /> <value unit="[foz_us]" xsi:type="PQ" value="89" /> < referenceRange> <observationRange> <text>80-99</text> </observationRange> </referenceRange> </observation> </component> <component> <observation moodCode="EVN" classCode= "OBS"> <templateId root="216.840.1.161861.10.20.22.4.2" /> < id nullFlavor="NA" /> <code codeSystem="local" code="785-6" displayName ="Automated erythrocyte mean corpuscular hemoglobin (mass per erythrocyte)" /> <statusCode code="completed" /> <effectiveTime value= "" /> <value unit="pg" xsi:type="PQ" value="31" /> <referenceRange> <observationRange> <text>25-34</text > </observationRange> </referenceRange> </observation > </component> <component> <observation moodCode="EVN" classCode="OBS"> <templateId root="216.840.1.975579.10.20.22.4.2" /> <id nullFlavor="NA" /> <code codeSystem="local" code="786-4" displayName="Automated erythrocyte mean corpuscular hemoglobin concentration measurement (mass/volume)" /> <statusCode code="completed" /> <effectiveTime value="638139190590" /> <value unit="g/dL" xsi:type="PQ " value="35" /> <referenceRange> <observationRange> <text>32-36</text> </observationRange> </ referenceRange> </observation> </component> <component> <observation moodCode="EVN" classCode="OBS"> <templateId root= "16.840.1.828756.10...4.2" /> <id nullFlavor="NA" /> < code codeSystem="local" code="788-0" displayName="Automated erythrocyte distribution width ratio" /> <statusCode code="completed" /> < effectiveTime value="908078706820" /> <value unit="%" xsi:type="PQ " value="13.2" /> <referenceRange> <observationRange> <text>10.0-14.5</text> </observationRange> </ referenceRange> </observation> </component> <component> <observation moodCode="EVN" classCode="OBS"> <templateId root= "216.840.1.142499.10.20.22.4.2" /> <id nullFlavor="NA" /> < code codeSystem="local" code="777-3" displayName="Automated blood platelet count (count/volume)" /> <statusCode code="completed" /> < effectiveTime value="979670823872" /> <value unit="10*3/uL" xsi:type= "PQ" value="253" /> <referenceRange> <observationRange> <text>130-400</text> </observationRange> </ referenceRange> </observation> </component> <component> <observation moodCode="EVN" classCode="OBS"> <templateId root= "2.16.840.1.241670.10.20.22.4.2" /> <id nullFlavor="NA" /> < code codeSystem="local" code="96766-8" displayName="Automated blood platelet mean volume measurement" /> <statusCode code="completed" /> < effectiveTime value="880070123301" /> <value unit="[foz_us]" xsi:type= "PQ" value="9.9" /> <referenceRange> <observationRange> <text>7.4-10.4</text> </observationRange> </ referenceRange> </observation> </component> <component> <observation moodCode="EVN" classCode="OBS"> <templateId root= "2.16.840.1.682926.10.20.22.4.2" /> <id nullFlavor="NA" /> < code codeSystem="local" code="770-8" displayName="Automated blood neutrophils/ 100 leukocytes" /> <statusCode code="completed" /> < effectiveTime value="633696116877" /> <value unit="%" xsi:type="PQ " value="53" /> <referenceRange> <observationRange> <text>42-75</text> </observationRange> </ referenceRange> </observation> </component> <component> <observation moodCode="EVN" classCode="OBS"> <templateId root= "2.16.840.1.857240.10.20.22.4.2" /> <id nullFlavor="NA" /> < code codeSystem="local" code="736-9" displayName="Automated blood lymphocytes/ 100 leukocytes" /> <statusCode code="completed" /> < effectiveTime value="" /> <value unit="%" xsi:type="PQ " value="36" /> <referenceRange> <observationRange> <text>12-44</text> </observationRange> </ referenceRange> </observation> </component> <component> <observation moodCode="EVN" classCode="OBS"> <templateId root= "216.840.1.948799.10.20.22.4.2" /> <id nullFlavor="NA" /> < code codeSystem="local" code="78698-1" displayName="Blood monocytes/100 leukocytes" /> <statusCode code="completed" /> <effectiveTime value="" /> <value unit="%" xsi:type="PQ" value="5" /> <referenceRange> <observationRange> <text>0-12 </text> </observationRange> </referenceRange> </ observation> </component> <component> <observation moodCode= "EVN" classCode="OBS"> <templateId root="2.16.840.1.151768.10.20.22.4.2 " /> <id nullFlavor="NA" /> <code codeSystem="local" code="713 -8" displayName="Automated blood eosinophils/100 leukocytes" /> < statusCode code="completed" /> <effectiveTime value="" /> <value unit="%" xsi:type="PQ" value="5" /> <referenceRange > <observationRange> <text>0-10</text> </ observationRange> </referenceRange> </observation> </ component> <component> <observation moodCode="EVN" classCode="OBS"> <templateId root="216.840.1.393257.10.20.22.4.2" /> <id nullFlavor="NA" /> <code codeSystem="local" code="706-2" displayName= "Automated blood basophils/100 leukocytes" /> <statusCode code= "completed" /> <effectiveTime value="744455872544" /> <value unit="%" xsi:type="PQ" value="1" /> <referenceRange> < observationRange> <text>0-10</text> </observationRange> </referenceRange> </observation> </component> < component> <observation moodCode="EVN" classCode="OBS"> < templateId root="01.16.840.1.248343.10.20.22.4.2" /> <id nullFlavor="NA " /> <code codeSystem="local" code="751-8" displayName="Blood neutrophils automated count (number/volume)" /> <statusCode code= "completed" /> <effectiveTime value="066421853052" /> <value unit="10*3" xsi:type="PQ" value="5.7" /> <referenceRange> < observationRange> <text>1.8-7.8</text> </ observationRange> </referenceRange> </observation> </ component> <component> <observation moodCode="EVN" classCode="OBS"> <templateId root="16.840.1.974627.10.20.22.4.2" /> <id nullFlavor="NA" /> <code codeSystem="local" code="731-0" displayName= "Blood lymphocytes automated count (number/volume)" /> <statusCode code ="completed" /> <effectiveTime value="452152565832" /> <value unit="10*3" xsi:type="PQ" value="3.9" /> <referenceRange> < observationRange> <text>1.0-4.0</text> </ observationRange> </referenceRange> </observation> </ component> <component> <observation moodCode="EVN" classCode="OBS"> <templateId root="216.840.1.674815.10.20.22.4.2" /> <id nullFlavor="NA" /> <code codeSystem="local" code="742-7" displayName= "Blood monocytes automated count (number/volume)" /> <statusCode code= "completed" /> <effectiveTime value="219585045242" /> <value unit="10*3" xsi:type="PQ" value="0.6" /> <referenceRange> < observationRange> <text>0.0-1.0</text> </ observationRange> </referenceRange> </observation> </ component> <component> <observation moodCode="EVN" classCode="OBS"> <templateId root="2.16.840.1.017558.10.20.22.4.2" /> <id nullFlavor="NA" /> <code codeSystem="local" code="711-2" displayName= "Automated eosinophil count" /> <statusCode code="completed" /> <effectiveTime value="125485124241" /> <value unit="10*3/uL" xsi: type="PQ" value="0.6" /> <interpretationCode codeSystem="local" code="* *" /> <referenceRange> <observationRange> <text >0.0-0.3</text> </observationRange> </referenceRange> </observation> </component> <component> <observation moodCode ="EVN" classCode="OBS"> <templateId root= "2.16.840.1.489495.10.20.22.4.2" /> <id nullFlavor="NA" /> < code codeSystem="local" code="704-7" displayName="Automated blood basophil count (count/volume)" /> <statusCode code="completed" /> < effectiveTime value="892975160828" /> <value unit="10*3/uL" xsi:type= "PQ" value="0.1" /> <referenceRange> <observationRange> <text>0.0-0.1</text> </observationRange> </ referenceRange> </observation> </component> </organizer> </entry > <entry> <organizer moodCode="EVN" classCode="BATTERY"> <templateId root="2.16.840.1.980242.10.20.22.4.1" /> <id nullFlavor="NA" /> <code codeSystem="local" code="2118-07" displayName="Serum or plasma choriogonadotropin ( test) detection" /> <statusCode code= "completed" /> <component> <observation moodCode="EVN" classCode= "OBS"> <templateId root="2.16.840.1.171211.10.20.22.4.2" /> < id nullFlavor="NA" /> <code codeSystem="local" code="2118-07" displayName="Serum or plasma choriogonadotropin ( test) detection" /> <statusCode code="completed" /> <effectiveTime value= "025576445605" /> <value unit="" xsi:type="PQ" value="NEGATIVE" /> <referenceRange> <observationRange> <text>NEGATIVE </text> </observationRange> </referenceRange> </ observation> </component> </organizer> </entry> <entry> <organizer moodCode="EVN" classCode="BATTERY"> <templateId root= "2.16.840.1.486587.10.20.22.4.1" /> <id nullFlavor="NA" /> <code codeSystem="local" code="78714-8" displayName="Comprehensive metabolic panel" / > <statusCode code="completed" /> <component> <observation moodCode="EVN" classCode="OBS"> <templateId root= "2.16.840.1.910946.10.20.22.4.2" /> <id nullFlavor="NA" /> < code codeSystem="local" code="2951-2" displayName="Serum or plasma sodium measurement (moles/volume)" /> <statusCode code="completed" /> <effectiveTime value="234044901885" /> <value unit="mmol/L" xsi:type= "PQ" value="139" /> <referenceRange> <observationRange> <text>135-145</text> </observationRange> </ referenceRange> </observation> </component> <component> <observation moodCode="EVN" classCode="OBS"> <templateId root= "2.16.840.1.630388.10.20.22.4.2" /> <id nullFlavor="NA" /> < code codeSystem="local" code="2823-3" displayName="Serum or plasma potassium measurement (moles/volume)" /> <statusCode code="completed" /> <effectiveTime value="934645475731" /> <value unit="mmol/L" xsi:type= "PQ" value="3.9" /> <referenceRange> <observationRange> <text>3.6-5.0</text> </observationRange> </ referenceRange> </observation> </component> <component> <observation moodCode="EVN" classCode="OBS"> <templateId root= "216.840.1.398752.10.20.22.4.2" /> <id nullFlavor="NA" /> < code codeSystem="local" code="" displayName="Serum or plasma chloride measurement (moles/volume)" /> <statusCode code="completed" /> <effectiveTime value="" /> <value unit="mmol/L" xsi:type= "PQ" value="105" /> <referenceRange> <observationRange> <text>98-107</text> </observationRange> </ referenceRange> </observation> </component> <component> <observation moodCode="EVN" classCode="OBS"> <templateId root= "16.840.1.138897.10...4.2" /> <id nullFlavor="NA" /> < code codeSystem="local" code="2028-08" displayName="Carbon dioxide" /> < statusCode code="completed" /> <effectiveTime value="" /> <value unit="mmol/L" xsi:type="PQ" value="20" /> < interpretationCode codeSystem="local" code="" /> <referenceRange> <observationRange> <text>21-32</text> </ observationRange> </referenceRange> </observation> </ component> <component> <observation moodCode="EVN" classCode="OBS"> <templateId root="16.840.1.814691.10..22.4.2" /> <id nullFlavor="NA" /> <code codeSystem="local" code="01859-9" displayName= "Serum or plasma anion gap determination (moles/volume)" /> < statusCode code="completed" /> <effectiveTime value="" /> <value unit="mmol/L" xsi:type="PQ" value="14" /> < referenceRange> <observationRange> <text>5-14</text> </observationRange> </referenceRange> </observation> </component> <component> <observation moodCode="EVN" classCode= "OBS"> <templateId root="216.840.1.301358.10.20.22.4.2" /> < id nullFlavor="NA" /> <code codeSystem="local" code="3094-0" displayName="Serum or plasma urea nitrogen measurement (mass/volume)" /> <statusCode code="completed" /> <effectiveTime value="266065905321" /> <value unit="mg/dL" xsi:type="PQ" value="13" /> < referenceRange> <observationRange> <text>7-18</text> </observationRange> </referenceRange> </observation> </component> <component> <observation moodCode="EVN" classCode= "OBS"> <templateId root="216.840.1.681210.10..22.4.2" /> < id nullFlavor="NA" /> <code codeSystem="local" code="2160-0" displayName="Serum or plasma creatinine measurement (mass/volume)" /> < statusCode code="completed" /> <effectiveTime value="631833182119" /> <value unit="mg/dL" xsi:type="PQ" value="0.78" /> < referenceRange> <observationRange> <text>0.60-1.30</text > </observationRange> </referenceRange> </observation > </component> <component> <observation moodCode="EVN" classCode="OBS"> <templateId root="216.840.1.272466.10.20.22.4.2" /> <id nullFlavor="NA" /> <code codeSystem="local" code="3097-3" displayName="Serum or plasma urea nitrogen/creatinine mass ratio" /> < statusCode code="completed" /> <effectiveTime value="638186205711" /> <value unit="" xsi:type="PQ" value="17" /> <referenceRange> <observationRange> <text>NRG</text> </ observationRange> </referenceRange> </observation> </ component> <component> <observation moodCode="EVN" classCode="OBS"> <templateId root="2.16.840.1.504601.10.20.22.4.2" /> <id nullFlavor="NA" /> <code codeSystem="local" code="16069-1" displayName= "Serum or plasma creatinine measurement with calculation of estimated glomerular filtration rate" /> <statusCode code="completed" /> <effectiveTime value="972919907512" /> <value unit="" xsi:type="PQ" value=">" /> <referenceRange> <observationRange> <text>NRG</text> </observationRange> </referenceRange > </observation> </component> <component> <observation moodCode="EVN" classCode="OBS"> <templateId root= "2.16.840.1.049365.10.20.22.4.2" /> <id nullFlavor="NA" /> < code codeSystem="local" code="2345-7" displayName="Serum or plasma glucose measurement (mass/volume)" /> <statusCode code="completed" /> <effectiveTime value="408151428199" /> <value unit="mg/dL" xsi:type="PQ " value="108" /> <interpretationCode codeSystem="local" code="" /> <referenceRange> <observationRange> <text>70-105 </text> </observationRange> </referenceRange> </ observation> </component> <component> <observation moodCode= "EVN" classCode="OBS"> <templateId root="2.16.840.1.051160.10.20.22.4.2 " /> <id nullFlavor="NA" /> <code codeSystem="local" code= "55148-5" displayName="Serum or plasma calcium measurement (mass/volume)" /> <statusCode code="completed" /> <effectiveTime value= "917930789522" /> <value unit="mg/dL" xsi:type="PQ" value="9.4" /> <referenceRange> <observationRange> <text>8.5-10.1 </text> </observationRange> </referenceRange> </ observation> </component> <component> <observation moodCode= "EVN" classCode="OBS"> <templateId root="2.16.840.1.263182.10..22.4.2 " /> <id nullFlavor="NA" /> <code codeSystem="local" code= "1975-01" displayName="Serum or plasma total bilirubin measurement (mass/volume) " /> <statusCode code="completed" /> <effectiveTime value= "955911166118" /> <value unit="mg/dL" xsi:type="PQ" value="0.2" /> <referenceRange> <observationRange> <text>0.1-1.0< /text> </observationRange> </referenceRange> </ observation> </component> <component> <observation moodCode= "EVN" classCode="OBS"> <templateId root="2.16.840.1.535936.10.20.22.4.2 " /> <id nullFlavor="NA" /> <code codeSystem="local" code= "6768-6" displayName="Serum or plasma alkaline phosphatase measurement ( enzymatic activity/volume)" /> <statusCode code="completed" /> <effectiveTime value="398159361453" /> <value unit="U/L" xsi:type="PQ " value="74" /> <referenceRange> <observationRange> <text>40-136</text> </observationRange> </ referenceRange> </observation> </component> <component> <observation moodCode="EVN" classCode="OBS"> <templateId root= "2.16.840.1.736005.10..22.4.2" /> <id nullFlavor="NA" /> < code codeSystem="local" code="1920-07" displayName="Serum or plasma aspartate aminotransferase measurement (enzymatic activity/volume)" /> < statusCode code="completed" /> <effectiveTime value="964964815709" /> <value unit="U/L" xsi:type="PQ" value="21" /> <referenceRange > <observationRange> <text>5-34</text> </ observationRange> </referenceRange> </observation> </ component> <component> <observation moodCode="EVN" classCode="OBS"> <templateId root="2.16.840.1.978391.10...4.2" /> <id nullFlavor="NA" /> <code codeSystem="local" code="17401-06" displayName= "Serum or plasma alanine aminotransferase measurement (enzymatic activity/volume )" /> <statusCode code="completed" /> <effectiveTime value= "709593958180" /> <value unit="U/L" xsi:type="PQ" value="29" /> <referenceRange> <observationRange> <text>0-55</text > </observationRange> </referenceRange> </observation > </component> <component> <observation moodCode="EVN" classCode="OBS"> <templateId root="2.16.840.1.107253.10.4.2" /> <id nullFlavor="NA" /> <code codeSystem="local" code="2885-2" displayName="Serum or plasma protein measurement (mass/volume)" /> < statusCode code="completed" /> <effectiveTime value="855943207289" /> <value unit="g/dL" xsi:type="PQ" value="7.6" /> < referenceRange> <observationRange> <text>6.4-8.2</text> </observationRange> </referenceRange> </observation > </component> <component> <observation moodCode="EVN" classCode="OBS"> <templateId root="01.16.840.1.797591.09.19.22.4.2" /> <id nullFlavor="NA" /> <code codeSystem="local" code="1751-7" displayName="Serum or plasma albumin measurement (mass/volume)" /> < statusCode code="completed" /> <effectiveTime value="816825192470" /> <value unit="g/dL" xsi:type="PQ" value="4.0" /> < referenceRange> <observationRange> <text>3.2-4.5</text> </observationRange> </referenceRange> </observation > </component> </organizer> </entry> <entry> <organizer moodCode= "EVN" classCode="BATTERY"> <templateId root="01.16.840.1.240077.10.4.1 " /> <id nullFlavor="NA" /> <code codeSystem="local" code="3040-3" displayName="Lipase" /> <statusCode code="completed" /> <component> <observation moodCode="EVN" classCode="OBS"> <templateId root= "01.16.840.1.347065.1022.4.2" /> <id nullFlavor="NA" /> < code codeSystem="local" code="3040-3" displayName="Lipase" /> < statusCode code="completed" /> <effectiveTime value="700375959637" /> <value unit="U/L" xsi:type="PQ" value="49" /> <referenceRange > <observationRange> <text>878</text> </ observationRange> </referenceRange> </observation> </ component> </organizer> </entry> <entry> <organizer moodCode="EVN" classCode="BATTERY"> <templateId root="216.840.1.951278.10...4.1" /> <id nullFlavor="NA" /> <code codeSystem="local" code="ORD9" displayName="Cardiac Panel" /> <statusCode code="completed" /> < component> <observation moodCode="EVN" classCode="OBS"> < templateId root="216.840.1.762674.10...4.2" /> <id nullFlavor="NA " /> <code codeSystem="local" code="Res56" displayName="CK" /> <statusCode code="completed" /> <effectiveTime value="202268931326" / > <value unit="U/L" xsi:type="PQ" value="106" /> < referenceRange> <observationRange> <text>26-174</text> </observationRange> </referenceRange> </observation> </component> <component> <observation moodCode="EVN" classCode ="OBS"> <templateId root="216.840.1.337014.10...4.2" /> < id nullFlavor="NA" /> <code codeSystem="local" code="Res31" displayName ="CK-MB" /> <statusCode code="completed" /> <effectiveTime value="441529512610" /> <value unit="ng/ml" xsi:type="PQ" value="1.2" / > <referenceRange> <observationRange> <text>0.0 -9.2</text> </observationRange> </referenceRange> </ observation> </component> <component> <observation moodCode= "EVN" classCode="OBS"> <templateId root="216.840.1.338424.09.19.22.4.2 " /> <id nullFlavor="NA" /> <code codeSystem="local" code= "Mli8043" displayName="Myoglobin" /> <statusCode code="completed" /> <effectiveTime value="827861719098" /> <value unit="ng/ml" xsi: type="PQ" value="41.4" /> <referenceRange> <observationRange > <text>1.6-106.0</text> </observationRange> </ referenceRange> </observation> </component> <component> <observation moodCode="EVN" classCode="OBS"> <templateId root= "2.16.840.1.209693.09.19.22.4.2" /> <id nullFlavor="NA" /> < code codeSystem="local" code="Res33" displayName="Troponin" /> < statusCode code="completed" /> <effectiveTime value="817997791620" /> <value unit="ng/mL" xsi:type="PQ" value="<0.020" /> < referenceRange> <observationRange> <text>0.0-0.4</text> </observationRange> </referenceRange> </observation > </component> </organizer> </entry> <entry> <organizer moodCode= "EVN" classCode="BATTERY"> <templateId root="01.16.840.1.078902.10..22.4.1 " /> <id nullFlavor="NA" /> <code codeSystem="local" code="ORD2" displayName="CBC with Auto Diff" /> <statusCode code="completed" /> < component> <observation moodCode="EVN" classCode="OBS"> < templateId root="01.16.840.1.956153.09.19.22.4.2" /> <id nullFlavor="NA " /> <code codeSystem="local" code="Gzr882" displayName="Baso%" /> <statusCode code="completed" /> <effectiveTime value= "028196919292" /> <value unit="%" xsi:type="PQ" value="0.30" /> <referenceRange> <observationRange> <text>0.00- 2.50</text> </observationRange> </referenceRange> </ observation> </component> <component> <observation moodCode= "EVN" classCode="OBS"> <templateId root="840.1.725354.09.19.22.4.2 " /> <id nullFlavor="NA" /> <code codeSystem="local" code= "Bdq448" displayName="Eos" /> <statusCode code="completed" /> <effectiveTime value="138962181123" /> <value unit="K/uL" xsi:type="PQ " value="0.2" /> <referenceRange> <observationRange> <text>0.0-0.7</text> </observationRange> </ referenceRange> </observation> </component> <component> <observation moodCode="EVN" classCode="OBS"> <templateId root= "01.16.840.1.551158..22.4.2" /> <id nullFlavor="NA" /> < code codeSystem="local" code="Oha653" displayName="Eos%" /> < statusCode code="completed" /> <effectiveTime value="100608476897" /> <value unit="%" xsi:type="PQ" value="1.4" /> < referenceRange> <observationRange> <text>0.0-7.0</text> </observationRange> </referenceRange> </observation > </component> <component> <observation moodCode="EVN" classCode="OBS"> <templateId root="2.16.840.1.966710.10...4.2" /> <id nullFlavor="NA" /> <code codeSystem="local" code="Res87" displayName="Hct" /> <statusCode code="completed" /> < effectiveTime value="256530890720" /> <value unit="%" xsi:type="PQ " value="40.4" /> <referenceRange> <observationRange> <text>36.0-46.0</text> </observationRange> </ referenceRange> </observation> </component> <component> <observation moodCode="EVN" classCode="OBS"> <templateId root= "2.16.840.1.581854.10..22.4.2" /> <id nullFlavor="NA" /> < code codeSystem="local" code="Slh128" displayName="Hgb" /> <statusCode code="completed" /> <effectiveTime value="549880759910" /> < value unit="g/dL" xsi:type="PQ" value="13.8" /> <referenceRange> <observationRange> <text>13.0-15.0</text> </ observationRange> </referenceRange> </observation> </ component> <component> <observation moodCode="EVN" classCode="OBS"> <templateId root="16.840.1.775262.10.20.22.4.2" /> <id nullFlavor="NA" /> <code codeSystem="local" code="Ylu287" displayName= "Lym" /> <statusCode code="completed" /> <effectiveTime value= "861190374019" /> <value unit="K/uL" xsi:type="PQ" value="3.04" /> <referenceRange> <observationRange> <text>0.60- 3.40</text> </observationRange> </referenceRange> </ observation> </component> <component> <observation moodCode= "EVN" classCode="OBS"> <templateId root="01.16.840.1.583529.1022.4.2 " /> <id nullFlavor="NA" /> <code codeSystem="local" code= "Btx098" displayName="Lym%" /> <statusCode code="completed" /> <effectiveTime value="113401055517" /> <value unit="%" xsi: type="PQ" value="24.2" /> <referenceRange> <observationRange > <text>10.0-50.0</text> </observationRange> </ referenceRange> </observation> </component> <component> <observation moodCode="EVN" classCode="OBS"> <templateId root= "16.840.1.422915.10.2022.4.2" /> <id nullFlavor="NA" /> < code codeSystem="local" code="Res89" displayName="MCH" /> <statusCode code="completed" /> <effectiveTime value="922723771948" /> < value unit="pg" xsi:type="PQ" value="30.5" /> <referenceRange> <observationRange> <text>27.0-31.0</text> </ observationRange> </referenceRange> </observation> </ component> <component> <observation moodCode="EVN" classCode="OBS"> <templateId root="216.840.1.655847.10..4.2" /> <id nullFlavor="NA" /> <code codeSystem="local" code="Res90" displayName= "MCHC" /> <statusCode code="completed" /> <effectiveTime value ="718882959287" /> <value unit="g/dL" xsi:type="PQ" value="34.2" /> <referenceRange> <observationRange> <text>32.0- 36.0</text> </observationRange> </referenceRange> </ observation> </component> <component> <observation moodCode= "EVN" classCode="OBS"> <templateId root="01.16.840.1.981746.09.19.22.4.2 " /> <id nullFlavor="NA" /> <code codeSystem="local" code= "Res88" displayName="MCV" /> <statusCode code="completed" /> < effectiveTime value="307170581462" /> <value unit="fL" xsi:type="PQ" value="89.2" /> <referenceRange> <observationRange> <text>80.0-97.0</text> </observationRange> </ referenceRange> </observation> </component> <component> <observation moodCode="EVN" classCode="OBS"> <templateId root= "01.16.840.1.407697.10..4.2" /> <id nullFlavor="NA" /> < code codeSystem="local" code="Ltj035" displayName="Calloway%" /> < statusCode code="completed" /> <effectiveTime value="882882524892" /> <value unit="%" xsi:type="PQ" value="5.3" /> < referenceRange> <observationRange> <text>0.0-12.0</text > </observationRange> </referenceRange> </observation > </component> <component> <observation moodCode="EVN" classCode="OBS"> <templateId root="2.16.840.1.103383.10.20.22.4.2" /> <id nullFlavor="NA" /> <code codeSystem="local" code="Mbo078" displayName="MPV" /> <statusCode code="completed" /> < effectiveTime value="904793208973" /> <value unit="fL" xsi:type="PQ" value="9.2" /> <referenceRange> <observationRange> <text>7.4-10.0</text> </observationRange> </ referenceRange> </observation> </component> <component> <observation moodCode="EVN" classCode="OBS"> <templateId root= "216.840.1.142433.10..22.4.2" /> <id nullFlavor="NA" /> < code codeSystem="local" code="Jrp469" displayName="Gautam%" /> < statusCode code="completed" /> <effectiveTime value="387626368512" /> <value unit="%" xsi:type="PQ" value="68.8" /> < referenceRange> <observationRange> <text>37.0-80.0</text > </observationRange> </referenceRange> </observation > </component> <component> <observation moodCode="EVN" classCode="OBS"> <templateId root="2.16.840.1.179904.10.20.22.4.2" /> <id nullFlavor="NA" /> <code codeSystem="local" code="Res97" displayName="Plt" /> <statusCode code="completed" /> < effectiveTime value="170283259264" /> <value unit="K/uL" xsi:type="PQ" value="232" /> <referenceRange> <observationRange> <text>150-400</text> </observationRange> </ referenceRange> </observation> </component> <component> <observation moodCode="EVN" classCode="OBS"> <templateId root= "2.16.840.1.485928.10..22.4.2" /> <id nullFlavor="NA" /> < code codeSystem="local" code="Tts795" displayName="RBC" /> <statusCode code="completed" /> <effectiveTime value="492558650763" /> < value unit="M/uL" xsi:type="PQ" value="4.53" /> <referenceRange> <observationRange> <text>3.60-5.00</text> </ observationRange> </referenceRange> </observation> </ component> <component> <observation moodCode="EVN" classCode="OBS"> <templateId root="2.16.840.1.577969.10..22.4.2" /> <id nullFlavor="NA" /> <code codeSystem="local" code="Res91" displayName= "RDW" /> <statusCode code="completed" /> <effectiveTime value= "207375359874" /> <value unit="%" xsi:type="PQ" value="12.5" /> <referenceRange> <observationRange> <text>11.6- 14.8</text> </observationRange> </referenceRange> </ observation> </component> <component> <observation moodCode= "EVN" classCode="OBS"> <templateId root="16.840.1.792213.10..22.4.2 " /> <id nullFlavor="NA" /> <code codeSystem="local" code= "Res98" displayName="WBC" /> <statusCode code="completed" /> < effectiveTime value="" /> <value unit="K/uL" xsi:type="PQ" value="12.55" /> <interpretationCode codeSystem="local" code="H" /> <referenceRange> <observationRange> <text>5.00- 10.00</text> </observationRange> </referenceRange> </ observation> </component> <component> <observation moodCode= "EVN" classCode="OBS"> <templateId root="01.16.840.1.701023.10.4.2 " /> <id nullFlavor="NA" /> <code codeSystem="local" code= "Res99" displayName="Gautam" /> <statusCode code="completed" /> < effectiveTime value="460943229340" /> <value unit="K/uL" xsi:type="PQ" value="8.62" /> <interpretationCode codeSystem="local" code="H" /> <referenceRange> <observationRange> <text>2.00- 6.90</text> </observationRange> </referenceRange> </ observation> </component> <component> <observation moodCode= "EVN" classCode="OBS"> <templateId root="01.16.840.1.448277.10.2022.4.2 " /> <id nullFlavor="NA" /> <code codeSystem="local" code= "Thw178" displayName="Calloway" /> <statusCode code="completed" /> <effectiveTime value="303514601455" /> <value unit="K/uL" xsi:type= "PQ" value="0.7" /> <referenceRange> <observationRange> <text>0.0-0.9</text> </observationRange> </ referenceRange> </observation> </component> <component> <observation moodCode="EVN" classCode="OBS"> <templateId root= "16.840.1.319782.10.4.2" /> <id nullFlavor="NA" /> < code codeSystem="local" code="Gik045" displayName="Baso" /> < statusCode code="completed" /> <effectiveTime value="580589048055" /> <value unit="K/uL" xsi:type="PQ" value="0.0" /> < referenceRange> <observationRange> <text>0.0-0.2</text> </observationRange> </referenceRange> </observation > </component> </organizer> </entry> <entry> <organizer moodCode= "EVN" classCode="BATTERY"> <templateId root="01.16.840.1.134321.09.19.22.4.1 " /> <id nullFlavor="NA" /> <code codeSystem="local" code="ORD87" displayName="EKG" /> <statusCode code="completed" /> <component> <observation moodCode="EVN" classCode="OBS"> <templateId root= "01.16.840.1.848503.10.4.2" /> <id nullFlavor="NA" /> < code codeSystem="local" code="Hwg2342" displayName="EKG" /> < statusCode code="completed" /> <effectiveTime value="616074317343" /> <value unit="" xsi:type="PQ" value="Complete" /> < referenceRange> <observationRange> <text /> < /observationRange> </referenceRange> </observation> </ component> </organizer> </entry> <entry> <organizer moodCode="EVN" classCode="BATTERY"> <templateId root="2.16.840.1.402689.10..22.4.1" /> <id nullFlavor="NA" /> <code codeSystem="local" code="ORD68" displayName="Urinalysis" /> <statusCode code="completed" /> <component > <observation moodCode="EVN" classCode="OBS"> <templateId root= "2.16.840.1.369089.10...4.2" /> <id nullFlavor="NA" /> < code codeSystem="local" code="Bxx3396" displayName="Icotest" /> < statusCode code="completed" /> <effectiveTime value="" /> <value unit="" xsi:type="PQ" value="N/A" /> < interpretationCode codeSystem="local" code="A" /> <referenceRange> <observationRange> <text>Negative</text> </ observationRange> </referenceRange> </observation> </ component> <component> <observation moodCode="EVN" classCode="OBS"> <templateId root="216.840.1.504572.10...4.2" /> <id nullFlavor="NA" /> <code codeSystem="local" code="Qyx453" displayName= "Urine Volume" /> <statusCode code="completed" /> < effectiveTime value="" /> <value unit="" xsi:type="PQ" value="Urine Volume Sufficient (10mL)" /> <referenceRange> < observationRange> <text /> </observationRange> </referenceRange> </observation> </component> <component> <observation moodCode="EVN" classCode="OBS"> <templateId root= "216.840.1.071882.10..4.2" /> <id nullFlavor="NA" /> < code codeSystem="local" code="Hkv029" displayName="Urine-Appearance" /> <statusCode code="completed" /> <effectiveTime value="" / > <value unit="" xsi:type="PQ" value="Clear" /> < referenceRange> <observationRange> <text>Clear</text> </observationRange> </referenceRange> </observation> </component> <component> <observation moodCode="EVN" classCode= "OBS"> <templateId root="216.840.1.756691.10..4.2" /> < id nullFlavor="NA" /> <code codeSystem="local" code="Aun801" displayName="Urine-Bacteria" /> <statusCode code="completed" /> <effectiveTime value="" /> <value unit="" xsi:type="PQ" value="Negative" /> <referenceRange> <observationRange> <text> </text> </observationRange> </ referenceRange> </observation> </component> <component> <observation moodCode="EVN" classCode="OBS"> <templateId root= "16.840.1.150631.10.4.2" /> <id nullFlavor="NA" /> < code codeSystem="local" code="Cpz810" displayName="Urine-Bilirubin" /> <statusCode code="completed" /> <effectiveTime value="" /> <value unit="" xsi:type="PQ" value="Negative" /> < referenceRange> <observationRange> <text>Negative</text > </observationRange> </referenceRange> </observation > </component> <component> <observation moodCode="EVN" classCode="OBS"> <templateId root="216.840.1.650101.10..4.2" /> <id nullFlavor="NA" /> <code codeSystem="local" code="Evi008" displayName="Urine-Blood" /> <statusCode code="completed" /> < effectiveTime value="" /> <value unit="" xsi:type="PQ" value="Negative" /> <referenceRange> <observationRange> <text>Negative</text> </observationRange> </ referenceRange> </observation> </component> <component> <observation moodCode="EVN" classCode="OBS"> <templateId root= "216.840.1.771370...4.2" /> <id nullFlavor="NA" /> < code codeSystem="local" code="Vqa340" displayName="Urine-Color" /> < statusCode code="completed" /> <effectiveTime value="" /> <value unit="" xsi:type="PQ" value="Yellow" /> <referenceRange > <observationRange> <text>Colorless-Lt. Yellow</text> </observationRange> </referenceRange> </observation> </component> <component> <observation moodCode="EVN" classCode ="OBS"> <templateId root="216.840.1.093169.10.22.4.2" /> < id nullFlavor="NA" /> <code codeSystem="local" code="Iot178" displayName="Urine-Epithelial Cells" /> <statusCode code="completed" / > <effectiveTime value="" /> <value unit="" xsi: type="PQ" value="0-5/HPF" /> <interpretationCode codeSystem="local" code="A" /> <referenceRange> <observationRange> <text> </text> </observationRange> </referenceRange> </observation> </component> <component> <observation moodCode="EVN" classCode="OBS"> <templateId root= "216.840.1.793578.10..4.2" /> <id nullFlavor="NA" /> < code codeSystem="local" code="Fwl032" displayName="Urine-Glucose" /> < statusCode code="completed" /> <effectiveTime value="" /> <value unit="" xsi:type="PQ" value="Negative" /> < referenceRange> <observationRange> <text>Negative</text > </observationRange> </referenceRange> </observation > </component> <component> <observation moodCode="EVN" classCode="OBS"> <templateId root="01.16.840.1.899378.10.4.2" /> <id nullFlavor="NA" /> <code codeSystem="local" code="Fpk937" displayName="Urine-Ketones" /> <statusCode code="completed" /> <effectiveTime value="" /> <value unit="" xsi:type="PQ" value="Negative" /> <referenceRange> <observationRange> <text>Negative</text> </observationRange> </ referenceRange> </observation> </component> <component> <observation moodCode="EVN" classCode="OBS"> <templateId root= "01.16.840.1.576426.10.4.2" /> <id nullFlavor="NA" /> < code codeSystem="local" code="Rkd346" displayName="Urine-Leukocytes" /> <statusCode code="completed" /> <effectiveTime value="" / > <value unit="" xsi:type="PQ" value="Negative" /> < referenceRange> <observationRange> <text>Negative</text > </observationRange> </referenceRange> </observation > </component> <component> <observation moodCode="EVN" classCode="OBS"> <templateId root="216.840.1.677132.10..22.4.2" /> <id nullFlavor="NA" /> <code codeSystem="local" code="Oqy160" displayName="Urine-Nitrite" /> <statusCode code="completed" /> <effectiveTime value="" /> <value unit="" xsi:type="PQ" value="Negative" /> <referenceRange> <observationRange> <text>Negative</text> </observationRange> </ referenceRange> </observation> </component> <component> <observation moodCode="EVN" classCode="OBS"> <templateId root= "216.840.1.923415.10..22.4.2" /> <id nullFlavor="NA" /> < code codeSystem="local" code="Fow780" displayName="Urine-Other" /> < statusCode code="completed" /> <effectiveTime value="[id number]" /> <value unit="" xsi:type="PQ" value=" Urine Saved if Culture Needed ( 48hrs from time of collection)" /> <interpretationCode codeSystem= "local" code="A" /> <referenceRange> <observationRange> <text> </text> </observationRange> </ referenceRange> </observation> </component> <component> <observation moodCode="EVN" classCode="OBS"> <templateId root= "216.840.1.336727.10..22.4.2" /> <id nullFlavor="NA" /> < code codeSystem="local" code="Siq303" displayName="Urine-pH" /> < statusCode code="completed" /> <effectiveTime value="" /> <value unit="" xsi:type="PQ" value="7.5" /> <referenceRange> <observationRange> <text>5-8.5</text> </ observationRange> </referenceRange> </observation> </ component> <component> <observation moodCode="EVN" classCode="OBS"> <templateId root="216.840.1.058237.10...4.2" /> <id nullFlavor="NA" /> <code codeSystem="local" code="Nmm970" displayName= "Urine-Protein" /> <statusCode code="completed" /> < effectiveTime value="" /> <value unit="" xsi:type="PQ" value="Negative" /> <referenceRange> <observationRange> <text>Negative</text> </observationRange> </ referenceRange> </observation> </component> <component> <observation moodCode="EVN" classCode="OBS"> <templateId root= "216.840.1.621069.10...4.2" /> <id nullFlavor="NA" /> < code codeSystem="local" code="Jbb456" displayName="Urine-RBC" /> < statusCode code="completed" /> <effectiveTime value="001620979649" /> <value unit="" xsi:type="PQ" value="Negative" /> < referenceRange> <observationRange> <text> </text> </observationRange> </referenceRange> </observation> </component> <component> <observation moodCode="EVN" classCode="OBS "> <templateId root="01.16.840.1.844608.09.19.22.4.2" /> <id nullFlavor="NA" /> <code codeSystem="local" code="Pub766" displayName= "Urine-Specific Rulo" /> <statusCode code="completed" /> < effectiveTime value="" /> <value unit="" xsi:type="PQ" value="1.015" /> <referenceRange> <observationRange> <text>1.000-1.030</text> </observationRange> </ referenceRange> </observation> </component> <component> <observation moodCode="EVN" classCode="OBS"> <templateId root= "2.16.840.1.273690.10.4.2" /> <id nullFlavor="NA" /> < code codeSystem="local" code="Kbr369" displayName="Urine-WBC" /> < statusCode code="completed" /> <effectiveTime value="" /> <value unit="" xsi:type="PQ" value="Rare/HPF" /> < interpretationCode codeSystem="local" code="A" /> <referenceRange> <observationRange> <text> </text> </ observationRange> </referenceRange> </observation> </ component> <component> <observation moodCode="EVN" classCode="OBS"> <templateId root="2.16.840.1.892576.10.4.2" /> <id nullFlavor="NA" /> <code codeSystem="local" code="Daf504" displayName= "Urobilinogen" /> <statusCode code="completed" /> < effectiveTime value="" /> <value unit="" xsi:type="PQ" value="0.2 E.U./dL" /> <interpretationCode codeSystem="local" code="A" /> <referenceRange> <observationRange> <text> 0.2-1.0</text> </observationRange> </referenceRange> </observation> </component> </organizer> </entry> <entry> < organizer moodCode="EVN" classCode="BATTERY"> <templateId root= "16.840.1.837214.10...4.1" /> <id nullFlavor="NA" /> <code codeSystem="local" code="ORD39" displayName="Troponin I" /> <statusCode code="completed" /> <component> <observation moodCode="EVN" classCode="OBS"> <templateId root="01.16.840.1.807725.10..4.2" /> <id nullFlavor="NA" /> <code codeSystem="local" code="Res33" displayName="Troponin" /> <statusCode code="completed" /> < effectiveTime value="301394069251" /> <value unit="ng/mL" xsi:type="PQ " value="<0.020" /> <referenceRange> <observationRange> <text>0.0-0.4</text> </observationRange> </ referenceRange> </observation> </component> </organizer> </entry > <entry> <organizer moodCode="EVN" classCode="BATTERY"> <templateId root="01.16.840.1.561975.10..4.1" /> <id nullFlavor="NA" /> <code codeSystem="local" code="41040-6" displayName="Complete blood count (CBC) with automated white blood cell (WBC) differential" /> <statusCode code= "completed" /> <component> <observation moodCode="EVN" classCode= "OBS"> <templateId root="16.840.1.902024.10..22.4.2" /> < id nullFlavor="NA" /> <code codeSystem="local" code="6690-2" displayName="Blood leukocytes automated count (number/volume)" /> < statusCode code="completed" /> <effectiveTime value="" /> <value unit="10*3/uL" xsi:type="PQ" value="10.5" /> < referenceRange> <observationRange> <text>4.3-11.0</text > </observationRange> </referenceRange> </observation > </component> <component> <observation moodCode="EVN" classCode="OBS"> <templateId root="2.16.840.1.915568.10..22.4.2" /> <id nullFlavor="NA" /> <code codeSystem="local" code="789-8" displayName="Blood erythrocytes automated count (number/volume)" /> < statusCode code="completed" /> <effectiveTime value="" /> <value unit="10*6/uL" xsi:type="PQ" value="4.54" /> < referenceRange> <observationRange> <text>4.35-5.85</text > </observationRange> </referenceRange> </observation > </component> <component> <observation moodCode="EVN" classCode="OBS"> <templateId root="2.16.840.1.334015.10..22.4.2" /> <id nullFlavor="NA" /> <code codeSystem="local" code="62282-8 " displayName="Venous blood hemoglobin measurement (mass/volume)" /> < statusCode code="completed" /> <effectiveTime value="" /> <value unit="g/dL" xsi:type="PQ" value="13.7" /> < referenceRange> <observationRange> <text>11.5-16.0</text > </observationRange> </referenceRange> </observation > </component> <component> <observation moodCode="EVN" classCode="OBS"> <templateId root="2.16.840.1.207286.10..22.4.2" /> <id nullFlavor="NA" /> <code codeSystem="local" code="85813-8 " displayName="Blood hematocrit (volume fraction)" /> <statusCode code= "completed" /> <effectiveTime value="400317009906" /> <value unit="%" xsi:type="PQ" value="41" /> <referenceRange> < observationRange> <text>35-52</text> </observationRange > </referenceRange> </observation> </component> < component> <observation moodCode="EVN" classCode="OBS"> < templateId root="216.840.1.530439.10.22.4.2" /> <id nullFlavor="NA " /> <code codeSystem="local" code="787-2" displayName="Automated erythrocyte mean corpuscular volume" /> <statusCode code="completed" / > <effectiveTime value="446472568018" /> <value unit="[foz_us] " xsi:type="PQ" value="89" /> <referenceRange> < observationRange> <text>80-99</text> </observationRange > </referenceRange> </observation> </component> < component> <observation moodCode="EVN" classCode="OBS"> < templateId root="216.840.1.777495.10..22.4.2" /> <id nullFlavor="NA " /> <code codeSystem="local" code="785-6" displayName="Automated erythrocyte mean corpuscular hemoglobin (mass per erythrocyte)" /> < statusCode code="completed" /> <effectiveTime value="011251715150" /> <value unit="pg" xsi:type="PQ" value="30" /> <referenceRange> <observationRange> <text>25-34</text> </ observationRange> </referenceRange> </observation> </ component> <component> <observation moodCode="EVN" classCode="OBS"> <templateId root="2.16.840.1.481262.10...4.2" /> <id nullFlavor="NA" /> <code codeSystem="local" code="786-4" displayName= "Automated erythrocyte mean corpuscular hemoglobin concentration measurement ( mass/volume)" /> <statusCode code="completed" /> < effectiveTime value="185139702123" /> <value unit="g/dL" xsi:type="PQ" value="34" /> <referenceRange> <observationRange> <text>32-36</text> </observationRange> </referenceRange > </observation> </component> <component> <observation moodCode="EVN" classCode="OBS"> <templateId root= "2.16.840.1.048014.10...4.2" /> <id nullFlavor="NA" /> < code codeSystem="local" code="788-0" displayName="Automated erythrocyte distribution width ratio" /> <statusCode code="completed" /> < effectiveTime value="544246127015" /> <value unit="%" xsi:type="PQ " value="13.1" /> <referenceRange> <observationRange> <text>10.0-14.5</text> </observationRange> </ referenceRange> </observation> </component> <component> <observation moodCode="EVN" classCode="OBS"> <templateId root= "2.16.840.1.845907.09.19.22.4.2" /> <id nullFlavor="NA" /> < code codeSystem="local" code="777-3" displayName="Automated blood platelet count (count/volume)" /> <statusCode code="completed" /> < effectiveTime value="921746215345" /> <value unit="10*3/uL" xsi:type= "PQ" value="234" /> <referenceRange> <observationRange> <text>130-400</text> </observationRange> </ referenceRange> </observation> </component> <component> <observation moodCode="EVN" classCode="OBS"> <templateId root= "2.16.840.1.812614..22.4.2" /> <id nullFlavor="NA" /> < code codeSystem="local" code="07011-5" displayName="Automated blood platelet mean volume measurement" /> <statusCode code="completed" /> < effectiveTime value="970352776672" /> <value unit="[foz_us]" xsi:type= "PQ" value="10.2" /> <referenceRange> <observationRange> <text>7.4-10.4</text> </observationRange> </ referenceRange> </observation> </component> <component> <observation moodCode="EVN" classCode="OBS"> <templateId root= "216.840.1.268172...22.4.2" /> <id nullFlavor="NA" /> < code codeSystem="local" code="770-8" displayName="Automated blood neutrophils/ 100 leukocytes" /> <statusCode code="completed" /> < effectiveTime value="995821317108" /> <value unit="%" xsi:type="PQ " value="66" /> <referenceRange> <observationRange> <text>42-75</text> </observationRange> </ referenceRange> </observation> </component> <component> <observation moodCode="EVN" classCode="OBS"> <templateId root= "2.16.840.1.789546.10..22.4.2" /> <id nullFlavor="NA" /> < code codeSystem="local" code="736-9" displayName="Automated blood lymphocytes/ 100 leukocytes" /> <statusCode code="completed" /> < effectiveTime value="" /> <value unit="%" xsi:type="PQ " value="26" /> <referenceRange> <observationRange> <text>12-44</text> </observationRange> </ referenceRange> </observation> </component> <component> <observation moodCode="EVN" classCode="OBS"> <templateId root= "2.16.840.1.977342.10..4.2" /> <id nullFlavor="NA" /> < code codeSystem="local" code="42106-8" displayName="Blood monocytes/100 leukocytes" /> <statusCode code="completed" /> <effectiveTime value="" /> <value unit="%" xsi:type="PQ" value="7" /> <referenceRange> <observationRange> <text>0-12 </text> </observationRange> </referenceRange> </ observation> </component> <component> <observation moodCode= "EVN" classCode="OBS"> <templateId root="2.16.840.1.659752.10...4.2 " /> <id nullFlavor="NA" /> <code codeSystem="local" code="713 -8" displayName="Automated blood eosinophils/100 leukocytes" /> < statusCode code="completed" /> <effectiveTime value="" /> <value unit="%" xsi:type="PQ" value="2" /> <referenceRange > <observationRange> <text>0-10</text> </ observationRange> </referenceRange> </observation> </ component> <component> <observation moodCode="EVN" classCode="OBS"> <templateId root="2.16.840.1.193815.10.20.22.4.2" /> <id nullFlavor="NA" /> <code codeSystem="local" code="706-2" displayName= "Automated blood basophils/100 leukocytes" /> <statusCode code= "completed" /> <effectiveTime value="247900677969" /> <value unit="%" xsi:type="PQ" value="0" /> <referenceRange> < observationRange> <text>0-10</text> </observationRange> </referenceRange> </observation> </component> < component> <observation moodCode="EVN" classCode="OBS"> < templateId root="2.16.840.1.978012.10.20.22.4.2" /> <id nullFlavor="NA " /> <code codeSystem="local" code="751-8" displayName="Blood neutrophils automated count (number/volume)" /> <statusCode code= "completed" /> <effectiveTime value="894355704767" /> <value unit="10*3" xsi:type="PQ" value="6.9" /> <referenceRange> < observationRange> <text>1.8-7.8</text> </ observationRange> </referenceRange> </observation> </ component> <component> <observation moodCode="EVN" classCode="OBS"> <templateId root="2.16.840.1.328261.10.20.22.4.2" /> <id nullFlavor="NA" /> <code codeSystem="local" code="731-0" displayName= "Blood lymphocytes automated count (number/volume)" /> <statusCode code ="completed" /> <effectiveTime value="" /> <value unit="10*3" xsi:type="PQ" value="2.7" /> <referenceRange> < observationRange> <text>1.0-4.0</text> </ observationRange> </referenceRange> </observation> </ component> <component> <observation moodCode="EVN" classCode="OBS"> <templateId root="2.16.840.1.901968.10..4.2" /> <id nullFlavor="NA" /> <code codeSystem="local" code="742-7" displayName= "Blood monocytes automated count (number/volume)" /> <statusCode code= "completed" /> <effectiveTime value="" /> <value unit="10*3" xsi:type="PQ" value="0.7" /> <referenceRange> < observationRange> <text>0.0-1.0</text> </ observationRange> </referenceRange> </observation> </ component> <component> <observation moodCode="EVN" classCode="OBS"> <templateId root="2.16.840.1.487108.10.22.4.2" /> <id nullFlavor="NA" /> <code codeSystem="local" code="711-2" displayName= "Automated eosinophil count" /> <statusCode code="completed" /> <effectiveTime value="125631532466" /> <value unit="10*3/uL" xsi: type="PQ" value="0.2" /> <referenceRange> <observationRange > <text>0.0-0.3</text> </observationRange> </ referenceRange> </observation> </component> <component> <observation moodCode="EVN" classCode="OBS"> <templateId root= "216.840.1.140198.10..22.4.2" /> <id nullFlavor="NA" /> < code codeSystem="local" code="704-7" displayName="Automated blood basophil count (count/volume)" /> <statusCode code="completed" /> < effectiveTime value="202389041150" /> <value unit="10*3/uL" xsi:type= "PQ" value="0.0" /> <referenceRange> <observationRange> <text>0.0-0.1</text> </observationRange> </ referenceRange> </observation> </component> </organizer> </entry > <entry> <organizer moodCode="EVN" classCode="BATTERY"> <templateId root="216.840.1.287862.10..22.4.1" /> <id nullFlavor="NA" /> <code codeSystem="local" code="32796-3" displayName="PT panel in platelet poor plasma by coagulation assay" /> <statusCode code="completed" /> <component> <observation moodCode="EVN" classCode="OBS"> <templateId root= "216.840.1.071247.10..22.4.2" /> <id nullFlavor="NA" /> < code codeSystem="local" code="5902-2" displayName="Prothrombin time (PT) in platelet poor plasma by coagulation assay" /> <statusCode code= "completed" /> <effectiveTime value="714023583280" /> <value unit="s" xsi:type="PQ" value="12.6" /> <referenceRange> < observationRange> <text>12.2-14.7</text> </ observationRange> </referenceRange> </observation> </ component> <component> <observation moodCode="EVN" classCode="OBS"> <templateId root="2.16.840.1.154326.10.20.22.4.2" /> <id nullFlavor="NA" /> <code codeSystem="local" code="86389-2" displayName= "INR in platelet poor plasma or blood by coagulation assay" /> < statusCode code="completed" /> <effectiveTime value="441060200061" /> <value unit="" xsi:type="PQ" value="0.9" /> <referenceRange> <observationRange> <text>0.8-1.4</text> </ observationRange> </referenceRange> </observation> </ component> </organizer> </entry> <entry> <organizer moodCode="EVN" classCode="BATTERY"> <templateId root="2.16.840.1.800072.10.20.22.4.1" /> <id nullFlavor="NA" /> <code codeSystem="local" code="40089-6" displayName="Activated partial thromboplastin time (aPTT) in platelet poor plasma bycoagulation assay" /> <statusCode code="completed" /> < component> <observation moodCode="EVN" classCode="OBS"> < templateId root="2.16.840.1.849647.10.20.22.4.2" /> <id nullFlavor="NA " /> <code codeSystem="local" code="06845-3" displayName="Activated partial thromboplastin time (aPTT) in platelet poor plasma bycoagulation assay" /> <statusCode code="completed" /> <effectiveTime value= "745196306884" /> <value unit="s" xsi:type="PQ" value="33" /> <referenceRange> <observationRange> <text>24-35</text> </observationRange> </referenceRange> </observation> </component> </organizer> </entry> <entry> <organizer moodCode= "EVN" classCode="BATTERY"> <templateId root="216.840.1.927860.10..22.4.1 " /> <id nullFlavor="NA" /> <code codeSystem="local" code="2118-07" displayName="Serum or plasma choriogonadotropin ( test) detection" /> <statusCode code="completed" /> <component> <observation moodCode="EVN" classCode="OBS"> <templateId root= "01.16.840.1.951284.10...4.2" /> <id nullFlavor="NA" /> < code codeSystem="local" code="2118-07" displayName="Serum or plasma choriogonadotropin ( test) detection" /> <statusCode code= "completed" /> <effectiveTime value="469047947380" /> <value unit="" xsi:type="PQ" value="NEGATIVE" /> <referenceRange> < observationRange> <text>NEGATIVE</text> </ observationRange> </referenceRange> </observation> </ component> </organizer> </entry> <entry> <organizer moodCode="EVN" classCode="BATTERY"> <templateId root="2.840.1.412583.10...4.1" /> <id nullFlavor="NA" /> <code codeSystem="local" code="5643-2" displayName="Serum or plasma ethanol measurement (mass/volume)" /> < statusCode code="completed" /> <component> <observation moodCode= "EVN" classCode="OBS"> <templateId root="216.840.1.792792.10.20.22.4.2 " /> <id nullFlavor="NA" /> <code codeSystem="local" code= "5643-2" displayName="Serum or plasma ethanol measurement (mass/volume)" /> <statusCode code="completed" /> <effectiveTime value= "634466637836" /> <value unit="mg/dL" xsi:type="PQ" value="<" /> <referenceRange> <observationRange> <text><10< /text> </observationRange> </referenceRange> </ observation> </component> </organizer> </entry> <entry> <organizer moodCode="EVN" classCode="BATTERY"> <templateId root= "216.840.1.515019.10.20.22.4.1" /> <id nullFlavor="NA" /> <code codeSystem="local" code="03450-0" displayName="Comprehensive metabolic panel" / > <statusCode code="completed" /> <component> <observation moodCode="EVN" classCode="OBS"> <templateId root= "216.840.1.550427.10.20.22.4.2" /> <id nullFlavor="NA" /> < code codeSystem="local" code="2951-2" displayName="Serum or plasma sodium measurement (moles/volume)" /> <statusCode code="completed" /> <effectiveTime value="731810388926" /> <value unit="mmol/L" xsi:type= "PQ" value="141" /> <referenceRange> <observationRange> <text>135-145</text> </observationRange> </ referenceRange> </observation> </component> <component> <observation moodCode="EVN" classCode="OBS"> <templateId root= "216.840.1.647537.10.20.22.4.2" /> <id nullFlavor="NA" /> < code codeSystem="local" code="2823-3" displayName="Serum or plasma potassium measurement (moles/volume)" /> <statusCode code="completed" /> <effectiveTime value="971456331131" /> <value unit="mmol/L" xsi:type= "PQ" value="4.1" /> <referenceRange> <observationRange> <text>3.6-5.0</text> </observationRange> </ referenceRange> </observation> </component> <component> <observation moodCode="EVN" classCode="OBS"> <templateId root= "2.16.840.1.224399.10.20.22.4.2" /> <id nullFlavor="NA" /> < code codeSystem="local" code="" displayName="Serum or plasma chloride measurement (moles/volume)" /> <statusCode code="completed" /> <effectiveTime value="833841944509" /> <value unit="mmol/L" xsi:type= "PQ" value="106" /> <referenceRange> <observationRange> <text>98-107</text> </observationRange> </ referenceRange> </observation> </component> <component> <observation moodCode="EVN" classCode="OBS"> <templateId root= "2.16.840.1.417218.10..22.4.2" /> <id nullFlavor="NA" /> < code codeSystem="local" code="2028-08" displayName="Carbon dioxide" /> < statusCode code="completed" /> <effectiveTime value="979588842981" /> <value unit="mmol/L" xsi:type="PQ" value="24" /> < referenceRange> <observationRange> <text>21-32</text> </observationRange> </referenceRange> </observation> </component> <component> <observation moodCode="EVN" classCode= "OBS"> <templateId root="2.16.840.1.261099.10.20.22.4.2" /> < id nullFlavor="NA" /> <code codeSystem="local" code="51356-7" displayName="Serum or plasma anion gap determination (moles/volume)" /> <statusCode code="completed" /> <effectiveTime value="" / > <value unit="mmol/L" xsi:type="PQ" value="11" /> < referenceRange> <observationRange> <text>5-14</text> </observationRange> </referenceRange> </observation> </component> <component> <observation moodCode="EVN" classCode= "OBS"> <templateId root="216.840.1.301699.10...4.2" /> < id nullFlavor="NA" /> <code codeSystem="local" code="3094-0" displayName="Serum or plasma urea nitrogen measurement (mass/volume)" /> <statusCode code="completed" /> <effectiveTime value="" /> <value unit="mg/dL" xsi:type="PQ" value="18" /> < referenceRange> <observationRange> <text>7-18</text> </observationRange> </referenceRange> </observation> </component> <component> <observation moodCode="EVN" classCode= "OBS"> <templateId root="216.840.1.338749.10.20.22.4.2" /> < id nullFlavor="NA" /> <code codeSystem="local" code="2160-0" displayName="Serum or plasma creatinine measurement (mass/volume)" /> < statusCode code="completed" /> <effectiveTime value="" /> <value unit="mg/dL" xsi:type="PQ" value="0.73" /> < referenceRange> <observationRange> <text>0.60-1.30</text > </observationRange> </referenceRange> </observation > </component> <component> <observation moodCode="EVN" classCode="OBS"> <templateId root="2.16.840.1.474650.10.20.22.4.2" /> <id nullFlavor="NA" /> <code codeSystem="local" code="3097-3" displayName="Serum or plasma urea nitrogen/creatinine mass ratio" /> < statusCode code="completed" /> <effectiveTime value="411917495660" /> <value unit="" xsi:type="PQ" value="25" /> <referenceRange> <observationRange> <text>NRG</text> </ observationRange> </referenceRange> </observation> </ component> <component> <observation moodCode="EVN" classCode="OBS"> <templateId root="216.840.1.214397.10.20.22.4.2" /> <id nullFlavor="NA" /> <code codeSystem="local" code="23004-2" displayName= "Serum or plasma creatinine measurement with calculation of estimated glomerular filtration rate" /> <statusCode code="completed" /> <effectiveTime value="624511755630" /> <value unit="" xsi:type="PQ" value=">" /> <referenceRange> <observationRange> <text>NRG</text> </observationRange> </referenceRange > </observation> </component> <component> <observation moodCode="EVN" classCode="OBS"> <templateId root= "216.840.1.747511.10.20.22.4.2" /> <id nullFlavor="NA" /> < code codeSystem="local" code="2345-7" displayName="Serum or plasma glucose measurement (mass/volume)" /> <statusCode code="completed" /> <effectiveTime value="376198706679" /> <value unit="mg/dL" xsi:type="PQ " value="111" /> <interpretationCode codeSystem="local" code="" /> <referenceRange> <observationRange> <text>70-105 </text> </observationRange> </referenceRange> </ observation> </component> <component> <observation moodCode= "EVN" classCode="OBS"> <templateId root="2.16.840.1.650207.10.20.22.4.2 " /> <id nullFlavor="NA" /> <code codeSystem="local" code= "27557-7" displayName="Serum or plasma calcium measurement (mass/volume)" /> <statusCode code="completed" /> <effectiveTime value= "859307424821" /> <value unit="mg/dL" xsi:type="PQ" value="9.5" /> <referenceRange> <observationRange> <text>8.5-10.1 </text> </observationRange> </referenceRange> </ observation> </component> <component> <observation moodCode= "EVN" classCode="OBS"> <templateId root="2.16.840.1.141317.10.20.22.4.2 " /> <id nullFlavor="NA" /> <code codeSystem="local" code= "1975-01" displayName="Serum or plasma total bilirubin measurement (mass/volume) " /> <statusCode code="completed" /> <effectiveTime value= "474542226461" /> <value unit="mg/dL" xsi:type="PQ" value="0.4" /> <referenceRange> <observationRange> <text>0.1-1.0< /text> </observationRange> </referenceRange> </ observation> </component> <component> <observation moodCode= "EVN" classCode="OBS"> <templateId root="2.16.840.1.910217.10.20.22.4.2 " /> <id nullFlavor="NA" /> <code codeSystem="local" code= "6768-" displayName="Serum or plasma alkaline phosphatase measurement ( enzymatic activity/volume)" /> <statusCode code="completed" /> <effectiveTime value="181546026412" /> <value unit="U/L" xsi:type="PQ " value="79" /> <referenceRange> <observationRange> <text>40-136</text> </observationRange> </ referenceRange> </observation> </component> <component> <observation moodCode="EVN" classCode="OBS"> <templateId root= "2.16.840.1.601780.10...4.2" /> <id nullFlavor="NA" /> < code codeSystem="local" code="192" displayName="Serum or plasma aspartate aminotransferase measurement (enzymatic activity/volume)" /> < statusCode code="completed" /> <effectiveTime value="476050702525" /> <value unit="U/L" xsi:type="PQ" value="23" /> <referenceRange > <observationRange> <text>5-34</text> </ observationRange> </referenceRange> </observation> </ component> <component> <observation moodCode="EVN" classCode="OBS"> <templateId root="2.16.840.1.708336.10.20.22.4.2" /> <id nullFlavor="NA" /> <code codeSystem="local" code="1742" displayName= "Serum or plasma alanine aminotransferase measurement (enzymatic activity/volume )" /> <statusCode code="completed" /> <effectiveTime value= "168110032255" /> <value unit="U/L" xsi:type="PQ" value="43" /> <referenceRange> <observationRange> <text>0-55</text > </observationRange> </referenceRange> </observation > </component> <component> <observation moodCode="EVN" classCode="OBS"> <templateId root="2.16.840.1.412313.10..22.4.2" /> <id nullFlavor="NA" /> <code codeSystem="local" code="2885-2" displayName="Serum or plasma protein measurement (mass/volume)" /> < statusCode code="completed" /> <effectiveTime value="703544783643" /> <value unit="g/dL" xsi:type="PQ" value="7.0" /> < referenceRange> <observationRange> <text>6.4-8.2</text> </observationRange> </referenceRange> </observation > </component> <component> <observation moodCode="EVN" classCode="OBS"> <templateId root="2.16.840.1.940938.10..22.4.2" /> <id nullFlavor="NA" /> <code codeSystem="local" code="1751-7" displayName="Serum or plasma albumin measurement (mass/volume)" /> < statusCode code="completed" /> <effectiveTime value="061275232377" /> <value unit="g/dL" xsi:type="PQ" value="3.9" /> < referenceRange> <observationRange> <text>3.2-4.5</text> </observationRange> </referenceRange> </observation > </component> <component> <observation moodCode="EVN" classCode="OBS"> <templateId root="2.16.840.1.581226.09.19.22.4.2" /> <id nullFlavor="NA" /> <code codeSystem="local" code= "CALCIUMCORR" displayName="CALCIUM CORRECTED" /> <statusCode code= "completed" /> <effectiveTime value="663088155877" /> <value unit="mg/dL" xsi:type="PQ" value="9.6" /> <referenceRange> < observationRange> <text>8.5-10.1</text> </ observationRange> </referenceRange> </observation> </ component> </organizer> </entry> <entry> <organizer moodCode="EVN" classCode="BATTERY"> <templateId root="216.840.1.498697.09.19.22.4.1" /> <id nullFlavor="NA" /> <code codeSystem="local" code="" displayName="Magnesium" /> <statusCode code="completed" /> <component > <observation moodCode="EVN" classCode="OBS"> <templateId root= "216.840.1.083003.09.19.22.4.2" /> <id nullFlavor="NA" /> < code codeSystem="local" code="" displayName="Magnesium" /> < statusCode code="completed" /> <effectiveTime value="666657095670" /> <value unit="mg/dL" xsi:type="PQ" value="1.9" /> < referenceRange> <observationRange> <text>1.8-2.4</text> </observationRange> </referenceRange> </observation > </component> </organizer> </entry> <entry> <organizer moodCode= "EVN" classCode="BATTERY"> <templateId root="216.840.1.600452.09.19.22.4.1 " /> <id nullFlavor="NA" /> <code codeSystem="local" code="21506-05" displayName="Serum or plasma creatine kinase measurement (enzymatic activity/ volume)" /> <statusCode code="completed" /> <component> < observation moodCode="EVN" classCode="OBS"> <templateId root= "2.16.840.1.659235.10.20.22.4.2" /> <id nullFlavor="NA" /> < code codeSystem="local" code="2157-05" displayName="Serum or plasma creatine kinase measurement (enzymatic activity/volume)" /> <statusCode code= "completed" /> <effectiveTime value="253294984583" /> <value unit="U/L" xsi:type="PQ" value="104" /> <referenceRange> < observationRange> <text>29-168</text> </observationRange > </referenceRange> </observation> </component> </ organizer> </entry> <entry> <organizer moodCode="EVN" classCode="BATTERY"> <templateId root="2.16.840.1.796389.10.20.22.4.1" /> <id nullFlavor= "NA" /> <code codeSystem="local" code="03675-0" displayName="Serum or plasma creatine kinase MB measurement (enzymatic activity/volume)" /> < statusCode code="completed" /> <component> <observation moodCode= "EVN" classCode="OBS"> <templateId root="2.16.840.1.397902.10.20.22.4.2 " /> <id nullFlavor="NA" /> <code codeSystem="local" code= "93619-9" displayName="Serum or plasma creatine kinase MB measurement ( enzymatic activity/volume)" /> <statusCode code="completed" /> <effectiveTime value="271865543007" /> <value unit="ng/mL" xsi:type= "PQ" value="1.7" /> <referenceRange> <observationRange> <text><6.6</text> </observationRange> </ referenceRange> </observation> </component> </organizer> </entry > <entry> <organizer moodCode="EVN" classCode="BATTERY"> <templateId root="2.16.840.1.319093.10.20.22.4.1" /> <id nullFlavor="NA" /> <code codeSystem="local" code="51091-0" displayName="Serum or plasma troponin i.cardiac measurement (mass/volume)" /> <statusCode code="completed" /> <component> <observation moodCode="EVN" classCode="OBS"> < templateId root="2.16.840.1.843232.10.20.22.4.2" /> <id nullFlavor="NA " /> <code codeSystem="local" code="33470-8" displayName="Serum or plasma troponin i.cardiac measurement (mass/volume)" /> <statusCode code="completed" /> <effectiveTime value="772592441620" /> < value unit="ng/mL" xsi:type="PQ" value="<" /> <referenceRange> <observationRange> <text><0.028</text> </ observationRange> </referenceRange> </observation> </ component> </organizer> </entry> <entry> <organizer moodCode="EVN" classCode="BATTERY"> <templateId root="2.16.840.1.328005.10.20.22.4.1" /> <id nullFlavor="NA" /> <code codeSystem="local" code="2639-3" displayName="Myoglobin, serum" /> <statusCode code="completed" /> < component> <observation moodCode="EVN" classCode="OBS"> < templateId root="2.16.840.1.478230.10.20.22.4.2" /> <id nullFlavor="NA " /> <code codeSystem="local" code="2639-3" displayName="Myoglobin, serum" /> <statusCode code="completed" /> <effectiveTime value ="987441974161" /> <value unit="ng/mL" xsi:type="PQ" value="52.2" /> <referenceRange> <observationRange> <text>10.0- 92.0</text> </observationRange> </referenceRange> </ observation> </component> </organizer> </entry> <entry> <organizer moodCode="EVN" classCode="BATTERY"> <templateId root= "2.16.840.1.620320.10.20.22.4.1" /> <id nullFlavor="NA" /> <code codeSystem="local" code="1798-8" displayName="Serum or plasma amylase measurement (enzymatic activity/volume)" /> <statusCode code="completed" / > <component> <observation moodCode="EVN" classCode="OBS"> <templateId root="2.16.840.1.811747.10.20.22.4.2" /> <id nullFlavor="NA " /> <code codeSystem="local" code="17907-08" displayName="Serum or plasma amylase measurement (enzymatic activity/volume)" /> <statusCode code="completed" /> <effectiveTime value="394592711675" /> < value unit="U/L" xsi:type="PQ" value="46" /> <referenceRange> <observationRange> <text>25-125</text> </ observationRange> </referenceRange> </observation> </ component> </organizer> </entry> <entry> <organizer moodCode="EVN" classCode="BATTERY"> <templateId root="01.16.840.1.474254.10..22.4.1" /> <id nullFlavor="NA" /> <code codeSystem="local" code="304" displayName="Lipase" /> <statusCode code="completed" /> <component> <observation moodCode="EVN" classCode="OBS"> <templateId root= "01.16.840.1.988479.09.19.22.4.2" /> <id nullFlavor="NA" /> < code codeSystem="local" code="3040-01" displayName="Lipase" /> < statusCode code="completed" /> <effectiveTime value="420300547108" /> <value unit="U/L" xsi:type="PQ" value="47" /> <referenceRange > <observationRange> <text></text> </ observationRange> </referenceRange> </observation> </ component> </organizer> </entry> <entry> <organizer moodCode="EVN" classCode="BATTERY"> <templateId root="840.1.927946.09.19.22.4.1" /> <id nullFlavor="NA" /> <code codeSystem="local" code="95797-5" displayName="Serum or plasma lithium measurement (moles/volume)" /> < statusCode code="completed" /> <component> <observation moodCode= "EVN" classCode="OBS"> <templateId root="01.16.840.1.339935....4.2 " /> <id nullFlavor="NA" /> <code codeSystem="local" code= "84182-2" displayName="BNP level" /> <statusCode code="completed" /> <effectiveTime value="022553366547" /> <value unit="pg/mL" xsi: type="PQ" value="16.2" /> <referenceRange> <observationRange > <text><100.0</text> </observationRange> </ referenceRange> </observation> </component> </organizer> </entry > <entry> <organizer moodCode="EVN" classCode="BATTERY"> <templateId root="216.840.1.176013.10.20.22.4.1" /> <id nullFlavor="NA" /> <code codeSystem="local" code="01441-2" displayName="Influenza virus A and B antigen detection" /> <statusCode code="completed" /> <component> < observation moodCode="EVN" classCode="OBS"> <templateId root= "216.840.1.389152.10.20.22.4.2" /> <id nullFlavor="NA" /> < code codeSystem="local" code="FLURESULT" displayName="FLU RESULT" /> < statusCode code="completed" /> <effectiveTime value="220891561788" /> <value unit="" xsi:type="PQ" value="NEGATIVE FOR INFLUENZA A AND B ANTIGENS BY IA" /> <referenceRange> <observationRange> <text>NRG</text> </observationRange> </ referenceRange> </observation> </component> </organizer> </entry > <entry> <organizer moodCode="EVN" classCode="BATTERY"> <templateId root="216.840.1.192082.10.20.22.4.1" /> <id nullFlavor="NA" /> <code codeSystem="local" code="84289-6" displayName="Complete urinalysis with reflex to culture" /> <statusCode code="completed" /> <component> < observation moodCode="EVN" classCode="OBS"> <templateId root= "2.16.840.1.692897.10..22.4.2" /> <id nullFlavor="NA" /> < code codeSystem="local" code="5778-6" displayName="Urine color determination" / > <statusCode code="completed" /> <effectiveTime value= "979256692626" /> <value unit="" xsi:type="PQ" value="YELLOW" /> <referenceRange> <observationRange> <text>NRG</text > </observationRange> </referenceRange> </observation > </component> <component> <observation moodCode="EVN" classCode="OBS"> <templateId root="216.840.1.717211.10..4.2" /> <id nullFlavor="NA" /> <code codeSystem="local" code="57493-5 " displayName="Urine clarity determination" /> <statusCode code= "completed" /> <effectiveTime value="406357612447" /> <value unit="" xsi:type="PQ" value="SLIGHTLY CLOUDY" /> <referenceRange> <observationRange> <text>NRG</text> </ observationRange> </referenceRange> </observation> </ component> <component> <observation moodCode="EVN" classCode="OBS"> <templateId root="216.840.1.186091.10.22.4.2" /> <id nullFlavor="NA" /> <code codeSystem="local" code="5803-2" displayName= "Urine pH measurement by test strip" /> <statusCode code="completed" / > <effectiveTime value="384254319096" /> <value unit="" xsi: type="PQ" value="6" /> <referenceRange> <observationRange> <text>5-9</text> </observationRange> </ referenceRange> </observation> </component> <component> <observation moodCode="EVN" classCode="OBS"> <templateId root= "01.16.840.1.746765.09.19.22.4.2" /> <id nullFlavor="NA" /> < code codeSystem="local" code="5811-5" displayName="Specific gravity of urine by test strip" /> <statusCode code="completed" /> <effectiveTime value="525731927805" /> <value unit="" xsi:type="PQ" value="1.025" /> <interpretationCode codeSystem="local" code="*" /> < referenceRange> <observationRange> <text>1.016-1.022</ text> </observationRange> </referenceRange> </ observation> </component> <component> <observation moodCode= "EVN" classCode="OBS"> <templateId root="01.16.840.1.158327.09.19.22.4.2 " /> <id nullFlavor="NA" /> <code codeSystem="local" code= "88371-6" displayName="Urine protein assay by test strip, semi-quantitative" /> <statusCode code="completed" /> <effectiveTime value= "433903530941" /> <value unit="" xsi:type="PQ" value="1+" /> < interpretationCode codeSystem="local" code="*" /> <referenceRange> <observationRange> <text>NEGATIVE</text> </ observationRange> </referenceRange> </observation> </ component> <component> <observation moodCode="EVN" classCode="OBS"> <templateId root="01.16.840.1.353366.09.19.22.4.2" /> <id nullFlavor="NA" /> <code codeSystem="local" code="84944-7" displayName= "Urine glucose detection by automated test strip" /> <statusCode code= "completed" /> <effectiveTime value="376127888739" /> <value unit="" xsi:type="PQ" value="NEGATIVE" /> <referenceRange> < observationRange> <text>NEGATIVE</text> </ observationRange> </referenceRange> </observation> </ component> <component> <observation moodCode="EVN" classCode="OBS"> <templateId root="216.840.1.952407.10.4.2" /> <id nullFlavor="NA" /> <code codeSystem="local" code="10579-8" displayName= "Erythrocytes detection in urine sediment by light microscopy" /> < statusCode code="completed" /> <effectiveTime value="113056456142" /> <value unit="" xsi:type="PQ" value="NEGATIVE" /> < referenceRange> <observationRange> <text>NEGATIVE</text > </observationRange> </referenceRange> </observation > </component> <component> <observation moodCode="EVN" classCode="OBS"> <templateId root="01.16.840.1.173775.09.19.22.4.2" /> <id nullFlavor="NA" /> <code codeSystem="local" code="40961-8 " displayName="Urine ketones detection by automated test strip" /> < statusCode code="completed" /> <effectiveTime value="496140016355" /> <value unit="" xsi:type="PQ" value="NEGATIVE" /> < referenceRange> <observationRange> <text>NEGATIVE</text > </observationRange> </referenceRange> </observation > </component> <component> <observation moodCode="EVN" classCode="OBS"> <templateId root="216.840.1.084728.09.19.22.4.2" /> <id nullFlavor="NA" /> <code codeSystem="local" code="5802-4" displayName="Urine nitrite detection by test strip" /> <statusCode code ="completed" /> <effectiveTime value="872005814689" /> <value unit="" xsi:type="PQ" value="NEGATIVE" /> <referenceRange> < observationRange> <text>NEGATIVE</text> </ observationRange> </referenceRange> </observation> </ component> <component> <observation moodCode="EVN" classCode="OBS"> <templateId root="2.16.840.1.834138.10.20.22.4.2" /> <id nullFlavor="NA" /> <code codeSystem="local" code="5770-3" displayName= "Urine total bilirubin detection by test strip" /> <statusCode code= "completed" /> <effectiveTime value="926047240465" /> <value unit="" xsi:type="PQ" value="NEGATIVE" /> <referenceRange> < observationRange> <text>NEGATIVE</text> </ observationRange> </referenceRange> </observation> </ component> <component> <observation moodCode="EVN" classCode="OBS"> <templateId root="2.16.840.1.598199.10.20.22.4.2" /> <id nullFlavor="NA" /> <code codeSystem="local" code="04619-6" displayName= "Urine urobilinogen measurement by automated test strip (mass/volume)" /> <statusCode code="completed" /> <effectiveTime value="346123983675 " /> <value unit="" xsi:type="PQ" value="NORMAL" /> < referenceRange> <observationRange> <text>NORMAL</text> </observationRange> </referenceRange> </observation> </component> <component> <observation moodCode="EVN" classCode ="OBS"> <templateId root="216.840.1.813179.10..22.4.2" /> < id nullFlavor="NA" /> <code codeSystem="local" code="5799-2" displayName="Urine leukocyte esterase detection by dipstick" /> < statusCode code="completed" /> <effectiveTime value="631947516698" /> <value unit="" xsi:type="PQ" value="1+" /> < interpretationCode codeSystem="local" code="*" /> <referenceRange> <observationRange> <text>NEGATIVE</text> </ observationRange> </referenceRange> </observation> </ component> <component> <observation moodCode="EVN" classCode="OBS"> <templateId root="216.840.1.808322.10..4.2" /> <id nullFlavor="NA" /> <code codeSystem="local" code="70960-8" displayName= "Automated urine sediment erythrocyte count by microscopy (number/high power field)" /> <statusCode code="completed" /> <effectiveTime value="948377932670" /> <value unit="" xsi:type="PQ" value="RARE" /> <referenceRange> <observationRange> <text>NRG</ text> </observationRange> </referenceRange> </ observation> </component> <component> <observation moodCode= "EVN" classCode="OBS"> <templateId root="16.840.1.783760.10..22.4.2 " /> <id nullFlavor="NA" /> <code codeSystem="local" code= "5821-4" displayName="Automated urine sediment leukocyte count by microscopy ( number/high power field)" /> <statusCode code="completed" /> < effectiveTime value="418969218831" /> <value unit="[HPF]" xsi:type="PQ " value="" /> <referenceRange> <observationRange> <text>NRG</text> </observationRange> </referenceRange> </observation> </component> <component> <observation moodCode="EVN" classCode="OBS"> <templateId root= "216.840.1.681012.10.20.22.4.2" /> <id nullFlavor="NA" /> < code codeSystem="local" code="04142-3" displayName="Bacteria detection in urine sediment by light microscopy" /> <statusCode code="completed" /> <effectiveTime value="778700337440" /> <value unit="" xsi:type="PQ " value="TRACE" /> <referenceRange> <observationRange> <text>NRG</text> </observationRange> </ referenceRange> </observation> </component> <component> <observation moodCode="EVN" classCode="OBS"> <templateId root= "01.16.840.1.083126.10...4.2" /> <id nullFlavor="NA" /> < code codeSystem="local" code="20360-9" displayName="Squamous epithelial cells detection in urine sediment by light microscopy" /> <statusCode code= "completed" /> <effectiveTime value="413737650467" /> <value unit="" xsi:type="PQ" value="25-50" /> <interpretationCode codeSystem= "local" code="*" /> <referenceRange> <observationRange> <text>NRG</text> </observationRange> </ referenceRange> </observation> </component> <component> <observation moodCode="EVN" classCode="OBS"> <templateId root= "16.840.1.016705.10..22.4.2" /> <id nullFlavor="NA" /> < code codeSystem="local" code="12836-6" displayName="Crystals detection in urine sediment by light microscopy" /> <statusCode code="completed" /> <effectiveTime value="847686164023" /> <value unit="" xsi:type="PQ " value="PRESENT" /> <interpretationCode codeSystem="local" code="*" / > <referenceRange> <observationRange> <text>NRG </text> </observationRange> </referenceRange> </ observation> </component> <component> <observation moodCode= "EVN" classCode="OBS"> <templateId root="2.16.840.1.133053.10...4.2 " /> <id nullFlavor="NA" /> <code codeSystem="local" code= "21733-4" displayName="Casts detection in urine sediment by light microscopy" / > <statusCode code="completed" /> <effectiveTime value= "052735082078" /> <value unit="" xsi:type="PQ" value="NONE" /> <referenceRange> <observationRange> <text>NRG</text> </observationRange> </referenceRange> </observation> </component> <component> <observation moodCode="EVN" classCode ="OBS"> <templateId root="2.16.840.1.353330.10..22.4.2" /> < id nullFlavor="NA" /> <code codeSystem="local" code="8247-9" displayName="Mucus detection in urine sediment by light microscopy" /> <statusCode code="completed" /> <effectiveTime value="063066827884" /> <value unit="" xsi:type="PQ" value="SMALL" /> < interpretationCode codeSystem="local" code="*" /> <referenceRange> <observationRange> <text>NRG</text> </ observationRange> </referenceRange> </observation> </ component> <component> <observation moodCode="EVN" classCode="OBS"> <templateId root="01.16.840.1.701833.10..22.4.2" /> <id nullFlavor="NA" /> <code codeSystem="local" code="54772-7" displayName= "Complete urinalysis with reflex to culture" /> <statusCode code= "completed" /> <effectiveTime value="611248942263" /> <value unit="" xsi:type="PQ" value="NO" /> <referenceRange> < observationRange> <text>NRG</text> </observationRange> </referenceRange> </observation> </component> < component> <observation moodCode="EVN" classCode="OBS"> < templateId root="01.16.840.1.013925.10.4.2" /> <id nullFlavor="NA " /> <code codeSystem="local" code="8246-1" displayName="Amorphous sediment detection in urine sediment by light microscopy" /> < statusCode code="completed" /> <effectiveTime value="511028774795" /> <value unit="" xsi:type="PQ" value="FEW ILIANA URATES" /> < interpretationCode codeSystem="local" code="*" /> <referenceRange> <observationRange> <text>NRG</text> </ observationRange> </referenceRange> </observation> </ component> </organizer> </entry> <entry> <organizer moodCode="EVN" classCode="BATTERY"> <templateId root="16.840.1.379977.10..22.4.1" /> <id nullFlavor="NA" /> <code codeSystem="local" code="75205-4" displayName="Urine drug screening test" /> <statusCode code="completed" /> <component> <observation moodCode="EVN" classCode="OBS"> < templateId root="216.840.1.584676.10..4.2" /> <id nullFlavor="NA " /> <code codeSystem="local" code="36019-1" displayName="Urine phencyclidine detection by screening method" /> <statusCode code= "completed" /> <effectiveTime value="704885567889" /> <value unit="" xsi:type="PQ" value="NEGATIVE" /> <referenceRange> < observationRange> <text>NEGATIVE</text> </ observationRange> </referenceRange> </observation> </ component> <component> <observation moodCode="EVN" classCode="OBS"> <templateId root="216.840.1.175833.09.19.22.4.2" /> <id nullFlavor="NA" /> <code codeSystem="local" code="47180-3" displayName= "Urine benzodiazepines detection by screening method" /> <statusCode code="completed" /> <effectiveTime value="420009180184" /> < value unit="" xsi:type="PQ" value="NEGATIVE" /> <referenceRange> <observationRange> <text>NEGATIVE</text> </ observationRange> </referenceRange> </observation> </ component> <component> <observation moodCode="EVN" classCode="OBS"> <templateId root="01.16.840.1.351528.10...4.2" /> <id nullFlavor="NA" /> <code codeSystem="local" code="3397-7" displayName= "Urine cocaine detection" /> <statusCode code="completed" /> < effectiveTime value="253869591664" /> <value unit="" xsi:type="PQ" value="NEGATIVE" /> <referenceRange> <observationRange> <text>NEGATIVE</text> </observationRange> </ referenceRange> </observation> </component> <component> <observation moodCode="EVN" classCode="OBS"> <templateId root= "216.840.1.004971.10.20.22.4.2" /> <id nullFlavor="NA" /> < code codeSystem="local" code="16490-7" displayName="Urine amphetamines detection by screening method" /> <statusCode code="completed" /> <effectiveTime value="252997461075" /> <value unit="" xsi:type="PQ " value="NEGATIVE" /> <referenceRange> <observationRange> <text>NEGATIVE</text> </observationRange> </ referenceRange> </observation> </component> <component> <observation moodCode="EVN" classCode="OBS"> <templateId root= "[id number]" /> <id nullFlavor="NA" /> < code codeSystem="local" code="51826-2" displayName="Urine methamphetamine detection by screening method" /> <statusCode code="completed" /> <effectiveTime value="161944358824" /> <value unit="" xsi:type="PQ " value="NEGATIVE" /> <referenceRange> <observationRange> <text>NEGATIVE</text> </observationRange> </ referenceRange> </observation> </component> <component> <observation moodCode="EVN" classCode="OBS"> <templateId root= "[id number]" /> <id nullFlavor="NA" /> < code codeSystem="local" code="06579-6" displayName="Urine cannabinoids detection by screening method" /> <statusCode code="completed" /> <effectiveTime value="055653011353" /> <value unit="" xsi:type="PQ " value="NEGATIVE" /> <referenceRange> <observationRange> <text>NEGATIVE</text> </observationRange> </ referenceRange> </observation> </component> <component> <observation moodCode="EVN" classCode="OBS"> <templateId root= "216.840.1.370967.10..22.4.2" /> <id nullFlavor="NA" /> < code codeSystem="local" code="86067-6" displayName="Urine opiates detection by screening method" /> <statusCode code="completed" /> < effectiveTime value="080087055852" /> <value unit="" xsi:type="PQ" value="NEGATIVE" /> <referenceRange> <observationRange> <text>NEGATIVE</text> </observationRange> </ referenceRange> </observation> </component> <component> <observation moodCode="EVN" classCode="OBS"> <templateId root= "16.840.1.501758.1022.4.2" /> <id nullFlavor="NA" /> < code codeSystem="local" code="3377-9" displayName="Urine barbiturates detection " /> <statusCode code="completed" /> <effectiveTime value= "196101776159" /> <value unit="" xsi:type="PQ" value="NEGATIVE" /> <referenceRange> <observationRange> <text>NEGATIVE </text> </observationRange> </referenceRange> </ observation> </component> <component> <observation moodCode= "EVN" classCode="OBS"> <templateId root="216.840.1.711220.10.20.22.4.2 " /> <id nullFlavor="NA" /> <code codeSystem="local" code= "" displayName="Screening urine tricyclic antidepressants detection" /> <statusCode code="completed" /> <effectiveTime value= "494084572139" /> <value unit="" xsi:type="PQ" value="NEGATIVE" /> <referenceRange> <observationRange> <text>NEGATIVE </text> </observationRange> </referenceRange> </ observation> </component> <component> <observation moodCode= "EVN" classCode="OBS"> <templateId root="216.840.1.079623.10...4.2 " /> <id nullFlavor="NA" /> <code codeSystem="local" code= "64678-0" displayName="Urine methadone detection by screening method" /> <statusCode code="completed" /> <effectiveTime value="203135468020" /> <value unit="" xsi:type="PQ" value="NEGATIVE" /> < referenceRange> <observationRange> <text>NEGATIVE</text > </observationRange> </referenceRange> </observation > </component> <component> <observation moodCode="EVN" classCode="OBS"> <templateId root="01.16.840.1.499768.10...4.2" /> <id nullFlavor="NA" /> <code codeSystem="local" code="46329-9 " displayName="Urine oxycodone detection" /> <statusCode code= "completed" /> <effectiveTime value="686811845061" /> <value unit="" xsi:type="PQ" value="NEGATIVE" /> <referenceRange> < observationRange> <text>NEGATIVE</text> </ observationRange> </referenceRange> </observation> </ component> <component> <observation moodCode="EVN" classCode="OBS"> <templateId root="01.16.840.1.378663.10.2022.4.2" /> <id nullFlavor="NA" /> <code codeSystem="local" code="05615-0" displayName= "Urine propoxyphene detection" /> <statusCode code="completed" /> <effectiveTime value="311784759876" /> <value unit="" xsi:type="PQ " value="NEGATIVE" /> <referenceRange> <observationRange> <text>NEGATIVE</text> </observationRange> </ referenceRange> </observation> </component> </organizer> </entry ></section> Encounters ACCT No. Visit Date/Time Discharge Status Pt. Type Provider Facility Loc./Unit Complaint [id number] 01/13/2013 11:21:00 01/13/2013 17:24:00 DIS Emergency Alessandro POSADAS, [facility] W.EDN [id number] 09/09/2012 09:58:00 09/11/2012 16:02:00 DIS Inpatient Harvey POSADAS, [facility] W.5WH [id number] 08/30/2012 07:08:00 08/30/2012 10:49:00 DIS Emergency Harvey POSADAS, [facility] W.2WOBED [id number] 08/29/2012 11:03:00 08/29/2012 14:22:00 DIS Emergency Harvey POSADAS, [facility].2WOBED [id number] 07/07/2012 13:36:00 07/07/2012 17:10:00 DIS Emergency Harvey POSADAS, [facility] W.2WOBED [id number] 02/05/2019 15:45:00 02/05/2019 20:00:00 DIS Outpatient Nahum [facility] ER [id number] 02/05/2019 16:27:00 Document Registration [id number] 02/06/2019 04:46:00 02/06/2019 06:47:00 DIS Outpatient HELLEN GAMBINO DO [facility] ER CHEST PAIN [id number] 03/04/2018 23:36:00 03/05/2018 15:17:00 DIS Inpatient DOMINIK POSADAS, DAIN Ordonez [facility] 4TH UPPER ABD PAIN [id number] 02/06/2018 18:07:00 02/06/2018 21:10:00 DIS Emergency RADHA PATIÑO [facility] ER ABD PAIN
--- NOTE | 2019-02-28 20:41 | ED Lower Extremity ---
General Stated Complaint: LEFT FOOT SWELLING History of Present Illness Date Seen by Provider: Feb 28, 2019 Time Seen by Provider: 20:25 Initial Comments 33-year-old female presents with 2-3 day history of left leg swelling. She states she's had extensive workups at 2 other emergency departments for chest pain. She's not had any further chest pain but noticed the swelling of her left leg. She is a heavy smoker having smoked 2-1/2 packs a day and is now down to one pack a day. She has not had any chest pain in several days. No shortness of breath other than chronic symptoms that she has from her smoking are reported. No cough, fever or chills. No known injury to her leg. Allergies and Home Medications Allergies Coded Allergies: No Known Drug Allergies (Unverified , 02/06/18) Home Medications Acetaminophen 500 Mg Tablet, 1,000 MG PO Q6H PRN for PAIN-MILD, (Reported) Ibuprofen 200 Mg Tablet, 600 MG PO TID PRN for PAIN-MILD, (Reported) Methylprednisolone 4 Mg Tab.ds.pk, 4 MG PO UD Prescribed by: HELLEN GAMBINO on 02/06/19 0643 Tramadol HCl 50 Mg Tablet, 50 MG PO Q6H, (Reported) Patient Home Medication List Home Medication List Reviewed: Yes Review of Systems Constitutional: no symptoms reported EENTM: no symptoms reported Respiratory: no symptoms reported Cardiovascular: no symptoms reported Gastrointestinal: no symptoms reported Genitourinary: no symptoms reported Musculoskeletal: see HPI Skin: no symptoms reported Psychiatric/Neurological: No Symptoms Reported Past Zdzbbzn-Uqosav-Xxughm Hx Past Med/Social Hx: Reviewed Nursing Past Med/Soc Hx Patient Social History Alcohol Beverage of Choice: Beer, Whiskey Drug of Choice: POT AND PAIN PILLS Type Used: Cigarettes, Smokeless Tobacco Recent Foreign Travel: No Contact w/Someone Who Travel: No Recent Hopitalizations: Yes (SURG IN JANUARY OP) Seasonal Allergies Seasonal Allergies: No Past Medical History Surgeries: Yes (Dental caps) Section, Gallbladder, Orthopedic Respiratory: Yes (CPAP BROKEN NEEDS TO DO STUDY AGAIN) Sleep Apnea Currently Using CPAP: No Currently Using BIPAP: No Cardiac: No Neurological: No Female Reproductive Disorders: Denies Genitourinary: No Gastrointestinal: Yes (S/P NAN) Gall Bladder Disease Musculoskeletal: Yes (RIGHT HAND FX/ORIF) Arthritis, Fractures Endocrine: Yes (MORBID OBESITY) HEENT: Yes (POOR DENTITION) Cancer: No Psychosocial: Yes (POLYSUBSTANCE ABUSE) ADD/ADHD Integumentary: No Blood Disorders: No Family Medical History Hypertension 19 MOTHER Physical Exam Vital Signs Vital Signs - First Documented 02/28/19 20:23 Temp 97.0 Pulse 74 Resp 18 B/P (MAP) 140/62 (88) O2 Delivery Room Air Capillary Refill : Height, Weight, BMI Height: 5'4.00" Weight: 360lbs. 0.0oz. 163.977261ko; 66.3 BMI Method:Stated General Appearance: WD/WN, no apparent distress, obese HEENT: PERRL/EOMI, normal ENT inspection, TMs normal, pharynx normal Neck: non-tender, full range of motion, supple, normal inspection Cardiovascular: regular rate, rhythm, no gallop, no murmur Respiratory: lungs clear, no respiratory distress, no accessory muscle use, decreased breath sounds Gastrointestinal: normal bowel sounds, non tender, soft Back: normal inspection, no CVA tenderness, no vertebral tenderness Legs: left leg non-tender, left leg normal range of motion, left leg no evidence of injury, left leg swelling Knees: bilateral knee non-tender, bilateral knee normal inspection, bilateral knee normal range of motion Ankles: left ankle soft tissue tenderness, left ankle swelling Feet: left foot soft tissue tenderness, left foot swelling Neurologic/Tendon: normal sensation, normal motor functions Neurologic/Psychiatric: alert, oriented x 3 Skin: normal color, warm/dry Lymphatic: no adenopathy Progress/Results/Core Measures Results/Orders Lab Results Laboratory Tests Test 02/28/19 21:08 Range/Units White Blood Count 8.4 4.3-11.0 10^3/uL Red Blood Count 4.66 4.35-5.85 10^6/uL Hemoglobin 13.8 11.5-16.0 G/DL Hematocrit 42 35-52 % Mean Corpuscular Volume 89 80-99 FL Mean Corpuscular Hemoglobin 30 25-34 PG Mean Corpuscular Hemoglobin Concent 33 32-36 G/DL Red Cell Distribution Width 13.0 10.0-14.5 % Platelet Count 226 130-400 10^3/uL Mean Platelet Volume 9.7 7.4-10.4 FL Neutrophils (%) (Auto) 53 42-75 % Lymphocytes (%) (Auto) 38 12-44 % Monocytes (%) (Auto) 6 0-12 % Eosinophils (%) (Auto) 2 0-10 % Basophils (%) (Auto) 1 0-10 % Neutrophils # (Auto) 4.4 1.8-7.8 X 10^3 Lymphocytes # (Auto) 3.1 1.0-4.0 X 10^3 Monocytes # (Auto) 0.5 0.0-1.0 X 10^3 Eosinophils # (Auto) 0.2 0.0-0.3 10^3/uL Basophils # (Auto) 0.1 0.0-0.1 10^3/uL Prothrombin Time 13.2 12.2-14.7 SEC INR Comment 1.0 0.8-1.4 Activated Partial Thromboplast Time 29 24-35 SEC Sodium Level 141 135-145 MMOL/L Potassium Level 4.1 3.6-5.0 MMOL/L Chloride Level 103 98-107 MMOL/L Carbon Dioxide Level 28 21-32 MMOL/L Anion Gap 10 5-14 MMOL/L Blood Urea Nitrogen 11 7-18 MG/DL Creatinine 0.72 0.60-1.30 MG/DL Estimat Glomerular Filtration Rate > 60 BUN/Creatinine Ratio 15 Glucose Level 103 70-105 MG/DL Calcium Level 9.1 8.5-10.1 MG/DL Corrected Calcium 9.1 8.5-10.1 MG/DL Total Bilirubin 0.3 0.1-1.0 MG/DL Aspartate Amino Transf (AST/SGOT) 23 5-34 U/L Alanine Aminotransferase (ALT/SGPT) 37 0-55 U/L Alkaline Phosphatase 67 40-136 U/L Total Protein 7.0 6.4-8.2 GM/DL Albumin 4.0 3.2-4.5 GM/DL My Orders Orders - NAVEEN AZUL MD Cbc With Automated Diff (02/28/19 20:42) Comprehensive Metabolic Panel (02/28/19 20:42) Protime With Inr (02/28/19 20:42) Partial Thromboplastin Time (02/28/19 20:42) Vital Signs/I&O 02/28/19 20:23 Temp 97.0 Pulse 74 Resp 18 B/P (MAP) 140/62 (88) O2 Delivery Room Air Progress Progress Note : Time: 22:25 Progress Note Patient has medical leg swelling. Ultrasound is not available either here or at [place]. I offered to transfer her to a facility in [facility]. She does not want to do that and understands and fully accepts the risk of that. I discussed giving her a dose of Loven[facility] but that the responsibility is fully on her to have the follow-up ultrasound and primary care follow-up tomorrow morning. This is what she has chosen to do and understands the risk of pulmonary embolus, worsening blood clot and by making this decision Counseling-Symptomatic: 3-10 Minutes Departure Impression Primary Impression: Left leg swelling Additional Impression: Cigarette smoker Disposition: HOME, SELF-CARE Condition: Stable Departure-Patient Inst. Referrals: NO,LOCAL PHYSICIAN (PCP/Family) Primary Care Physician tomorrow for ultrasound of left leg and follow up with PCP Patient Instructions: Dependent Edema (DC), Deep Vein Thrombosis (Blood Clots in the Legs) (DC) Add. Discharge Instructions: It is very important that you keep appointment for ultrasound and follow-up with primary care tomorrow. He will have received a injection of Lovenox which should last for approximately 12 hours. This is a blood thinner. There is risk that he could have a blood clot despite had this medication and complications could occur. It's very important that she follow-up if symptoms worsen. NAVEEN AZUL MD Feb 28, 2019 20:41
[2019-02-28 21:24] LABS: WHITE BLOOD COUNT 8.4 10^3/uL (4.3-11.0)
[2019-02-28 21:25] LABS: HEMATOCRIT 42 % (35-52); HEMOGLOBIN 13.8 G/DL (11.5-16.0); MEAN CORPUSCULAR HEMOGLOBIN 30 PG (25-34); MEAN CORPUSCULAR HGB CONC 33 G/DL (32-36); MEAN CORPUSCULAR VOLUME 89 FL (80-99); MEAN PLATELET VOLUME 9.7 FL (7.4-10.4); NEUTROPHILS % (AUTO) 53 % (42-75); PLATELET COUNT 226 10^3/uL (130-400)
[2019-02-28 21:26] LABS: BASOPHILS # (AUTO) 0.1 10^3/uL (0.0-0.1); BASOPHILS % (AUTO) 1 % (0-10); EOSINOPHILS # (AUTO) 0.2 10^3/uL (0.0-0.3); EOSINOPHILS % (AUTO) 2 % (0-10); LYMPHOCYTES # (AUTO) 3.1 X 10^3 (1.0-4.0); LYMPHOCYTES % (AUTO) 38 % (12-44); MONOCYTES # (AUTO) 0.5 X 10^3 (0.0-1.0); MONOCYTES % (AUTO) 6 % (0-12); NEUTROPHILS # (AUTO) 4.4 X 10^3 (1.8-7.8)
[2019-02-28 21:48] LABS: ALANINE AMINOTRANSFERASE 37 U/L (0-55); ALKALINE PHOSPHATASE 67 U/L (40-136); BILIRUBIN,TOTAL 0.3 MG/DL (0.1-1.0); BUN/CREATININE RATIO 15; CALCIUM 9.1 MG/DL (8.5-10.1); CARBON DIOXIDE 28 MMOL/L (21-32); CHLORIDE 103 MMOL/L (98-107); CREATININE SERUM 0.72 MG/DL (0.60-1.30); GFR ESTIMATED > 60; GLUCOSE 103 MG/DL (70-105); POTASSIUM 4.1 MMOL/L (3.6-5.0); SODIUM 141 MMOL/L (135-145)
[2019-02-28 22:18] LABS: PROTHROMBIN TIME PATIENT 13.2 SEC (12.2-14.7)
[2019-02-28] MEDS ORDERED: ENOXAPARIN 100 MG/1 ML (LOVENOX) SYR SC ONE (22:30)
[2019-02-28] MEDS ORDERED: ENOXAPARIN 100 MG/1 ML (LOVENOX) SYR ONE (22:39)
[2019-02-28 22:47] VITALS: BP 136/95
== END 2019-02-28 22:47 | disposition home or self-care (01) ==
LOC: EDUNIT# 20:04 → ER FS 20:07
DX: M79.89 Other specified soft tissue disorders (principal); G47.30 Sleep apnea, unspecified; E66.01 Morbid (severe) obesity due to excess calories; F98.8 Other specified behavioral and emotional disorders with onset usually occurring in childhood and adolescence; F90.9 Attention-deficit hyperactivity disorder, unspecified type; F17.210 Nicotine dependence, cigarettes, uncomplicated; Z79.52 Long term (current) use of systemic steroids; Z68.44 Body mass index [BMI] 60.0-69.9, adult; Z90.49 Acquired absence of other specified parts of digestive tract; Z87.19 Personal history of other diseases of the digestive system; Z98.890 Other specified postprocedural states
CPT/HCPCS: 36415; 80053; 85025; 85610; 85730; 96372; 99283

== ENCOUNTER 2019-11-04 15:09 | Emergency (ER) | payer MEDICAID ==
[~2019-11-04] VITALS: Ht 160 cm; Wt 172.0 kg
[~2019-11-04 15:09] MED LIST changes: -TRAM50TA2 PO; +TRM50T PO
[2019-11-04 16:41] LABS: BASOPHILS % (AUTO) 0 % (0-10); BILIRUBIN,URINE NEGATIVE (NEGATIVE); CLARITY,URINE CLEAR; COLOR,URINE YELLOW; EOSINOPHILS # (AUTO) 0.2 10^3/uL (0.0-0.3); EOSINOPHILS % (AUTO) 2 % (0-10); GLUCOSE, URINE (UA) NEGATIVE (NEGATIVE); HEMATOCRIT 39 % (35-52); HEMOGLOBIN 13.3 G/DL (11.5-16.0); KETONES,URINE NEGATIVE (NEGATIVE); LEUKOCYTE ESTERASE ,URINE NEGATIVE (NEGATIVE); LYMPHOCYTES # (AUTO) 3.1 X 10^3 (1.0-4.0); LYMPHOCYTES % (AUTO) 27 % (12-44); MEAN CORPUSCULAR HEMOGLOBIN 30 PG (25-34); MEAN CORPUSCULAR HGB CONC 34 G/DL (32-36); MEAN CORPUSCULAR VOLUME 89 FL (80-99); MONOCYTES % (AUTO) 9 % (0-12); NEUTROPHILS # (AUTO) 7.2 X 10^3 (1.8-7.8); NEUTROPHILS % (AUTO) 62 % (42-75); NITRITE,URINE NEGATIVE (NEGATIVE); PLATELET COUNT 228 10^3/uL (130-400); PROTEIN,URINE NEGATIVE (NEGATIVE); RED CELL DISTRIBUTION WIDTH 12.9 % (10.0-14.5); WHITE BLOOD COUNT 11.5 10^3/uL (4.3-11.0)
[2019-11-04] MEDS ORDERED: NS IV 1000 ML 1,000 ML IV SCH (16:45)
[2019-11-04] MEDS ORDERED: ONDANSETRON 4 MG/2 ML (SDV) Z0FRAN IVP ONE (16:45)
[2019-11-04] MEDS ORDERED: KETOROLAC 30 MG/ML VIAL IVP ONE (16:45)
--- NOTE | 2019-11-04 16:45 | ED Abdominal Pain ---
General Chief Complaint: Abdominal/GI Problems Stated Complaint: LOWER R ABD PAIN Nursing Triage Note: pt presents to ed with complaints of r sided abdominal pain starting at 0530 this am. pt reports nausea but no vomiting. pt reports she was seen at [place] [facility] today and referred to via [facility] ed in [place] because she was told [place] had no imaging abilities. Sepsis Screen: No Definite Risk Source of Information: Patient Exam Limitations: No Limitations (DAVID RICE MED STUDENT) History of Present Illness Date Seen by Provider: Nov 04, 2019 Time Seen by Provider: 16:21 Initial Comments Pt complains of constant crampy RLQ abdominal pain with intermittent sharp pangs beginning 0530 this morning. Pain associated with nausea and chills, improved with pressure to area and made worse when she relaxes her abdominal muscles. Pain does not radiate. Pain preceded by several episodes of diarrhea last night that pt states is intermittent since she has had her gallbladder removed. Denies fever, vomiting, melena. Timing/Duration: 12-24 Hours Severity/Quality: Severe, Cramping, Dull, Sharp, Stabbing Location: RLQ Radiation: No Radiation Activities at Onset: None Modifying Factors: Worsens With Coughing, Worsens With Lying down, Worsens With Movement, Worsens With Palpation; Improves With Other (pressure ) Associated Symptoms: Fever/Chills (chills only ), Headache, Nausea/Vomiting (nausea only) (DAVID RICE,MAGNOLIA SPARKS) Allergies and Home Medications Allergies Coded Allergies: No Known Drug Allergies (Unverified , 02/06/18) Home Medications Acetaminophen 500 Mg Tablet, 1,000 MG PO Q6H PRN for PAIN-MILD, (Reported) Ibuprofen 200 Mg Tablet, 600 MG PO TID PRN for PAIN-MILD, (Reported) Methylprednisolone 4 Mg Tab.ds.pk, 4 MG PO UD Prescribed by: HELLEN GAMBINO on 02/06/19 0643 Tramadol HCl 50 Mg Tablet, 50 MG PO Q6H, (Reported) Patient Home Medication List Home Medication List Reviewed: Yes (DAVID RICE MED STUDENT) Review of Systems Review of Systems Constitutional: chills; No diaphoresis, No fever; malaise, weakness EENTM: No Eye Pain, No Ear Pain, No Mouth Pain, No Nose Pain, No Throat Pain Respiratory: Cough, Wheezing Cardiovascular: Denies Chest Pain, Denies Edema Gastrointestinal: See HPI, Abdominal Pain, Diarrhea, Difficulty Swallowing, Nausea Genitourinary: Denies Incontinence, Denies Pain Musculoskeletal: back pain, joint pain Skin: No lesions, No lumps, No rash Endocrine: Intolerance to Cold; Denies Intolerance to Heat Hematologic/Lymphatic: Denies Easy Bleeding, Denies Easy Bruising (DAVID RICE MED STUDENT) Past Qtbmema-Tzaezv-Mcvubf Hx Patient Social History Alcohol Use: Denies Use Number of Drinks Today: GG Alcohol Beverage of Choice: Beer, Whiskey Recreational Drug Use: No (past hx 11 years ago) Drug of Choice: POT AND PAIN PILLS Smoking Status: Former Smoker Type Used: Cigarettes, Smokeless Tobacco Former Smoker, Quit: Oct 21, 2019 Recent Foreign Travel: No Contact w/Someone Who Travel: No Recent Infectious Disease Expo: No Recent Hopitalizations: Yes (SUSAN 3 WEEKS AGO FOR CHEST PAIN) (DAVID RICE,MAGNOLIA STUDENT) Seasonal Allergies Seasonal Allergies: No (DAVID RICE MED STUDENT) Past Medical History Surgeries: Yes (Dental caps, r hand) Section, Gallbladder, Orthopedic Respiratory: Yes (CPAP BROKEN NEEDS TO DO STUDY AGAIN) Sleep Apnea Currently Using CPAP: No Currently Using BIPAP: No Cardiac: No Neurological: Yes (seizures at a child non for several years) Seizure Disorder Female Reproductive Disorders: Denies Genitourinary: No Gastrointestinal: Yes (S/P NAN) Gall Bladder Disease Musculoskeletal: Yes (RIGHT HAND FX/ORIF) Arthritis, Fractures Endocrine: Yes (MORBID OBESITY) HEENT: Yes (POOR DENTITION) Cancer: No Psychosocial: Yes (POLYSUBSTANCE ABUSE) ADD/ADHD Integumentary: No Blood Disorders: No (DAVID RICE,MAGNOLIA STUDENT) Family Medical History Hypertension 19 MOTHER Diabetes (mother), Hypertension (mother) (DAVID RICE,MED STUDENT) Physical Exam Vital Signs Vital Signs - First Documented 11/04/19 15:20 Temp 36.9 Pulse 79 Resp 16 B/P (MAP) 151/76 (101) Pulse Ox 97 (BERNOTLIBBY) Vital Signs Capillary Refill : Less Than 3 Seconds (DAVID RICE,MED STUDENT) Height/Weight/BMI Height: 5'1.00" Weight: 365lbs. 0.0oz. 165.516524we; 67.00 BMI Method:Stated General Appearance: WD/WN, mild distress, obese HEENT: PERRL/EOMI, normal ENT inspection, TMs normal, pharynx normal Neck: non-tender, supple Respiratory: chest non-tender, no respiratory distress, decreased breath sounds (distant), wheezing (not improved with cough ) Cardiovascular: regular rate, rhythm, no gallop, no murmur Gastrointestinal: soft, abnormal bowel sounds (could not auscultate), guarding (voluntary), rebound, tenderness Extremities: pedal edema, swelling (b/l le ) Back: no CVA tenderness, no vertebral tenderness Neurologic/Psychiatric: alert, oriented x 3 Skin: normal color, warm/dry Lymphatic: no adenopathy (anterior/posterior cervical, infra/supraclavicular ) (DAVID RICE,MED STUDENT) Progress/Results/Core Measures Results/Orders Lab Results Laboratory Tests Test 11/04/19 16:33 Range/Units White Blood Count 11.5 H 4.3-11.0 10^3/uL Red Blood Count 4.38 4.35-5.85 10^6/uL Hemoglobin 13.3 11.5-16.0 G/DL Hematocrit 39 35-52 % Mean Corpuscular Volume 89 80-99 FL Mean Corpuscular Hemoglobin 30 25-34 PG Mean Corpuscular Hemoglobin Concent 34 32-36 G/DL Red Cell Distribution Width 12.9 10.0-14.5 % Platelet Count 228 130-400 10^3/uL Mean Platelet Volume 10.0 7.4-10.4 FL Neutrophils (%) (Auto) 62 42-75 % Lymphocytes (%) (Auto) 27 12-44 % Monocytes (%) (Auto) 9 0-12 % Eosinophils (%) (Auto) 2 0-10 % Basophils (%) (Auto) 0 0-10 % Neutrophils # (Auto) 7.2 1.8-7.8 X 10^3 Lymphocytes # (Auto) 3.1 1.0-4.0 X 10^3 Monocytes # (Auto) 1.0 0.0-1.0 X 10^3 Eosinophils # (Auto) 0.2 0.0-0.3 10^3/uL Basophils # (Auto) 0.0 0.0-0.1 10^3/uL Urine Color YELLOW Urine Clarity CLEAR Urine pH 7.0 5-9 Urine Specific Wheeler 1.015 L 1.016-1.022 Urine Protein NEGATIVE NEGATIVE Urine Glucose (UA) NEGATIVE NEGATIVE Urine Ketones NEGATIVE NEGATIVE Urine Nitrite NEGATIVE NEGATIVE Urine Bilirubin NEGATIVE NEGATIVE Urine Urobilinogen 0.2 < = 1.0 MG/DL Urine Leukocyte Esterase NEGATIVE NEGATIVE Urine RBC (Auto) TRACE-I NEGATIVE Urine RBC 2-5 H /HPF Urine WBC 0-2 /HPF Urine Squamous Epithelial Cells 25-50 H /HPF Urine Crystals NONE /LPF Urine Bacteria TRACE /HPF Urine Casts NONE /LPF Urine Mucus NEGATIVE /LPF Urine Culture Indicated NO Urine Test NEGATIVE NEGATIVE Sodium Level 138 135-145 MMOL/L Potassium Level 4.2 3.6-5.0 MMOL/L Chloride Level 104 98-107 MMOL/L Carbon Dioxide Level 25 21-32 MMOL/L Anion Gap 9 5-14 MMOL/L Blood Urea Nitrogen 11 7-18 MG/DL Creatinine 0.65 0.60-1.30 MG/DL Estimat Glomerular Filtration Rate > 60 BUN/Creatinine Ratio 17 Glucose Level 105 70-105 MG/DL Calcium Level 9.1 8.5-10.1 MG/DL Corrected Calcium 9.3 8.5-10.1 MG/DL Total Bilirubin 0.3 0.1-1.0 MG/DL Aspartate Amino Transf (AST/SGOT) 49 H 5-34 U/L Alanine Aminotransferase (ALT/SGPT) 87 H 0-55 U/L Alkaline Phosphatase 79 40-136 U/L Total Protein 7.0 6.4-8.2 GM/DL Albumin 3.8 3.2-4.5 GM/DL Amylase Level 60 25-125 U/L Lipase 92 H 8-78 U/L (LIBBY GUTIERREZ) My Orders Orders - LIBBY GUTIERREZ Comprehensive Metabolic Panel (11/04/19 16:35) Lipase (11/04/19 16:35) Amylase (11/04/19 16:35) Ua Culture If Indicated (11/04/19 16:35) Ed Iv/Invasive Line Start (11/04/19 16:35) Cbc With Automated Diff (11/04/19 16:35) Hcg,Qualitative Urine (11/04/19 16:35) Ns Iv 1000 Ml (Sodium Chloride 0.9%) (11/04/19 16:45) Ondansetron Injection (Zofran Injectio (11/04/19 16:45) Ketorolac Injection (Toradol Injection) (11/04/19 16:45) Ct Abdomen/Pelvis W (11/04/19 16:56) Iohexol Injection (Omnipaque 350 Mg/Ml 1 (11/04/19 17:30) Received Contrast (Hold Metformin- Contr (11/04/19 17:30) Sodium Chloride Flush (Catheter Flush Sy (11/04/19 17:30) Ns (Ivpb) (Sodium Chloride 0.9% Ivpb Bag (11/04/19 17:30) (LIBBY GUTIERREZ) Medications Given in ED Current Medications Medications Dose Ordered Sig/Ehsan Route Start Time Stop Time Status Last Admin Dose Admin Iohexol 100 ml ONCE ONCE IV 11/04/19 17:30 11/04/19 17:31 DC 11/04/19 17:44 100 ML Ketorolac Tromethamine 30 mg ONCE ONCE IVP 11/04/19 16:45 11/04/19 16:46 DC 11/04/19 16:45 30 MG Ondansetron HCl 4 mg ONCE ONCE IVP 11/04/19 16:45 11/04/19 16:46 DC 11/04/19 16:45 4 MG Sodium Chloride 10 ml NEEDED PRN IV 11/04/19 17:30 11/04/19 17:44 10 ML Sodium Chloride 100 ml ONCE ONCE IV 11/04/19 17:30 11/04/19 17:31 DC 11/04/19 17:44 80 ML (LIBBY GUTIERREZ) Vital Signs/I&O 11/04/19 15:20 Temp 36.9 Pulse 79 Resp 16 B/P (MAP) 151/76 (101) Pulse Ox 97 (LIBBY GUTIERREZ) Blood Pressure Mean: 101 POS Progress Progress Note : Time: 16:49 Progress Note Pt seen and evaluated. Ordered CBC, CMP, lipase, amylase, UA, bHCG, abdominal CT. Administering toradol inj. and IVF. Pt will be NPO. Pt has had gallbladder removed but will r/o acute abdomen d/t appendicitis, pancreatitis with CT. (DAVID RICE,MED STUDENT) Progress Note : Progress Note I have seen and evaluated the patient alongside David and agree with above as indicated. I have discussed laboratory and imaging studies with the patient. She is feeling better after medication administration. She agrees with plan of care, plans for discharge, return precautions were given. (LIBBY GUTIERREZ) Diagnostic Imaging Diagonstic Imaging: CT Plain Films/CT/US/NM/MRI: abdomen, pelvis Comments NAME: FREDDY ISLAS [facility] REC#: [id number] PT STATUS: REG ER : 1985 PHYSICIAN: LIBBY GUTIERREZ ENERGY TRADER ADMIT DATE: 11/04/19/ER Draft POSDate of Exam:11/04/19 CT ABDOMEN/PELVIS W PROCEDURE: CT abdomen and pelvis with contrast. TECHNIQUE: Multiple contiguous axial images were obtained through the abdomen and pelvis after administration of intravenous contrast. Auto Exposure Controls were utilized during the CT exam to meet ALARA standards for radiation dose reduction. INDICATION: Increasing right side abdominal pain. FINDINGS: Lung bases are clear. Liver appears normal. Gallbladder is surgically absent. Spleen is not enlarged. Pancreas is normal. Kidneys appear normal. Adrenals are normal. Appendix is normal. Small bowel is not dilated. The colon appears normal. Uterus and adnexa appear normal. Urinary bladder is normal. There is no intraperitoneal free air or free fluid. IMPRESSION: Negative CT abdomen and pelvis. Dictated on workstation # [id number] Dict: 11/04/191755 Trans: 11/04/191757 [facility] [id number] Interpreted by: PELON CARBAJAL MD Electronically signed by: Reviewed: Reviewed by Me (LIBBY GUTIERREZ) Departure Impression Primary Impression: Abdominal pain Additional Impression: Nausea vomiting and diarrhea Disposition: 01 HOME, SELF-CARE Condition: Stable/Unchanged Departure-Patient Inst. Decision time for Depature: 18:12 (LIBBY GUTIERREZ) Referrals: NO,LOCAL PHYSICIAN (PCP/Family) Primary Care Physician Patient Instructions: Nausea and Vomiting, Adult, Acute Abdomen (Belly Pain), Nausea and Vomiting With Cancer Treatment Add. Discharge Instructions: Take medication as directed. You may use Tylenol or Motrin as needed for pain relief. You may use [id number] antidiarrheals per packaging. Return back to the emergency room for worsening symptoms or concerns as needed. All discharge instructions reviewed with patient and/or family. Voiced understanding. Scripts Ondansetron (Ondansetron Odt) 4 Mg Tab.rapdis 4 MG PO Q4H for Nausea, #30 TAB Prov: LIBBY GUTIERREZ 11/04/19 DAVID RICE,MED STUDENT Nov 04, 2019 16:45 LIBBY COX Nov 04, 2019 18:04 POS
[2019-11-04 16:58] LABS: WBC,URINE 0-2 /HPF
[2019-11-04 17:00] LABS: BACTERIA,URINE TRACE /HPF; SQUAMOUS EPITHELIAL CELL,UR 25-50 /HPF
[2019-11-04 17:02] LABS: ALANINE AMINOTRANSFERASE 87 U/L (0-55); ALBUMIN 3.8 GM/DL (3.2-4.5); ALKALINE PHOSPHATASE 79 U/L (40-136); AMYLASE 60 U/L (25-125); BILIRUBIN,TOTAL 0.3 MG/DL (0.1-1.0); BUN/CREATININE RATIO 17; CALCIUM 9.1 MG/DL (8.5-10.1); CARBON DIOXIDE 25 MMOL/L (21-32); CHLORIDE 104 MMOL/L (98-107); CREATININE SERUM 0.65 MG/DL (0.60-1.30); GFR ESTIMATED > 60; GLUCOSE 105 MG/DL (70-105); LIPASE 92 U/L (8-78); POTASSIUM 4.2 MMOL/L (3.6-5.0); SODIUM 138 MMOL/L (135-145)
[2019-11-04] MEDS ORDERED: IOHEXOL 350 MG/ML 100 ML (OMNIPAQUE 350) VIAL IV ONE (17:30)
[2019-11-04] MEDS ORDERED: CATHETER FLUSH 10 ML SYR IV PRN (17:30)
[2019-11-04] MEDS ORDERED: NS 100 ML (IVPB) BAG IV ONE (17:30)
[2019-11-04] MEDS ORDERED: HOLD METFORMIN - RECEIVED CONTRAST 20 ML VIAL IV SCH (17:30)
--- NOTE | 2019-11-04 17:59 | Diagnostic Imaging Report ---
PROCEDURE: CT abdomen and pelvis with contrast. TECHNIQUE: Multiple contiguous axial images were obtained through the abdomen and pelvis after administration of intravenous contrast. Auto Exposure Controls were utilized during the CT exam to meet ALARA standards for radiation dose reduction. INDICATION: Increasing right side abdominal pain. FINDINGS: Lung bases are clear. Liver appears normal. Gallbladder is surgically absent. Spleen is not enlarged. Pancreas is normal. Kidneys appear normal. Adrenals are normal. Appendix is normal. Small bowel is not dilated. The colon appears normal. Uterus and adnexa appear normal. Urinary bladder is normal. There is no intraperitoneal free air or free fluid. IMPRESSION: Negative CT abdomen and pelvis. Dictated by: Dictated on workstation # [id number]
[2019-11-04] MEDS ORDERED: ONDA4TAB11 PO (18:14)
[2019-11-04 18:24] VITALS: BP 151/76
--- OUTSIDE RECORDS SUMMARY | 2019-11-30 21:55 | XMS REPORT | Continuity of Care Document ---
Author Organization Unknown Address Unknown Phone Unavailable Allergies There is no data. Medications There is no data. Problems Date Dx Coded Attending Type Code Diagnosis Diagnosed By 08/30/2012 Harvey POSADAS, Guicho Mei 644 .03 THRT [facility] Procedures There is no data. Results Test Result Range URINALYSIS WITH MICROSCOPIC - 08/29/12 1 2:00 UA LEUKOCYTE ESTERASE DIPSTICK 2+ NEGATIVE UA NITRITE DIPSTICK NEGATIVE NEGATIVE UA PROTEIN DIPSTICK NEGATIVE NEGATIVE UA GLUCOSE DIPSTICK NEGATIVE NEGATIVE UA KETONE DIPSTICK NEGATIVE NEGATIVE UA UROBILINOGEN DIPSTICK NORMAL JOSEPH L UA BILIRUBIN DIPSTICK NEGATIVE NEGATIVE UA BLOOD DIPSTICK NEGATIVE NEGATIVE UA BACTERIA 4+ NEGATIVE UA EPITHELIAL CELLS 3+ epi/hpf 0 - 1+ UA RBC 5-10 rbc/hpf 0 - 3 UA VOLUME FOR EXAM 12.0 mL (12mL STD) UA WBC 20-50 wbc/hpf 0 - 5 UA SPECIFIC GRAVITY 1.020 1.015-1.02 5 UR PH 7.0 5.0-7.0 URINE CULTURE - 08/29/12 12:29 Uncategorized CBC - 09/09/12 10:45 MEAN CELL HGB 32.1 pg 27.0-33.0 MEAN CELL HGB CONCENTRATION 35.1 g/dl 32 .0-36.0 MEAN CELL VOLUME 91.6 fl 80.0-100.0 RED BLOOD CELL 3.89 m/cumm 4.00-6.00 RED CELL DISTRIBUTION WIDTH 13.9 % 11 .0-15.6 WHITE BLOOD CELL 13.2 k/cumm 5.0-10.0 HEMOGLOBIN 12.5 gm/dL 12.0-16.0 HEMATOCRIT 35.6 % 37.0-47.0 PLATELET COUNT 216 k/cumm 150-450 HEMOGLOBIN - 09/09/12 20:00 MEAN CELL VOLUME 91.8 fl 80.0-100.0 HEMOGLOBIN 11.4 gm/dL 12.0-16.0 HEMOGLOBIN - 09/10/12 06:38 MEAN CELL VOLUME 91.8 fl 80.0-100.0 HEMOGLOBIN 10.9 gm/dL 12.0-16.0 CBC W/DIFF - 01/13/13 12:48 COMMENT REVIEWED GRANULOCYTE # 15.1 k/cumm 2.0-9.0 GRANULOCYTE % 85 % 50-75 LYMPHOCYTE # 1.6 k/cumm 1.0-4.0 LYMPHOCYTE % 9 % 20-30 MEAN CELL HGB 29.2 pg 27.0-33.0 MEAN CELL HGB CONCENTRATION 33.6 g/dL 32 .0-37.0 MEAN CELL VOLUME 87.1 fl 80.0-100.0 MONOCYTE # 0.9 k/cumm 0.1-1.0 MONOCYTE % 5 % 4-6 RED BLOOD CELL 4.96 m/cumm 4.00-6.00 RED CELL DISTRIBUTION WIDTH 13.4 % 11 .0-15.6 WHITE BLOOD CELL 17.8 k/cumm 5.0-10.0 HEMOGLOBIN 14.5 gm/dL 12.0-16.0 HEMATOCRIT 43.2 % 37.0-47.0 PLATELET COUNT 216 k/cumm 150-400 UR TEST - 01/13/13 12:48 UR TEST NEGATIVE NEGATIVE UA MICROSCOPIC - 01/13/13 12:48 UA BACTERIA 2+ NEGATIVE UA EPITHELIAL CELLS 4+ epi/hpf 0 - 1+ UA MUCUS 3+ NEG TO 1+ UA RBC 0-3 rbc/hpf 0 - 3 UA VOLUME FOR EXAM 12.0 mL (12mL STD) UA WBC 2-5 wbc/hpf 0 - 5 CHEM/HEM PROFILE-BEDSIDE - 01/13/13 12:5 3 POTASSIUM 4.3 mmol/L 3.5-5.3 METHOD Bedside ANION GAP 13 mmol/L 10-20 METHOD Bedside GLUCOSE 122 mg/dL 70-99 BLOOD UREA NITROGEN 12 mg/dL 7-20 CREATININE 0.7 mg/dL 0.6-1.0 HEMOGLOBIN 14.3 gm/dL 12.0-16.0 HEMATOCRIT 42.0 % 37.0-47.0 SODIUM 139 mmol/L 135-148 CHLORIDE 108 mmol/L 98-110 CARBON DIOXIDE 23 mmol/L 21-32 CALCIUM IONIZED 4.8 mg/dL 4.5-5.3 LIPID PANEL - 03/31/19 09:51 CHOLESTEROL, TOTAL 160 mg/dL <200 HDL CHOLESTEROL 37 mg/dL >50 TRIGLYCERIDES 219 mg/dL <150 LDL-CHOLESTEROL 91 mg/dL (calc) NRG CHOL/HDLC RATIO 4.3 (calc) <5.0 NON HDL CHOLESTEROL 123 mg/dL (calc) <13 0 TSH w/ FREE T4 - 04/28/19 13:09 TSH 0.91 mIU/L NRG T4, FREE 1.0 ng/dL 0.8-1.8 LIPID PANEL - 11/22/19 09:02 CHOLESTEROL, TOTAL 175 mg/dL <200 HDL CHOLESTEROL 38 mg/dL >50 TRIGLYCERIDES 194 mg/dL <150 LDL-CHOLESTEROL 106 mg/dL (calc) NRG CHOL/HDLC RATIO 4.6 (calc) <5.0 NON HDL CHOLESTEROL 137 mg/dL (calc) <13 0 CMP - 11/22/19 09:02 GLUCOSE 110 mg/dL 65-99 UREA NITROGEN (BUN) 15 mg/dL 7-25 CREATININE 0.68 mg/dL 0.50-1.10 eGFR NON-AFR. HAITIAN 115 mL/min/1.73m2 > OR = 60 eGFR 133 mL/min/1.73m2 > OR = 60 BUN/CREATININE RATIO NOT APPLICABLE (calc) 6-22 SODIUM 137 mmol/L 135-146 POTASSIUM 4.3 mmol/L 3.5-5.3 CHLORIDE 101 mmol/L 98-110 CARBON DIOXIDE 30 mmol/L 20-32 CALCIUM 9.6 mg/dL 8.6-10.2 PROTEIN, TOTAL 7.0 g/dL 6.1-8.1 ALBUMIN 4.1 g/dL 3.6-5.1 GLOBULIN 2.9 g/dL (calc) 1.9-3.7 ALBUMIN/GLOBULIN RATIO 1.4 (calc) 1.0-2. 5 BILIRUBIN, TOTAL 0.5 mg/dL 0.2-1.2 ALKALINE PHOSPHATASE 79 U/L 33-115 AST 26 U/L 10-30 ALT 40 U/L 6-29 MAGNESIUM SERUM - 11/22/19 09:02 MAGNESIUM 1.9 mg/dL 1.5-2.5 BNP - 11/22/19 09:02 B TYPE NATRIURETIC PEPTIDE (BNP) 10 pg/mL <100 Radiology Report from [facility] on 2012 14:29:00 DIAGNOSTIC SOREN GING REPORT [facility] - [address] [address] PHONE #: [phone] FAX #: [phone] Name: FREDDY ISLAS Loc: [facility] Radiology No: : 1985 Age: 27 Sex: F Status: REG ER Unit No: [id number] Phys: NAINABAL UrrutiaSoha Jena CLARK Acct: [id number] Reason For Exam: RUQ PAIN, RM 15 Exam Date: 01/13/2013 EXAMS: CPT CODE: [id number] [place] [address] REASON FOR EXAM: Right upper quadrant pain COMPARISON: None TECHNIQUE: Liver/gallbladder ultrasound. The liver is normal in size, shape and echo texture. There are no fo michelle lesions. No intra or extrahepatic biliary dilatation is present. The common bile duct is not dilated and measures 4 mm. There is no evidence of cholelithiasis or gallbladder wall thickening or pericholecystic fluid. The visualized portions of the mid body of the pancreas are within normal limits. The right kidney measures approximately 10 cm in length and has a normal appearance. There is no fluid in Bustos's pouch. IVC and aorta are poorly visualized but where seen, they appear grossly normal in size. IMPRESSION: Negative examination of the liver, gallbladder, and biliary tree. Report was called per request at 1345 hours to ER physician in [facility].. at 1424 Reported and signed by: NAVEEN JAVIER JR., MD CC: Brynn Mott MD Technologist: JOSSELYN YOUNG Transcribed Date/Time: 01/13/2013 (4238)Tomographic Tech: MATTHEW Printed Date/Time: 01/13/2013 (3946) BATCH NO: N/A PAGE 1 Signed Report Radiology Report from [facility] on 2012 12:15:00 DIAGNOSTIC SOREN GING REPORT [facility] - [address] [address] PHONE #: [phone] FAX #: [phone] Name: [facility]EDDY [facility] Rad[facility] No: : 1985 Age: 27 Sex: F Status: DEP Unit No: [id number] Phys: Serafin Varela MD Acct: [id number] Reason For Exam: r abd pain, wbc 18K Exam Date: 01/13/2013 EXAMS: CPT CODE: [id number] CT ABD/PELVIS WITH CONTRAST 03183 TIME OF STUDY: 01/13/2013 3:30 PM REASON FOR EXAM: r abd pain, wbc 18K COMPARISON: None TECHNIQUE: Helical post contrast enhanced images were obtained through the abdomen and post contrast helical images were obtained through the pelvis. FINDINGS: The included lung bases demonstrate minimal atelectasis without focal mass or consolidation. No pleural effusion is present. CT Abdomen: The liver, spleen, pancreas, and adrenal glands all have a normal appearance. There is an exophytic cyst off the medial lower pole of the left kidney measuring 2.5 x 2.2 cm ((image 38/series 2; HU16, delayed images HU15). There is no pathologically enlarged mesenteric or retroperitoneal adenopathy by CT criteria. A normal appendix is visualized. The bowel loops are nondilated. No free fluid or free air is visualized. CT Pelvis: The ureters and bladder are grossly normal. No free air, free fluid, loculated collection or adenopathy is identified. Bony and soft tissue structures throughout the abdomen and pelvis are age appropriate. IMPRESSION: 1. Simple appearing exophytic cyst off the medial lower pole of the left kidney. No evidence of bilateral hydronephrosis. 2. No acute abnormalities in the abdomen or pelvis. Findings were discussed with Dr. Francois on 01/13/2013 3:45 PM. I have personally reviewed these images and have approved or corrected the resident physician's interpretation. PAGE 1 Signed Report (CONTINUED) DIAGNOSTIC IMAGING REPORT [facility] - [address] [place] [address] PHONE #: [phone] FAX #: [phone] Name: ATNONYFREDDYLEATHA ZENDEJAS Loc: [facility] Radiology No: : 1985 Age: 27 Sex: F Status: [facility] Unit No: [id number] Phys: Serafin Varela MD Acct: [id number] Reason For Exam: r abd pain, wbc 18K Exam Date: 01/13/2013- EXAMS: CPT CODE: [id number] CT ABD/PELVIS WITH CONTRAST 86148 <Continued> at 1210 RESIDENT: CHIQUI RODARTE MD Reported and signed by: PELON COWAN MD CC: Brynn Mott MD Technologist: SRUTHI ALEX; DURGA WOO Transcribed Date/Time: 01/15/2013 (1210)Tomographic Tech: ELI Printed Date/Time: 01/15/2013 (2447) BATCH NO: N/A PAGE 2 Signed Report Encounters ACCT No. Visit Date/Time Discharge Status Pt. Type Provider Facility Loc./Unit Complaint [id number] 11/19/2019 12:00:00 11/19/2019 23:59: 59 [facility] Outpatient THEA AGUERO [facility] [id number] 11/22/2019 09:00:00 Document Registration [id number] 04/28/2019 11:20:00 Document Registration [id number] 03/31/2019 10:00:00 Document Registration [id number] 01/13/2013 11:21:00 013 17:24:00 DIS [id number] 09/09/2012 09:58:00 012 16:02:00 DIS Inpatient Harvey POSADAS, [facility] W.5WH [id number] 08/30/2012 07:08:00 012 10:49:00 DIS Emergency Harvey POSADAS, [facility] W.2WOBED [id number] 08/29/2012 11:03:00 012 14:22:00 DIS Emergency Harvey POSADAS, [facility] W.2WOBED [id number] 07/07/2012 13:36:00 012 17:10:00 DIS Emergency Harvey POSADAS, [facility] WClary2WGRACE
== END 2019-11-04 18:24 | disposition home or self-care (01) ==
LOC: EDUNIT# 15:09 → ER 15:10
DX: R10.31 Right lower quadrant pain (principal); R11.2 Nausea with vomiting, unspecified; R19.7 Diarrhea, unspecified; G40.909 Epilepsy, unspecified, not intractable, without status epilepticus; F90.9 Attention-deficit hyperactivity disorder, unspecified type; E66.01 Morbid (severe) obesity due to excess calories; Z79.52 Long term (current) use of systemic steroids; Z87.891 Personal history of nicotine dependence; Z82.49 Family history of ischemic heart disease and other diseases of the circulatory system; Z68.44 Body mass index [BMI] 60.0-69.9, adult
CPT/HCPCS: 36415; 74177; 80053; 81000; 82150; 83690; 84703; 85025; 96374; 96375

== ENCOUNTER → 2019-12-13 | Outpatient (CLI) | payer MEDICAID ==
[~2019-12-13] MED LIST changes: +ONDA4TAB11 PO
--- NOTE | 2019-12-13 12:18 | Diagnostic Imaging Report ---
INDICATION: Tobacco dependence, dyspnea and obstructive sleep apnea PA and lateral views of the chest are obtained with comparison made to study of 02/06/2019. Overall heart size is within normal limits. There has been mild increase in perihilar density which may be due to mild edema and/or pneumonitis which is greater on the right. There is no evidence of pneumothorax. No significant pleural fluid is identified. There is venous azygous distention. IMPRESSION: Mild increased density in the perihilar regions which may be due to mild atelectasis and/or pneumonitis, greater on the right. Dictated by: Dictated on workstation # [id number]
== END ==
LOC: RAD 11:11
PROVIDERS: ATTEND Nurse Practitioner Family
DX: G47.33 Obstructive sleep apnea (adult) (pediatric) (principal); J98.4 Other disorders of lung; F17.200 Nicotine dependence, unspecified, uncomplicated
CPT/HCPCS: 71046

== ENCOUNTER 2020-01-08 21:00 | Outpatient (CLI) | payer MEDICAID | END 2020-01-09 06:30 | disposition home or self-care (01) | LOC: SLEEP 21:00 | PROVIDERS: ATTEND Nurse Practitioner Family | DX: G47.33 Obstructive sleep apnea (adult) (pediatric) (principal) | CPT/HCPCS: 95811 ==

== ENCOUNTER → 2020-01-14 | Outpatient (CLI) | payer MEDICAID ==
[~2020-01-14] MED LIST changes: +RT-ALBUTEROL SULF 2.5 MG/3 ML PRE-MIX VIAL INH ONE
[2020-01-14 15:00] LABS: ABG BASE EXCESS 0.7 MMOL/L (-2.5-2.5); ABG OXYGEN SATURATION 98 % (94-100); ABG PCO2 40 MMHG (35-45); ABG PH 7.41 (7.37-7.43); ABG PO2 78 MMHG (79-93); ABG TCO2 26.3 MMOL/L (21.0-31.0); ALLENS TEST POSITIVE; PATIENT TEMP 35.9; VENTILATOR NO
== END ==
LOC: RT 13:45
PROVIDERS: ATTEND Nurse Practitioner Family
DX: G47.33 Obstructive sleep apnea (adult) (pediatric) (principal); R06.00 Dyspnea, unspecified; F17.200 Nicotine dependence, unspecified, uncomplicated
CPT/HCPCS: 36600; 82805; 94060; 94726; 94729

== ENCOUNTER → 2020-01-28 | Outpatient (CLI) | payer MEDICAID ==
[~2020-01-28] MED LIST changes: +CATHETER FLUSH 10 ML SYR IV PRN; +HOLD METFORMIN - RECEIVED CONTRAST 20 ML VIAL IV SCH; +IOHEXOL 350 MG/ML 100 ML (OMNIPAQUE 350) VIAL IV ONE; +NS 100 ML (IVPB) BAG IV ONE; -RT-ALBUTEROL SULF 2.5 MG/3 ML PRE-MIX VIAL INH ONE
--- NOTE | 2020-01-28 09:07 | Diagnostic Imaging Report ---
PROCEDURE: CT chest with contrast only. TECHNIQUE: Multiple contiguous axial images were obtained through the chest after administration of intravenous contrast. Auto Exposure Controls were utilized during the CT exam to meet ALARA standards for radiation dose reduction. INDICATION: Dyspnea, tobacco dependence. COMPARISON: Radiograph dated December 13, 2019. FINDINGS: No significant adenopathy within the chest. No aneurysmal dilatation of the thoracic aorta. The heart is within normal limits in size. No significant pericardial effusion. No pleural effusion. No pneumothorax. The lungs are clear of focal pulmonary opacity. The trachea is patent. Fatty infiltration of the liver. Cholecystectomy. The spleen is enlarged measuring 16.4 cm in AP dimension without focal splenic mass. Scattered osseous degenerative changes without acute osseous abnormality. IMPRESSION: No acute abnormality. Fatty infiltration of the liver. Mild splenomegaly. Dictated by: Dictated on workstation # [id number]
== END ==
LOC: RAD FS 08:08
PROVIDERS: ATTEND Internal Medicine Critical Care Medicine
DX: R91.8 Other nonspecific abnormal finding of lung field (principal); R06.00 Dyspnea, unspecified; F17.200 Nicotine dependence, unspecified, uncomplicated; K76.0 Fatty (change of) liver, not elsewhere classified; R16.0 Hepatomegaly, not elsewhere classified
CPT/HCPCS: 71260

== ENCOUNTER 2020-04-05 13:47 | Emergency (ER) | payer MEDICAID ==
[~2020-04-05] VITALS: Ht 154.9 cm; Wt 174.5 kg
[~2020-04-05 13:47] MED LIST changes: -CATHETER FLUSH 10 ML SYR IV PRN; -HOLD METFORMIN - RECEIVED CONTRAST 20 ML VIAL IV SCH; -IOHEXOL 350 MG/ML 100 ML (OMNIPAQUE 350) VIAL IV ONE; -NS 100 ML (IVPB) BAG IV ONE
[2020-04-05] MEDS ORDERED: NS IV 500 ML 500 ML IV STA (14:04)
--- NOTE | 2020-04-05 14:09 | ED General ---
General Stated Complaint: ABD PAIN Source of Information: Patient, RN/MD, RN Notes Reviewed Exam Limitations: No Limitations History of Present Illness Date Seen by Provider: April 05, 2020 Time Seen by Provider: 14:00 Initial Comments This patient is a 34-year-old female presents to the emergency department complaining of sharp right-sided abdominal pain moving across the left side. Patient has had her gallbladder removed. Patient states that she's had pain like this in the past but nothing like this as sharp. Patient states is not as sharp as it was still present intermittently. Patient denies constipation. Patient states she had a bowel movement prior to arrival. Patient states she ate a normal breakfast this morning of biscuits and gravy. Take an afternoon nap and woke up with abdominal pain. We'll do medical evaluation treatment is needed. Timing/Duration: 1-3 Hours Severity: Moderate Associated Systoms: No Denies Symptoms, No Chest Pain, No Cough, No Diaphoresis, No Fever/Chills, No Headaches, No Loss of Appetite, No Malaise, No Nausea/Vomiting, No Rash, No Seizure, No Shortness of Air, No Syncope, No Weakness, No Other Allergies and Home Medications Allergies Coded Allergies: No Known Drug Allergies (Unverified , 02/06/18) Home Medications Acetaminophen 500 Mg Tablet, 1,000 MG PO Q6H PRN for PAIN-MILD, (Reported) Ibuprofen 200 Mg Tablet, 600 MG PO TID PRN for PAIN-MILD, (Reported) Methylprednisolone 4 Mg Tab.ds.pk, 4 MG PO UD Prescribed by: HELLEN GAMBINO on 02/06/19 0643 Ondansetron 4 Mg Tab.rapdis, 4 MG PO Q4H Prescribed by: LIBBY GUTIERREZ on 11/04/19 181 Tramadol HCl 50 Mg Tablet, 50 MG PO Q6H, (Reported) Patient Home Medication List Home Medication List Reviewed: Yes Review of Systems Review of Systems Constitutional: No no symptoms reported; see HPI; No chills, No diaphoresis, No dizziness, No fever, No malaise, No weakness, No weight gain, No weight loss, No other EENTM: No see HPI, No no symptoms reported, No ear discharge, No hearing loss, No ear pain, No blurred vision, No double vision, No eye pain, No tearing, No vision loss, No dental problems, No hoarseness, No mouth pain, No mouth swelling , No epistaxis, No nose congestion, No nose pain, No throat pain, No throat swelling, No other Respiratory: No no symptoms reported, No see HPI, No cough, No dyspnea on exertion, No hemoptysis, No orthopnea, No phlegm, No short of breath, No stridor, No wheezing, No other Cardiovascular: No no symptoms reported, No see HPI, No chest pain, No edema, No Hx of Intervention, No palpitations, No syncope, No vascular heart diseas, No other Gastrointestinal: No RUQ, No LUQ, No RLQ, No LLQ, No no symptoms reported; see HPI, abdominal pain; No constipation, No diarrhea, No dysphagia, No hematemesis, No heartburn, No jaundice, No loss of appetite, No melena, No nausea, No vomiting, No other Genitourinary: No hematuria, No pain : No Musculoskeletal: No no symptoms reported, No see HPI, No back pain, No gout, No joint pain, No joint swelling, No muscle pain, No muscle stiffness, No muscle cramps, No muscle twitching, No muscle weakness, No neck pain, No other Skin: No no symptoms reported, No see HPI, No change in color, No change in hair/nails, No dryness, No hx of skin cancer, No lesions, No lumps, No pruritus, No rash, No other All Other Systems Reviewed Negative Unless Noted: Yes Past Jlsahcm-Iwsifv-Wkqhzj Hx Patient Social History Alcohol Beverage of Choice: Beer, Whiskey Drug of Choice: POT AND PAIN PILLS Type Used: Cigarettes, Smokeless Tobacco Former Smoker, Quit: Oct 21, 2019 Recent Foreign Travel: No Contact w/Someone Who Travel: No Recent Hopitalizations: Yes (SUSAN 3 WEEKS AGO FOR CHEST PAIN) Seasonal Allergies Seasonal Allergies: No Past Medical History Surgeries: Yes (Dental caps, r hand) Section, Gallbladder, Orthopedic Respiratory: Yes (CPAP BROKEN NEEDS TO DO STUDY AGAIN) Sleep Apnea Currently Using CPAP: No Currently Using BIPAP: No Cardiac: No Neurological: Yes (seizures at a child non for several years) Seizure Disorder Female Reproductive Disorders: Denies Genitourinary: No Gastrointestinal: Yes (S/P NAN) Gall Bladder Disease Musculoskeletal: Yes (RIGHT HAND FX/ORIF) Arthritis, Fractures Endocrine: Yes (MORBID OBESITY) HEENT: Yes (POOR DENTITION) Cancer: No Psychosocial: Yes (POLYSUBSTANCE ABUSE) ADD/ADHD Integumentary: No Blood Disorders: No Family Medical History Hypertension 19 MOTHER Diabetes, Hypertension Physical Exam Vital Signs Vital Signs - First Documented 04/05/20 14:20 Temp 36.4 Pulse 68 Resp 20 B/P (MAP) 133/57 (82) Pulse Ox 97 O2 Delivery Room Air Capillary Refill : Height, Weight, BMI Height: 5'1.00" Weight: 365lbs. 0.0oz. 165.635687si; 67.00 BMI Method:Stated General Appearance: No Apparent Distress, WD/WN HEENT: PERRL/EOMI, TMs Normal, Normal ENT Inspection, Pharynx Normal Neck: Full Range of Motion, Normal Inspection, Non Tender, Supple Respiratory: Chest Non Tender, Lungs Clear, Normal Breath Sounds, No Accessory Muscle Use, No Respiratory Distress Cardiovascular: Regular Rate, Rhythm, No Edema, No Gallop, No JVD, No Murmur, Normal Peripheral Pulses Gastrointestinal: Normal Bowel Sounds, No Organomegaly, No Pulsatile Mass, Non Tender, Soft Back: Normal Inspection, No CVA Tenderness, No Vertebral Tenderness Skin: Normal Color, Warm/Dry Progress/Results/Core Measures Suspected Sepsis SIRS Temperature: Pulse: Respiratory Rate: Laboratory Tests 04/05/20 14:20: White Blood Count 10.6 Blood Pressure / Mean: Laboratory Tests 04/05/20 14:20: Creatinine 0.61, Platelet Count 237, Total Bilirubin 0.3 Results/Orders Lab Results Laboratory Tests Test 04/05/20 13:57 04/05/20 14:20 Range/Units Urine Color YELLOW Urine Clarity CLEAR Urine pH 5.0 5-9 Urine Specific [place] >1.030 1.016-1.022 Urine Protein NEGATIVE NEGATIVE Urine Glucose (UA) NEGATIVE NEGATIVE Urine Ketones NEGATIVE NEGATIVE Urine Nitrite NEGATIVE NEGATIVE Urine Bilirubin NEGATIVE NEGATIVE Urine Urobilinogen 0.2 < = 1.0 MG/DL Urine Leukocyte Esterase NEGATIVE NEGATIVE Urine RBC (Auto) NEGATIVE NEGATIVE Urine RBC NONE /HPF Urine WBC 0-2 /HPF Urine Squamous Epithelial Cells 10-25 H /HPF Urine Crystals NONE /LPF Urine Bacteria MODERATE H /HPF Urine Casts NONE /LPF Urine Mucus NEGATIVE /LPF Urine Culture Indicated NO White Blood Count 10.6 4.3-11.0 10^3/uL Red Blood Count 4.48 4.35-5.85 10^6/uL Hemoglobin 13.3 11.5-16.0 G/DL Hematocrit 40 35-52 % Mean Corpuscular Volume 89 80-99 FL Mean Corpuscular Hemoglobin 30 25-34 PG Mean Corpuscular Hemoglobin Concent 33 32-36 G/DL Red Cell Distribution Width 13.1 10.0-14.5 % Platelet Count 237 130-400 10^3/uL Mean Platelet Volume 9.5 7.4-10.4 FL Neutrophils (%) (Auto) 67 42-75 % Lymphocytes (%) (Auto) 25 12-44 % Monocytes (%) (Auto) 6 0-12 % Eosinophils (%) (Auto) 1 0-10 % Basophils (%) (Auto) 0 0-10 % Neutrophils # (Auto) 7.1 1.8-7.8 X 10^3 Lymphocytes # (Auto) 2.6 1.0-4.0 X 10^3 Monocytes # (Auto) 0.7 0.0-1.0 X 10^3 Eosinophils # (Auto) 0.1 0.0-0.3 10^3/uL Basophils # (Auto) 0.0 0.0-0.1 10^3/uL Sodium Level 141 135-145 MMOL/L Potassium Level 4.4 3.6-5.0 MMOL/L Chloride Level 102 98-107 MMOL/L Carbon Dioxide Level 27 21-32 MMOL/L Anion Gap 12 5-14 MMOL/L Blood Urea Nitrogen 12 7-18 MG/DL Creatinine 0.61 0.60-1.30 MG/DL Estimat Glomerular Filtration Rate > 60 BUN/Creatinine Ratio 20 Glucose Level 105 70-105 MG/DL Calcium Level 9.5 8.5-10.1 MG/DL Corrected Calcium 9.7 8.5-10.1 MG/DL Total Bilirubin 0.3 0.1-1.0 MG/DL Aspartate Amino Transf (AST/SGOT) 19 5-34 U/L Alanine Aminotransferase (ALT/SGPT) 29 0-55 U/L Alkaline Phosphatase 76 40-136 U/L Total Protein 6.9 6.4-8.2 GM/DL Albumin 3.8 3.2-4.5 GM/DL Amylase Level 43 25-125 U/L Lipase 35 8-78 U/L Serum Test, Qualitative NEGATIVE NEGATIVE My Orders Orders - SAKSHI LAU MD Comprehensive Metabolic Panel (04/05/20 14:04) Lipase (04/05/20 14:04) Amylase (04/05/20 14:04) Ua Culture If Indicated (04/05/20 14:04) Hcg,Qualitative Serum (04/05/20 14:04) Ed Iv/Invasive Line Start (04/05/20 14:04) Acute Abd Series (04/05/20 14:04) Cbc With Automated Diff (04/05/20 14:04) Ondansetron Injection (Zofran Injectio (04/05/20 14:15) Ns Iv 500 Ml (Sodium Chloride 0.9%) (04/05/20 14:04) Medications Given in ED Current Medications Medications Dose Ordered Sig/Ehsan Route Start Time Stop Time Status Last Admin Dose Admin Ondansetron HCl 4 mg ONCE ONCE IVP 04/05/20 14:15 04/05/20 14:16 DC 04/05/20 14:28 4 MG Vital Signs/I&O 04/05/20 14:20 Temp 36.4 Pulse 68 Resp 20 B/P (MAP) 133/57 (82) Pulse Ox 97 O2 Delivery Room Air Capillary Refill : Progress Note : Time: 15:47 Progress Note Negative evaluation in the emergency department. Patient sleeping soundly does not appear to be in acute discomfort. I did discuss at length with patient about options. Patient be given a prescription for diclofenac. Patient a clear liquid diet and advance as tolerated. Follow-up with PCP in 2-3 days. Departure Impression Primary Impression: Abdominal pain Additional Impression: Abdominal wall pain Disposition: HOME, SELF-CARE Condition: Stable Departure-Patient Inst. Decision time for Depature: 15:48 Referrals: [facility] [place] ([place]P) Primary Care Physician THEA AGUERO APRN (Family) Primary Care Physician Patient Instructions: Acute Abdomen (Belly Pain), Adult (DC) Add. Discharge Instructions: Patient be given a prescription for diclofenac. Patient a clear liquid diet and advance as tolerated. Follow-up with PCP in 2-3 days. Scripts Diclofenac Sodium (Diclofenac Sodium) 75 Mg Tablet. 75 MG PO BID for 10 Days, #20 TAB 0 Refills Prov: SAKSHI LAU MD 04/05/20 SAKSHI LAU MD April 05, 2020 14:09
[2020-04-05] MEDS ORDERED: ONDANSETRON 4 MG/2 ML (SDV) Z0FRAN IVP ONE (14:15)
[2020-04-05 14:18] LABS: CLARITY,URINE CLEAR; COLOR,URINE YELLOW; GLUCOSE, URINE (UA) NEGATIVE (NEGATIVE); KETONES,URINE NEGATIVE (NEGATIVE); NITRITE,URINE NEGATIVE (NEGATIVE); PROTEIN,URINE NEGATIVE (NEGATIVE)
[2020-04-05 14:19] LABS: BACTERIA,URINE MODERATE /HPF; BILIRUBIN,URINE NEGATIVE (NEGATIVE); LEUKOCYTE ESTERASE ,URINE NEGATIVE (NEGATIVE); WBC,URINE 0-2 /HPF
[2020-04-05 14:35] LABS: HEMATOCRIT 40 % (35-52); HEMOGLOBIN 13.3 G/DL (11.5-16.0); MEAN CORPUSCULAR HEMOGLOBIN 30 PG (25-34); MEAN CORPUSCULAR HGB CONC 33 G/DL (32-36); MEAN CORPUSCULAR VOLUME 89 FL (80-99); WHITE BLOOD COUNT 10.6 10^3/uL (4.3-11.0)
[2020-04-05 14:36] LABS: BASOPHILS % (AUTO) 0 % (0-10); EOSINOPHILS # (AUTO) 0.1 10^3/uL (0.0-0.3); EOSINOPHILS % (AUTO) 1 % (0-10); LYMPHOCYTES # (AUTO) 2.6 X 10^3 (1.0-4.0); LYMPHOCYTES % (AUTO) 25 % (12-44); MEAN PLATELET VOLUME 9.5 FL (7.4-10.4); MONOCYTES # (AUTO) 0.7 X 10^3 (0.0-1.0); MONOCYTES % (AUTO) 6 % (0-12); NEUTROPHILS # (AUTO) 7.1 X 10^3 (1.8-7.8); NEUTROPHILS % (AUTO) 67 % (42-75); PLATELET COUNT 237 10^3/uL (130-400); RED CELL DISTRIBUTION WIDTH 13.1 % (10.0-14.5)
[2020-04-05 14:50] LABS: CARBON DIOXIDE 27 MMOL/L (21-32); CHLORIDE 102 MMOL/L (98-107); POTASSIUM 4.4 MMOL/L (3.6-5.0); SODIUM 141 MMOL/L (135-145)
[2020-04-05 14:51] LABS: ALANINE AMINOTRANSFERASE 29 U/L (0-55); ALBUMIN 3.8 GM/DL (3.2-4.5); ALKALINE PHOSPHATASE 76 U/L (40-136); AMYLASE 43 U/L (25-125); BILIRUBIN,TOTAL 0.3 MG/DL (0.1-1.0); BUN/CREATININE RATIO 20; CALCIUM 9.5 MG/DL (8.5-10.1); CREATININE SERUM 0.61 MG/DL (0.60-1.30); GFR ESTIMATED > 60; GLUCOSE 105 MG/DL (70-105); LIPASE 35 U/L (8-78); TOTAL PROTEIN 6.9 GM/DL (6.4-8.2)
--- NOTE | 2020-04-05 15:41 | Diagnostic Imaging Report ---
INDICATION: Right-sided abdominal pain. COMPARISON: CT abdomen/pelvis dated 11/04/2019. FINDINGS: Supine and upright views of the abdomen show a nondistended bowel gas pattern. No abnormal air fluid levels or free intraperitoneal air is seen. No abnormal extraosseous calcifications are seen. Bony and soft tissue structures are within normal limits. The spleen and liver are enlarged. The spleen measures 17.5 cm in length and the liver measures 31.2 cm. Accompanying upright chest shows normal heart size and pulmonary vascularity. The lungs are well aerated and clear. The mediastinum is normal in appearance. IMPRESSION: 1. Nonobstructed small bowel gas pattern. 2. Normal chest. No pneumonia or pulmonary edema. 3. Hepatosplenomegaly. Dictated by: Dictated on workstation # [id number]
[2020-04-05] MEDS ORDERED: DICL75TA2 PO (15:49)
[2020-04-05 15:55] VITALS: BP 118/55
--- OUTSIDE RECORDS SUMMARY | 2020-04-05 16:15 | XMS REPORT | Continuity of Care Document ---
Author Organization Unknown Address Unknown Phone Unavailable Allergies Active Description Code Type Severity Reaction Onset Reported/Identified Relationship to Patient Clinical Status Yes No Known Drug Allergies [id number] Drug Allergy Unknown N/A 02/06/2018 Medications There is no data. Problems Date Dx Coded Attending Type Code Diagnosis Diagnosed By 08/30/2012 Harvey POSADAS, Guicho Mei 644 .03 THRT SRIDHAR LABOR-ANTEPART 02/06/2018 KAYLYN, RADHA PUBLICATIONS DESIGNER Ot F17.210 NICOTINE DEPENDENCE, CIGARETTES, UNCOMPL 02/06/2018 KAYLYN, RADHA PUBLICATIONS DESIGNER Ot F90.9 ATTENTION-DEFICIT HYPERACTIVITY DISORDER 02/06/2018 KAYLYN, RADHA PUBLICATIONS DESIGNER Ot G40.909 EPILEPSY, UNSP, NOT INTRACTABLE, WITHOUT 02/06/2018 KAYLYN, RADHA PUBLICATIONS DESIGNER Ot K81.9 CHOLECYSTITIS, UNSPECIFIED 02/06/2018 KAYLYN, RADHA PUBLICATIONS DESIGNER Ot N39.0 URINARY TRACT INFECTION, SITE NOT SPECIF 02/06/2018 KAYLYN, RADHA PUBLICATIONS DESIGNER Ot R10.11 RIGHT UPPER QUADRANT PAIN 02/06/2018 KAYLYN, RADHA PUBLICATIONS DESIGNER Ot Z87.59 PERSONAL HISTORY OF COMP OF PREG, CHLDBR 02/09/2018 KAYLYN, RADHA PUBLICATIONS DESIGNER Ot F17.210 NICOTINE DEPENDENCE, CIGARETTES, UNCOMPL 02/09/2018 KAYLYN, RADHA PUBLICATIONS DESIGNER Ot F90.9 ATTENTION-DEFICIT HYPERACTIVITY DISORDER 02/09/2018 KAYLYN, RADHA PUBLICATIONS DESIGNER Ot G40.909 EPILEPSY, UNSP, NOT INTRACTABLE, WITHOUT 02/09/2018 KAYLYN, RADHA PUBLICATIONS DESIGNER Ot K81.9 CHOLECYSTITIS, UNSPECIFIED 02/09/2018 KAYLYN, RADHA PUBLICATIONS DESIGNER Ot N39.0 URINARY TRACT INFECTION, SITE NOT SPECIF 02/09/2018 KAYLYN, RADHA PUBLICATIONS DESIGNER Ot R10.11 RIGHT UPPER QUADRANT PAIN 02/09/2018 KAYLYN, RADHA PUBLICATIONS DESIGNER Ot Z87.59 PERSONAL HISTORY OF COMP OF PREG, CHLDBR 02/12/2018 KAYLYN, RADHA PUBLICATIONS DESIGNER Ot F17.210 NICOTINE DEPENDENCE, CIGARETTES, UNCOMPL 02/12/2018 KAYLYN, RADHA PUBLICATIONS DESIGNER Ot F90.9 ATTENTION-DEFICIT HYPERACTIVITY DISORDER 02/12/2018 KAYLYN, RADHA PUBLICATIONS DESIGNER Ot G40.909 EPILEPSY, UNSP, NOT INTRACTABLE, WITHOUT 02/12/2018 KAYLYN, RADHA PUBLICATIONS DESIGNER Ot K81.9 CHOLECYSTITIS, UNSPECIFIED 02/12/2018 KAYLYN, RADHA PUBLICATIONS DESIGNER Ot N39.0 URINARY TRACT INFECTION, SITE NOT SPECIF 02/12/2018 KAYLYN, RADHA PUBLICATIONS DESIGNER Ot R10.11 RIGHT UPPER QUADRANT PAIN 02/12/2018 KAYLYN, RADHA PUBLICATIONS DESIGNER Ot Z87.59 PERSONAL HISTORY OF COMP OF PREG, CHLDBR 03/05/2018 DOMINIK POSADAS, DAIN Ordonez Ot F17.210 NICOTINE DEPENDENCE, CIGARETTES, UNCOMPL 03/05/2018 DOMINIK POSADAS, DAIN Ordonez Ot F90.9 ATTENTION-DEFICIT HYPERACTIVITY DISORDER 03/05/2018 DOMINIK POSADAS, DANI Ordonez Ot R10.11 RIGHT UPPER QUADRANT PAIN 03/05/2018 DOMINIK POSADAS, DAIN Ordonez Ot Z98.890 OTHER SPECIFIED POSTPROCEDURAL STATES 03/05/2018 DOMINIK POSADAS, DAIN Ordonez Ot F17.210 NICOTINE DEPENDENCE, CIGARETTES, UNCOMPL 03/05/2018 DOMINIK POSADAS, DAIN Ordonez Ot F90.9 ATTENTION-DEFICIT HYPERACTIVITY DISORDER 03/05/2018 DOMINIK POSADAS, DAIN Ordonez Ot R10.11 RIGHT UPPER QUADRANT PAIN 03/05/2018 DOMINIK POSADAS, DAIN Ordonez Ot Z98.890 OTHER SPECIFIED POSTPROCEDURAL STATES 12/11/2018 KAYLYN, RADHA PUBLICATIONS DESIGNER Ot F17.210 NICOTINE DEPENDENCE, CIGARETTES, UNCOMPL 12/11/2018 KAYLYN, RADHA PUBLICATIONS DESIGNER Ot F90.9 ATTENTION-DEFICIT HYPERACTIVITY DISORDER 12/11/2018 KAYLYN, RADHA PUBLICATIONS DESIGNER Ot G40.909 EPILEPSY, UNSP, NOT INTRACTABLE, WITHOUT 12/11/2018 KAYLYN, RADHA PUBLICATIONS DESIGNER Ot K81.9 CHOLECYSTITIS, UNSPECIFIED 12/11/2018 KAYLYN, RADHA PUBLICATIONS DESIGNER Ot N39.0 URINARY TRACT INFECTION, SITE NOT SPECIF 12/11/2018 KAYLYN, RADHA PUBLICATIONS DESIGNER Ot R10.11 RIGHT UPPER QUADRANT PAIN 12/11/2018 KAYLYN, RADHA PUBLICATIONS DESIGNER Ot Z87.59 PERSONAL HISTORY OF COMP OF PREG, CHLDBR 02/06/2019 HELLEN GAMBINO DO Ot E66.01 MORBID (SEVERE) OBESITY DUE TO EXCESS CA 02/06/2019 MAKI PETERSON, HELLEN Parker Ot F17.210 NICOTINE DEPENDENCE, CIGARETTES, UNCOMPL 02/06/2019 HELLEN GAMBINO DO Ot F90.9 ATTENTION-DEFICIT HYPERACTIVITY DISORDER 02/06/2019 HELLEN GAMBINO DO Ot F98.8 OTH BEHAV/EMOTN DISORD W ONSET USLY OCCU 02/06/2019 HELLEN GAMBINO DO Ot G47.30 SLEEP APNEA, UNSPECIFIED 02/06/2019 HELLEN GAMBINO DO Ot M94.0 CHONDROCOSTAL JUNCTION SYNDROME [TIETZE] 02/06/2019 MAKI HELLEN PETERSON Ot R07.9 CHEST PAIN, UNSPECIFIED 02/06/2019 HELLEN GAMBINO DO K Ot Z68.44 BODY MASS INDEX (BMI) 60.0-69.9, ADULT 02/06/2019 HELLEN GAMBINO DO Ot Z87.19 PERSONAL HISTORY OF OTHER DISEASES OF 02/06/2019 HELLEN GAMBINO DO Ot Z90.49 ACQUIRED ABSENCE OF OTHER SPECIFIED PART 02/06/2019 HELLEN GAMBINO DO Ot Z98.890 OTHER SPECIFIED POSTPROCEDURAL STATES 02/09/2019 HELLEN GAMBINO DO Ot E66.01 MORBID (SEVERE) OBESITY DUE TO EXCESS CA 02/09/2019 HELLEN GAMBINO DO Ot F17.210 NICOTINE DEPENDENCE, CIGARETTES, UNCOMPL 02/09/2019 HELLEN GAMBINO DO Ot F90.9 ATTENTION-DEFICIT HYPERACTIVITY DISORDER 02/09/2019 HELLEN GAMBINO DO Ot F98.8 OTH BEHAV/EMOTN DISORD W ONSET USLY OCCU 02/09/2019 HELLEN GAMBINO DO K Ot G47.30 SLEEP APNEA, UNSPECIFIED 02/09/2019 HELLEN GAMBINO DO K Ot M94.0 CHONDROCOSTAL JUNCTION SYNDROME [TIETZE] 02/09/2019 HELLEN GAMBINO DO K Ot R07.9 CHEST PAIN, UNSPECIFIED 02/09/2019 NICHOLAS GAMBINO DOA K Ot Z68.44 BODY MASS INDEX (BMI) 60.0-69.9, ADULT 02/09/2019 HELLEN GAMBINO DO Ot Z87.19 PERSONAL HISTORY OF OTHER DISEASES OF 02/09/2019 HELLEN GAMBINO DO Ot Z90.49 ACQUIRED ABSENCE OF OTHER SPECIFIED PART 02/09/2019 HELLEN GAMBINO DO Ot Z98.890 OTHER SPECIFIED POSTPROCEDURAL STATES 02/28/2019 NAVEEN AZUL MD Ot E66.01 MORBID (SEVERE) OBESITY DUE TO EXCESS CA 02/28/2019 NAVEEN AZUL MD Ot F17.210 NICOTINE DEPENDENCE, CIGARETTES, UNCOMPL 02/28/2019 NAVEEN AZUL MD Ot F90.9 ATTENTION-DEFICIT HYPERACTIVITY DISORDER 02/28/2019 NAVEEN AZUL MD, Ot F98.8 OTH BEHAV/EMOTN DISORD W ONSET USLY OCCU 02/28/2019 NAVEEN AZUL MD, Ot G47.30 SLEEP APNEA, UNSPECIFIED 02/28/2019 NAVEEN AZUL MD, Ot M79.89 OTHER SPECIFIED SOFT TISSUE DISORDERS 02/28/2019 NAVEEN AZUL MD, Ot Z68.44 BODY MASS INDEX (BMI) 60.0-69.9, ADULT 02/28/2019 NAVEEN AZUL MD, Ot Z79.52 [employer] (CURRENT) USE OF SYSTEMIC STER 02/28/2019 NAVEEN AZUL MD Ot Z87.19 PERSONAL HISTORY OF OTHER DISEASES OF TH 02/28/2019 NAVEEN AZUL MD, Ot Z90.49 ACQUIRED ABSENCE OF OTHER SPECIFIED PART 02/28/2019 NAVEEN AZUL MD, Ot Z98.890 OTHER SPECIFIED POSTPROCEDURAL STATES 03/05/2019 NAVEEN AZUL MD, Ot E66.01 MORBID (SEVERE) OBESITY DUE TO EXCESS CA 03/05/2019 NAVEEN AZUL MD Ot F17.210 NICOTINE DEPENDENCE, CIGARETTES, UNCOMPL 03/05/2019 NAVEEN AZUL MD Ot F90.9 ATTENTION-DEFICIT HYPERACTIVITY DISORDER 03/05/2019 NAVEEN AZUL MD Ot F98.8 OTH BEHAV/EMOTN DISORD W ONSET USLY OCCU 03/05/2019 NAVEEN AZUL MD, Ot G47.30 SLEEP APNEA, UNSPECIFIED 03/05/2019 NAVEEN AZUL MD Ot M79.89 OTHER SPECIFIED SOFT TISSUE DISORDERS 03/05/2019 NAVEEN AZUL MD Ot Z68.44 BODY MASS INDEX (BMI) 60.0-69.9, ADULT 03/05/2019 NAVEEN AZUL MD Ot Z79.52 PRESS [employer] (CURRENT) USE OF SYSTEMIC STER 03/05/2019 NAVEEN AZUL MD Ot Z87.19 PERSONAL HISTORY OF OTHER DISEASES OF TH 03/05/2019 NAVEEN AZUL MD Ot Z90.49 ACQUIRED ABSENCE OF OTHER SPECIFIED PART 03/05/2019 NAVEEN AZUL MD Ot Z98.890 OTHER SPECIFIED POSTPROCEDURAL STATES 11/04/2019 BERNTEJAL, LIBBY Ot E66.01 MORBID (SEVERE) OBESITY DUE TO EXCESS CA 11/04/2019 BERNOT, LIBBY Ot F90.9 ATTENTION-DEFICIT HYPERACTIVITY DISORDER 11/04/2019 BERNOT, LIBBY Ot G40.909 EPILEPSY, UNSP, NOT INTRACTABLE, WITHOUT 11/04/2019 BERNOT, LIBBY Ot R10.31 RIGHT LOWER QUADRANT PAIN 11/04/2019 BERNOT, LIBBY Ot R11.2 NAUSEA WITH VOMITING, UNSPECIFIED 11/04/2019 BERNOT, LIBBY Ot R19.7 DIARRHEA, UNSPECIFIED 11/04/2019 BERNOT, LIBBY Ot Z68.44 BODY MASS INDEX (BMI) 60.0-69.9, ADULT 11/04/2019 BERNOT, LIBBY Ot Z79.52 ALF (CURRENT) USE OF SYSTEMIC STER 11/04/2019 BERNOT, LIBBY Ot Z82.49 FAMILY HX OF ISCHEM HEART DIS AND OTH DI 11/04/2019 BERNTEJAL, LIBBY Ot Z87.891 PERSONAL HISTORY OF NICOTINE DEPENDENCE 12/16/2019 ZE PERRY APRN Ot F17.200 NICOTINE DEPENDENCE, UNSPECIFIED, UNCOMP 12/16/2019 ZE PERRY APRN Ot G47.33 OBSTRUCTIVE SLEEP APNEA (ADULT) (PEDIATR 12/16/2019 ZE PERRY APRN Ot J98.4 OTHER DISORDERS OF LUNG 01/19/2020 ZE PERRY APRN Ot G47.33 OBSTRUCTIVE SLEEP APNEA (ADULT) (PEDIATR 01/19/2020 ZE PERRY APRN Ot G47.33 OBSTRUCTIVE SLEEP APNEA (ADULT) (PEDIATR 01/31/2020 URIEL REYES DO Ot F17.200 NICOTINE DEPENDENCE, UNSPECIFIED, UNCOMP 01/31/2020 URIEL REYES DO Ot K76. 0 FATTY (CHANGE OF) LIVER, NOT ELSEWHERE C 01/31/2020 URIEL REYES DO Ot R06. 00 DYSPNEA, UNSPECIFIED 01/31/2020 URIEL REYES DO Ot R16. 0 HEPATOMEGALY, NOT ELSEWHERE CLASSIFIED 01/31/2020 URIEL REYES DO Ot R91. 8 OTHER NONSPECIFIC ABNORMAL FINDING OF KATHARINE Procedures There is no data. Results Test [...] mmol/L 21-32 CALCIUM IONIZED 4.8 mg/dL 4.5-5.3 Complete urinalysis with reflex to cultu re - 02/06/18 19:23 Urine color determination RED NRG Urine clarity determination BLOODY NR G Urine pH measurement by test strip 8 5-9 Specific gravity of urine by test strip 1.010 1.016-1.022 Urine protein assay by test strip, semi-quantitative 3+ NEGATIVE Urine glucose detection by automated test strip NE GATIVE NEGATIVE Erythrocytes detection in urine sediment by light micr oscopy 5+ NEGATIVE Urine ketones detection by automated test strip 1+ NEGATIVE Urine nitrite detection by test strip POSITIVE NEGATIVE Urine total bilirubin detection by test strip NEGA TIVE NEGATIVE Urine urobilinogen measurement by automated test strip (mass/volume) NORMAL NORMAL Urine leukocyte esterase detection by dipstick 2+ NEGATIVE Automated urine sediment erythrocyte cou nt by microscopy (number/high power field) TNTC NRG Automated urine sediment leukocyte count by microscopy (number/high power field) [HPF] NRG Bacteria detection in urine sediment by light microsco py LARGE NRG Squamous epithelial cells detection in u rine sediment by light microscopy 10-25 NRG Crystals detection in urine sediment by light microsco py NONE NRG Casts detection in urine sediment by light microscopy NONE NRG Mucus detection in urine sediment by light microscopy NEGATIVE NRG Complete urinalysis with reflex to culture YES NRG Bacterial urine culture - 02/06/18 19:23 URINE CULTURE RESULTS MORE THAN 3 ISOLATES NRG Complete blood count (CBC) with automate d white blood cell (WBC) differential - 03/05/18 00:30 Blood leukocytes automated count (number/volume) 10.9 10*3/uL 4.3-11.0 Blood erythrocytes automated count (number/volume) 4.68 10*6/uL 4.35-5.85 Venous blood hemoglobin measurement (mass/volume) 14.5 g/dL 11.5-16.0 Blood hematocrit (volume fraction) 41 % 35-52 Automated erythrocyte mean corpuscular volume 89 [ foz_us] 80-99 Automated erythrocyte mean corpuscular h emoglobin (mass per erythrocyte) 31 pg 25-34 Automated erythrocyte mean corpuscular h emoglobin concentration measurement (mass/volume) 35 g/dL 32-36 Automated erythrocyte distribution width ratio 13. 2 % 10.0- 14.5 Automated blood platelet count (count/volume) 253 10*3/uL 130-400 Automated blood platelet mean volume measurement 9.9 [foz_us] 7.4-10.4 Automated blood neutrophils/100 leukocytes 53 % 42-75 Automated blood lymphocytes/100 leukocytes 36 % 12-44 Blood monocytes/100 leukocytes 5 % 0-12 Automated blood eosinophils/100 leukocytes 5 % 0-10 Automated blood basophils/100 leukocytes 1 % 0-10 Blood neutrophils automated count (number/volume) 5.7 10*3 1.8-7.8 Blood lymphocytes automated count (number/volume) 3.9 10*3 1.0-4.0 Blood monocytes automated count (number/volume) 0. 6 10*3 0.0-1.0 Automated eosinophil count 0.6 10*3/uL 0 .0-0.3 Automated blood basophil count (count/volume) 0.1 10*3/uL 0.0-0.1 Serum or plasma choriogonadotropin (preg jaycob test) detection - 03/05/18 00:30 Serum or plasma choriogonadotropin ( test) de tection NEGATIVE NEGATIVE Comprehensive metabolic panel - 03/05/18 00:30 Serum or plasma sodium measurement (moles/volume) 139 mmol/L 135-145 Serum or plasma potassium measurement (moles/volume) 3.9 mmol/L 3.6-5.0 Serum or plasma chloride measurement (moles/volume) 105 mmol/L 98-107 Carbon dioxide 20 mmol/L 21-32 Serum or plasma anion gap determination (moles/volume) 14 mmol/L 5-14 Serum or plasma urea nitrogen measurement (mass/volume ) 13 mg/dL 7-18 Serum or plasma creatinine measurement (mass/volume) 0.78 mg/dL 0.60-1.30 Serum or plasma urea nitrogen/creatinine mass ratio 17 NRG Serum or plasma creatinine measurement w ith calculation of estimated glomerular filtration rate > NRG Serum or plasma glucose measurement (mass/volume) 108 mg/dL 70-105 Serum or plasma calcium measurement (mass/volume) 9.4 mg/dL 8.5-10.1 Serum or plasma total bilirubin measurement (mass/volu me) 0.2 mg/dL 0.1-1.0 Serum or plasma alkaline phosphatase adair surement (enzymatic activity/volume) 74 U/L 40-136 Serum or plasma aspartate aminotransfera se measurement (enzymatic activity/volume) 21 U/L 5-34 Serum or plasma alanine aminotransferase measurement (enzymatic activity/volume) 29 U/L 0-55 Serum or plasma protein measurement (mass/volume) 7.6 g/dL 6.4-8.2 Serum or plasma albumin measurement (mass/volume) 4.0 g/dL 3.2-4.5 Lipase - 03/05/18 00:30 Lipase 49 U/L 8-78 Complete blood count (CBC) with automate d white blood cell (WBC) differential - 02/06/19 04:54 Blood leukocytes automated count (number/volume) 10.5 10*3/uL 4.3-11.0 Blood erythrocytes automated count (number/volume) 4.54 10*6/uL 4.35-5.85 Venous blood hemoglobin measurement (mass/volume) 13.7 g/dL 11.5-16.0 Blood hematocrit (volume fraction) 41 % 35-52 Automated erythrocyte mean corpuscular volume 89 [ foz_us] 80-99 Automated erythrocyte mean corpuscular h emoglobin (mass per erythrocyte) 30 pg 25-34 Automated erythrocyte mean corpuscular h emoglobin concentration measurement (mass/volume) 34 g/dL 32-36 Automated erythrocyte distribution width ratio 13. 1 % 10.0- 14.5 Automated blood platelet count (count/volume) 234 10*3/uL 130-400 Automated blood platelet mean volume measurement 10.2 [foz_us] 7.4-10.4 Automated blood neutrophils/100 leukocytes 66 % 42-75 Automated blood lymphocytes/100 leukocytes 26 % 12-44 Blood monocytes/100 leukocytes 7 % 0-12 Automated blood eosinophils/100 leukocytes 2 % 0-10 Automated blood basophils/100 leukocytes 0 % 0-10 Blood neutrophils automated count (number/volume) 6.9 10*3 1.8-7.8 Blood lymphocytes automated count (number/volume) 2.7 10*3 1.0-4.0 Blood monocytes automated count (number/volume) 0. 7 10*3 0.0-1.0 Automated eosinophil count 0.2 10*3/uL 0 .0-0.3 Automated blood basophil count (count/volume) 0.0 10*3/uL 0.0-0.1 PT panel in platelet poor plasma by coag ulation assay - 02/06/19 04:54 Prothrombin time (PT) in platelet poor plasma by coagu lation assay 12.6 s 12.2-14.7 INR in platelet poor plasma or blood by coagulation as say 0.9 0.8-1.4 Activated partial thromboplastin time (a PTT) in platelet poor plasma bycoagulation assay - 02/06/19 04:54 Activated partial thromboplastin time (a PTT) in platelet poor plasma bycoagulation assay 33 s 24-35 Serum or plasma choriogonadotropin (preg jaycob test) detection - 02/06/19 04:54 Serum or plasma choriogonadotropin ( test) de tection NEGATIVE NEGATIVE Serum or plasma ethanol measurement (mas s/volume) - 02/06/19 04:54 Serum or plasma ethanol measurement (mass/volume) < mg/dL <10 Comprehensive metabolic panel - 02/06/19 04:54 Serum or plasma sodium measurement (moles/volume) 141 mmol/L 135-145 Serum or plasma potassium measurement (moles/volume) 4.1 mmol/L 3.6-5.0 Serum or plasma chloride measurement (moles/volume) 106 mmol/L 98-107 Carbon dioxide 24 mmol/L 21-32 Serum or plasma anion gap determination (moles/volume) 11 mmol/L 5-14 Serum or plasma urea nitrogen measurement (mass/volume ) 18 mg/dL 7-18 Serum or plasma creatinine measurement (mass/volume) 0.73 mg/dL 0.60-1.30 Serum or plasma urea nitrogen/creatinine mass ratio 25 NRG Serum or plasma creatinine measurement w ith calculation of estimated glomerular filtration rate > NRG Serum or plasma glucose measurement (mass/volume) 111 mg/dL 70-105 Serum or plasma calcium measurement (mass/volume) 9.5 mg/dL 8.5-10.1 Serum or plasma total bilirubin measurement (mass/volu me) 0.4 mg/dL 0.1-1.0 Serum or plasma alkaline phosphatase adair surement (enzymatic activity/volume) 79 U/L 40-136 Serum or plasma aspartate aminotransfera se measurement (enzymatic activity/volume) 23 U/L 5-34 Serum or plasma alanine aminotransferase measurement (enzymatic activity/volume) 43 U/L 0-55 Serum or plasma protein measurement (mass/volume) 7.0 g/dL 6.4-8.2 Serum or plasma albumin measurement (mass/volume) 3.9 g/dL 3.2-4.5 CALCIUM CORRECTED 9.6 mg/dL 8.5-10.1 Magnesium - 02/06/19 04:54 Magnesium 1.9 mg/dL 1.8-2.4 Serum or plasma creatine kinase measurem ent (enzymatic activity/volume) - 02/06/19 04:54 Serum or plasma creatine kinase measurem ent (enzymatic activity/volume) 104 U/L 29-168 Serum or plasma creatine kinase MB measu rement (enzymatic activity/volume) - 02/06/19 04:54 Serum or plasma creatine kinase MB measu rement (enzymatic activity/volume) 1.7 ng/mL <6.6 Serum or plasma troponin i.cardiac measu rement (mass/volume) - 02/06/19 04:54 Serum or plasma troponin i.cardiac measurement (mass/v olume) < ng/mL <0.028 Myoglobin, serum - 02/06/19 04:54 Myoglobin, serum 52.2 ng/mL 10.0-92.0 Serum or plasma amylase measurement (enz ymatic activity/volume) - 02/06/19 04:54 Serum or plasma amylase measurement (enzymatic activit y/volume) 46 U/L 25-125 Lipase - 02/06/19 04:54 Lipase 47 U/L 8-78 Serum or plasma lithium measurement (mol es/volume) - 02/06/19 04:54 BNP level 16.2 pg/mL <100.0 Influenza virus A and B antigen detectio n - 02/06/19 05:24 FLU RESULT NEGATIVE FOR INFLUENZA A AND B ANTIGENS BY IA NRG Complete urinalysis with reflex to cultu re - 02/06/19 05:55 Urine color determination YELLOW NRG Urine clarity determination SLIGHTLY CLOUDY NRG Urine pH measurement by test strip 6 5-9 Specific gravity of urine by test strip 1.025 1.016-1.022 Urine protein assay by test strip, semi-quantitative 1+ NEGATIVE Urine glucose detection by automated test strip NE GATIVE NEGATIVE Erythrocytes detection in urine sediment by light micr oscopy NEGATIVE NEGATIVE Urine ketones detection by automated test strip NE GATIVE NEGATIVE Urine nitrite detection by test strip NEGATIVE NEGATIVE Urine total bilirubin detection by test strip NEGA TIVE NEGATIVE Urine urobilinogen measurement by automated test strip (mass/volume) NORMAL NORMAL Urine leukocyte esterase detection by dipstick 1+ NEGATIVE Automated urine sediment erythrocyte cou nt by microscopy (number/high power field) RARE NRG Automated urine sediment leukocyte count by microscopy (number/high power field) [HPF] NRG Bacteria detection in urine sediment by light microsco py TRACE NRG Squamous epithelial cells detection in u rine sediment by light microscopy 25-50 NRG Crystals detection in urine sediment by light microsco py PRESENT NRG Casts detection in urine sediment by light microscopy NONE NRG Mucus detection in urine sediment by light microscopy SMALL NRG Complete urinalysis with reflex to culture NO NRG Amorphous sediment detection in urine sediment by ligh t microscopy FEW IL[place] URATES NRG Urine drug screening test - 02/06/19 05: 55 Urine phencyclidine detection by screening method NEGATIVE NEGATIVE Urine benzodiazepines detection by screening method NEGATIVE NEGATIVE Urine cocaine detection NEGATIVE NEGATI VE Urine amphetamines detection by screening method N EGATIVE NEGATIVE Urine methamphetamine detection by screening method NEGATIVE NEGATIVE Urine cannabinoids detection by screening method N EGATIVE NEGATIVE Urine opiates detection by screening method NEGATI VE NEGATIVE Urine barbiturates detection NEGATIVE N EGATIVE Screening urine tricyclic antidepressants detection NEGATIVE NEGATIVE Urine methadone detection by screening method NEGA TIVE NEGATIVE Urine oxycodone detection NEGATIVE NEGA TIVE Urine propoxyphene detection NEGATIVE N EGATIVE Complete blood count (CBC) with automate d white blood cell (WBC) differential - 02/28/19 21:08 Blood leukocytes automated count (number/volume) 8.4 10*3/uL 4.3-11.0 Blood erythrocytes automated count (number/volume) 4.66 10*6/uL 4.35-5.85 Venous blood hemoglobin measurement (mass/volume) 13.8 g/dL 11.5-16.0 Blood hematocrit (volume fraction) 42 % 35-52 Automated erythrocyte mean corpuscular volume 89 [ foz_us] 80-99 Automated erythrocyte mean corpuscular h emoglobin (mass per erythrocyte) 30 pg 25-34 Automated erythrocyte mean corpuscular h emoglobin concentration measurement (mass/volume) 33 g/dL 32-36 Automated erythrocyte distribution width ratio 13. 0 % 10.0- 14.5 Automated blood platelet count (count/volume) 226 10*3/uL 130-400 Automated blood platelet mean volume measurement 9.7 [foz_us] 7.4-10.4 Automated blood neutrophils/100 leukocytes 53 % 42-75 Automated blood lymphocytes/100 leukocytes 38 % 12-44 Blood monocytes/100 leukocytes 6 % 0-12 Automated blood eosinophils/100 leukocytes 2 % 0-10 Automated blood basophils/100 leukocytes 1 % 0-10 Blood neutrophils automated count (number/volume) 4.4 10*3 1.8-7.8 Blood lymphocytes automated count (number/volume) 3.1 10*3 1.0-4.0 Blood monocytes automated count (number/volume) 0. 5 10*3 0.0-1.0 Automated eosinophil count 0.2 10*3/uL 0 .0-0.3 Automated blood basophil count (count/volume) 0.1 10*3/uL 0.0-0.1 Comprehensive metabolic panel - 02/28/19 21:08 Serum or plasma sodium measurement (moles/volume) 141 mmol/L 135-145 Serum or plasma potassium measurement (moles/volume) 4.1 mmol/L 3.6-5.0 Serum or plasma chloride measurement (moles/volume) 103 mmol/L 98-107 Carbon dioxide 28 mmol/L 21-32 Serum or plasma anion gap determination (moles/volume) 10 mmol/L 5-14 Serum or plasma urea nitrogen measurement (mass/volume ) 11 mg/dL 7-18 Serum or plasma creatinine measurement (mass/volume) 0.72 mg/dL 0.60-1.30 Serum or plasma urea nitrogen/creatinine mass ratio 15 NRG Serum or plasma creatinine measurement w ith calculation of estimated glomerular filtration rate > NRG Serum or plasma glucose measurement (mass/volume) 103 mg/dL 70-105 Serum or plasma calcium measurement (mass/volume) 9.1 mg/dL 8.5-10.1 Serum or plasma total bilirubin measurement (mass/volu me) 0.3 mg/dL 0.1-1.0 Serum or plasma alkaline phosphatase adair surement (enzymatic activity/volume) 67 U/L 40-136 Serum or plasma aspartate aminotransfera se measurement (enzymatic activity/volume) 23 U/L 5-34 Serum or plasma alanine aminotransferase measurement (enzymatic activity/volume) 37 U/L 0-55 Serum or plasma protein measurement (mass/volume) 7.0 g/dL 6.4-8.2 Serum or plasma albumin measurement (mass/volume) 4.0 g/dL 3.2-4.5 CALCIUM CORRECTED 9.1 mg/dL 8.5-10.1 PT panel in platelet poor plasma by coag ulation assay - 02/28/19 21:08 Prothrombin time (PT) in platelet poor plasma by coagu lation assay 13.2 s 12.2-14.7 INR in platelet poor plasma or blood by coagulation as say 1.0 0.8-1.4 Activated partial thromboplastin time (a PTT) in platelet poor plasma bycoagulation assay - 02/28/19 21:08 Activated partial thromboplastin time (a PTT) in platelet poor plasma bycoagulation assay 29 s 24-35 LIPID PANEL - 03/31/19 09:51 CHOLESTEROL, TOTAL 160 mg/dL <200 HDL CHOLESTEROL 37 mg/dL >50 TRIGLYCERIDES 219 mg/dL <150 LDL-CHOLESTEROL 91 mg/dL (calc) NRG CHOL/HDLC RATIO 4.3 (calc) <5.0 NON HDL CHOLESTEROL 123 mg/dL (calc) <13 0 TSH w/ FREE T4 - 04/28/19 13:09 TSH 0.91 mIU/L NRG T4, FREE 1.0 ng/dL 0.8-1.8 Urine beta human chorionic gonadotropin (hCG) measurement - 11/04/19 16:33 Urine beta human chorionic gonadotropin (hCG) measurem ent NEGATIVE NEGATIVE Complete blood count (CBC) with automate d white blood cell (WBC) differential - 11/04/19 16:33 Blood leukocytes automated count (number/volume) 11.5 10*3/uL 4.3-11.0 Blood erythrocytes automated count (number/volume) 4.38 10*6/uL 4.35-5.85 Venous blood hemoglobin measurement (mass/volume) 13.3 g/dL 11.5-16.0 Blood hematocrit (volume fraction) 39 % 35-52 Automated erythrocyte mean corpuscular volume 89 [ foz_us] 80-99 Automated erythrocyte mean corpuscular h emoglobin (mass per erythrocyte) 30 pg 25-34 Automated erythrocyte mean corpuscular h emoglobin concentration measurement (mass/volume) 34 g/dL 32-36 Automated erythrocyte distribution width ratio 12. 9 % 10.0- 14.5 Automated blood platelet count (count/volume) 228 10*3/uL 130-400 Automated blood platelet mean volume measurement 10.0 [foz_us] 7.4-10.4 Automated blood neutrophils/100 leukocytes 62 % 42-75 Automated blood lymphocytes/100 leukocytes 27 % 12-44 Blood monocytes/100 leukocytes 9 % 0-12 Automated blood eosinophils/100 leukocytes 2 % 0-10 Automated blood basophils/100 leukocytes 0 % 0-10 Blood neutrophils automated count (number/volume) 7.2 10*3 1.8-7.8 Blood lymphocytes automated count (number/volume) 3.1 10*3 1.0-4.0 Blood monocytes automated count (number/volume) 1. 0 10*3 0.0-1.0 Automated eosinophil count 0.2 10*3/uL 0 .0-0.3 Automated blood basophil count (count/volume) 0.0 10*3/uL 0.0-0.1 Complete urinalysis with reflex to cultu re - 11/04/19 16:33 Urine color determination YELLOW NRG Urine clarity determination CLEAR NR G Urine pH measurement by test strip 7.0 5-9 Specific gravity of urine by test strip 1.015 1.016-1.022 Urine protein assay by test strip, semi-quantitative NEGATIVE NEGATIVE Urine glucose detection by automated test strip NE GATIVE NEGATIVE Erythrocytes detection in urine sediment by light micr oscopy TRACE-I NEGATIVE Urine ketones detection by automated test strip NE GATIVE NEGATIVE Urine nitrite detection by test strip NEGATIVE NEGATIVE Urine total bilirubin detection by test strip NEGA TIVE NEGATIVE Urine urobilinogen measurement by automated test strip (mass/volume) 0.2 mg/dL < = 1.0 Urine leukocyte esterase detection by dipstick NEG ATIVE NEGATIVE Automated urine sediment erythrocyte cou nt by microscopy (number/high power field) [HPF] NRG Automated urine sediment leukocyte count by microscopy (number/high power field) [HPF] NRG Bacteria detection in urine sediment by light microsco py TRACE NRG Squamous epithelial cells detection in u rine sediment by light microscopy 25-50 NRG Crystals detection in urine sediment by light microsco py NONE NRG Casts detection in urine sediment by light microscopy NONE NRG Mucus detection in urine sediment by light microscopy NEGATIVE NRG Complete urinalysis with reflex to culture NO NRG Comprehensive metabolic panel - 11/04/19 16:33 Serum or plasma sodium measurement (moles/volume) 138 mmol/L 135-145 Serum or plasma potassium measurement (moles/volume) 4.2 mmol/L 3.6-5.0 Serum or plasma chloride measurement (moles/volume) 104 mmol/L 98-107 Carbon dioxide 25 mmol/L 21-32 Serum or plasma anion gap determination (moles/volume) 9 mmol/L 5-14 Serum or plasma urea nitrogen measurement (mass/volume ) 11 mg/dL 7-18 Serum or plasma creatinine measurement (mass/volume) 0.65 mg/dL 0.60-1.30 Serum or plasma urea nitrogen/creatinine mass ratio 17 NRG Serum or plasma creatinine measurement w ith calculation of estimated glomerular filtration rate > NRG Serum or plasma glucose measurement (mass/volume) 105 mg/dL 70-105 Serum or plasma calcium measurement (mass/volume) 9.1 mg/dL 8.5-10.1 Serum or plasma total bilirubin measurement (mass/volu me) 0.3 mg/dL 0.1-1.0 Serum or plasma alkaline phosphatase adair surement (enzymatic activity/volume) 79 U/L 40-136 Serum or plasma aspartate aminotransfera se measurement (enzymatic activity/volume) 49 U/L 5-34 Serum or plasma alanine aminotransferase measurement (enzymatic activity/volume) 87 U/L 0-55 Serum or plasma protein measurement (mass/volume) 7.0 g/dL 6.4-8.2 Serum or plasma albumin measurement (mass/volume) 3.8 g/dL 3.2-4.5 CALCIUM CORRECTED 9.3 mg/dL 8.5-10.1 Serum or plasma amylase measurement (enz ymatic activity/volume) - 11/04/19 16:33 Serum or plasma amylase measurement (enzymatic activit y/volume) 60 U/L 25-125 Lipase - 11/04/19 16:33 Lipase 92 U/L 8-78 LIPID PANEL - 11/22/19 09:02 CHOLESTEROL, TOTAL 175 mg/dL <200 HDL CHOLESTEROL 38 mg/dL >50 TRIGLYCERIDES 194 mg/dL <150 LDL-CHOLESTEROL 106 mg/dL (calc) NRG CHOL/HDLC RATIO 4.6 (calc) <5.0 NON HDL CHOLESTEROL 137 mg/dL (calc) <13 0 CMP - 11/22/19 09:02 GLUCOSE 110 mg/dL 65-99 UREA NITROGEN (BUN) 15 mg/dL 7-25 CREATININE 0.68 mg/dL 0.50-1.10 eGFR NON-AFR. [place] 115 mL/min/1.73m2 > OR = 60 eGFR [...] TYPE NATRIURETIC PEPTIDE (BNP) 10 pg/mL <100 Arterial blood gas measurement - 0 14:49 Blood pCO2 40 mm[Hg] 35-45 Blood pO2 78 mm[Hg] 79-93 Arterial blood bicarbonate measurement (moles/volume) 25 mmol/L 23-27 Arterial blood base excess by calculation 0.7 mmol /L -2.5-2.5 Arterial blood oxygen saturation measurement 98 % 94-100 * Inhaled oxygen flow rate N/A NRG Arterial blood pH measurement with patient temperature correction 7.41 7.37-7.43 Arterial blood carbon dioxide, total measurement (mole s/volume) 26.3 mmol/L 21.0-31.0 Body site RIGHT RADIAL NRG Assessment of wrist artery patency prior to arterial p uncture POSITIVE NRG Setting of ventilation mode NO NR G Measurement of body temperature 35.9 NRG Radiology Report from [facility] on 2012 14:29:00 DIAGNOSTIC SOREN GING REPORT [facility] - [address] [address] PHONE #: [phone] FAX #: [phone] Name: FREDDY HARDY Loc: [facility] Radiology No: : 1985 Age: 27 Sex: F Status: REG ER Unit No: [id number] Phys: Soha Pina Acct: [id number] Reason For Exam: RUQ PAIN, RM 15 Exam Date: 01/13/2013 EXAMS: CPT CODE: [id number] [place] [address] REASON FOR EXAM: Right upper quadrant pain COMPARISON: None TECHNIQUE: Liver/gallbladder ultrasound. The liver is normal in size, shape and echo texture. There are no focal lesions. No intra or extrahepatic biliary dilatation [...] at 1345 hours to ER physician in [facility].. at 5834 Reported and signed by: NAVEEN JAVIER JR., MD CC: Brynn Mott MD Technologist: JOSSELYN YOUNG Transcribed Date/Time: 01/13/2013 (0325)Business Proposal Rep: MATTHEW Printed Date/Time: 01/13/2013 (3970) BATCH NO: N/A PAGE 1 Signed Report Radiology Report from [facility] on 2012 12:15:00 DIAGNOSTIC SOREN GING REPORT [facility] - [address] [address] PHONE #: [phone] FAX #: [phone] Name: FREDDY HARDY Loc: [facility] Radiology No: : 1985 Age: 27 Sex: F Status: [facility] Unit No: [id number] Phys: Serafin Varela MD Acct: [id number] Reason For Exam: r abd pain, wbc 18K Exam Date: 01/13/2013 EXAMS: CPT CODE: [id number] CT ABD/PELVIS WITH CONTRAST 19565 TIME OF STUDY: 01/13/2013 3:30 PM REASON [...] 1 Signed Report (CONTINUED) DIAGNOSTIC IMAGING REPORT [facility] - [address] [address] PHONE #: [phone] FAX #: [phone] Name: FREDDY HARDY Loc: [facility] Radiology No: : 1985 Age: 27 Sex: F Status: DEP ER Unit No: [id number] Phys: Serafin Varela MD Acct: [id number] Reason For Exam: r abd pain, wbc 18K Exam Date: 01/13/2013- EXAMS: CPT CODE: [id number] CT ABD/PELVIS WITH CONTRAST 30601 <Continued> at 1210 RESIDENT: CHIQUI RODARTE MD Reported and si gned by: PELON COWAN MD CC: Brynn Mott MD Technologist: SRUTHI ALEX; DURGA WOO Transcribed Date/Time: 01/15/2013 (1210)Business Proposal Rep: ELI Printed Date/Time: 01/15/2013 (5814) BATCH NO: N/A PAGE 2 Signed Report Encounters ACCT No. Visit Date/Time Discharge Status Pt. Type Provider Facility Loc./Unit Complaint [id number] 02/26/2020 18:00:00 02/26/2020 23:59: 59 [facility] Outpatient [facility] [id number] 11/22/2019 09:00:00 Document Registration [id number] 04/28/2019 11:20:00 Document Registration [id number] 03/31/2019 10:00:00 Document Registration [id number] 01/13/2013 11:21:00 17:24:00 DIS Emergency Alessandro POSADAS, Serafin Cespedes W.EDN [id number] 09/09/2012 09:58:00 16:02:00 DIS Inpatient Harvey POSADAS, [facility] W.5WH [id number] 08/30/2012 07:08:00 10:49:00 DIS Emergency Harvey POSADAS, [facility] W.2WOBED [id number] 08/29/2012 11:03:00 14:22:00 DIS Emergency Harvey POSADAS, [facility] W.2WOBED [id number] 07/07/2012 13:36:00 17:10:00 DIS Emergency Harvey POSADAS, [facility] W.2WOBED [id number] 01/28/2020 08:08:00 23:59:59 CLS Outpatient URIEL REYES DO [facility] RAD FS DYSPNEA,TOBACCO DEPENDE NCE [id number] 01/14/2020 13:45:00 23:59:59 CLS Outpatient ZE PERRY APRN [facility] RT DYSPNEA [id number] 01/08/2020 21:00:00 06:30:00 DIS Outpatient ZE PERRY APRN [facility] SLEEP OSMAN G47.33 [id number] 12/13/2019 11:11:00 23:59:59 CLS Outpatient ZE PERRY APRN [facility] RAD DYSPNEA [id number] 11/04/2019 15:10:00 019 18:24:00 DIS Emergency LIBBY GUTIERREZ [facility] ER LOWER R ABD PAIN [id number] 02/28/2019 20:07:00 019 22:47:00 DIS Emergency JORGE ALBERTO POSADAS, NAVEEN [facility] ER FS LEFT FOOT SWELLING [id number] 02/06/2019 04:46:00 019 06:47:00 DIS Emergency HELLEN GAMBINO DO [facility] ER CHEST PAIN [id number] 03/04/2018 23:36:00 018 15:17:00 DIS Inpatient DOMINIK POSADAS, DAIN Ordonez [facility] 4TH UPPER ABD PAIN [id number] 02/06/2018 18:07:00 018 21:10:00 DIS Emergency RADHA PATIÑO [facility] ER ABD PAIN
== END 2020-04-05 15:55 | disposition home or self-care (01) ==
LOC: EDUNIT# 13:47 → ER FS 13:50
DX: R10.9 Unspecified abdominal pain (principal); Z87.891 Personal history of nicotine dependence; G47.33 Obstructive sleep apnea (adult) (pediatric); M19.91 Primary osteoarthritis, unspecified site; E66.01 Morbid (severe) obesity due to excess calories; F90.9 Attention-deficit hyperactivity disorder, unspecified type
CPT/HCPCS: 36415; 74022; 80053; 81000; 82150; 83690; 84703; 85025

== ENCOUNTER 2021-10-11 20:19 | Emergency (ER) | payer MEDICAID ==
[~2021-10-11] VITALS: Ht 157 cm; Wt 167.0 kg
[~2021-10-11 20:19] MED LIST changes: +DICL75TA2 PO
[2021-10-11] MEDS ORDERED: IBUPROFEN 800 MG (MOTRIN) TAB PO ONE (20:45)
[2021-10-11] MEDS ORDERED: HYDROcodone/APAP 5 MG/325 MG (LORTAB) TAB PO ONE (20:45)
--- NOTE | 2021-10-11 20:45 | ED General ---
General Chief Complaint: Oral/Throat Problems Stated Complaint: SORE THROAT/CHILLS Nursing Triage Note: Pt c/o sore throat since yesterday with chills. Pt denies fever and has not taken medications for pain. Redness noted to back of throat. History of Present Illness Date Seen by Provider: Oct 11, 2021 Time Seen by Provider: 20:44 Initial Comments Patient presenting to the emergency department for evaluation of sore throat chills body aches generalized malaise and not feeling well since yesterday. She denies cough shortness of breath measured fevers nausea vomiting or other systemic symptoms. She says that it is painful to swallow but she is still able to tolerate soft solids and fluids by mouth with no difficulty. She is in no acute distress with normal vital signs. Allergies and Home Medications Allergies Coded Allergies: No Known Drug Allergies (Unverified , 02/06/18) Patient Home Medication List Home Medication List Reviewed: Yes Acetaminophen (Tylenol Extra Strength) 500 Mg Tablet, 1,000 MG PO Q6H PRN for PAIN-MILD, (Reported) Entered as Reported by: RIGO GREENE on 03/05/18 0856 Diclofenac Sodium (Diclofenac Sodium) 75 Mg Tablet.dr, 75 MG PO BID Prescribed by: SAKSHI LAU on 04/05/20 1549 Ibuprofen (Advil) 200 Mg Tablet, 600 MG PO TID PRN for PAIN-MILD, (Reported) Entered as Reported by: RIGO GREENE on 03/05/18 0856 Methylprednisolone (Medrol) 4 Mg Tab.ds.pk, 4 MG PO UD Prescribed by: HELLEN GAMBINO on 02/06/19 0643 Ondansetron (Ondansetron Odt) 4 Mg Tab.rapdis, 4 MG PO Q4H Prescribed by: LIBBY GUTIERREZ on 11/04/19 1814 Tramadol HCl (Tramadol HCl) 50 Mg Tablet, 50 MG PO Q6H, (Reported) Entered as Reported by: NAKIA ARREAGA on 02/06/19 0521 Review of Systems Review of Systems Constitutional: chills, malaise EENTM: throat pain, throat swelling Respiratory: no symptoms reported Cardiovascular: no symptoms reported Gastrointestinal: no symptoms reported Musculoskeletal: joint pain, muscle pain Skin: no symptoms reported Psychiatric/Neurological: No Symptoms Reported Past Eofbwia-Jrxadr-Mwdwju Hx Patient Social History Tobacco Use?: Yes Tobacco type used: Cigarettes Smoking Status: Current Everyday Smoker Use of E-Cig and/or Vaping dev: No Substance use?: No Alcohol Use?: No Immunizations Up To Date Influenza Vaccine Up-to-Date: No; Not Current Seasonal Allergies Seasonal Allergies: No Past Medical History Surgeries: Yes (Dental caps, r hand) Section, Gallbladder, Orthopedic Respiratory: Yes (CPAP BROKEN NEEDS TO DO STUDY AGAIN) Sleep Apnea Currently Using CPAP: No Currently Using BIPAP: No Cardiac: No Neurological: Yes (seizures at a child non for several years) Seizure Disorder Female Reproductive Disorders: Denies Genitourinary: No Gastrointestinal: Yes (S/P NAN) Gall Bladder Disease Musculoskeletal: Yes (RIGHT HAND FX/ORIF) Arthritis, Fractures Endocrine: Yes (MORBID OBESITY) HEENT: Yes (POOR DENTITION) Cancer: No Psychosocial: Yes (POLYSUBSTANCE ABUSE) ADD/ADHD Integumentary: No Blood Disorders: No Family Medical History Hypertension 19 MOTHER Diabetes, Hypertension Physical Exam Vital Signs Vital Signs - First Documented 10/11/21 20:25 Temp 36.7 Pulse 99 Resp 18 B/P (MAP) 158/82 (107) Pulse Ox 98 O2 Delivery Room Air Capillary Refill : Less Than 3 Seconds Height, Weight, BMI Height: 5'1.00" Weight: 365lbs. 0.0oz. 165.104123wp; 67.00 BMI Method:Stated General Appearance: No Apparent Distress, WD/WN HEENT: PERRL/EOMI, Pharyngeal Erythema, Tonsillar Exudate, Tonsillar Enlargement, Other (Soft palate is normal with no signs of peritonsillar abscess and the uvula is midline with no deviation. Airway is patent.) Respiratory: Normal Breath Sounds, No Respiratory Distress Cardiovascular: Regular Rate, Rhythm Extremity: Normal Capillary Refill Neurologic/Psychiatric: Alert, Oriented x3 Skin: Warm/Dry Progress/Results/Core Measures Suspected Sepsis SIRS Temperature: Pulse: 99 Respiratory Rate: 18 Blood Pressure 158 /82 Mean: 107 Results/Orders Lab Results Laboratory Tests Test 10/11/21 20:35 Range/Units Group A Streptococcus Screen POSITIVE H NEGATIVE My Orders Orders - RADHA THOMAS DO Rapid Strep A Screen (10/11/21 20:31) Hydrocodone/Apap 5/325 Tablet (Lortab 5 (10/11/21 20:45) Ibuprofen Tablet (Motrin Tablet) (10/11/21 20:45) Dexamethasone Oral Soln (Ed) (Decadron I (10/11/21 20:45) Hydrocodone/Apap 5/325 Tablet (Lortab 5 (10/11/21 20:46) Medications Given in ED Current Medications Medications Dose Ordered Sig/Ehsan Route Start Time Stop Time Status Last Admin Dose Admin Acetaminophen/ Hydrocodone Bitart 2 ea ONCE ONCE PO 10/11/21 20:45 10/11/21 20:46 DC 10/11/21 20:44 2 EA Dexamethasone 10 mg ONCE ONCE PO 10/11/21 20:45 10/11/21 20:46 DC 10/11/21 20:43 10 MG Ibuprofen 800 mg ONCE ONCE PO 10/11/21 20:45 10/11/21 20:46 DC 10/11/21 20:43 800 MG Vital Signs/I&O 10/11/21 20:25 Temp 36.7 Pulse 99 Resp 18 B/P (MAP) 158/82 (107) Pulse Ox 98 O2 Delivery Room Air Capillary Refill : Less Than 3 Seconds Blood Pressure Mean: 107 Progress Note : Progress Note Patient did test positive for strep throat and I discussed an intramuscular shot here versus 7 days of antibiotics as an outpatient and she preferred to get the one-time shot here. I did give her Decadron here as well and told her to keep drinking plenty of fluids take anti-inflammatories and I will prescribe her [place] for breakthrough pain. I told her if she has increasing pain swelling difficulty breathing or swallowing she needs to come back to emergency de partment immediately but otherwise should follow with her primary care provider within 4 to 5 days for recheck. Patient aware and agreeable with plan and verbalized understanding of the above instructions. Departure Impression Primary Impression: Streptococcal tonsillitis Disposition: 01 HOME, SELF-CARE Condition: Stable Departure-Patient Inst. Referrals: [facility]/ (PCP) Primary Care Physician THEA AGUERO APRN (Family) Primary Care Physician Patient Instructions: Strep Throat (DC) Scripts Hydrocodone/Acetaminophen (Hydrocodone-Acetamin 5-325 mg) 1 Each Tablet 1 TAB PO Q4H PRN for PAIN-MODERATE (5-7) for 4 Days, #14 TAB Prov: RADHA THOMAS DO 10/11/21 Ibuprofen (Ibuprofen) 800 Mg Tablet 800 MG PO Q8H PRN for PAIN, #30 TAB 0 Refills Prov: RADHA THOMAS DO 10/11/21 RADHA THOMAS DO Oct 11, 2021 20:45
[2021-10-11] MEDS ORDERED: HYDROcodone/APAP 5 MG/325 MG (LORTAB) TAB ONE (20:46)
[2021-10-11] MEDS ORDERED: ACHD5005 PO (20:56)
[2021-10-11] MEDS ORDERED: IBUP-1780 PO (20:56)
[2021-10-11] MEDS ORDERED: PEN G BENZ (BICILLIN LA) 1.2 M UN/2 ML SYR IM ONE (21:00)
[2021-10-11 21:14] VITALS: BP 158/82
== END 2021-10-11 21:15 | disposition home or self-care (01) ==
LOC: EDUNIT# 20:19 → ER FS 20:22
DX: J03.00 Acute streptococcal tonsillitis, unspecified (principal); G47.30 Sleep apnea, unspecified; E66.01 Morbid (severe) obesity due to excess calories; F17.210 Nicotine dependence, cigarettes, uncomplicated; Z68.44 Body mass index [BMI] 60.0-69.9, adult
CPT/HCPCS: 87430; 99284

== ENCOUNTER 2022-10-16 05:30 | Outpatient (CLI) | payer MEDICAID ==
[~2022-10-16] VITALS: Ht 154.9 cm; Wt 181.8 kg
[~2022-10-16 05:30] MED LIST changes: +IBUP-1780 PO
[2022-10-17] MEDS ORDERED: LIRA3PEN SQ (13:13)
== END 2022-10-17 13:21 | disposition home or self-care (01) ==
LOC: PREOP 05:30
PROVIDERS: ATTEND Orthopaedic Surgery
DX: Z01.818 Encounter for other preprocedural examination (principal)

== ENCOUNTER 2022-10-23 07:30 | Day surgery (SDC) | payer MEDICAID ==
--- NOTE | 2022-10-16 07:12 | HISTORY AND PHYSICAL ---
ADMISSION HISTORY AND PHYSICAL This will be for outpatient surgery on 10/23/2022 for right ulnar nerve decompression. HISTORY OF PRESENT ILLNESS: The patient is a 37-year-old right hand dominant female with a several-month history of progressively worsening right upper extremity paresthesias. She reports numbness and tingling in her small and ring finger. She is right hand dominant. She reports night pain. Reports pain with repetitive activities. Due to functional impairment and failure to improve with conservative measures, the patient elected to proceed with surgical intervention. REVIEW OF SYSTEMS: No chest pain, no shortness of breath. No dysuria. PAST MEDICAL HISTORY: Hyperlipidemia, sleep apnea, obesity, PCOS, tobacco use. PAST SURGICAL HISTORY: , dental surgery, right hand and right wrist. FAMILY HISTORY: Significant for hypertension, diabetes. PRIMARY CARE PROVIDER: Mami Merrill. MEDICATIONS. 1. Varenicline. 2. Saxenda. ALLERGIES: No known drug allergies. SOCIAL HISTORY: The patient smokes 1 pack per day. Denies alcohol use. PHYSICAL EXAMINATION: GENERAL: The patient is well-developed, well-nourished, in no acute distress. HEENT: Normocephalic, atraumatic. Pupils are equal, round, react to light. Oropharynx is clear. NECK: Supple. No lymphadenopathy. LUNGS: Clear to auscultation bilaterally. HEART: Regular rate and rhythm. ABDOMEN: Soft, nontender, nondistended. EXTREMITIES: The right elbow demonstrates positive Tinel's at the cubital tunnel. She has a positive elbow flexion test. She has decreased sensation in ulnar distribution. She has slight weakness with finger abduction. IMPRESSION: Right cubital tunnel syndrome. PLAN: Right cubital tunnel release. The risks, benefits, options, ramifications, and recovery were discussed at length with the patient. She understands and wishes to proceed. Job ID: [id number] DocumentID: [id number] Dictated Date: 10/07/2022 11:55:23 Hoist Mechanic Date: 10/07/2022 12:53:00 Dictated By: STEF HAIDER MD
[~2022-10-23] VITALS: Ht 154.9 cm; Wt 181.8 kg
[2022-10-23] VITALS (11 sets, daily range): BP systolic 109–152; BP diastolic 49–80
[~2022-10-23 07:30] MED LIST changes: +LIRA3PEN SQ; +oxyCODONE/APAP 5/325MG (PERCOCET 5) TABLET PO PRN
[2022-10-23] MEDS ORDERED: ceFAZolin INJECTION 2,000 MG in NS (IVPB) 50 ML IV ONE (07:45)
[2022-10-23] MEDS ORDERED: LACTATED RINGERS 1,000 ML IV PRN (07:45)
[2022-10-23] MEDS ORDERED: BUPIVACAINE 0.25% 30 ML (SENSORCAINE) VIAL ONE (07:54)
[2022-10-23] MEDS ORDERED: MIDAZOLAM 2 MG/2 ML (VERSED) VIAL ONE (07:59)
[2022-10-23] MEDS ORDERED: LIDOCAINE PF 2% 5 ML (XYLOCAINE) VIAL ONE (07:59)
[2022-10-23] MEDS ORDERED: fentaNYL INJ 100 MCG/2 ML AMP ONE (07:59)
[2022-10-23] MEDS ORDERED: SEVOFLURANE (ULTANE) 15 ML INHAL SOLN ONE ×2 (07:59→08:54)
[2022-10-23] MEDS ORDERED: ONDANSETRON 4 MG/2 ML (SDV) Z0FRAN ONE (07:59)
[2022-10-23] MEDS ORDERED: proPOfol 200 MG/20 ML (DIPRIVAN) VIAL IV ONE (07:59)
--- NOTE | 2022-10-23 08:10 | Progress Note-Pre Operative ---
Pre-Operative Progress Note Date of Available H&P: Oct 07, 2022 Date H&P Reviewed: Oct 23, 2022 Time H&P Reviewed: 07:11 Changes from last HP none Pre-Operative Diagnosis: right cubital tunnel syndrome STEF HAIDER MD Oct 23, 2022 08:10
--- NOTE | 2022-10-23 08:11 | Progress Note-Post Operative ---
Post-Operative Progess Note Surgeon (s)/Professor Of Chemistry (s) Surgeon STEF HAIDER MD Professor Of Chemistry: Serafin Lehman Pre-Operative Diagnosis right cubital tunnel syndrome Post-Operative Diagnosis right cubital tunnel syndrome Procedure & Operative Findings Date of Procedure 10/23/22 Procedure Performed/Findings right cubital tunnel release Anesthesia Type GETA Estimated Blood Loss Estimated blood loss (mL): minimal Specimens/Packing Specimens Removed none Packing: none STEF HAIDER MD Oct 23, 2022 08:11
--- NOTE | 2022-10-23 09:07 | Anesthesia-General Post-Op ---
General Patient Condition Mental Status/LOC: Same as Preop Cardiovascular: Satisfactory Nausea/Vomiting: Absent Respiratory: Satisfactory Pain: Controlled Complications: Absent Post Op Complications Complications None Follow Up Care/Instructions Patient Instructions None needed. Anesthesia/Patient Condition Patient Condition Patient is doing well, no complaints, stable vital signs, no apparent adverse anesthesia problems. No complications reported per nursing. ELEONORA SNIDER CRNA Oct 23, 2022 09:07
[2022-10-23] MEDS ORDERED: MEPERIDINE (DEMEROL) INJ 50 MG/ML IVP ONE (09:15)
[2022-10-23] MEDS ORDERED: morphine INJ 10 MG/ML 1ML (SYR OR VIAL) IVP ONE (09:15)
[2022-10-23] MEDS ORDERED: ONDANSETRON 4 MG/2 ML (SDV) Z0FRAN IVP PRN (09:15)
[2022-10-23] MEDS ORDERED: fentaNYL INJ 100 MCG/2 ML AMP IVP ONE (09:15)
--- NOTE | 2022-10-23 19:29 | OPERATIVE REPORT ---
DATE OF SERVICE: 10/23/2022 POSTOPERATIVE DIAGNOSIS: Right cubital tunnel syndrome. PREOPERATIVE DIAGNOSIS: Right cubital tunnel syndrome. PROCEDURE: Right cubital tunnel release. SURGEON: eSrge Haider MD CODE OFFICIAL: Serafin Lehman, who assisted throughout the procedure and closed the incision. ANESTHESIA: General endotracheal by Serafin Hewitt CRNA. TOURNIQUET TIME: 10 minutes at 250 mmHg. ESTIMATED BLOOD LOSS: DRAINS: 'None. COMPLICATIONS: None. POSTOPERATIVE PLAN: Routine protocol. The patient was transferred to recovery room awake and stable condition. STATEMENT OF MEDICAL NECESSITY: The patient is a 37-year-old right hand dominant female with complaints of right ring finger and small finger paresthesias. She had a positive elbow flexion test, positive Tinel's at the cubital tunnel. Due to functional impairment and failure to improve with conservative measures, the patient elected to proceed with surgical intervention. DESCRIPTION OF PROCEDURE: After risks and benefits of the procedure were discussed and questions were answered and informed consent was signed and placed on the chart. The operative site was confirmed in the preoperative holding area initialed by surgeon. The patient was then transported to the operating room. After adequate levels of general endotracheal anesthetic were obtained, timeout was called, confirming the operative site. The right upper extremity was prepped and draped in the usual sterile fashion with the arm elevated, tourniquet was inflated to 250 mmHg. A curved incision was made posterior to the medial epicondyle. The underlying soft tissues were carefully dissected. The ulnar nerve was identified distal to the medial epicondyle and then dissected through the cubital tunnel and then proximally approximately 9 cm while carefully protecting the ulnar nerve. After full decompression, the elbow was taken through range of motion and no subluxation was noted. The tourniquet was deflated for a total tourniquet time of 10 minutes. Pressure was used for hemostasis. Wound was copiously irrigated. A 3-0 Vicryl was used to reapproximate subcutaneous tissue and the skin was closed with 4-0 nylon in a running alternating horizontal mattress fashion. The incision was infiltrated with plain Marcaine. A soft dressing was applied. The patient was transferred to recovery room awake and in stable condition. Job ID: [id number] DocumentID: [id number] Dictated Date: 10/23/2022 08:52:31 Padder Date: 10/23/2022 19:27:00 Dictated By: SERGE HAIDER MD
== END 2022-10-23 12:25 | disposition home or self-care (01) ==
LOC: SDC 07:30
PROVIDERS: ATTEND Orthopaedic Surgery
DX: G56.21 Lesion of ulnar nerve, right upper limb (principal); F17.210 Nicotine dependence, cigarettes, uncomplicated
CPT/HCPCS: 84703; 87081

== ENCOUNTER 2022-10-26 02:13 | Emergency (ER) | payer MEDICAID ==
[~2022-10-26] VITALS: Ht 154.9 cm; Wt 181.6 kg
[~2022-10-26 02:13] MED LIST changes: -oxyCODONE/APAP 5/325MG (PERCOCET 5) TABLET PO PRN
--- NOTE | 2022-10-26 02:29 | ED Respiratory ---
General Stated Complaint: SOB Source: patient Exam Limitations: no limitations History of Present Illness Date Seen by Provider: Oct 26, 2022 Time Seen by Provider: 02:17 Initial Comments 37yoF with PMH of morbid obesity, HTN, OSMAN (not using CPAP), and smoker coming in due to SOB. Started around 23:00 last night and last about an hour and a half. She states it feels similar to when she was coming off of anesthesia last week. She had cubital tunnel surgery in her right arm. Denies any swelling or pain in any extremity. Has some mild chest discomfort as well as cough since Friday. Her kid was sick, and she got sick from them. Otherwise denies any abdominal pain, nausea, vomiting, diarrhea, fever, chills, weakness, numbness, rash, history of DVT or PE, hemoptysis, or any other concerns. Allergies and Home Medications Allergies Coded Allergies: No Known Drug Allergies (Unverified , 10/17/22) Patient Home Medication List Home Medication List Reviewed: Yes Liraglutide (Saxenda) 3 Mg/0.5 Ml (18 Mg/3 Ml) Pen.injctr, 3 MG SQ DAILY, (Reported) Entered as Reported by: SAL BRYANT on 10/17/22 1313 Review of Systems Review of Systems Constitutional: No fever EENTM: No nose congestion Respiratory: cough, short of breath Cardiovascular: No syncope Gastrointestinal: no symptoms reported Genitourinary: no symptoms reported Musculoskeletal: no symptoms reported Skin: no symptoms reported Psychiatric/Neurological: No Symptoms Reported Hematologic/Lymphatic: No Symptoms Reported Immunological/Allergic: no symptoms reported All Other Systems Reviewed Negative Unless Noted: Yes Past Eicyxsb-Hwuxkj-Kzcmjq Hx Patient Social History Tobacco Use?: Yes Tobacco type used: Cigarettes Seasonal Allergies Seasonal Allergies: No Past Medical History Surgeries: Yes (Dental caps/PULL, r hand (PLATE/SCREWSX4) C/S X2, RIGHT GROWTH PLATE 1994) Section, Gallbladder, Orthopedic Respiratory: Yes (CPAP BROKEN NEEDS TO DO STUDY AGAIN) Sleep Apnea Currently Using CPAP: No Currently Using BIPAP: No Cardiac: No Neurological: Yes (seizures at a child not for several years) Seizure Disorder Female Reproductive Disorders: Denies, Polycystic Ovarian Dis Genitourinary: Yes (cyst left kidney) Gastrointestinal: Yes Gall Bladder Disease Musculoskeletal: Yes (RIGHT HAND FX/ORIF) Fractures Endocrine: Yes (MORBID OBESITY) HEENT: Yes (POOR DENTATION, ALL TEETH PULLED) Cancer: No Psychosocial: Yes (POLYSUBSTANCE ABUSE) ADD/ADHD Integumentary: No Blood Disorders: No Family Medical History Hypertension 19 MOTHER Diabetes, Hypertension Physical Exam Vital Signs - First Documented 10/26/22 02:16 Temp 36.7 Pulse 79 Resp 24 B/P (MAP) 161/106 (124) Pulse Ox 93 O2 Delivery Room Air Capillary Refill : Height: 5'1.00" Weight: 365lbs. 0.0oz. [id number]; 75.76 BMI Method:Stated General Appearance: WD/WN, no apparent distress, obese Eyes: Bilateral Eye Normal Inspection HEENT: PERRL/EOMI, normal ENT inspection, pharynx normal Neck: non-tender, full range of motion, supple, normal inspection Respiratory: chest non-tender, lungs clear, normal breath sounds, no respiratory distress, no accessory muscle use Cardiovascular: regular rate, rhythm, no edema, no murmur Gastrointestinal: normal bowel sounds, non tender, soft; No distended, No guarding, No rebound Extremities: normal range of motion, non-tender, normal inspection, no pedal edema, no calf tenderness, normal capillary refill Neurologic/Psychiatric: no motor/sensory deficits, alert, normal mood/affect Skin: normal color, warm/dry Lymphatic: no adenopathy Progress/Results/Core Measures Suspected Sepsis SIRS Temperature: Pulse: Respiratory Rate: Laboratory Tests 10/26/22 02:26: White Blood Count 8.2 Blood Pressure / Mean: Laboratory Tests 10/26/22 02:26: Creatinine 0.72, INR Comment 0.9, Platelet Count 196, Total Bilirubin 0.5 Results/Orders Lab Results Laboratory Tests Test 10/26/22 02:25 10/26/22 02:26 Range/Units Influenza Type A (RT-PCR) Not Detected Not Detecte Influenza Type B (RT-PCR) Not Detected Not Detecte SARS-CoV-2 RNA (RT-PCR) Not Detected Not Detecte White Blood Count 8.2 4.3-11.0 10^3/uL Red Blood Count 4.54 3.80-5.11 10^6/uL Hemoglobin 14.1 11.5-16.0 g/dL Hematocrit 41 35-52 % Mean Corpuscular Volume 90 80-99 fL Mean Corpuscular Hemoglobin 31 25-34 pg Mean Corpuscular Hemoglobin Concent 35 32-36 g/dL Red Cell Distribution Width 12.7 10.0-14.5 % Platelet Count 196 130-400 10^3/uL Mean Platelet Volume 9.5 9.0-12.2 fL Immature Granulocyte % (Auto) 1 % Neutrophils (%) (Auto) 78 H 42-75 % Lymphocytes (%) (Auto) 13 12-44 % Monocytes (%) (Auto) 7 0-12 % Eosinophils (%) (Auto) 2 0-10 % Basophils (%) (Auto) 1 0-10 % Neutrophils # (Auto) 6.4 1.8-7.8 10^3/uL Lymphocytes # (Auto) 1.0 1.0-4.0 10^3/uL Monocytes # (Auto) 0.6 0.0-1.0 10^3/uL Eosinophils # (Auto) 0.2 0.0-0.3 10^3/uL Basophils # (Auto) 0.0 0.0-0.1 10^3/uL Immature Granulocyte # (Auto) 0.1 0.0-0.1 10^3/uL Prothrombin Time 12.6 12.2-14.7 SEC INR Comment 0.9 0.8-1.4 Activated Partial Thromboplast Time 30 24-35 SEC Sodium Level 137 135-145 MMOL/L Potassium Level 4.3 3.6-5.0 MMOL/L Chloride Level 98 98-107 MMOL/L Carbon Dioxide Level 28 21-32 MMOL/L Anion Gap 11 5-14 MMOL/L Blood Urea Nitrogen 13 7-18 MG/DL Creatinine 0.72 0.60-1.30 MG/DL Estimat Glomerular Filtration Rate 111 BUN/Creatinine Ratio 18 Glucose Level 123 H 70-105 MG/DL Calcium Level 9.0 8.5-10.1 MG/DL Corrected Calcium 9.2 8.5-10.1 MG/DL Magnesium Level 1.7 1.6-2.4 MG/DL Total Bilirubin 0.5 0.1-1.0 MG/DL Aspartate Amino Transf (AST/SGOT) 77 H 5-34 U/L Alanine Aminotransferase (ALT/SGPT) 107 H 0-55 U/L Alkaline Phosphatase 111 40-136 U/L Troponin I < 0.30 <0.30 NG/ML Pro-B-Type Natriuretic Peptide 368.4 H <125.0 PG/ML Total Protein 7.1 6.4-8.2 GM/DL Albumin 3.7 3.2-4.5 GM/DL My Orders Orders - NILDA MOTLEY MD Cbc With Automated Diff (10/26/22 02:24) Magnesium (10/26/22 02:24) Chest 1 View Ap/Pa Only (10/26/22 02:24) Ekg Tracing (10/26/22 02:24) Comprehensive Metabolic Panel (10/26/22 02:24) Protime With Inr (10/26/22 02:24) Partial Thromboplastin Time (10/26/22 02:24) O2 (10/26/22 02:24) Monitor-Rhythm Ecg Trace Only (10/26/22 02:24) Aspirin Chewable Tablet (Baby Aspirin Ch (10/26/22 02:30) Ed Iv/Invasive Line Start (10/26/22 02:24) Troponin I Fs (10/26/22 02:24) Probnp Fs (10/26/22 02:24) Influenza A And B By Pcr (10/26/22 02:24) Covid 19 Inhouse Test (10/26/22 02:24) Albuterol/Ipra Inhalation Soln (Duoneb I (10/26/22 02:30) Medications Given in ED Current Medications Medications Dose Ordered Sig/Ehsan Route Start Time Stop Time Status Last Admin Dose Admin Albuterol/ Ipratropium 3 ml ONCE ONCE INH 10/26/22 02:30 10/26/22 02:32 DC 10/26/22 02:36 3 ML Aspirin 324 mg ONCE ONCE PO 10/26/22 02:30 10/26/22 02:32 DC 10/26/22 02:36 324 MG Vital Signs/I&O 10/26/22 02:16 Temp 36.7 Pulse 79 Resp 24 B/P (MAP) 161/106 (124) Pulse Ox 93 O2 Delivery Room Air Capillary Refill : Progress Note : Progress Note 37-year-old female presenting due to shortness of breath. ABCs were intact and vitals were stable on presentation. Physical exam showing her being morbidly obese, but otherwise fairly unremarkable. No clinical signs of a DVT. Heart rate low, oxygen in the high 90s, vitals not showing any signs of a PE. EKG normal sinus with no acute ischemic changes. Given her smoking history, trialed a DuoNeb. Troponin negative and labs otherwise essentially unremarkable. Chest x-ray my interpretation with poor penetration, likely due to her obesity. She does have a productive cough, we will treat her with doxycycline empirically for possible pneumonia, especially given her smoking history. The patient was given oxycodone since her surgery, has not really been taking them. Did take 1 tonight. I suspect she had a little long apneic event that she woke up from around 11 starting this episode, and most of it has been anxiety since then. I discussed that it is very important she call her PCP and get a another CPAP machine ECG Initial ECG Impression Date: Oct 26, 2022 Initial ECG Impression Time: 02:22 Initial ECG Rate: 76 Initial ECG Rhythm: Normal Sinus Comment Narrow QRS, normal axis, no significant ST changes or T wave abnormalities Diagnostic Imaging Diagonstic Imaging: Xray (chest) Departure Impression Primary Impression: Dyspnea Qualified Codes: R06.01 - Orthopnea Additional Impression: OSMAN (obstructive sleep apnea) Disposition: HOME, SELF-CARE Condition: Stable Departure-Patient Inst. Decision time for Depature: 03:13 Referrals: SELFBERNADINE MD (PCP/Family) Primary Care Physician Patient Instructions: Sleep Apnea in Adults Add. Discharge Instructions: Please call your primary doctor on Friday to get a sleep study or CPAP machine as soon as possible. I suspect your oxygen gets low every night when you are sleeping, and if you do wake up during that time you will be very short of breath. You will be on an antibiotic for the next week, your productive cough and potential for pneumonia. Scripts Doxycycline Hyclate (Doxycycline Hyclate) 100 Mg Tablet 100 MG PO BID for 7 Days, #14 TAB 0 Refills Prov: NILDA MOTLEY MD 10/26/22 Work/School Note: Work Release Form Date Seen in the Emergency Department: Oct 26, 2022 Return to Work: Oct 27, 2022 Restrictions: No Restrictions NILDA MOTLEY MD Oct 26, 2022 02:29
[2022-10-26] MEDS ORDERED: RT-ALBUTEROL/IPRATROPIUM 3 ML (DUONEB) VIAL INH ONE (02:30)
[2022-10-26] MEDS ORDERED: ASPIRIN 81 MG CHEW (CHILDREN'S ASA) PO ONE (02:30)
[2022-10-26 02:36] LABS: BASOPHILS % (AUTO) 1 % (0-10); EOSINOPHILS # (AUTO) 0.2 10^3/uL (0.0-0.3); EOSINOPHILS % (AUTO) 2 % (0-10); HEMATOCRIT 41 % (35-52); HEMOGLOBIN 14.1 g/dL (11.5-16.0); LYMPHOCYTES % (AUTO) 13 % (12-44); MEAN CORPUSCULAR HEMOGLOBIN 31 pg (25-34); MEAN CORPUSCULAR HGB CONC 35 g/dL (32-36); MEAN CORPUSCULAR VOLUME 90 fL (80-99); MEAN PLATELET VOLUME 9.5 fL (9.0-12.2); MONOCYTES # (AUTO) 0.6 10^3/uL (0.0-1.0); MONOCYTES % (AUTO) 7 % (0-12); NEUTROPHILS # (AUTO) 6.4 10^3/uL (1.8-7.8); NEUTROPHILS % (AUTO) 78 % (42-75); PLATELET COUNT 196 10^3/uL (130-400); WHITE BLOOD COUNT 8.2 10^3/uL (4.3-11.0)
[2022-10-26 02:48] LABS: INR 0.9 (0.8-1.4); PROTHROMBIN TIME PATIENT 12.6 SEC (12.2-14.7)
[2022-10-26 03:04] LABS: CREATININE SERUM 0.72 MG/DL (0.60-1.30); POTASSIUM 4.3 MMOL/L (3.6-5.0)
[2022-10-26 03:05] LABS: ALBUMIN 3.7 GM/DL (3.2-4.5); BILIRUBIN,TOTAL 0.5 MG/DL (0.1-1.0); MAGNESIUM 1.7 MG/DL (1.6-2.4); TOTAL PROTEIN 7.1 GM/DL (6.4-8.2)
[2022-10-26] MEDS ORDERED: DOXYCYCLINE 100 MG (VIBRAMYCIN) TABLET PO STA (03:11)
[2022-10-26] MEDS ORDERED: DOXY100T2 PO (03:14)
[2022-10-26 03:16] VITALS: BP 159/99
--- NOTE | 2022-10-26 06:50 | Diagnostic Imaging Report ---
EXAMINATION: Chest 1 view HISTORY: SOB COMPARISON: None available. FINDINGS: Heart size and pulmonary vasculature are normal. There are mild interstitial opacities within the lower lungs. No pleural effusion or pneumothorax. The osseous structures are intact. IMPRESSION: 1. Mild interstitial opacities within the lungs which could be seen with atelectasis, pulmonary edema, or atypical infection. Dictated by: Dictated on workstation # [id number]
== END 2022-10-26 03:16 | disposition home or self-care (01) ==
LOC: EDUNIT# 02:13 → ER FS 02:15
DX: G47.33 Obstructive sleep apnea (adult) (pediatric) (principal); F17.210 Nicotine dependence, cigarettes, uncomplicated; E66.01 Morbid (severe) obesity due to excess calories; Z68.45 Body mass index [BMI] 70 or greater, adult; Z28.310 Unvaccinated for COVID-19; Z20.822 Contact with and (suspected) exposure to COVID-19
CPT/HCPCS: 36415; 71045; 80053; 83735; 83880; 84484; 85025; 85610; 85730; 87636; 93005; 93041; 94640

== ENCOUNTER 2023-07-08 12:33 | Inpatient (IN) | payer MEDICAID ==
[~2023-07-08] VITALS: Ht 175 cm; Wt 195.2 kg
[~2023-07-08 12:33] MED LIST changes: +DOXY100T2 PO
--- NOTE | 2023-07-08 12:41 | ED Dyspnea ---
General Stated Complaint: SOB; LETHARGY; FEVER; VOMITING History of Present Illness Date Seen by Provider: Jul 08, 2023 Time Seen by Provider: 12:40 Initial Comments 37yr F who is morbidly obese and is an active smoker, is here with c/o SOB which began early today morning. Pt has had fever, lethargy, and vomiting since today morning around 5 AM. Pt had one episode of vomiting today. Pt has associated symptoms of lethargy, Pt has not had anyting to eat today. Pt's boyfriend is giving history as pt is not very cooperative with providing history.Pt's boyfriend reports that pt has been running around the past few days for her daughter's jamila, has not been drinking much water, and that she gets SOB if she walks a lot or does a lot of activity. Denies any knowledge of diabetes. Pt does not have COPD or asthma and does not take an inhaler at home. Denies diarrhea, abdominal pain, chest pain, headache. Allergies and Home Medications Allergies Coded Allergies: No Known Drug Allergies (Unverified , 10/17/22) Patient Home Medication List Home Medication List Reviewed: Yes Doxycycline Hyclate (Doxycycline Hyclate) 100 Mg Tablet, 100 MG PO BID Prescribed by: NILDA MOTLEY on 10/26/22 0314 Liraglutide (Saxenda) 3 Mg/0.5 Ml (18 Mg/3 Ml) Pen.injctr, 3 MG SQ DAILY, (Reported) Entered as Reported by: SAL BRYANT on 10/17/22 1313 Review of Systems Review of Systems Constitutional: no symptoms reported EENTM: no symptoms reported Respiratory: short of breath Cardiovascular: no symptoms reported Gastrointestinal: no symptoms reported Genitourinary: no symptoms reported Musculoskeletal: no symptoms reported Skin: no symptoms reported Psychiatric/Neurological: No Symptoms Reported Endocrine: No Symptoms Reported Hematologic/Lymphatic: No Symptoms Reported Past Wtlnujd-Htmmog-Axzqfp Hx Seasonal Allergies Seasonal Allergies: No Past Medical History Surgeries: Yes (Dental caps/PULL, r hand (PLATE/SCREWSX4) C/S X2, RIGHT GROWTH PLATE 1994) Section, Gallbladder, Orthopedic Respiratory: Yes (CPAP BROKEN NEEDS TO DO STUDY AGAIN) Sleep Apnea Currently Using CPAP: No Currently Using BIPAP: No Cardiac: No Neurological: Yes (seizures at a child not for several years) Seizure Disorder Female Reproductive Disorders: Denies, Polycystic Ovarian Dis Genitourinary: Yes (cyst left kidney) Gastrointestinal: Yes Gall Bladder Disease Musculoskeletal: Yes (RIGHT HAND FX/ORIF) Fractures Endocrine: Yes (MORBID OBESITY) HEENT: Yes (POOR DENTATION, ALL TEETH PULLED) Cancer: No Psychosocial: Yes (POLYSUBSTANCE ABUSE) ADD/ADHD Integumentary: No Blood Disorders: No Family Medical History Hypertension 19 MOTHER Diabetes, Hypertension Physical Exam Vital Signs Vital Signs - First Documented 07/08/23 07/08/23 12:45 13:05 Temp 39.6 Pulse 105 Resp 26 B/P (MAP) 179/107 (131) Pulse Ox 94 O2 Delivery OxyMask O2 Flow Rate 3.00 Capillary Refill : Height, Weight, BMI Height: 5'1.00" Weight: 365lbs. 0.0oz. 165.484304re; 75.00 BMI Method:Stated General Appearance: Anxious, Mild Distress, Obese HEENT: Normal ENT Inspection Neck: Full Range of Motion Respiratory: Chest Non Tender, Lungs Clear, Normal Breath Sounds, No Accessory Muscle Use Cardiovascular: Regular Rate, Rhythm Gastrointestinal: Normal Bowel Sounds, Non Tender, Soft, Other (Obese abdomen) Extremity: Normal Range of Motion, Calf Tenderness (Bilateral pitting pedal anant ma with erythema of the right lower extremity, which is also tender to palpation. Homans' sign positive on the right with bilateral calf tenderness present.), Pedal Edema, Swelling (Right lower extremity shows erythema, induration, warmth to touch, tenderness, pitting edema extending from below the knee to the dorsum of the foot.) Neurologic/Psychiatric: Alert, Oriented x3, No Motor/Sensory Deficits Skin: Normal Color Focused Exam Lactate Level 07/08/23 12:45: Lactic Acid Level 2.31*H Lactic Acid Level Laboratory Tests Test 07/08/23 12:45 Lactic Acid Level 2.31 MMOL/L (0.50-2.00) *H Progress/Results/Core Measures Results/Orders Lab Results Laboratory Tests Test 07/08/23 12:45 07/08/23 12:55 07/08/23 13:08 07/08/23 13:45 Range/Units White Blood Count 22.0 H 4.3-11.0 10^3/uL Red Blood Count 4.54 3.80-5.11 10^6/uL Hemoglobin 13.9 11.5-16.0 g/dL Hematocrit 42 35-52 % Mean Corpuscular Volume 92 80-99 fL Mean Corpuscular Hemoglobin 31 25-34 pg Mean Corpuscular Hemoglobin Concent 33 32-36 g/dL Red Cell Distribution Width 12.6 10.0-14.5 % Platelet Count 206 130-400 10^3/uL Mean Platelet Volume 9.5 9.0-12.2 fL Immature Granulocyte % (Auto) 1 % Neutrophils (%) (Auto) 90 H 42-75 % Lymphocytes (%) (Auto) 5 L 12-44 % Monocytes (%) (Auto) 3 0-12 % Eosinophils (%) (Auto) 0 0-10 % Basophils (%) (Auto) 0 0-10 % Neutrophils # (Auto) 19.9 H 1.8-7.8 10^3/uL Lymphocytes # (Auto) 1.2 1.0-4.0 10^3/uL Monocytes # (Auto) 0.6 0.0-1.0 10^3/uL Eosinophils # (Auto) 0.0 0.0-0.3 10^3/uL Basophils # (Auto) 0.1 0.0-0.1 10^3/uL Immature Granulocyte # (Auto) 0.3 H 0.0-0.1 10^3/uL Neutrophils % (Manual) 65 % Lymphocytes % (Manual) 10 % Monocytes % (Manual) 1 % Metamyelocytes % 1 % Band Neutrophils 23 % Blood Morphology Comment SEE FOOTNOTE Prothrombin Time 14.1 12.2-14.7 SEC INR Comment 1.0 0.8-1.4 Activated Partial Thromboplast Time 29 24-35 SEC D-Dimer 2.14 H 0.00-0.49 UG/ML Sodium Level 135 135-145 MMOL/L Potassium Level 4.2 3.6-5.0 MMOL/L Chloride Level 98 98-107 MMOL/L Carbon Dioxide Level 23 21-32 MMOL/L Anion Gap 14 5-14 MMOL/L Blood Urea Nitrogen 10 7-18 MG/DL Creatinine 0.81 0.60-1.30 MG/DL Estimat Glomerular Filtration Rate 96 BUN/Creatinine Ratio 12 Glucose Level 121 H 70-105 MG/DL Lactic Acid Level 2.31 *H 0.50-2.00 MMOL/L Calcium Level 9.2 8.5-10.1 MG/DL Corrected Calcium 9.4 8.5-10.1 MG/DL Magnesium Level 1.6 1.6-2.4 MG/DL Total Bilirubin 1.0 0.1-1.0 MG/DL Aspartate Amino Transf (AST/SGOT) 45 H 5-34 U/L Alanine Aminotransferase (ALT/SGPT) 51 0-55 U/L Alkaline Phosphatase 94 40-136 U/L Troponin I < 0.30 <0.30 NG/ML Pro-B-Type Natriuretic Peptide 575.0 H <125.0 PG/ML Total Protein 7.1 6.4-8.2 GM/DL Albumin 3.8 3.2-4.5 GM/DL Influenza Type A (RT-PCR) Not Detected Not Detecte Influenza Type B (RT-PCR) Not Detected Not Detecte SARS-CoV-2 RNA (RT-PCR) Not Detected Not Detecte Glucometer 145 H 70-110 MG/DL Urine Color YELLOW Urine Clarity CLOUDY Urine pH 7.0 5-9 Urine Specific [place] 1.015 L 1.016-1.022 Urine Protein 1+ H NEGATIVE Urine Glucose (UA) NEGATIVE NEGATIVE Urine Ketones NEGATIVE NEGATIVE Urine Nitrite NEGATIVE NEGATIVE Urine Bilirubin NEGATIVE NEGATIVE Urine Urobilinogen 1.0 < = 1.0 MG/DL Urine Leukocyte Esterase 2+ H NEGATIVE Urine RBC (Auto) 1+ H NEGATIVE Urine RBC 0-2 /HPF Urine WBC 50-100 H /HPF Urine Squamous Epithelial Cells 5-10 /HPF Urine Renal Epithelial Cells RARE /HPF Urine Crystals NONE /LPF Urine Bacteria FEW H /HPF Urine Casts NONE /LPF Urine Mucus SMALL H /LPF Urine Culture Indicated YES Urine Test NEGATIVE NEGATIVE Urine Opiates Screen NEGATIVE NEGATIVE Urine Oxycodone Screen NEGATIVE NEGATIVE Urine Methadone Screen NEGATIVE NEGATIVE Urine Propoxyphene Screen NEGATIVE NEGATIVE Urine Barbiturates Screen NEGATIVE NEGATIVE Ur Tricyclic Antidepressants Screen NEGATIVE NEGATIVE Urine Phencyclidine Screen NEGATIVE NEGATIVE Urine Amphetamines Screen NEGATIVE NEGATIVE Urine Methamphetamines Screen NEGATIVE NEGATIVE Urine Benzodiazepines Screen NEGATIVE NEGATIVE Urine Cocaine Screen NEGATIVE NEGATIVE Urine Cannabinoids Screen NEGATIVE NEGATIVE Test 07/08/23 16:37 Range/Units Blood Gas Puncture Site R WRIST Blood Gas Patient Temperature 36.5 Arterial Blood pH 7.47 H 7.37-7.43 Arterial Blood Partial Pressure CO2 38 35-45 MMHG Arterial Blood Partial Pressure O2 63 L 79-93 MMHG Arterial Blood HCO3 28 H 23-27 MMOL/L Arterial Blood Total CO2 28.9 21.0-31.0 MMOL/L Arterial Blood Oxygen Saturation 93 L 94-100 % Arterial Blood Base Excess 3.9 H -2.5-2.5 MMOL/L Jalen Test UNK Blood Gas Ventilator Setting NO Blood Gas Inspired Oxygen 3L NC My Orders Orders - ELIAN CERON MD Covid 19 Inhouse Test (07/08/23 12:41) Influenza A And B By Pcr (07/08/23 12:41) Chest 1 View Ap/Pa Only (07/08/23 12:42) Albuterol/Ipra Inhalation Soln (Duoneb I (07/08/23 12:45) Svn Small Volume Nebulizer (07/08/23 12:42) Cbc With Automated Diff (07/08/23 12:42) Comprehensive Metabolic Panel (07/08/23 12:42) Drug Screen Stat (Urine) (07/08/23 12:42) Hcg,Qualitative Urine (07/08/23 12:42) Magnesium (07/08/23 12:42) Ua Culture If Indicated (07/08/23 12:42) Fibrin Degradation Products (07/08/23 12:54) Protime With Inr (07/08/23 12:54) Partial Thromboplastin Time (07/08/23 12:54) Probnp Fs (07/08/23 12:54) Troponin I Fs (07/08/23 12:54) Dexamethasone Injection (Dexamethasone (07/08/23 13:00) Albuterol/Ipra Inhalation Soln (Duoneb I (07/08/23 13:00) Svn Small Volume Nebulizer (07/08/23 12:55) Manual Differential (07/08/23 12:45) Blood Culture (07/08/23 13:23) Lactic Acid Analyzer (07/08/23 13:23) Furosemide Injection (Furosemide Injec (07/08/23 13:25) Ed Iv/Invasive Line Start (07/08/23 13:55) Ed Iv/Invasive Line Start (07/08/23 13:55) Ekg Tracing (07/08/23 13:55) Vital Signs Adult Sepsis Patie Q15M (07/08/23 13:55) Ns Iv 1000 Ml (Sodium Chloride 0.9%) (07/08/23 14:00) Cefepime Injection (Cefepime Injection) (07/08/23 14:00) Ct Angio Chest W (07/08/23 13:56) Urine Culture (07/08/23 13:45) Ipratropium/Albuterol Inh Soln (Ipratrop (07/08/23 14:30) Svn Small Volume Nebulizer (07/08/23 14:16) Us Venous Lower Ext Jacqueline (07/08/23 14:16) Ipratropium/Albuterol Inh Soln (Ipratrop (07/08/23 14:18) Iohexol Injection (Omnipaque 350 Mg/Ml 1 (07/08/23 15:30) Received Contrast (Hold Metformin- Contr (07/08/23 15:30) Ns (Ivpb) 100 Ml (Sodium Chloride 0.9% 1 (07/08/23 15:30) Arterial Blood Gas (07/08/23 16:34) Ed Admission (Communication) (07/08/23 16:36) Medications Given in ED Current Medications Medications Dose Ordered Sig/Ehsan Route Start Time Stop Time Status Last Admin Dose Admin Albuterol/ Ipratropium 3 ml ONCE ONCE INH 07/08/23 12:45 07/08/23 12:46 DC 07/08/23 12:57 3 ML Albuterol/ Ipratropium 3 ml ONCE ONCE INH 07/08/23 13:00 07/08/23 13:01 DC 07/08/23 13:03 3 ML Albuterol/ Ipratropium 3 ml ONCE ONCE INH 07/08/23 14:30 07/08/23 14:31 DC 07/08/23 14:32 3 ML Cefepime HCl 1000 mg/Sodium Chloride 50 ml @ 100 mls/hr ONCE ONCE IV 07/08/23 14:00 07/08/23 14:29 DC 07/08/23 14:02 100 MLS/HR Dexamethasone Sodium Phosphate 10 mg ONCE ONCE IV 07/08/23 13:00 07/08/23 13:01 DC 07/08/23 13:01 10 MG Iohexol 100 ml ONCE ONCE IV 07/08/23 15:30 07/08/23 15:32 DC 07/08/23 15:33 100 ML Sodium Chloride 100 ml ONCE ONCE IV 07/08/23 15:30 07/08/23 15:32 DC 07/08/23 15:33 100 ML Vital Signs/I&O 07/08/23 07/08/23 12:45 13:05 Temp 39.6 Pulse 105 Resp 26 B/P (MAP) 179/107 (131) Pulse Ox 94 90 O2 Delivery OxyMask Room Air O2 Flow Rate 3.00 Progress Progress Note : Progress Note ACUTE HYPOXIA DUE TO : 1. SEPSIS DUE TO PNEUMONIA and ACUTE CYSTITIS WITH HEMATURIA, and RIGHT LEG CELLULITIS: - CXR: Cardiomegaly, vascular congestion zones with some partial atelectasis and mild edema not excluded. - CBC: WBC is 22 with a left shift - CMP: unremarkable - Troponin: - UA: Positive for leukocyte esterase, RBCs, bacteria, WBC - UDS is negative - Lactic acid: Elevated at 2.31 - Blood cultures sent - COVID test and flu test negative - Duo neb x 3, with improvement in respiratory status and O2 sat in the upper 90'swith each treatment and then goes back down to 92-93%on 3 L of O2 - Dexa 10mg iv STAT - Cefepime 1gm iv STAT - NS IV bolus STAT - Pt is on 3 L of oxygen in the ER, without O2, pt's O2 saturation drops to 89%. -Sepsis is likely due to the acute cystitis as well as pneumonia - Initially, Patient is very uncooperative with history and exam. She is not even cooperative with nodding her head yes or no to questions. Majority of her history has been acquired from her boyfriend who lives with her. - Pt's symptoms have improved with treatment. SHe is starting to be more cooperative and talk more. - Discussed with hospitalist and will admit to ICU 2. PULMONARY EDEMA WITH CHF: - BNP: mildly elevated at 575 - CXR also shows cardiomegaly and mild edema - Lasix 60mg iv STAT 3. ELEVATED D-DIMER: - D-dimer is elevated at 2.14 - CTA CHEST:negative for PE - US Doppler of BILATERAL LOWER EXTREMITIES: negative for DVT -There is difficult with the CTA since patient is morbidly obese and does not fit adequately into the CT machine. EKG : EKG Time: 14:02 Rate: 103 Rhythm: S.Tach ECG Comparisson: No Previous ECG Available ECG Impression: Nonspecific Changes Diagnostic Imaging Diagonstic Imaging: Xray, CT, Ultrasound Plain Films/CT/US/NM/MRI: chest, leg Comments [facility], [place] NAME: FREDDY ISLAS [facility] REC#: [id number] PT STATUS: REG ER : 1985 PHYSICIAN: ELIAN CERON MD ADMIT DATE: 07/08/23/ER FS Signed Date of Exam:07/08/23 CT ANGIO CHEST W PROCEDURE: CT angiography of the chest with contrast. TECHNIQUE: Multiple contiguous axial images were obtained through the chest after uneventful bolus administration of intravenous contrast. 3D reconstructed CTA MIP acquisitions were also performed. Auto Exposure Controls were utilized during the CT exam to meet ALARA standards for radiation dose reduction. INDICATION: Chest pain, Shortness of breath. COMPARISON: 01/28/2022 CT. FINDINGS: Image quality degradation due to patient body habitus. Normal caliber pulmonary artery. No evidence of pulmonary emboli. Heart size is normal. Aorta is normal. No pericardial effusion. No lymphadenopathy within the chest. Included views of the abdomen demonstrates no significant abnormality. Postcholecystectomy changes. Diffusely hypodense liver parenchyma. The osseous structures demonstrate no lytic or sclerotic bone lesions. The lungs are clear. No pulmonary mass or consolidation. No suspicious pulmonary nodules. No airway lesions identified. No pleural mass, pleural effusion, or pneumothorax. IMPRESSION: No evidence of acute pulmonary emboli. No acute chest findings. Dictated by: Dictated on workstation # [id number] Dict: 07/08/23 1536 Trans: 07/08/23 1540 [facility] [place] [id number] Interpreted by: ROMÁN PAL DO Electronically signed by: ROMÁN PAL DO 07/08/23 1540 [place], [place] NAME: FREDDY ISLAS [facility] REC#: [id number] PT STATUS: REG ER : 1985 PHYSICIAN: ELIAN CERON MD ADMIT DATE: 07/08/23/ER FS Draft Date of Exam:07/08/23 US VENOUS LOWER EXT JACQUELINE PROCEDURE: US Venous Lower Ext Jacqueline. TECHNIQUE: Multiple real-time grayscale images were obtained over the lower extremities in various projections, bilaterally. Additional duplex Doppler and color Doppler images were also obtained. INDICATION: Elevated D-dimer with lower extremity swelling. FINDINGS: There is limited compressibility owing to patient pain. No visible deep or superficial thrombus within either lower extremity found. IMPRESSION: No visible thrombus; however, compressibility could not be performed owing to pain and body habitus. No abnormality identified. Dictated on workstation # [id number] Dict: 07/08/23 1518 Trans: 07/08/23 1536 [id number] Interpreted by: TREVON OBRIEN Electronically signed by: [facility]. [place], [place] NAME: FREDDY ISLAS [facility] REC#: [id number] PT STATUS: REG ER : 1985 PHYSICIAN: ELIAN CERON MD ADMIT DATE: 07/08/23/ER FS Draft Date of Exam:07/08/23 CHEST 1 VIEW AP/PA ONLY Indication: Shortness of breath. Compared: 10/26/2022 Findings: Heart is enlarged. There is vascular congestion. There is some perihilar atelectasis and likely some mild interstitial edema. No pneumothorax. No obvious pleural fluid. Impression: 1. Cardiomegaly, vascular congestion zones with some partial atelectasis and mild edema not excluded. 2. No pleural fluid or pneumothorax. Dictated on workstation # [id number] Dict: 07/08/23 1318 Trans: 07/08/23 1320 [id number] Interpreted by: TREVON OBRIEN Electronically signed by: Departure Communication (Admissions) Time/Spoke to Admitting Phy: 04:[address] Lynch, hospitalist, and patient will be admitted to ICU. ABG ordered Impression Primary Impression: Sepsis Qualified Codes: A41.9 - Sepsis, unspecified organism Additional Impressions: Acute cystitis Qualified Codes: N30.01 - Acute cystitis with hematuria Elevated d-dimer Pulmonary edema with congestive heart failure Cellulitis of right lower extremity Disposition: 30 STILL A PATIENT Condition: Stable Admissions Decision to Admit Reason: Admit from ER (General) Decision to Admit/Date: Jul 08, 2023 Time/Decision to Admit Time: 14:00 Transfer Method of Transfer: EMS Departure-Patient Inst. Referrals: SELF,BERNADINE POSADAS (PCP/Family) Primary Care Physician LEIAN CERON MD Jul 08, 2023 12:41
[2023-07-08] MEDS ORDERED: RT-Ipratropium/Albuterol NEB 3 ML VIAL INH ONE ×3 (12:45→14:30)
[2023-07-08] MEDS ORDERED: dexAMETHasone INJ 10 MG/ML 1 ML VIAL IV ONE (13:00)
[2023-07-08 13:05] LABS: BASOPHILS # (AUTO) 0.1 10^3/uL (0.0-0.1); BASOPHILS % (AUTO) 0 % (0-10); EOSINOPHILS % (AUTO) 0 % (0-10); HEMATOCRIT 42 % (35-52); HEMOGLOBIN 13.9 g/dL (11.5-16.0); LYMPHOCYTES # (AUTO) 1.2 10^3/uL (1.0-4.0); LYMPHOCYTES % (AUTO) 5 % (12-44); MEAN CORPUSCULAR HEMOGLOBIN 31 pg (25-34); MEAN CORPUSCULAR HGB CONC 33 g/dL (32-36); MEAN CORPUSCULAR VOLUME 92 fL (80-99); MEAN PLATELET VOLUME 9.5 fL (9.0-12.2); MONOCYTES # (AUTO) 0.6 10^3/uL (0.0-1.0); MONOCYTES % (AUTO) 3 % (0-12); NEUTROPHILS # (AUTO) 19.9 10^3/uL (1.8-7.8); NEUTROPHILS % (AUTO) 90 % (42-75); PLATELET COUNT 206 10^3/uL (130-400)
--- NOTE | 2023-07-08 13:20 | Diagnostic Imaging Report ---
Indication: Shortness of breath. Compared: 10/26/2022 Findings: Heart is enlarged. There is vascular congestion. There is some perihilar atelectasis and likely some mild interstitial edema. No pneumothorax. No obvious pleural fluid. Impression: 1. Cardiomegaly, vascular congestion zones with some partial atelectasis and mild edema not excluded. 2. No pleural fluid or pneumothorax. Dictated by: Dictated on workstation # [id number]
[2023-07-08] MEDS ORDERED: FUROSEMIDE INJECTION 40 MG/4 ML VIAL IVP STA (13:25)
[2023-07-08 13:33] LABS: FIBRIN DEGRADATION PRODUCTS 2.14 UG/ML (0.00-0.49); PROTHROMBIN TIME PATIENT 14.1 SEC (12.2-14.7)
[2023-07-08 13:36] LABS: ALANINE AMINOTRANSFERASE 51 U/L (0-55); ALKALINE PHOSPHATASE 94 U/L (40-136); BUN/CREATININE RATIO 12; CALCIUM 9.2 MG/DL (8.5-10.1); CARBON DIOXIDE 23 MMOL/L (21-32); CHLORIDE 98 MMOL/L (98-107); CREATININE SERUM 0.81 MG/DL (0.60-1.30); GFR ESTIMATED 96; GLUCOSE 121 MG/DL (70-105); MAGNESIUM 1.6 MG/DL (1.6-2.4); POTASSIUM 4.2 MMOL/L (3.6-5.0); SODIUM 135 MMOL/L (135-145)
[2023-07-08 13:37] LABS: ALBUMIN 3.8 GM/DL (3.2-4.5); TOTAL PROTEIN 7.1 GM/DL (6.4-8.2)
[2023-07-08 13:52] LABS: BILIRUBIN,URINE NEGATIVE (NEGATIVE); CLARITY,URINE CLOUDY; COLOR,URINE YELLOW; GLUCOSE, URINE (UA) NEGATIVE (NEGATIVE); KETONES,URINE NEGATIVE (NEGATIVE); LEUKOCYTE ESTERASE ,URINE 2+ (NEGATIVE); NITRITE,URINE NEGATIVE (NEGATIVE); PROTEIN,URINE 1+ (NEGATIVE)
[2023-07-08] MEDS ORDERED: NS IV 1000 ML 1,000 ML IV SCH ×2 (14:00→19:30)
[2023-07-08] MEDS ORDERED: CEFEPIME INJECTION 1,000 MG in NS (IVPB) 50 ML 50 ML IV ONE (14:00)
[2023-07-08 14:03] LABS: HCG,QUALITATIVE URINE NEGATIVE (NEGATIVE)
[2023-07-08 14:08] LABS: AMPHETAMINE SCREEN, URINE NEGATIVE (NEGATIVE); BARBITURATE SCREEN URINE NEGATIVE (NEGATIVE); BENZODIAZEPINES SCREEN URINE NEGATIVE (NEGATIVE); CANNABINOID SCREEN, URINE NEGATIVE (NEGATIVE); COCAINE SCREEN URINE NEGATIVE (NEGATIVE); METHADONE STAT NEGATIVE (NEGATIVE); OPIATE SCREEN URINE NEGATIVE (NEGATIVE); OXYCODONE STAT NEGATIVE (NEGATIVE); PROPOXYPHENE STAT NEGATIVE (NEGATIVE); TRICYCLIC ANTIDEPRESSANTS SCRE NEGATIVE (NEGATIVE)
[2023-07-08 14:10] LABS: BACTERIA,URINE FEW /HPF; RBC,URINE 0-2 /HPF; WBC,URINE 50-100 /HPF
[2023-07-08 14:11] LABS: RENAL EPITHELIAL CELLS,URINE RARE /HPF
[2023-07-08] MEDS ORDERED: RT-Ipratropium/Albuterol NEB 3 ML VIAL ONE (14:18)
[2023-07-08 14:39] LABS: BAND NEUTROPHILS 23 %; LYMPHOCYTES % (MANUAL) 10 %; METAMYELOCYTES % 1 %; MONOCYTES % (MANUAL) 1 %; NEUTROPHILS % (MANUAL) 65 %
[2023-07-08 14:40] LABS: RBC MORPH SEE FOOTNOTE
[2023-07-08] MEDS ORDERED: IOHEXOL 350 MG/ML 100 ML (OMNIPAQUE 350) VIAL IV ONE (15:30)
[2023-07-08] MEDS ORDERED: HOLD METFORMIN - RECEIVED CONTRAST 20 ML VIAL IV SCH (15:30)
[2023-07-08] MEDS ORDERED: NS 100 ML (IVPB) BAG IV ONE (15:30)
--- NOTE | 2023-07-08 15:36 | Diagnostic Imaging Report ---
PROCEDURE: US Venous Lower Ext [place]. TECHNIQUE: Multiple real-time grayscale images were obtained over the lower extremities in various projections, bilaterally. Additional duplex Doppler and color Doppler images were also obtained. INDICATION: Elevated D-dimer with lower extremity swelling. FINDINGS: There is limited compressibility owing to patient pain. No visible deep or superficial thrombus within either lower extremity found. IMPRESSION: No visible thrombus; however, compressibility could not be performed owing to pain and body habitus. No abnormality identified. Dictated by: Dictated on workstation # [id number]
--- NOTE | 2023-07-08 15:41 | Diagnostic Imaging Report ---
PROCEDURE: CT angiography of the chest with contrast. TECHNIQUE: Multiple contiguous axial images were obtained through the chest after uneventful bolus administration of intravenous contrast. 3D reconstructed CTA MIP acquisitions were also performed. Auto Exposure Controls were utilized during the CT exam to meet ALARA standards for radiation dose reduction. INDICATION: Chest pain, Shortness of breath. COMPARISON: 01/28/2022 CT. FINDINGS: Image quality degradation due to patient body habitus. Normal caliber pulmonary artery. No evidence of pulmonary emboli. Heart size is normal. Aorta is normal. No pericardial effusion. No lymphadenopathy within the chest. Included views of the abdomen demonstrates no significant abnormality. Postcholecystectomy changes. Diffusely hypodense liver parenchyma. The osseous structures demonstrate no lytic or sclerotic bone lesions. The lungs are clear. No pulmonary mass or consolidation. No suspicious pulmonary nodules. No airway lesions identified. No pleural mass, pleural effusion, or pneumothorax. IMPRESSION: No evidence of acute pulmonary emboli. No acute chest findings. Dictated by: Dictated on workstation # [id number]
[2023-07-08 16:45] LABS: ABG BASE EXCESS 3.9 MMOL/L (-2.5-2.5); ABG OXYGEN SATURATION 93 % (94-100); ABG PCO2 38 MMHG (35-45); ABG PH 7.47 (7.37-7.43); ABG PO2 63 MMHG (79-93); ABG TCO2 28.9 MMOL/L (21.0-31.0); INSPIRED O2 3L NC; VENTILATOR NO
[2023-07-08 16:47] LABS: PATIENT TEMP 36.5
[2023-07-08 19:21] VITALS: BP 151/91
[2023-07-08] MEDS ORDERED: NS IV 500 ML 500 ML IV PRN (19:30)
[2023-07-08] MEDS ORDERED: ANTACID SUSP 30 ML UDC (MYLANTA) PO PRN (19:30)
[2023-07-08] MEDS ORDERED: oxyCODONE IMMEDIATE RELEASE 5 MG TABLET PO PRN (19:30)
[2023-07-08] MEDS ORDERED: LACTULOSE SYRUP 10GM/15ML 30ML UDC PO PRN (19:30)
[2023-07-08] MEDS ORDERED: ACETAMINOPHEN 325 MG TABLET PO PRN (19:30)
[2023-07-08] MEDS ORDERED: MELATONIN 3 MG TABLET PO PRN (19:30)
[2023-07-08] MEDS ORDERED: ONDANSETRON 4 MG (ZOFRAN) ORAL DISSOLVE TAB PO PRN (19:30)
[2023-07-08] MEDS ORDERED: diphenhydrAMINE INJ 50 MG/ML VIAL IVP PRN (19:30)
[2023-07-08] MEDS ORDERED: polyethylene glycoL POWDER 17 GM (MIRALAX) PACK PO PRN (19:30)
[2023-07-08] MEDS ORDERED: ENOXAPARIN 40 MG/0.4 ML SYRINGE SC SCH (19:30)
[2023-07-08] MEDS ORDERED: ONDANSETRON 4 MG/2 ML (SDV) Z0FRAN IV PRN (19:30)
[2023-07-08] MEDS ORDERED: diphenhydrAMINE 25 MG TABLET PO PRN (19:30)
[2023-07-08] MEDS ORDERED: BISACODYL 10 MG SUPPOSITORY PR PRN (19:30)
[2023-07-08] MEDS ORDERED: HYDROmorphone INJECTION 2 MG/ML VIAL IV PRN (19:30)
[2023-07-08] MEDS ORDERED: RT-ALBUTEROL SULF 2.5 MG/3 ML PRE-MIX VIAL INH PRN (19:45)
[2023-07-08] MEDS ORDERED: VANCOMYCIN 2000 MG/NS 500 ML IVPB IV NR ×2 (20:00)
[2023-07-08] MEDS ORDERED: CEFEPIME INJECTION 2,000 MG in NS (IVPB) 50 ML 50 ML IV SCH (21:00)
[2023-07-08] MEDS: CEFEPIME 1,000 MG/NS 50 ML IVPB IV SCH ×2 (21:05)
[2023-07-08] MEDS: ENOXAPARIN 60 MG/0.6 ML SYRINGE SC SCH (21:06)
--- NOTE | 2023-07-08 21:18 | Tele-ICU Progress Note ---
Progress Note 37F with morbid obesity, active smoker, OSMAN admitted with sepsis secondary to acute cystitis and RLE cellulitus. CTA negative for PE, no infiltrates noted. UA positive. RLE warm, tender, erythematous and inderated. Reported to be confused and uncooperative in ED. Tox negative. - continue vanco, cefepime - cultures pending - ISS - presumed delirium. Currently sleeping. Reassess when awake. Patient assessed via real time audiovisual communication system. \\ CCT 18 min Focused Exam Lactate Level 07/08/23 12:45: Lactic Acid Level 2.31*H 07/08/23 17:34: Lactic Acid Level 1.84 Height, Weight, BMI Height: 5'1.00" Weight: 365lbs. 0.0oz. [id number]; 75.00 BMI Method:Stated Lactic Acid Level Laboratory Tests Test 07/08/23 17:34 Lactic Acid Level 1.84 MMOL/L (0.50-2.00) YASMIN BOOTH MD Jul 08, 2023 21:18
[2023-07-08] MEDS: inSUlin ASPART 1 UNIT/0.01 ML (PER UNIT) SC SCH (21:20)
[2023-07-08] MEDS: DOCUSATE SODIUM 100 MG CAPSULE PO SCH (22:31)
[2023-07-09] MEDS: CEFEPIME 1,000 MG/NS 50 ML IVPB IV SCH ×8 (01:45→20:51)
[2023-07-09 02:27] LABS: ABG BASE EXCESS 2.3 MMOL/L (-2.5-2.5); ABG OXYGEN SATURATION 97 % (94-100); ABG PCO2 44 MMHG (35-45); ABG PO2 73 MMHG (79-93); ABG TCO2 28.2 MMOL/L (21.0-31.0)
[2023-07-09 02:28] LABS: ALLENS TEST YES-POS; INSPIRED O2 4L; PATIENT TEMP 36.6; VENTILATOR NO
[2023-07-09 04:01] LABS: BASOPHILS % (AUTO) 0 % (0-10); EOSINOPHILS # (AUTO) 0.2 10^3/uL (0.0-0.3); EOSINOPHILS % (AUTO) 1 % (0-10); HEMATOCRIT 39 % (35-52); LYMPHOCYTES % (AUTO) 5 % (12-44); MEAN CORPUSCULAR HEMOGLOBIN 31 pg (25-34); MEAN CORPUSCULAR HGB CONC 33 g/dL (32-36); MEAN CORPUSCULAR VOLUME 92 fL (80-99); MEAN PLATELET VOLUME 9.7 fL (9.0-12.2); MONOCYTES # (AUTO) 0.5 10^3/uL (0.0-1.0); MONOCYTES % (AUTO) 3 % (0-12); NEUTROPHILS # (AUTO) 18.2 10^3/uL (1.8-7.8); NEUTROPHILS % (AUTO) 90 % (42-75); PLATELET COUNT 204 10^3/uL (130-400); WHITE BLOOD COUNT 20.2 10^3/uL (4.3-11.0)
[2023-07-09 04:29] LABS: ALBUMIN 3.5 GM/DL (3.2-4.5); BILIRUBIN,TOTAL 0.7 MG/DL (0.1-1.0); CREATININE SERUM 0.77 MG/DL (0.60-1.30); MAGNESIUM 1.8 MG/DL (1.6-2.4); PHOSPHORUS 2.8 MG/DL (2.3-4.7); POTASSIUM 3.8 MMOL/L (3.6-5.0); TOTAL PROTEIN 7.1 GM/DL (6.4-8.2)
[2023-07-09] MEDS: inSUlin ASPART 1 UNIT/0.01 ML (PER UNIT) SC SCH ×4 (04:58→20:53)
[2023-07-09] MEDS: MAGNESIUM 1 GM/100 ML IVPB 100 ML IV SCH ×2 (05:03→05:04)
--- NOTE | 2023-07-09 05:32 | History & Physical-Hospitalist ---
History of Present Illness HPI/Chief Complaint Chief complaint: Acute respiratory failure with left leg cellulitis HPI: This is a 37-year-old morbidly obese female with BMI of 63 who has had multiple sleep studies in the past but somehow has never been able to obtain a CPAP machine who presented to the [facility] in respiratory distress. The ER physician assessed her to have volume overload given Lasix but on further evaluation she was given IV fluid due to left leg cellulitis consistent with sepsis. It appears that she has chronic hypoxia and hypercapnia due to morbid obesity causing obstructive sleep apnea and obesity hypoventilation syndrome. Currently she is doing much better placed on IV antibiotics and will move to the fourth floor. Source: patient Exam Limitations: no limitations Date Seen 07/09/23 Time Seen by a Provider: 12:00 Attending Physician Erick Cruz MD PCP Admitting Physician: Meli Lynch DO Attending Physician: Meli Lynch DO Referring Physician Date of Admission Jul 08, 2023 at 18:54 Home Medications & Allergies Home Medications Reviewed patient Home Medication Reconciliation performed by pharmacy medication reconciliations automotive drivability technician and/or nursing. Patients Allergies have been reviewed. Allergies Allergies Coded Allergies No Known Drug Allergies (Suxnljvafd69/17/22) Past Hujkqie-Ntpkej-Bnaufo Hx Patient Social History Marrital Status: single Employed/Student: unemployed Tobacco Use?: Yes Tobacco type used: Cigarettes Smoking Status: Current Everyday Smoker Use of E-Cig and/or Vaping dev: No Substance use?: No Alcohol Use?: No Pt feels they are or have been: No Immunizations Up To Date Tetanus Booster (TDap): More Than 5 Years Seasonal Allergies Seasonal Allergies: No Current Status status: No Advance Directives: No Communicates: Verbally Primary Language: Russian Preferred Spoken Language: Russian Is interpretation needed?: No Past Medical History Surgeries: Section, Gallbladder, Orthopedic Sleep Apnea Currently Using CPAP: No Currently Using BIPAP: No Seizure Disorder Gall Bladder Disease Fractures ADD/ADHD Blood Disorders: No Family Medical History Hypertension 19 MOTHER Diabetes, Hypertension Review of Systems Constitutional: see HPI Respiratory: dyspnea on exertion Skin: rash Physical Exam Physical Exam Vital Signs Vital Signs - First Documented 07/08/23 07/08/23 12:45 13:05 Temp 39.6 Pulse 105 Resp 26 B/P (MAP) 179/107 (131) Pulse Ox 94 O2 Delivery OxyMask O2 Flow Rate 3.00 Capillary Refill : Less Than 3 Seconds Height, Weight, BMI Height: 5'1.00" Weight: 365lbs. 0.0oz. 165.558657ar; 63.34 BMI Method:Stated General Appearance: No Apparent Distress, Chronically ill, Obese Eyes: Right Eye Normal Inspection, Right Eye PERRL HEENT: PERRL/EOMI, Normal ENT Inspection, Pharynx Normal, Moist Mucous Membranes Neck: Full Range of Motion, Normal Inspection, Non Tender Respiratory: Chest Non Tender, Lungs Clear, Normal Breath Sounds, No Accessory Muscle Use, No Respiratory Distress Cardiovascular: Regular Rate, Rhythm, No Edema, No Gallop, No JVD, No Murmur, Normal Peripheral Pulses Gastrointestinal: Normal Bowel Sounds, No Organomegaly, No Pulsatile Mass, Non Tender, Soft Back: Normal Inspection, No CVA Tenderness, No Vertebral Tenderness Extremity: Normal Capillary Refill, Normal Inspection, Normal Range of Motion, Non Tender, No Calf Tenderness, No Pedal Edema, Swelling (Left leg with erythema) Neurologic/Psychiatric: Alert, Oriented x3, No Motor/Sensory Deficits, Normal Mood/Affect Skin: Normal Color, Warm/Dry, Rash (Left leg erythema) Lymphatic: No Adenopathy Results Results/Procedures Labs Laboratory Tests 07/08/23 12:45 07/09/23 03:11 Patient resulted labs reviewed. Assessment/Plan Admission Diagnosis Assessment: Sepsis Left leg cellulitis Acute respiratory distress Chronic obesity hypoventilation syndrome Super morbid obesity with BMI of 63 Plan: Moved to fourth floor IV antibiotics Hep-Lock IV fluid Ambulate Admission Status: Observation Clinical Quality Measures Smoking Cessation Counseling: Counseling-Symptomatic: 3-10 Minutes MELI LYNCH DO Jul 09, 2023 05:32
[2023-07-09] MEDS ORDERED: POTASSIUM CL 10MEQ/50ML IVPB 50 ML IV SCH (06:00)
[2023-07-09] MEDS ORDERED: MAGNESIUM 1 GM/100 ML IVPB 100 ML IV SCH (06:00)
[2023-07-09] MEDS ORDERED: POTASSIUM CHLORIDE 20 MEQ TABLET PO SCH (06:00)
[2023-07-09] MEDS: ENOXAPARIN 60 MG/0.6 ML SYRINGE SC SCH ×2 (08:30→20:50)
[2023-07-09] MEDS: VANCOMYCIN 1250 MG/NS 250 ML PREMIX IV SCH ×2 (08:30→20:50)
[2023-07-09] MEDS: DOCUSATE SODIUM 100 MG CAPSULE PO SCH ×2 (08:31→20:51)
[2023-07-09] MEDS ORDERED: POTASSIUM CHLORIDE 20 MEQ TABLET PO ONE (09:00)
--- NOTE | 2023-07-09 10:15 | Tele-ICU Progress Note ---
Subjective Date Seen by a Provider: Jul 09, 2023 Time Seen by a Provider: 10:14 Subjective/Events-last exam (Tele-ICU Physician , Progress Note ) Service provided via interactive audio and video telecommunications E-CARE system to a patient admitted to ICU bed in [facility]. Patient is seen today due to persistent need of ICU care Available chart/ vitals / labs / Images reviewed Video assessment done using teleICU camera, rest of exam as per RN Discussed with RN Events overnight : Afebrile hemodynamically stable Respiratory - 4l I/O =+ Drips: ns Pressors- no Hospital course: UTI / possible cellulitis - continue vanco, cefepime - cultures pending - presumed delirium. Currently sleeping. Reassess when awake. Reported to be confused and uncooperative in ED. Tox negative. - AAO now ( ? TME RLE edema - NO DVT on US , no PE on CTA - change to proph dose Hypoxia - suspected pulm edema - stop IVF OSMAN - cont cpap Lines : periph , (Central Line Necessity Reviewed) Rowley:void OG: Nutrition: Analgesia: Anxiety/ delirium VTE Prophylaxis: max 60 bid Stress Ulcer Prophylaxis: Plans in collaboration with bedside consultants and IM MDs. Discussed with RN to reach out if any questions or concerns Case and care daily discussed on multidisciplinary rounds ( RN, PharmD, Spa Consultant , Respiratory Therapy, coal chute worker ) A total of 20 minutes of critical care time was devoted to this patient today, required to treat and/or prevent further deterioration of critical care condition ( as above ) . I am remotely monitoring this patient from another state. I am unable to do the bedside exam, and history/physical and pertinent information is taken from other notes in the computer and bedside staff. Sepsis Event Evaluation Height, Weight, BMI Height: 5'1.00" Weight: 365lbs. 0.0oz. 165.165197iw; 63.34 BMI Method:Stated Focused Exam Lactate Level 07/08/23 12:45: Lactic Acid Level 2.31*H 07/08/23 17:34: Lactic Acid Level 1.84 Exam Exam Patient acknowledged, consented, and participated in this virtual visit which was conducted using real time audio/video Vital Signs Date Time Temp Pulse Resp B/P (MAP) Pulse Ox O2 Delivery O2 Flow Rate FiO2 07/09/23 09:00 72 20 141/82 (101) 97 OxyMask 4.00 07/09/23 08:13 35.9 07/09/23 08:00 66 21 135/78 (97) 96 OxyMask 4.00 07/09/23 08:00 97 OxyMask 4.00 07/09/23 07:12 74 07/09/23 07:00 80 23 127/60 (82) 96 OxyMask 4.00 07/09/23 06:00 68 26 116/67 (83) 95 OxyMask 4.00 07/09/23 05:00 58 23 133/70 (92) 94 OxyMask 4.00 07/09/23 04:00 97 OxyMask 4.00 07/09/23 04:00 75 24 131/65 (88) 99 OxyMask 4.00 07/09/23 03:00 87 28 126/68 (81) 95 OxyMask 4.00 07/09/23 02:00 68 26 131/72 (95) 95 OxyMask 4.00 07/09/23 01:00 80 07/09/23 01:00 80 26 129/77 (94) 95 OxyMask 4.00 07/09/23 00:00 97 OxyMask 4.00 07/09/23 00:00 36.5 07/09/23 00:00 84 16 131/68 (89) 94 OxyMask 4.00 07/08/23 23:00 85 31 130/72 (91) 95 OxyMask 4.00 07/08/23 22:00 92 125/70 (84) 96 OxyMask 4.00 07/08/23 21:00 86 24 128/72 (89) 96 OxyMask 4.00 07/08/23 20:45 84 132/65 (90) 96 OxyMask 4.00 07/08/23 20:30 88 114/61 (82) 96 OxyMask 4.00 07/08/23 20:16 86 16 120/59 (76) 98 OxyMask 4.00 07/08/23 20:09 94 OxyMask 3.00 07/08/23 20:00 98 OxyMask 4.00 07/08/23 20:00 36.7 07/08/23 19:30 96 07/08/23 19:21 36.5 94 95 07/08/23 19:15 95 07/08/23 19:00 91 07/08/23 19:00 37.0 87 16 141/77 (98) 94 OxyMask 4.00 07/08/23 17:33 36.5 94 16 151/91 95 Nasal Cannula 3.00 3.00 07/08/23 13:05 39.6 105 26 179/107 (131) 90 Room Air 07/08/23 12:45 94 OxyMask 3.00 I & O 07/09/23 07:00 Intake Total 1600 ml Balance 1600 ml Height & Weight Height: 5'1.00" Weight: 365lbs. 0.0oz. 165.787135kt; 63.34 BMI Method:Stated General Appearance: Anxious, Mild Distress, Obese HEENT: Normal ENT Inspection Neck: Full Range of Motion Respiratory: Chest Non Tender, Lungs Clear, Normal Breath Sounds, No Accessory Muscle Use Cardiovascular: Regular Rate, Rhythm Capillary Refill: Less Than 3 Seconds Extremity: Normal Range of Motion, Calf Tenderness (Bilateral pitting pedal edema with erythema of the right lower extremity, which is also tender to palpation. Homans' sign positive on the right with bilateral calf tenderness present.), Pedal Edema, Swelling (Right lower extremity shows erythema, induration, warmth to touch, tenderness, pitting edema extending from below the knee to the dorsum of the foot.) Neurologic/Psychiatric: Alert, Oriented x3, No Motor/Sensory Deficits Skin: Normal Color Results Lab Laboratory Tests 07/08/23 12:45 07/09/23 03:11 Assessment/Plan Assessment/Plan 1 CHARLI RALPH MD Jul 09, 2023 10:15
[2023-07-09 14:29] VITALS: BP 152/88
[2023-07-09 15:48] VITALS: BP 113/60
--- NOTE | 2023-07-09 18:25 | Consultation-Cardiology ---
HPI-Cardiology Cardiology Consultation: Date of Consultation 07/09/23 Time Seen by a Provider: 18:00 Date of Admission Attending Physician Erick Cruz MD Admitting Physician Admitting Physician: Meli Lynch DO Attending Physician: Meli Lynch DO Consulting Physician ERIN MOFFETT MD, MA, FACP, FACC, [facility] Physician requesting consult: Dr Lynch HPI: Chief Complaint: Reason for Card consult: Shortness of breath 37 yo woman admitted on 07/08/[address] Lynch's service with shortness of breath and confusion and lethargy. States has OSMAN but has not been using her CPAP for several days. Denies cp or palp or syncope. Has chronic, bilat leg swelling. Is trying to quit smoking because needs to be off it for 3 months before she can be approved for bariatric surgery, she says. Review of Systems-Cardiology Review of Systems Constitutional: tiredness; No weight loss, No weight gain Eyes: No photophobia, No vision change Ears/Nose/Throat: No ear discharge, No nasal drainage, No recent hearing loss Respiratory: As described under HPI Cardiovascular: As described under HPI Gastrointestinal: No diarrhea, No nausea, No vomiting Genitourinary: No dysuria, No hematuria, No urine frequency changes Musculoskeletal: No back pain, No joint pain Skin: No rash, No ulcerations Psychiatric/Neurological: As described under HPI; No seizure, No focal weakness, No syncope Hematologic: No bleeding abnormalities MTC-Vofrow-Mhixds Hx Patient Social History Marrital Status: single Employed/Student: unemployed Smoking Status: Current Everyday Smoker Alcohol Use?: No Pt feels they are or have been: No Tobacco type used: Cigarettes Past Medical History PMH As described under Assessment. Family Medical History Family Medical History: She does not report fam h/o early CAD or SCD Family History: Hypertension 19 MOTHER Allergies and Home Medications Allergies Coded Allergies: No Known Drug Allergies (Unverified , 10/17/22) Patient Home Medication List Home Medication List Reviewed: Yes No Active Prescriptions or Reported Meds Physical Exam-Cardiology Physical Exam Vital Signs/I&O 07/09/23 07/09/23 07/09/23 07/09/23 07:00 07:12 08:00 08:00 Pulse 80 74 66 Resp 23 21 B/P (MAP) 127/60 (82) 135/78 (97) Pulse Ox 96 97 96 O2 Delivery OxyMask OxyMask OxyMask O2 Flow Rate 4.00 4.00 4.00 07/09/23 07/09/23 07/09/23 07/09/23 08:13 09:00 10:00 11:00 Temp 35.9 Pulse 72 80 74 Resp 20 17 33 B/P (MAP) 141/82 (101) 123/85 (98) 133/81 (98) Pulse Ox 97 94 91 O2 Delivery OxyMask OxyMask OxyMask O2 Flow Rate 4.00 4.00 4.00 07/09/23 07/09/23 07/09/23 07/09/23 11:44 11:57 12:00 12:04 Temp 35.9 Pulse 69 Resp 14 B/P (MAP) 136/111 (119) Pulse Ox 95 O2 Delivery Nasal Cannula Room Air Room Air O2 Flow Rate 1.00 07/09/23 07/09/23 07/09/23 13:09 14:29 15:48 Temp 36.8 36.6 Pulse 69 72 74 Resp 20 19 B/P (MAP) 152/88 (109) 113/60 (77) Pulse Ox 97 95 O2 Delivery Room Air Room Air 07/09/23 00:00 Intake Total 1300 ml Balance 1300 ml Capillary Refill : Less Than 3 Seconds Constitutional: AAO x 3, well-developed, well-nourished, other (morbid obesity) HEENT: PERRL, other (edentulous jaws), EOMI Neck: carotid pulses are 2 + bilaterally, with good upstrokes Respiratory: No accessory muscle use; chest expansion is symmetric, chest is bilaterally symmetric, other (diminished air entry at the bases) Cardiovascular: regular rate-rhythm, S1 and S2, systolic murmur (soft LAVELLE at card base) Gastrointestinal: No tender; soft, audible bowel sounds Extremities: swelling (3+ edema bilaterally); No clubbing, No cyanosis Neurologic/Psychiatric: oriented x 3, grossly intact (moves all limbs) Skin: normal color, warm/dry; No cyanosis, No cool, No diaphoresis, No rash on exposed areas, No ulcerations on exposed areas Data Review Labs Laboratory Tests 07/08/23 20:41: Glucometer 204H 07/09/23 02:25: Blood Gas Puncture Site LR, Blood Gas Patient Temperature 36.6, Arterial Blood pH 7.40, Arterial Blood Partial Pressure CO2 44, Arterial Blood Partial Pressure O2 73L, Arterial Blood HCO3 27, Arterial Blood Total CO2 28.2, Arterial Blood Oxygen Saturation 97, Arterial Blood Base Excess 2.3, Jalen Test YES-POS, Blood Gas Ventilator Setting NO, Blood Gas Inspired Oxygen 4L 07/09/23 03:11: White Blood Count 20.2H, Red Blood Count 4.24, Hemoglobin 13.0, Hematocrit 39, Mean Corpuscular Volume 92, Mean Corpuscular Hemoglobin 31, Mean Corpuscular Hemoglobin Concent 33, Red Cell Distribution Width 12.8, Platelet Count 204, Mean Platelet Volume 9.7, Immature Granulocyte % (Auto) 1, Neutrophils (%) (Auto) 90H, Lymphocytes (%) (Auto) 5L, Monocytes (%) (Auto) 3, Eosinophils (%) (Auto) 1, Basophils (%) (Auto) 0, Neutrophils # (Auto) 18.2H, Lymphocytes # (Auto) 1.0, Monocytes # (Auto) 0.5, Eosinophils # (Auto) 0.2, Basophils # (Auto) 0.0, Immature Granulocyte # (Auto) 0.2H, Sodium Level 135, Potassium Level 3.8, Chloride Level 103, Carbon Dioxide Level 22, Anion Gap 10, Blood Urea Nitrogen 11, Creatinine 0.77, Estimat Glomerular Filtration Rate 102, BUN/Creatinine Ratio 14, Glucose Level 168H, Calcium Level 9.0, Corrected Calcium 9.4, Phosphorus Level 2.8, Magnesium Level 1.8, Total Bilirubin 0.7, Aspartate Amino Transf (AST/SGOT) 38H, Alanine Aminotransferase (ALT/SGPT) 48, Alkaline Phosphatase 75, Total Protein 7.1, Albumin 3.5 07/09/23 11:07: Glucometer 217H 07/09/23 15:35: Glucometer 176H Microbiology 07/08/23 MRSA Screen - Final, Complete MRSA not isolated 07/08/23 Blood Culture - Preliminary, Resulted No growth Laboratory Tests 07/08/23 12:45 07/09/23 03:11 A/P-Cardiology Assessment/Admission Diagnosis Type II resp failure due to obesity hypoventilation syndrome - echo on 07/09/23: LVEF 50%, mild conc LVH, mild enlargement of LA, PASP 40-45 mmHg Non-compliance with CPAP Morbid obesity Chronic smoker of cigarettes Discussion and Recomendations * Advised to quit smoking * Advised to be compliant with CPAP * Advised effort at wgt loss * We recommend monitoring labs and maintaining acid-base and electrolyte balance (Dr Lynch managing) Clinical Quality Measures Smoking Cessation Counseling: Counseling-Symptomatic: 3-10 Minutes ERIN MOFFETT MD FACP FAC CCDS Jul 09, 2023 18:25
[2023-07-09] MEDS ORDERED: VANCOMYCIN INJECTION 2,000 MG in NS IV 500 ML 500 ML IV ONE (18:26)
[2023-07-09 19:45] VITALS: BP 134/85
[2023-07-09 23:24] VITALS: BP 125/75
[2023-07-10] MEDS: CEFEPIME 1,000 MG/NS 50 ML IVPB IV SCH ×4 (02:12→08:54)
[2023-07-10 03:32] VITALS: BP 134/86
[2023-07-10] MEDS: inSUlin ASPART 1 UNIT/0.01 ML (PER UNIT) SC SCH ×2 (05:05→11:36)
[2023-07-10 05:33] LABS: BASOPHILS % (AUTO) 0 % (0-10); EOSINOPHILS % (AUTO) 0 % (0-10); HEMATOCRIT 38 % (35-52); HEMOGLOBIN 12.5 g/dL (11.5-16.0); LYMPHOCYTES # (AUTO) 2.3 10^3/uL (1.0-4.0); LYMPHOCYTES % (AUTO) 15 % (12-44); MEAN CORPUSCULAR HEMOGLOBIN 31 pg (25-34); MEAN CORPUSCULAR HGB CONC 33 g/dL (32-36); MEAN CORPUSCULAR VOLUME 94 fL (80-99); MEAN PLATELET VOLUME 10.2 fL (9.0-12.2); MONOCYTES % (AUTO) 6 % (0-12); NEUTROPHILS # (AUTO) 12.2 10^3/uL (1.8-7.8); NEUTROPHILS % (AUTO) 78 % (42-75); PLATELET COUNT 218 10^3/uL (130-400); WHITE BLOOD COUNT 15.6 10^3/uL (4.3-11.0)
--- NOTE | 2023-07-10 05:50 | Progress Note - Hospitalist ---
Subjective HPI/CC On Admission Date Seen by Provider: Jul 10, 2023 Time Seen by Provider: 11:00 Chief complaint: Acute respiratory failure with left leg cellulitis HPI: This is a 37-year-old morbidly obese female with BMI of 63 who has had multiple sleep studies in the past but somehow has never been able to obtain a CPAP machine who presented to the [facility] ER in respiratory distress. The ER physician assessed her to have volume overload given Lasix but on further evaluation she was given IV fluid due to left leg cellulitis consistent with sepsis. It appears that she has chronic hypoxia and hypercapnia due to morbid obesity causing obstructive sleep apnea and obesity hypoventilation syndrome. Currently she is doing much better placed on IV antibiotics and will move to the fourth floor. Focused Exam Lactate Level 07/08/23 12:45: Lactic Acid Level 2.31*H 07/08/23 17:34: Lactic Acid Level 1.84 Objective Exam Vital Signs Vital Signs Date Time Temp Pulse Resp B/P (MAP) Pulse Ox O2 Delivery O2 Flow Rate FiO2 07/10/23 11:21 36.3 65 18 124/79 (94) 96 Room Air 07/09/23 11:44 1.00 Capillary Refill : Less Than 3 Seconds Results/Procedures Lab Laboratory Tests 07/10/23 05:10 Patient resulted labs reviewed. Clinical Quality Measures Smoking Cessation Counseling: Counseling-Symptomatic: 3-10 Minutes JASVIR LERNER DO Jul 10, 2023 05:50
[2023-07-10 05:59] LABS: ALBUMIN 3.5 GM/DL (3.2-4.5); BILIRUBIN,TOTAL 0.4 MG/DL (0.1-1.0); CALCIUM 9.1 MG/DL (8.5-10.1); CREATININE SERUM 0.79 MG/DL (0.60-1.30); MAGNESIUM 2.1 MG/DL (1.6-2.4); POTASSIUM 4.4 MMOL/L (3.6-5.0)
[2023-07-10 07:29] VITALS: BP 130/71
[2023-07-10] MEDS: VANCOMYCIN 1250 MG/NS 250 ML PREMIX IV SCH (08:54)
[2023-07-10] MEDS: ENOXAPARIN 60 MG/0.6 ML SYRINGE SC SCH (08:55)
[2023-07-10] MEDS: DOCUSATE SODIUM 100 MG CAPSULE PO SCH (08:55)
[2023-07-10 11:21] VITALS: BP 124/79
[2023-07-10] MEDS ORDERED: AMOX1TAB12 PO (11:54)
--- NOTE | 2023-07-10 11:55 | Discharge Summary ---
Discharge Summary Hospital Course Was the Problem List Reviewed?: Yes Problems/Dx: (1) Sepsis Status: Acute Qualifiers: Qualified Codes: A41.9 - Sepsis, unspecified organism (2) Pulmonary edema with congestive heart failure Status: Acute (3) Cellulitis of right lower extremity Status: Acute Hospital Course Date of Admission: Jul 08, 2023 at 18:54 Admission Diagnosis : Family Physician/Provider: Erick Cruz MD Date of Discharge: 07/10/23 Discharge Diagnosis: [ ] Hospital Course: Short hospital course after she was admitted for acute shortness of breath likely due to untreated sleep apnea and super morbid obesity and sepsis from right lower extremity cellulitis given IV antibiotics much improved status rapidly and she was deemed stable for discharge. Labs and Pending Lab Test: Laboratory Tests 07/09/23 15:35: Glucometer 176H 07/09/23 20:52: Glucometer 138H 07/10/23 05:04: Glucometer 132H 07/10/23 05:10: White Blood Count 15.6H, Red Blood Count 4.00, Hemoglobin 12.5, Hematocrit 38, Mean Corpuscular Volume 94, Mean Corpuscular Hemoglobin 31, Mean Corpuscular Hemoglobin Concent 33, Red Cell Distribution Width 13.1, Platelet Count 218, Mean Platelet Volume 10.2, Immature Granulocyte % (Auto) 1, Neutrophils (%) (Auto) 78H, Lymphocytes (%) (Auto) 15, Monocytes (%) (Auto) 6, Eosinophils (%) (Auto) 0, Basophils (%) (Auto) 0, Neutrophils # (Auto) 12.2H, Lymphocytes # (Auto) 2.3, Monocytes # (Auto) 1.0, Eosinophils # (Auto) 0.0, Basophils # (Auto) 0.0, Immature Granulocyte # (Auto) 0.1, Sodium Level 138, Potassium Level 4.4, Chloride Level 105, Carbon Dioxide Level 25, Anion Gap 8, Blood Urea Nitrogen 14, Creatinine 0.79, Estimat Glomerular Filtration Rate 99, BUN/Creatinine Ratio 18, Glucose Level 132H, Calcium Level 9.1, Corrected Calcium 9.5, Magnesium Level 2.1, Total Bilirubin 0.4, Aspartate Amino Transf (AST/SGOT) 34, Alanine Aminotransferase (ALT/SGPT) 50, Alkaline Phosphatase 77, Total Protein 7.0, Alb umin 3.5 07/10/23 10:52: Glucometer 130H Microbiology 07/08/23 MRSA Screen - Final, Complete MRSA not isolated 07/08/23 Blood Culture - Preliminary, Resulted No growth Home Meds Active Amox Tr-K Clv 875-125 mg Tab (Amoxicillin/Potassium Clav) 875 Mg-125 Mg Tablet 1 Each PO BID Assessment/Pt Instructions PCP 1 week Discharge Planning: <30 minutes discharge planning Discharge Instructions Discharge Diet: No Restrictions Discharge Physical Examination Vital Signs Vital Signs Date Time Temp Pulse Resp B/P (MAP) Pulse Ox O2 Delivery O2 Flow Rate FiO2 07/10/23 11:21 36.3 65 18 124/79 (94) 96 Room Air 07/09/23 11:44 1.00 General Appearance: No Apparent Distress, WD/WN Skin: Rash (improved right leg cellulitis) Allergies: Coded Allergies: No Known Drug Allergies (Unverified , 10/17/22) Discharge Summary Date of Admission Jul 08, 2023 at 18:54 Date of Discharge Discharge Date: Jul 10, 2023 Admission Diagnosis Assessment: Sepsis Left leg cellulitis Acute respiratory distress Chronic obesity hypoventilation syndrome Super morbid obesity with BMI of 63 Plan: Moved to fourth floor IV antibiotics Hep-Lock IV fluid Ambulate Clinical Quality Measures Smoking Cessation Counseling: Counseling-Symptomatic: 3-10 Minutes JASVIR LERNER DO Jul 10, 2023 11:55
[2023-07-10] MEDS ORDERED: AMOXICILLIN/Clavulanate 875 MG TABLET PO SCH (12:00)
--- NOTE | 2023-07-10 12:41 | Progress Note - Cardiology ---
Cardiology SOAP Progress Note Subjective: Shortness of breath as before Leg swelling as before No cp or palp or syncope No n/v/d Gen weakness No focal weakness Objective: I&O/Vital Signs 07/10/23 07/10/23 07/10/23 07/10/23 01:00 01:09 03:32 07:07 Temp 36.1 36.3 Pulse 65 70 78 Resp 16 B/P (MAP) 134/86 (102) Pulse Ox 96 O2 Delivery Room Air 07/10/23 07/10/23 07/10/23 07/10/23 07:29 08:31 11:21 12:12 Temp 36.1 36.3 Pulse 61 65 66 Resp 19 18 B/P (MAP) 130/71 (90) 124/79 (94) Pulse Ox 95 95 96 O2 Delivery Room Air Room Air Room Air 07/10/23 00:00 Intake Total 1550 ml Balance 1550 ml Weight (Pounds): 365 Weight (Ounces): 0.0 Weight (Calculated Kilograms): 165.093091 Constitutional: AAO x 3, well-developed, well-nourished, other (morbid obesity) Respiratory: No accessory muscle use; chest expansion is symmetric, chest is bilaterally symmetric, other (diminished air entry at the bases) Cardiovascular: regular rate-rhythm, S1 and S2, systolic murmur (soft LAVELLE at card base) Gastrointestional: No tender; soft, audible bowel sounds Extremities: swelling (3+ edema bilaterally); No clubbing, No cyanosis Neurologic/Psychiatric: oriented x 3, other (moves all limbs) Skin: normal color, warm/dry; No cyanosis, No cool, No diaphoresis, No rash on exposed areas, No ulcerations on exposed areas Results/Procedures: Labs Laboratory Tests 07/09/23 15:35: Glucometer 176H 07/09/23 20:52: Glucometer 138H 07/10/23 05:04: Glucometer 132H 07/10/23 05:10: White Blood Count 15.6H, Red Blood Count 4.00, Hemoglobin 12.5, Hematocrit 38, Mean Corpuscular Volume 94, Mean Corpuscular Hemoglobin 31, Mean Corpuscular Hemoglobin Concent 33, Red Cell Distribution Width 13.1, Platelet Count 218, Mean Platelet Volume 10.2, Immature Granulocyte % (Auto) 1, Neutrophils (%) (Auto) 78H, Lymphocytes (%) (Auto) 15, Monocytes (%) (Auto) 6, Eosinophils (%) (Auto) 0, Basophils (%) (Auto) 0, Neutrophils # (Auto) 12.2H, Lymphocytes # (Auto) 2.3, Monocytes # (Auto) 1.0, Eosinophils # (Auto) 0.0, Basophils # (Auto) 0.0, Immature Granulocyte # (Auto) 0.1, Sodium Level 138, Potassium Level 4.4, Chloride Level 105, Carbon Dioxide Level 25, Anion Gap 8, Blood Urea Nitrogen 14, Creatinine 0.79, Estimat Glomerular Filtration Rate 99, BUN/Creatinine Ratio 18, Glucose Level 132H, Calcium Level 9.1, Corrected Calcium 9.5, Magnesium Level 2.1, Total Bilirubin 0.4, Aspartate Amino Transf (AST/SGOT) 34, Alanine Aminotransferase (ALT/SGPT) 50, Alkaline Phosphatase 77, Total Protein 7.0, Albumin 3.5 07/10/23 10:52: Glucometer 130H Microbiology 07/08/23 MRSA Screen - Final, Complete MRSA not isolated 07/08/23 Blood Culture - Preliminary, Resulted No growth Laboratory Tests 07/08/23 12:45 07/09/23 03:11 07/10/23 05:10 A/P: Assessment: Type II resp failure due to obesity hypoventilation syndrome - echo on 07/09/23: LVEF 50%, mild conc LVH, mild enlargement of LA, PASP 40-45 mmHg Non-compliance with CPAP Morbid obesity Chronic smoker of cigarettes Plan: * Advised to quit smoking * Advised to be compliant with CPAP * Advised effort at wgt loss * We recommend monitoring labs and maintaining acid-base and electrolyte balance (Dr Lynch managing) Clinical Quality Measures Smoking Cessation Counseling: Counseling-Symptomatic: 3-10 Minutes ERIN MOFFETT MD [facility] CCDS Jul 10, 2023 12:41
[2023-07-10 14:17] VITALS: BP 124/79
[2023-07-10] MEDS ORDERED: CEFEPIME 1,000 MG/NS 50 ML IVPB IV SCH ×2 (17:00)
== END 2023-07-10 14:16 | disposition home or self-care (01) | DRG 871 ==
LOC: EDUNIT# 12:33 → ER FS 12:34 → ICU 18:54 → 4TH 07-09 13:33
PROVIDERS: ADMIT Internal Medicine; ATTEND Internal Medicine
DX: A41.9 Sepsis, unspecified organism (principal); J96.91 Respiratory failure, unspecified with hypoxia; J96.92 Respiratory failure, unspecified with hypercapnia; Z68.44 Body mass index [BMI] 60.0-69.9, adult; N30.01 Acute cystitis with hematuria; L03.115 Cellulitis of right lower limb; E66.2 Morbid (severe) obesity with alveolar hypoventilation; F17.200 Nicotine dependence, unspecified, uncomplicated; I50.9 Heart failure, unspecified; G40.909 Epilepsy, unspecified, not intractable, without status epilepticus; F90.9 Attention-deficit hyperactivity disorder, unspecified type; F17.210 Nicotine dependence, cigarettes, uncomplicated; Z20.822 Contact with and (suspected) exposure to COVID-19; Z91.199 Patient's noncompliance with other medical treatment and regimen due to unspecified reason
CPT/HCPCS: 36415; 36600; 71045; 71275; 80053; 80306; 81000; 82805; 82947; 83605; 83735; 83880; 84100; 84484; 84703; 85007; 85025; 85027; 85379; 85610; 85730; 87040; 87077; 87081; 87088; 87636; 93005; 93306; 93970; 94640; 94664; 94760